=== PATIENT | female | born 1975 | race Caucasian/White ===

== ENCOUNTER 2020-11-07 20:02 | Emergency (ER) | payer OTHER, SELFPAY ==
--- NOTE | ~2020-11-07 | CT_ITS ---
EXAMINATION: CT abdomen pelvis wo con DATE: 11/07/2020 21:13 INDICATION: Right flank pain TECHNIQUE: Computed tomography (CT) of the abdomen and pelvis was performed without intravenous contr ast. The dose-length product (DLP) was 976.90 mGy-cm. Automated exposure control and iterative recons truction technique were employed. COMPARISON: 02/26/2019 FINDINGS: Minimal dependent atelectasis is present in the lung bases. The heart size is normal. The g allbladder is surgically absent. The liver, spleen, pancreas, and adrenal glands are normal. There is mild fat stranding surrounding the left kidney and left renal pelvis as well as the left ureter. Cally gical changes are noted at the lateral aspect of the left kidney. No stones are identified in the kid neys, ureters, or bladder. There is no hydronephrosis or hydroureter. No pathologically enlarged abdo berta or pelvic lymph nodes are identified. There is no free intraperitoneal gas or evidence of bowel obstruction. Colonic diverticulosis is present without evidence of diverticulitis. There is moderate lumbar spondylosis. A tiny fat-containing umbilical hernia is noted. IMPRESSION: 1. Fat stranding surrounding the left kidney and left ureter which may reflect urinary tract infectio n and pyelonephritis and/or recent passage of stone. Reviewed, dictated and finalized at location A. LLE PROOFREADER IMPRESSION: 1. Fat stranding surrounding the left kidney and left ureter which may reflect urinary tract infection and pyelonephritis and/or recent passage of stone.
[2020-11-07 20:03] VITALS: BP 113/96; PULSE 117; RESP 18; TEMP 36.3; O2SAT 92
[2020-11-07 20:18] VITALS: BP 128/94; PULSE 111; RESP 24; O2SAT 93
[2020-11-07 20:53] LABS: Basophils Absolute Auto 0.1 K/mm3 (0.0-0.1); Basophils Percent Auto 0.7 % (0.2-1.2); Eosinophils Absolute Auto 0.3 K/mm3 (0-0.3); Eosinophils Percent Auto 3.4 % (0-4.4); Hematocrit 40.7 % (37.0-47.0); Hemoglobin 13.8 g/dL (12.0-15.0); Immature Granulocyte Absolute 0.04 K/mm3 (0.00-0.031); Immature Granulocyte Percent A 0.4 % (0-0.5); Lymphocytes Absolute Auto 1.82 K/mm3 (0.9-3.2); Lymphocytes Percent Auto 18.3 % (18.3-44.2); Mean Corpuscular HGB Conc 33.9 g/dl (32-36); Mean Corpuscular Hemoglobin 30.7 pg (26-34); Mean Corpuscular Volume 90.6 fl (80-100); Mean Platelet Volume 10.5 fl (7.4-10.4); Monocytes Absolute Auto 1.2 K/mm3 (0.1-0.6); Monocytes Percent Auto 11.8 % (2.6-8.5); Neutrophils Absolute Auto 6.5 K/mm3 (1.3-6.7); Neutrophils Percent Auto 65.4 % (45.5-73.1); Platelet Count Result 296 k/mm3 (150-375); Red Blood Count 4.49 M/mm3 (4.2-5.4); Red Cell Distribution Width 13.3 % (11.5-14.5)
[2020-11-07] MEDS: SODIUM CHLORIDE 0.9% IV 1,000 ML 999 ML IV CONT (20:54)
[2020-11-07] MEDS: MORPHINE SULFATE (*CRX) 4 MG/ML INJ IV PUSH (20:54)
[2020-11-07] MEDS: ONDANSETRON INJ 4 MG/2 ML VIAL IV PUSH (20:54)
[2020-11-07 21:06] LABS: Alanine Aminotransferase 29 U/L (4-35); Albumin Level 4.1 g/dL (3.5-5.1); Alkaline Phosphatase 101 U/L (38-126); Anion Gap 13 mmol/L (8-16); Aspartate Amino Transferase 22 U/L (14-36); Bilirubin,Total 0.8 mg/dL (0.2-1.3); Blood Urea Nitrogen 15 mg/dL (7-17); Calcium 9.7 mg/dL (8.4-10.2); Carbon Dioxide 28 mmol/L (22-30); Chloride 99 mmol/L (98-107); Estimated Glomerular Filt Rate > 60; Glucose 242 mg/dL (65-105); Lipase 82 U/L (23-300); Potassium 3.2 mmol/L (3.4-5.0); Sodium 140 mmol/L (137-145)
[2020-11-07 21:53] LABS: Add Urine Microscopic? YES; Appearance Urine Clear (Clear); Bacteria Urine Trace /hpf; Bilirubin Urine Negative (Negative); Blood Urine 2+ (Negative); Budding Yeast Urine Present /hpf; Color Urine Amber (Yellow); Glucose Urine UA 3+ mg/dL (Negative); Ketones Urine Negative (Negative); Leukocyte Esterase Ur 2+ LEU/UL (Negative); Nitrate Urine Positive (Negative); Protein Urine 1+ mg/dL (Negative); RBC Urine 51-75 /hpf (0-2); Specific Grav Ur 1.024 (1.001-1.035); Squamous Epithelial Cell Urine Few /hpf (Few); Transitional Epi Cells Urine Rare /hpf (None Seen); WBC Clumps Urine Present /HPF; WBC Urine >75 /hpf
[2020-11-07 22:15] VITALS: BP 136/87; PULSE 102; RESP 15; O2SAT 90
--- NOTE | 2020-11-07 22:17 | ED.GENADULT ---
HPI - General Adult General Chief complaint: Urogenital-Female Stated complaint: possible kidney stone Time Seen by Provider: 11/07/20 20:08 History of Present Illness HPI narrative: Patient is a 44-year-old female who presents emerged from with chief complaint of right flank pain. Patient states over the last several days she has had pain in the right flank and is also noticed that she had burning with urination. Patient states several bit of nausea states that it is aching states is not improved by anything. The patient reports she has prior history of kidney stones states this feels similar to when she had a stone before in the past Related Data Allergies Allergy/AdvReac Type Severity Reaction Status Date / Time No Known Allergies Allergy Unverified 03/16/19 07:56 Review of Systems Review of Systems: Narrative: A 10 system review of systems was completed on the patient and is negative except for what is stated in the HPI. Nursing and ancillary documentation was reviewed. PMFSH Comments Patient has history of hypertension and diabetes Social history the patient denies smoking Exam Narrative: Exam Narrative: GENERAL: Well-appearing, well-nourished, and in no acute distress. HEAD: Normocephalic, atraumatic. EYES: PERRLA and EOMI. ENT: Nares clear, no rhinorrhea or epistaxis. Mucous membranes moist. NECK: Supple. CHEST: Clear to auscultation. No respiratory distress. HEART: Regular rate and rhythm. No murmur heard. Normal peripheral pulses. ABDOMEN: Soft, nontender, nondistended, normal active bowel sounds. EXTREMITIES: Normal range of motion. No edema. SKIN: Warm, dry, no rash. NEURO: No focal deficits. Alert and oriented x3. PSYCH: Normal mood and affect. Course Course Emergency Course: Patient CT scan showed evidence of pyelonephritis. Urinalysis also shows evidence of a acute urinary tract infection. There is no evidence of obstructing stone at this time. Vital Signs Vital signs: Vital Signs Temperature 36.3 C L 11/07/20 20:03 Pulse Rate 117 H 11/07/20 20:03 Respiratory Rate 18 11/07/20 20:03 Blood Pressure 113/96 H 11/07/20 20:03 Pulse Oximetry 92 11/07/20 20:03 Temperature 36.3 C L 11/07/20 20:03 Pulse Rate 102 H 11/07/20 22:15 Respiratory Rate 15 11/07/20 22:15 Blood Pressure 136/87 11/07/20 22:15 Pulse Oximetry 90 11/07/20 22:15 Medical Decision Making Vital Signs Vital Signs: Vital Signs Temperature 36.3 C L 11/07/20 20:03 Pulse Rate 117 H 11/07/20 20:03 Respiratory Rate 18 11/07/20 20:03 Blood Pressure 113/96 H 11/07/20 20:03 Pulse Oximetry 92 11/07/20 20:03 Temperature 36.3 C L 11/07/20 20:03 Pulse Rate 102 H 11/07/20 22:15 Respiratory Rate 15 11/07/20 22:15 Blood Pressure 136/87 11/07/20 22:15 Pulse Oximetry 90 11/07/20 22:15 Lab Data Result diagrams: 11/07/20 20:46 11/07/20 20:46 Labs: Lab Results 11/07/20 11/07/20 11/07/20 Range/Units 20:46 20:46 21:35 WBC 10.0 (4.5-10.0) K/mm3 RBC 4.49 (4.2-5.4) M/mm3 Hgb 13.8 (12.0-15.0) g/dL Hct 40.7 (37.0-47.0) % MCV 90.6 (80-100) fl MCH 30.7 (26-34) pg MCHC 33.9 (32-36) g/dl RDW 13.3 (11.5-14.5) % Plt Count 296 (150-375) k/mm3 MPV 10.5 H (7.4-10.4) fl Immature Gran % (Auto) 0.4 (0-0.5) % Neut % (Auto) 65.4 (45.5-73.1) % Lymph % (Auto) 18.3 (18.3-44.2) % [place] % (Auto) 11.8 H (2.6-8.5) % Eos % (Auto) 3.4 (0-4.4) % Baso % (Auto) 0.7 (0.2-1.2) % Lymph # (Auto) 1.82 (0.9-3.2) K/mm3 [place] # (Auto) 1.2 H (0.1-0.6) K/mm3 Eos # (Auto) 0.3 (0-0.3) K/mm3 Baso # (Auto) 0.1 (0.0-0.1) K/mm3 Abs Immat Gran (auto) 0.04 H (0.00-0.031) K/mm3 Absolute Neuts (auto) 6.5 (1.3-6.7) K/mm3 Absolute Nucleated RBC 0.0 (0.0-0.012) K/mm3 Nucleated RBC % 0.0 (0.0-0.2) % Sodium 140 (137-145) mmol/L Potassium 3.2 L (3.4-5.0) mmol/L Chlori
[2020-11-07] MEDS: KETOROLAC 30 MG/ML VIAL (*BKC) IV PUSH (22:43)
[2020-11-07 23:10] VITALS: BP 113/74; PULSE 100; RESP 12; O2SAT 92
== END 2020-11-07 23:10 | disposition home or self-care (01) ==
PROVIDERS: Emergency Provider Emergency Medicine; PCP Family Medicine
DX: N12 Tubulo-interstitial nephritis, not specified as acute or chronic (principal); N30.00 Acute cystitis without hematuria; Z87.442 Personal history of urinary calculi; I10 Essential (primary) hypertension; E11.9 Type 2 diabetes mellitus without complications
CPT/HCPCS: 36415; 74176; 80053; 81001; 81025; 83690; 85025; 87086; 87088; 87147; 96361; 96365; 96375; 99284; J0696; J1885; J2270; J2405; J7030

== ENCOUNTER 2020-11-13 10:16 | Inpatient (IN) | payer OTHER, SELFPAY ==
--- NOTE | ~2020-11-13 | US_ITS ---
US renal BI 11/15/2020 08:56 Procedure: Realtime transabdominal ultrasound of the kidneys and bladder. Indication: History of left renal cell carcinoma. Left pyelonephritis. Comparison: CT dated 11/13/2020 Findings: Renal echotexture is normal bilaterally without hydronephrosis, contour deforming mass or r enal calculus. The right kidney measures 12.1 cm and left kidney measures 11 cm. The posterior margin of the bladder appears echogenic with mild bladder wall thickening measuring 5.4 mm. There is fatty infiltration of the liver. Impression: 1: Mild bladder wall thickening with echogenic area in the posterior wall. Cannot exclude mass. Consi kelly correlation with cystoscopy. Reviewed, dictated and finalized at location A. OM CLOTHIER Impression: 1: Mild bladder wall thickening with echogenic area in the posterior wall. Omkar ot exclude mass. Consider correlation with cystoscopy.
--- NOTE | ~2020-11-13 | CT_ITS ---
EXAMINATION: CT abdomen pelvis wo con DATE: 11/13/2020 12:11 INDICATION: Hematuria TECHNIQUE: Computed tomography (CT) of the abdomen and pelvis was performed without intravenous contr ast. The dose-length product was 1503.27 mGy-cm. Automated exposure control and iterative reconstruct ion technique were employed. COMPARISON: CT dated 11/07/2020 FINDINGS: Lung bases are unremarkable. Dependent atelectasis. Heart size normal. No significant pleur al or pericardial effusion. Persistent left perinephric and proximal periureteral edema. Mild left hy dronephrosis. Apical changes present lateral aspect of the left kidney. No ureteral stones identified . There are cholecystectomy clips. The liver, spleen, pancreas, adrenal glands and right kidney are unremarkable. Mild lumbar spondylosi s. Colonic diverticulosis without diverticulitis. Nonobstructive bowel gas pattern. Tiny fat-containi ng umbilical hernia. IMPRESSION: 1. Persistent left perinephric and periureteral edema without obstructing stone. Findings suspicious for ascending urinary tract infection/pyelonephritis. Correlate clinically. Reviewed, dictated and finalized at location A. ING MACHINE OPERATOR IMPRESSION: 1. Persistent left perinephric and periureteral edema without obstructing stone . Findings suspicious for ascending urinary tract infection/pyelonephritis. Cor relate clinically.
[2020-11-13 10:39] VITALS: BP 124/90; PULSE 94; RESP 20; TEMP 36.9; O2SAT 95
--- NOTE | 2020-11-13 11:22 | ED.ABDPAIN ---
HPI - Abdominal Pain General Chief Complaint: Urogenital-Female Stated Complaint: hematuria, nausea Time Seen by Provider: 11/13/20 10:24 Source: patient, family and old records reviewed Mode of arrival: ambulatory Limitations: no limitations History of Present Illness HPI narrative: Patient is a 44-year-old female who presents to emergency department for evaluation of abdominal pain and hematuria was diagnosed with pyelonephritis on the first in the emergency department was placed on ciprofloxacin had no improvement with switch to amoxicillin by her urologist at [facility] no she continues to have nausea abdominal pain and no improvement despite these medications was also given a bladder spasm medication Related Data Allergies Allergy/AdvReac Type Severity Reaction Status Date / Time No Known Allergies Allergy Verified 11/13/20 10:46 Review of Systems Review of Systems: All systems reviewed & are unremarkable except as noted in HPI and below PMFSH Past Medical History Medical History (Updated 11/13/20 @ 13:09 by Rodney Chicas PA-C) Diabetes mellitus Obesity Surgical History Surgical History (Updated 11/13/20 @ 11:25 by Rodney Chicas PA-C) H/O partial nephrectomy Social History Social History (Updated 11/13/20 @ 11:25 by Rodney Chicas PA-C) Smoking status: Never smoker Exam Narrative: Exam Narrative: GENERAL: Well-appearing, obese, and in no acute distress. HEAD: Normocephalic, atraumatic. EYES: PERRLA and EOMI. ENT: Nares clear, no rhinorrhea or epistaxis. Mucous membranes moist. CHEST: Clear to auscultation. No respiratory distress. No wheezes rales or rhonchi HEART: Regular rate and rhythm. No murmur heard. Normal peripheral pulses. ABDOMEN: Soft, tenderness of the bilateral flanks, distended EXTREMITIES: Normal range of motion. No edema. SKIN: Warm, dry, no rash. NEURO: No focal deficits. Alert and oriented x3. PSYCH: Normal mood and affect. Course Course Emergency Course: Patient in the room at this time aware of case findings treatment plan diagnosis will be kept in hospital due to failed outpatient therapies patient was given Rocephin and fluids with improvement will be observed in the hospital overnight with urological consult patient is aware of discussions with urology and their recommendations Consultations Consultation #1: Discussed case with hospitalist and urology who will consult and admit the patient Date: 11/13/20 Time: 13:09 Vital Signs Vital signs: Vital Signs Temperature 98.4 F 11/13/20 10:39 Pulse Rate 94 11/13/20 10:39 Respiratory Rate 20 11/13/20 10:39 Blood Pressure 124/90 11/13/20 10:39 Pulse Oximetry 95 11/13/20 10:39 Temperature 98.4 F 11/13/20 10:39 Pulse Rate 94 11/13/20 10:39 Respiratory Rate 20 11/13/20 10:39 Blood Pressure 124/90 11/13/20 10:39 Pulse Oximetry 95 11/13/20 10:39 MDM - Abdominal Pain MDM Narrative Medical decision making narrative: Patient with urinary tract infection pyelonephritis picture reviewed sensitivities will be treated with Rocephin with urology consult admitted to the hospitalist Lab Data Result diagrams: 11/13/20 11:16 11/13/20 11:16 Labs: Lab Results 11/13/20 11/13/20 11/13/20 Range/Units 11:16 11:16 11:18 WBC 10.0 (4.5-10.0) K/mm3 RBC 4.49 (4.2-5.4) M/mm3 Hgb 13.8 (12.0-15.0) g/dL Hct 41.3 (37.0-47.0) % MCV 92.0 (80-100) fl MCH 30.7 (26-34) pg MCHC 33.4 (32-36) g/dl RDW 13.4 (11.5-14.5) % Plt Count 347 (150-375) k/mm3 MPV 10.4 (7.4-10.4) fl Immature Gran % (Auto) 0.7 H (0-0.5) % Neut % (Auto) 65.0 (45.5-73.1) % Lymph % (Auto) 19.5 (18.3-44.2) % [place] % (Auto) 9.7 H (2.6-8.5) % Eos % (Auto) 4.5 H (0-4.4) % Baso % (Auto) 0.6 (0.2-1.2) % Lymph # (Auto) 1.96 (0.9-3.2) K/mm3 [place] # (Auto) 1.0 H (0.1-0.6) K/mm3 Eos # (Auto) 0.5 H (0-0.3) K/mm3 Baso
[2020-11-13] MEDS: SODIUM CHLORIDE 0.9% IV 1,000 ML 999 ML IV CONT ×2 (11:26→11:32)
[2020-11-13] MEDS: FAMOTIDINE 20 MG/2 ML VIAL IV PUSH ×2 (11:26→20:11)
[2020-11-13] MEDS: ONDANSETRON INJ 4 MG/2 ML VIAL IV PUSH (11:26)
[2020-11-13 11:49] LABS: Basophils Absolute Auto 0.1 K/mm3 (0.0-0.1); Basophils Percent Auto 0.6 % (0.2-1.2); Eosinophils Absolute Auto 0.5 K/mm3 (0-0.3); Eosinophils Percent Auto 4.5 % (0-4.4); Hematocrit 41.3 % (37.0-47.0); Hemoglobin 13.8 g/dL (12.0-15.0); Immature Granulocyte Absolute 0.07 K/mm3 (0.00-0.031); Immature Granulocyte Percent A 0.7 % (0-0.5); Lymphocytes Absolute Auto 1.96 K/mm3 (0.9-3.2); Lymphocytes Percent Auto 19.5 % (18.3-44.2); Mean Corpuscular HGB Conc 33.4 g/dl (32-36); Mean Corpuscular Hemoglobin 30.7 pg (26-34); Mean Platelet Volume 10.4 fl (7.4-10.4); Monocytes Percent Auto 9.7 % (2.6-8.5); Neutrophils Absolute Auto 6.5 K/mm3 (1.3-6.7); Platelet Count Result 347 k/mm3 (150-375); Red Blood Count 4.49 M/mm3 (4.2-5.4); Red Cell Distribution Width 13.4 % (11.5-14.5)
[2020-11-13 11:57] LABS: Alanine Aminotransferase 40 U/L (4-35); Albumin Level 4.4 g/dL (3.5-5.1); Alkaline Phosphatase 110 U/L (38-126); Anion Gap 14 mmol/L (8-16); Aspartate Amino Transferase 41 U/L (14-36); Bilirubin,Total 0.8 mg/dL (0.2-1.3); Blood Urea Nitrogen 17 mg/dL (7-17); Calcium 9.4 mg/dL (8.4-10.2); Carbon Dioxide 27 mmol/L (22-30); Chloride 98 mmol/L (98-107); Estimated Glomerular Filt Rate > 60; Glucose 160 mg/dL (65-105); Potassium 3.3 mmol/L (3.4-5.0); Sodium 139 mmol/L (137-145)
[2020-11-13 12:02] LABS: Add Urine Microscopic? YES; Appearance Urine Cloudy (Clear); Bacteria Urine 3+ /hpf; Bilirubin Urine Negative (Negative); Blood Urine 3+ (Negative); Color Urine Yellow (Yellow); Glucose Urine UA 3+ mg/dL (Negative); Ketones Urine Trace mg/dL (Negative); Leukocyte Esterase Ur 3+ LEU/UL (Negative); Mucus Urine Rare /lpf; Nitrate Urine Negative (Negative); Protein Urine 2+ mg/dL (Negative); RBC Urine >75 /hpf (0-2); Squamous Epithelial Cell Urine Many /hpf (Few); Urobilinogen Urine Negative mg/dL (<2.0); WBC Clumps Urine Present /HPF; WBC Urine >75 /hpf
[2020-11-13 12:05] LABS: Specific Grav Ur 1.031 (1.001-1.035)
[2020-11-13 13:46] VITALS: BP 122/78; PULSE 80; RESP 18; O2SAT 97
[2020-11-13 14:00] VITALS: BP 146/89; PULSE 91; RESP 16; TEMP 35.9; O2SAT 96
[2020-11-13] MEDS: LACTATED RINGERS 1,000 ML 125 ML IV CONT ×2 (14:27→21:56)
--- NOTE | 2020-11-13 15:10 | WPDURCON ---
Assessment and Plan Assessment and plan (1) Urinary tract infection: Code(s): N39.0 - Urinary tract infection, site not specified Status: Acute Assessment and Plan: Continue IV antibiotics, will await culture results and for symptom improvement. No further intervention at this time. Urology Consult Note HPI Date Seen: 11/13/20 Requesting Physician: Corey Webb MD Primary Care Provider: Umesh Anderson MD Consult Narrative Narrative: Bibi Qiu is a 44 year old female who presented to the ER initially on 11/07/2020 for abdominal pain which radiates to her right flank. A CT abdomen/pelvis was taken and left pyelnephritis was indicated. She was given Ciprofloxacin and discharged home. The pain continued to worsen and she noted that Morphine and Torodol were not helpful in the ER and AZO was not helping at home. I saw her then in the office on 11/10/2020 and changed her antibiotics to Amoxicillin d/t her culture growing Strep B. For her continued pain I gave her Uribelle, which did not help her pain. She then called the office this morning c/o right sided abdominal and flank pain that is uncontrolled so much so she cannot sit or lay down comfortably. She is afebrile, WBC is 10.0, creatinine is 0.80, UA is positive still despite two different antibiotics, another culture was sent today. A repeat CT without contrast on 11/13/2020 shows persistent left pyelonephritis. Review of Systems Cardiovascular: Cardiovascular: Denies chest pain Respiratory: Respiratory: Reports no additional respiratory complaints Gastrointestinal: Gastrointestinal: Reports abdominal pain, Denies nausea and Denies vomiting Genitourinary: Genitourinary: Reports hematuria, Reports dysuria, Denies pelvic pain and Reports flank pain PMFSH Past Medical History Medical History Diabetes mellitus Obesity Surgical History Surgical History H/O partial nephrectomy Social History Social History Smoking status: Never smoker Alcohol intake: never Substance use: never Substance use type: does not use Gender identity (if verbalized by the patient): Female Spiritual care concerns: No Meds Home Medications and Allergies Home Medications Medication Instructions Recorded Confirmed Type amoxicillin 500 mg PO BID 11/13/20 11/13/20 History aspirin [Adult Low Dose Aspirin] 81 mg PO DAILY 11/13/20 11/13/20 History atorvastatin 40 mg PO DAILY 11/13/20 11/13/20 History empagliflozin [Jardiance] 25 mg PO DAILY 11/13/20 11/13/20 History glimepiride 1 mg PO DAILY 11/13/20 11/13/20 History losartan-hydrochlorothiazide 1 tablet PO DAILY 11/13/20 11/13/20 History metformin 850 mg PO BID 11/13/20 11/13/20 History leonardo-terranceeiup-[id number]-bju 118 cap PO QID 11/13/20 11/13/20 History [Uribel] Allergies Allergy/AdvReac Type Severity Reaction Status Date / Time No Known Allergies Allergy Verified 11/13/20 10:46 Vital Signs Vital Signs - 24 hr 11/13/20 10:39 11/13/20 13:46 Temperature 98.4 F Pulse Rate 94 80 Respiratory Rate 20 18 Blood Pressure 124/90 122/78 Pulse Oximetry 95 97 Exam Resp: Effort & Inspection: normal respiratory effort Cardio: Rate: regular rate GI: GI Palp: Yes Soft to palpation and Yes Tenderness to palpation present (GI) (RLQ) : General: Yes CVA tenderness on the right Extrem: General: no edema Results Labs CBC & Chem 7: 11/13/20 11:16 11/13/20 11:16 Labs: Short CBC 11/13/20 Range/Units 11:16 WBC 10.0 (4.5-10.0) K/mm3 Hgb 13.8 (12.0-15.0) g/dL Hct 41.3 (37.0-47.0) % Plt Count 347 (150-375) k/mm3 BMP 11/13/20 11:16 Sodium 139 Potassium 3.3 L Chloride 98 Carbon Dioxide 27 BUN 17 Creatinine 0.80 Glucose 160 H Calcium 9.4 Liver Function
[2020-11-13 16:00] VITALS: BP 130/83; PULSE 85; RESP 14; TEMP 35.8; O2SAT 98
--- NOTE | 2020-11-13 16:32 | PC.NURSE ---
1600- Dr. Webb here to see patient. Reported that ptstated pain at 7/10,but resting quietly with no apparent distress. Stated to continue with IV acetaminophen per PRN order.
--- NOTE | 2020-11-13 17:24 | PM.IMHP ---
H&P: HPI History of Present Illness Date/Time: 11/13/20 17:24 Chief Complaint: Abdominal pain Narrative: Bibi Qiu is a 44 year old female with recurrent UTI had been treated with oral antibiotics without much relief see again presented emergency department with a complaint right flank pain, dysuria frequency of urination and urgency, CT scan of the abdomen shows pyelonephritis but no nephrolithiasis, patient was started from the emergency depart on Rocephin and urine culture is being sent, patient still complains of the pain, denies any nausea or vomiting fever or chill, patient is seen by urology service, will continue to monitor patient will follow-up on urine culture and further recommendation to follow. Review of Systems Review of Systems: All systems reviewed & are unremarkable except as noted in HPI and below PMFSH Past Medical History Medical History Diabetes mellitus Obesity Surgical History Surgical History H/O partial nephrectomy Social History Social History Smoking status: Never smoker Alcohol intake: never Substance use: never Substance use type: does not use Gender identity (if verbalized by the patient): Female Spiritual care concerns: No Meds Home Medications and Allergies Home Medications Medication Instructions Recorded Confirmed Type amoxicillin 500 mg PO BID 11/13/20 11/13/20 History aspirin [Adult Low Dose Aspirin] 81 mg PO DAILY 11/13/20 11/13/20 History atorvastatin 40 mg PO DAILY 11/13/20 11/13/20 History empagliflozin [Jardiance] 25 mg PO DAILY 11/13/20 11/13/20 History glimepiride 1 mg PO DAILY 11/13/20 11/13/20 History losartan-hydrochlorothiazide 1 tablet PO DAILY 11/13/20 11/13/20 History metformin 850 mg PO BID 11/13/20 11/13/20 History ziyaduoxn-[id number] 118 cap PO QID 11/13/20 11/13/20 History [Uribel] Allergies Allergy/AdvReac Type Severity Reaction Status Date / Time No Known Allergies Allergy Verified 11/13/20 10:46 Vital Signs Vital Signs - 24 hr 11/13/20 10:39 11/13/20 13:46 11/13/20 14:00 Temperature 98.4 F 96.7 F L Pulse Rate 94 80 91 Respiratory Rate 20 18 16 Blood Pressure 124/90 122/78 146/89 H Pulse Oximetry 95 97 96 11/13/20 16:00 Temperature 96.5 F L Pulse Rate 85 Respiratory Rate 14 Blood Pressure 130/83 Pulse Oximetry 98 Exam Narrative: Exam Narrative: Morbidly obese with BMI 46 Patient is comfortable, NAD HEENT: eyes are clear and none icteric LUNGS:CTA HEART: RR S1S2 ABD: BS+, tender right flank area Lower extremities: no edema SKIN: nonjaundiced Neuro: grossly intact. H&P: Results Labs Labs: Short CBC 11/13/20 Range/Units 11:16 WBC 10.0 (4.5-10.0) K/mm3 Hgb 13.8 (12.0-15.0) g/dL Hct 41.3 (37.0-47.0) % Plt Count 347 (150-375) k/mm3 BMP 11/13/20 11:16 Sodium 139 Potassium 3.3 L Chloride 98 Carbon Dioxide 27 BUN 17 Creatinine 0.80 Glucose 160 H Calcium 9.4 Liver Function 11/13/20 Range/Units 11:16 Total Bilirubin 0.8 (0.2-1.3) mg/dL AST 41 H (14-36) U/L ALT 40 H (4-35) U/L Alkaline Phosphatase 110 (38-126) U/L Albumin 4.4 (3.5-5.1) g/dL Urine 11/13/20 Range/Units 11:18 Urine Color Yellow (Yellow) Urine Appearance Cloudy H (Clear) Urine pH 5.0 (5.0-9.0) Ur Specific [place] 1.031 (1.001-1.035) Urine Protein 2+ H (Negative) mg/dL Urine Glucose (UA) 3+ H (Negative) mg/dL Assessment and Plan Assessment and plan (1) Urinary tract infection: Code(s): N39.0 - Urinary tract infection, site not specified Status: Acute Assessment and Plan: Bibi Qiu is a 44 year old female with recurrent UTI had been treated with oral antibiotics without much relief see again presented emergency department
[2020-11-13 17:51] LABS: Glucose Point of Care 136 (65-105)
[2020-11-13 17:51] LABS: Glucose Point of Care 167 (65-105)
[2020-11-13 20:00] VITALS: BP 123/71; PULSE 83; RESP 14; TEMP 36.8; O2SAT 95
[2020-11-13 20:21] LABS: Glucose Point of Care 177 (65-105)
[2020-11-14] VITALS: BP 127/86; PULSE 87; RESP 15; TEMP 36.5; O2SAT 95
[2020-11-14 04:00] VITALS: BP 118/80; PULSE 89; RESP 14; TEMP 37.3; O2SAT 95
[2020-11-14] MEDS: LACTATED RINGERS 1,000 ML 125 ML IV CONT ×3 (06:02→21:55)
[2020-11-14] MEDS: ONDANSETRON INJ 4 MG/2 ML VIAL IV PUSH (06:06)
[2020-11-14 07:44] LABS: Glucose Point of Care 171 (65-105)
[2020-11-14 07:52] VITALS: BP 137/95; PULSE 84; RESP 14; TEMP 36.4; O2SAT 98
[2020-11-14] MEDS: GLIMEPIRIDE 1 MG TABLET PO (08:31)
[2020-11-14] MEDS: ATORVASTATIN 40 MG TABLET PO (08:31)
[2020-11-14] MEDS: ASPIRIN 81 MG CHEWABLE TABLET PO (08:31)
[2020-11-14] MEDS: hydroCHLOROthiazide 25 MG TABLET PO (08:32)
[2020-11-14] MEDS: LOSARTAN POTASSIUM 100 MG TABLET PO (08:32)
--- NOTE | 2020-11-14 08:57 | WPDUROPN2 ---
Progress Note: A&P Assessment and Plan (1) Urinary tract infection: Code(s): N39.0 - Urinary tract infection, site not specified Status: Acute (2) Pyelonephritis: Code(s): N12 - Tubulo-interstitial nephritis, not specified as acute or chronic Status: Acute Assessment and Plan: Continue IV antibiotics, tailor to culture results. Patient did not improve with Ciprofloxacin or Amoxicillin, therefore I advised her that staying at least until the culture comes back and continuing IV antibiotics is best, as she is seeing improvement in pain. Will get a RENNY tomorrow to see if improvement is noted in pyelonephritis. Ok to go home when pain is manageable on appropriate oral antibiotics. Subjective Subjective Date/Time Seen: 11/14/20 08:57 Left Pyelonephritis Pain is improving today, still c/o hematuria and dysuria but improved. Denies night sweats, fever or nausea. Review of Systems Cardiovascular: Cardiovascular: Denies chest pain Respiratory: Respiratory: Reports no additional respiratory complaints Gastrointestinal: Gastrointestinal: Reports abdominal pain, Denies nausea and Denies vomiting Genitourinary: Genitourinary: Reports hematuria, Reports dysuria and Reports flank pain Exam Resp: Effort & Inspection: normal respiratory effort Cardio: Rate: regular rate GI: GI Palp: Yes Soft to palpation and Yes Tenderness to palpation present (GI) (RLQ) : General: Yes CVA tenderness on the right Extrem: General: no edema Objective Data Vital Signs Vital Signs: Vital Signs - 24 hr 11/13/20 10:39 11/13/20 13:46 11/13/20 14:00 Temperature 98.4 F 96.7 F L Pulse Rate 94 80 91 Respiratory Rate 20 18 16 Blood Pressure 124/90 122/78 146/89 H Pulse Oximetry 95 97 96 11/13/20 16:00 11/13/20 20:00 11/14/20 00:00 Temperature 96.5 F L 98.3 F 97.7 F Pulse Rate 85 83 87 Respiratory Rate 14 14 15 Blood Pressure 130/83 123/71 127/86 Pulse Oximetry 98 95 95 11/14/20 04:00 11/14/20 07:52 Temperature 99.2 F 97.5 F L Pulse Rate 89 84 Respiratory Rate 14 14 Blood Pressure 118/80 137/95 H Pulse Oximetry 95 98 Intake/Output Intake/Output: Intake & Output 11/11/20 11/12/20 11/13/20 11/14/20 23:59 23:59 23:59 23:59 Intake Total 3970 350 Output Total 300 700 Balance 3670 -350 Meds/Results Medications: Active Medications Generic Name Dose Route Start Last Admin Trade Name Yandy PRN Reason Stop Dose Admin Aspirin 81 mg 11/14/20 08:00 11/14/20 08:31 Aspirin 81 Mg Chewable Tablet PO 81 mg DAILY@0800 MYRA Administration Atorvastatin Calcium 40 mg 11/14/20 09:00 11/14/20 08:31 Atorvastatin 40 Mg Tablet PO 40 mg DAILY MYRA Administration Dextrose 12.5 gm 11/13/20 16:44 Dextrose 50% 25 Gm/50 Ml Syringe IV PUSH PRN PRN Hypoglycemia Protocol Famotidine 20 mg 11/13/20 21:00 11/13/20 20:11 Famotidine 20 Mg/2 Ml Vial IV PUSH 20 mg Q12HR MYRA Administration Glimepiride 1 mg 11/14/20 08:00 11/14/20 08:31 Glimepiride 1 Mg Tablet PO 1 mg DAILY@0800 MYRA Administration Glucagon 1 mg 11/13/20 16:44 Glucagon For Inj 1 Mg Vial IM PRN PRN Hypoglycemia Protocol Glucose 15 gm 11/13/20 16:44 Glucose Oral Gel 15 Gm Of Glucse In 37.5 Gm Tube PO PRN PRN Hypoglycemia Protocol Hydrochlorothiazide 25 mg 11/14/20 09:00 11/14/20 08:32 Hydrochlorothiazide 25 Mg Tablet PO 25 mg QAM MYRA Administration Acetaminophen 1,000 mg in 100 mls @ 400 mls/hr 11/13/20 13:10 11/14/20 06:03 Ofirmev 1,000 Mg Ivpb IVPB 11/14/20 13:11 400 mls/hr Q6H PRN Administration Mild Pain (1-3) or Fever Lactated Ringer's 1,000 mls @ 125 mls/hr 11/13/20 13:10 11/14/20 06:02 Lr - Lactated Ringers Iv IV CONT 125 mls/hr .Q8H MYRA Administration Ceftriaxone Sodium/Dextrose 1 gm in 50 mls @ 100 mls/hr 11/14/20 12:00 Rocephin 1 Gm/D5w 50 Ml IVPB Q24H MYRA Dextrose 1,000 mls @ 100
[2020-11-14 09:03] LABS: Basophils Percent Auto 0.5 % (0.2-1.2); Eosinophils Absolute Auto 0.3 K/mm3 (0-0.3); Eosinophils Percent Auto 3.7 % (0-4.4); Hematocrit 35.8 % (37.0-47.0); Hemoglobin 11.8 g/dL (12.0-15.0); Immature Granulocyte Absolute 0.12 K/mm3 (0.00-0.031); Immature Granulocyte Percent A 1.4 % (0-0.5); Lymphocytes Absolute Auto 1.56 K/mm3 (0.9-3.2); Lymphocytes Percent Auto 18.6 % (18.3-44.2); Mean Platelet Volume 10.1 fl (7.4-10.4); Monocytes Absolute Auto 0.8 K/mm3 (0.1-0.6); Monocytes Percent Auto 9.2 % (2.6-8.5); Neutrophils Absolute Auto 5.6 K/mm3 (1.3-6.7); Neutrophils Percent Auto 66.6 % (45.5-73.1); Platelet Count Result 292 k/mm3 (150-375); Red Blood Count 3.81 M/mm3 (4.2-5.4); Red Cell Distribution Width 13.7 % (11.5-14.5); White Blood Count 8.4 K/mm3 (4.5-10.0)
[2020-11-14 09:15] LABS: Anion Gap 10 mmol/L (8-16); Blood Urea Nitrogen 14 mg/dL (7-17); Calcium 8.2 mg/dL (8.4-10.2); Carbon Dioxide 27 mmol/L (22-30); Chloride 103 mmol/L (98-107); Estimated Glomerular Filt Rate > 60; Glucose 229 mg/dL (65-105); Potassium 3.7 mmol/L (3.4-5.0); Sodium 140 mmol/L (137-145)
[2020-11-14] MEDS: FAMOTIDINE 20 MG/2 ML VIAL IV PUSH ×2 (09:24→21:09)
[2020-11-14 12:00] VITALS: BP 148/97; PULSE 96; RESP 14; TEMP 37.1; O2SAT 96
[2020-11-14 12:10] LABS: Glucose Point of Care 135 (65-105)
--- NOTE | 2020-11-14 13:50 | PM.IMPN ---
Progress Note: A&P Assessment and Plan (1) Urinary tract infection: Code(s): N39.0 - Urinary tract infection, site not specified Status: Acute Assessment and Plan: 11/14/20 13:50 Bibi Qiu is a 44 year old female with recurrent UTI had been treated with oral antibiotics without much relief see again presented emergency department with a complaint right flank pain, dysuria frequency of urination and urgency, CT scan of the abdomen shows pyelonephritis but no nephrolithiasis, patient was started from the emergency depart on Rocephin and urine culture is being sent, patient still complains of the pain, denies any nausea or vomiting fever or chill, patient is seen by urology service, will continue to monitor patient will follow-up on urine culture and further recommendation to follow. 11/14 patient is on Rocephin, is feeling little better the pain in right flank is not as bad however still complains dysuria and frequency of urination, denies any nausea or vomiting fever or chills, culture still pending, plan is to once we know what antibiotics work orally discharge the patient, patient is seen by urologist and further recommendation to follow (2) Diabetes mellitus: Code(s): E11.9 - Type 2 diabetes mellitus without complications Status: Inactive Assessment and Plan: Will continue home regimen and monitor with sliding scale Subjective Date/time seen: 11/14/20 13:50 Bibi Qiu is a 44 year old female with recurrent UTI had been treated with oral antibiotics without much relief see again presented emergency department with a complaint right flank pain, dysuria frequency of urination and urgency, CT scan of the abdomen shows pyelonephritis but no nephrolithiasis, patient was started from the emergency depart on Rocephin and urine culture is being sent, patient still complains of the pain, denies any nausea or vomiting fever or chill, patient is seen by urology service, will continue to monitor patient will follow-up on urine culture and further recommendation to follow. 11/14 patient is on Rocephin, is feeling little better the pain in right flank is not as bad however still complains dysuria and frequency of urination, denies any nausea or vomiting fever or chills, culture still pending, plan is to once we know what antibiotics work orally discharge the patient, patient is seen by urologist and further recommendation to follow Review of Systems Review of Systems: All systems reviewed & are unremarkable except as noted in HPI and below Exam Narrative: Exam Narrative: Morbidly obese with BMI 46 Patient is comfortable, NAD HEENT: eyes are clear and none icteric LUNGS:CTA HEART: RR S1S2 ABD: BS+, tender right flank area Lower extremities: no edema SKIN: nonjaundiced Neuro: grossly intact. Objective Data Vital Signs Vital Signs: Vital Signs - 24 hr 11/13/20 14:00 11/13/20 16:00 11/13/20 20:00 Temperature 96.7 F L 96.5 F L 98.3 F Pulse Rate 91 85 83 Respiratory Rate 16 14 14 Blood Pressure 146/89 H 130/83 123/71 Pulse Oximetry 96 98 95 11/14/20 00:00 11/14/20 04:00 11/14/20 07:52 Temperature 97.7 F 99.2 F 97.5 F L Pulse Rate 87 89 84 Respiratory Rate 15 14 14 Blood Pressure 127/86 118/80 137/95 H Pulse Oximetry 95 95 98 11/14/20 12:00 Temperature 98.8 F Pulse Rate 96 Respiratory Rate 14 Blood Pressure 148/97 H Pulse Oximetry 96 Intake/Output Intake/Output: Intake & Output 11/11/20 11/12/20 11/13/20 11/14/20 23:59 23:59 23:59 23:59 Intake Total 3970 690 Output Total 300 700 Balance 3670 -10 Meds/Results Medications: Active Medications Generic Name Dose Route Start Last Admin Trade Name Freq PRN Reason Stop Dose Admin Aspirin 81 mg 11/14/20 08:00 11/14/20 08:31 Aspirin 81 Mg Chewable Tablet PO 81 mg DAILY@0800 MYRA Administration Atorvastatin Calcium 40 mg 11/14/20 09:00 11/14/20 08:31 Atorvastatin 40 Mg Tablet PO 40 mg DAILY S
[2020-11-14 16:00] VITALS: BP 134/72; PULSE 94; RESP 16; TEMP 36.1; O2SAT 97
[2020-11-14] MEDS: ACETAMINOPHEN 325 MG TABLET 650 MG PO (16:54)
[2020-11-14 17:20] LABS: Glucose Point of Care 161 (65-105)
[2020-11-14 20:00] VITALS: BP 109/69; PULSE 89; RESP 16; TEMP 37.2; O2SAT 96
[2020-11-14 21:15] LABS: Glucose Point of Care 177 (65-105)
[2020-11-15 00:15] VITALS: BP 133/83; PULSE 80; RESP 16; TEMP 36.4; O2SAT 92
[2020-11-15] MEDS: ACETAMINOPHEN 325 MG TABLET 650 MG PO (00:16)
[2020-11-15 04:00] VITALS: BP 148/92; PULSE 86; RESP 16; TEMP 36.1; O2SAT 92
[2020-11-15 04:18] LABS: Hematocrit 33.3 % (37.0-47.0); Mean Corpuscular Hemoglobin 31.1 pg (26-34); Mean Corpuscular Volume 94.1 fl (80-100); Mean Platelet Volume 10.2 fl (7.4-10.4); Platelet Count Result 272 k/mm3 (150-375); Red Blood Count 3.54 M/mm3 (4.2-5.4); Red Cell Distribution Width 13.6 % (11.5-14.5); White Blood Count 7.4 K/mm3 (4.5-10.0)
[2020-11-15 04:23] LABS: Anion Gap 8 mmol/L (8-16); Blood Urea Nitrogen 14 mg/dL (7-17); Calcium 8.4 mg/dL (8.4-10.2); Carbon Dioxide 29 mmol/L (22-30); Chloride 103 mmol/L (98-107); Estimated Glomerular Filt Rate > 60; Glucose 163 mg/dL (65-105); Potassium 3.6 mmol/L (3.4-5.0); Sodium 140 mmol/L (137-145)
[2020-11-15] MEDS: LACTATED RINGERS 1,000 ML 125 ML IV CONT (06:00)
[2020-11-15 08:00] VITALS: BP 133/87; PULSE 82; RESP 16; TEMP 36.7; O2SAT 95
[2020-11-15] MEDS: ASPIRIN 81 MG CHEWABLE TABLET PO (08:08)
[2020-11-15] MEDS: GLIMEPIRIDE 1 MG TABLET PO (08:08)
[2020-11-15] MEDS: ATORVASTATIN 40 MG TABLET PO (08:09)
[2020-11-15] MEDS: LOSARTAN POTASSIUM 100 MG TABLET PO (08:10)
[2020-11-15] MEDS: hydroCHLOROthiazide 25 MG TABLET PO (08:10)
[2020-11-15 08:26] LABS: Glucose Point of Care 151 (65-105)
--- NOTE | 2020-11-15 10:09 | PM.DS ---
DS: Admitting Diagnosis Admitting Diagnosis Admitting Diagnosis: Patient was seen and examined at the time of the discharge Condition at discharge is stable Code status: Full code. Time spent preparing discharge summary, discharge medications, discussing discharge planning with manager rn case and patient is 35 minutes. DS: Discharge Diagnosis Discharge Diagnosis (1) Urinary tract infection: Code(s): N39.0 - Urinary tract infection, site not specified Status: Acute Assessment and Plan: 11/14/20 13:50 Bibi Qiu is a 44 year old female with recurrent UTI had been treated with oral antibiotics without much relief see again presented emergency department with a complaint right flank pain, dysuria frequency of urination and urgency, CT scan of the abdomen shows pyelonephritis but no nephrolithiasis, patient was started from the emergency depart on Rocephin and urine culture is being sent, patient still complains of the pain, denies any nausea or vomiting fever or chill, patient is seen by urology service, will continue to monitor patient will follow-up on urine culture and further recommendation to follow. 11/14 patient is on Rocephin, is feeling little better the pain in right flank is not as bad however still complains dysuria and frequency of urination, denies any nausea or vomiting fever or chills, culture still pending, plan is to once we know what antibiotics work orally discharge the patient, patient is seen by urologist and further recommendation to follow (2) Diabetes mellitus: Code(s): E11.9 - Type 2 diabetes mellitus without complications Status: Inactive Assessment and Plan: Will continue home regimen and monitor with sliding scale DS: Summary Hospital Course Reason for hospitalization: Chief Complaint: Abdominal pain Narrative: Bibi Qiu is a 44 year old female with recurrent UTI had been treated with oral antibiotics without much relief see again presented emergency department with a complaint right flank pain, dysuria frequency of urination and urgency, CT scan of the abdomen shows pyelonephritis but no nephrolithiasis, patient was started from the emergency depart on Rocephin and urine culture is being sent, patient still complains of the pain, denies any nausea or vomiting fever or chill, patient is seen by urology service, will continue to monitor patient will follow-up on urine culture and further recommendation to follow. Hospital Course: Bibi Qiu is a 44 year old female with recurrent UTI had been treated with oral antibiotics without much relief see again presented emergency department with a complaint right flank pain, dysuria frequency of urination and urgency, CT scan of the abdomen shows pyelonephritis but no nephrolithiasis, patient was started from the emergency depart on Rocephin and urine culture is being sent, patient still complains of the pain, denies any nausea or vomiting fever or chill, patient is seen by urology service, will continue to monitor patient will follow-up on urine culture and further recommendation to follow. 11/14 patient is on Rocephin, is feeling little better the pain in right flank is not as bad however still complains dysuria and frequency of urination, denies any nausea or vomiting fever or chills, culture still pending, plan is to once we know what antibiotics work orally discharge the patient, patient is seen by urologist and further recommendation to follow. today patient is clinically stable, her paint is resovled, and there is no growth on urine culture, will discharge home today and will follow up with he urologist as soon as possible Status at Discharge Functional status at discharge: independent ambulation Overall status at discharge: patient is back to baseline Time Spent with Patient Time attestation: Total time spent providing and/or coordinating discharge services: Patient was seen and examined at the time of the discharge Condition at dis
[2020-11-15 11:48] LABS: Glucose Point of Care 136 (65-105)
[2020-11-15 12:00] VITALS: BP 148/100; PULSE 80; RESP 18; TEMP 36.6; O2SAT 98
--- NOTE | 2020-11-15 13:51 | PC.NURSE ---
1245 - IV D/C'd from right hand, catheter intact, site without redness or swelling. Discharge instructions reviewed w patient w stated understanding. Discharged via wheelchair to 's personal vehicle.
== END 2020-11-15 13:50 | disposition home or self-care (01) | DRG 690 ==
LOC: ANHED 13:09 → ANHCPC 13:38
PROVIDERS: Emergency Medicine Emergency Medical Services; Admitting Provider Family Medicine; Emergency Provider Emergency Medicine; PCP Family Medicine; Visit Provider Family Medicine
DX: N10 Acute pyelonephritis (principal); Z68.42 Body mass index [BMI] 45.0-49.9, adult; E11.9 Type 2 diabetes mellitus without complications; E66.9 Obesity, unspecified
CPT/HCPCS: 36415; 74176; 76775; 80048; 80053; 81001; 85025; 85027; 87086; 96361; 96365; 96366; 96368; 96375; 96376; 99285; A9270; G0378; J0131; J0696; J2405; J7030; J7120

== ENCOUNTER 2022-02-22 15:54 | Outpatient (CLI) | payer OTHER, SELFPAY ==
--- NOTE | ~2022-02-22 | CT_ITS ---
EXAMINATION: CT abdomen pelvis wo/w con EXAM DATE: 02/22/2022 16:30 INDICATION: Right flank pain. TECHNIQUE: Spiral CT of the abdomen and pelvis was performed without contrast. The patient was then injected with small bolus intravenous Omnipaque 350, followed by delay of approximately 10 minutes to allow collecting system to opacify. A post contrast scan abdomen and pelvis was performed during inj ection of remaining contrast. A total of 130 cc intravenous contrast was administered. The dose-madison th product (DLP) for this examination was 2519.65 mGy-cm. The exposure was tailored according to pat ient size (auto mA exposure control), and iterative reconstruction (ASIR) was used as additional dose reduction technique. Comparison is made to prior examination from 11/13/2020. FINDINGS: Moderately atrophic left kidney, with thin hyperdensity along the lateral inferior margin, possible partial nephrectomy. Correlate with prior history. The kidneys enhance symmetrically. Th ere are no suspicious renal lesions. The calyces and opacified portions of ureters are unremarkable, without filling defects or focal suspicious strictures. The bladder is unremarkable. The uterus is not identified and has likely been surgically resected. The liver, spleen, adrenal glands and pancreas are unremarkable. Gallbladder not identified, patient likely has had cholecystectomy. There is no retroperitoneal or pelvic lymphadenopathy. There is m ild scattered arteriosclerotic disease. The appendix is normal. Surgical changes along greater curvature of the stomach, probably gastric po uch. There is expected amount of colonic stool. There is mild scattered colonic diverticulosis. The re is no adjacent inflammatory change to suggest diverticulitis. No free intraperitoneal gas. The heart is normal in size. There are no pericardial or pleural effusions. The lung bases are unremar kable. There are no osteoblastic or osteolytic lesions identified. IMPRESSION: 1. Moderate left renal atrophy, could be partly from partial nephrectomy, correlate with history. 2. Other surgical changes. Reviewed, dictated and finalized at location A. IMPRESSION: 1. Moderate left renal atrophy, could be partly from partial nephrectomy, enrico elate with history. 2. Other surgical changes.
[2022-02-22 16:16] LABS: Estimated Glomerular Filt Rate > 60
== END 2022-02-22 15:55 | disposition home or self-care (01) ==
LOC: ANHIMG 15:57
PROVIDERS: PCP Family Medicine; Visit Provider Family Medicine
DX: R10.9 Unspecified abdominal pain (principal); N26.1 Atrophy of kidney (terminal)
CPT/HCPCS: 74178; Q9967

== ENCOUNTER 2022-05-31 10:33 | Emergency (ER) | payer OTHER, SELFPAY ==
[2022-05-31 11:07] VITALS: BP 114/71; PULSE 71; RESP 18; TEMP 36.7; O2SAT 99
--- NOTE | 2022-05-31 11:31 | ED.DENTAL ---
HPI - Dental/Oral General Chief complaint: Skin/Abscess/Foreign Body Stated complaint: Lt Facial Swelling Time Seen by Provider: 05/31/22 11:24 Source: patient Mode of arrival: ambulatory Limitations: no limitations History of Present Illness HPI Narrative: 46-year-old female presents with concern for left jaw and cheek pain with swelling for 1 week. She reports she has an appointment to have a root canal to tooth #14. She reports pain started there and has radiated now to the lower teeth and jaw, cheek. She reports she has been taking as much Tylenol she can with no relief of pain. Reports she cannot take ibuprofen due to bariatric surgery 1 year ago. MD Complaint: tooth pain Related Data Home Medications Medication Instructions Recorded Confirmed atorvastatin 40 mg tablet 40 mg PO DAILY 11/13/20 05/31/22 losartan 100 1 tablet PO DAILY 11/13/20 05/31/22 mg-hydrochlorothiazide 25 mg tablet metformin 850 mg tablet 850 mg PO BID 11/13/20 05/31/22 Allergies Allergy/AdvReac Type Severity Reaction Status Date / Time No Known Allergies Allergy Verified 05/31/22 11:11 Review of Systems Review of Systems: CONSTITUTIONAL: Denies malaise, chills, sweats, or fever. EYES: Denies visual changes ENT: Denies rhinorrhea, congestion, sinus pain, otalgia or sore throat. Reports left upper and lower dental pain CARDIOVASCULAR: Denies chest pain, palpitations RESPIRATORY: Denies cough or dyspnea. SKIN: Denies rash or itching. MUSCULOSKELETAL: Denies myalgia. NEUROLOGIC: Denies numbness, weakness, or headache. All systems reviewed & are unremarkable except as noted in HPI and below [facility] Past Medical History Medical History (Updated 05/31/22 @ 11:31 by Talita Ogden NP) Diabetes mellitus Obesity Surgical History Surgical History H/O partial nephrectomy Social History Social History Smoking status: Never smoker Alcohol intake: never Substance use: never Substance use type: does not use Gender identity (if verbalized by the patient): Female Spiritual care concerns: No Comments At time of signature, agree with nursing past medical, surgical, social and family history. There is no relevant family history pertinent to the presenting complaint Exam Narrative: GENERAL: Well-appearing, well-nourished, and in no acute distress. HEAD: Normocephalic, atraumatic. EYES: PERRLA, sclera clear ENT: Nares clear, turbinates pink, no rhinorrhea or epistaxis. Mucous membranes moist. Oropharynx without erythema or lesions. Tonsils not enlarged and without exudate. No missing teeth. Tooth #14 broken teeth with caries. Tenderness to the left cheek. No facial warmth, induration, fluctuation, swelling noted NECK: Supple. No lymphadenopathy. CHEST: No respiratory distress. Speaks in full sentences. HEART: Regular rate and rhythm. SKIN: Warm, dry, no visible rash. NEURO: Alert and oriented x3. PSYCH: Normal mood and affect Course Course Emergency Course: Patient is aware of diagnosis, understands and agrees to treatment plan. Anticipatory guidance given. Patient agrees to follow-up as directed and is aware of reasons to seek care at the emergency department. Portions of this record may have been created with voice recognition software Level of Care: Express Care Visit Vital Signs Vital signs: Vital Signs Temperature 98.1 F 05/31/22 11:07 Pulse Rate 71 05/31/22 11:07 Respiratory Rate 18 05/31/22 11:07 Blood Pressure 114/71 05/31/22 11:07 Pulse Oximetry 99 05/31/22 11:07 Oxygen Delivery Room Air 05/31/22 11:07 Temperature 98.1 F 05/31/22 11:07 Pulse Rate 71 05/31/22 11:07 Respiratory Rate 18 05/31/22 11:07 Blood Pressure 114/71 05/31/22 11:07 Pulse Oximetry 99 05/31/22 11:07 Oxygen Delivery Room Air 05/31/22 11:07 Reviewed. MDM - Dental/Oral
== END 2022-05-31 11:43 | disposition home or self-care (01) ==
PROVIDERS: Emergency Provider Nurse Practitioner; PCP Family Medicine
DX: K08.89 Other specified disorders of teeth and supporting structures (principal); E11.9 Type 2 diabetes mellitus without complications; E66.9 Obesity, unspecified; Z68.37 Body mass index [BMI] 37.0-37.9, adult; Z98.84 Bariatric surgery status; Z85.528 Personal history of other malignant neoplasm of kidney; Z90.5 Acquired absence of kidney
CPT/HCPCS: 99213; G0463

== ENCOUNTER 2022-10-05 09:44 | Outpatient (CLI) | payer OTHER, SELFPAY ==
--- NOTE | ~2022-10-05 | MM_ITS ---
EXAMINATION: MM screening [facility] BI w tasha HISTORY: Screening mammogram TECHNIQUE: Craniocaudal and mediolateral oblique 3-D tomosynthesis images were obtained and synthetic 2-D images were generated. CAD analysis was submitted and interpreted. COMPARISON: 01/02/2018 BREAST PARENCHYMAL COMPOSITION: There are scattered areas of fibroglandular density. FINDINGS: Stable masses in the upper outer quadrants of the breasts are considered benign given the l ack of interval change. No suspicious mass, calcification, or architectural distortion are identified in either breast to suggest malignancy. There has been no suspicious interval change. IMPRESSION: 1. No mammographic evidence of malignancy. 2. Recommend routine screening mammography in one year. BI-RADS Category 2: Benign finding(s). Reviewed, dictated and finalized at location A. MANAGER
== END 2022-10-05 09:45 | disposition home or self-care (01) ==
LOC: ANHIMG 09:45
PROVIDERS: PCP Family Medicine; Visit Provider Family Medicine
DX: Z12.31 Encounter for screening mammogram for malignant neoplasm of breast (principal)
CPT/HCPCS: 77063; 77067

== ENCOUNTER 2022-11-20 08:17 | Emergency (ER) | payer OTHER, SELFPAY ==
[2022-11-20 08:30] VITALS: BP 127/82; PULSE 81; RESP 16; TEMP 36.4; O2SAT 98
[2022-11-20 08:34] VITALS: BP 127/82; PULSE 81; RESP 16; TEMP 36.4; O2SAT 98
--- NOTE | 2022-11-20 08:55 | ED.URI ---
HPI - URI/Sore Throat General Chief Complaint: Upper Respiratory Infection Stated Complaint: sorethroat Time Seen by Provider: 11/20/22 08:55 History of Present Illness HPI Narrative: 46-year-old female presented for complaint of sore throat, body aches, sinus congestion, cough , nausea and fever over the last 3 days. She denies known sick contacts. He has not taking anything for symptoms. She denies shortness of breath, wheezing, vomiting or diarrhea. Related Data Home Medications Medication Instructions Recorded Confirmed atorvastatin 40 mg tablet 40 mg PO DAILY 11/13/20 11/20/22 losartan 100 1 tablet PO DAILY 11/13/20 11/20/22 mg-hydrochlorothiazide 25 mg tablet metformin 850 mg tablet 850 mg PO BID 11/13/20 11/20/22 amitriptyline 50 mg tablet 50 mg PO HS 11/20/22 11/20/22 omeprazole 20 mg capsule,delayed 20 mg PO DAILY 11/20/22 11/20/22 release Allergies Allergy/AdvReac Type Severity Reaction Status Date / Time No Known Allergies Allergy Verified 11/20/22 08:32 Review of Systems Review of Systems: per HPI [facility] Past Medical History Medical History Diabetes mellitus Obesity Surgical History Surgical History H/O partial nephrectomy Social History Social History Smoking status: Never smoker Alcohol intake: never Substance use: never Substance use type: does not use Gender identity (if verbalized by the patient): Female Spiritual care concerns: No Exam Narrative: GENERAL: Ill-appearing, no acute distress. EYES: conjunctivae clear ENT: Mucous membranes moist. TM pearly diaz with normal light reflex bilaterally; no tragal tenderness. Oropharynx erythematous Tonsils enlarged 3+ without exudate. No drooling, no hoarseness, no trismus, uvula midline. No tripod positioning, hot potato voice, or soft palate swelling. NECK: Supple. No lymphadenopathy CHEST: Clear to auscultation, breath sounds equal. No respiratory distress, speaks in full sentences. HEART: Regular rate and rhythm. No murmur heard. SKIN: Warm, dry, no rash. NEURO: Alert and oriented x3. Course Course Emergency Course: Patient is aware of diagnosis, understands and agrees to treatment plan. Anticipatory guidance given. Patient agrees to follow-up as directed and is aware of reasons to seek care at the emergency department. Portions of this record may have been created with voice recognition software Level of Care: Express Care Visit Vital Signs Vital signs: Vital Signs Temperature 97.5 F L 11/20/22 08:30 Pulse Rate 81 11/20/22 08:30 Respiratory Rate 16 11/20/22 08:30 Blood Pressure 127/82 11/20/22 08:30 Pulse Oximetry 98 11/20/22 08:30 Oxygen Delivery Room Air 11/20/22 08:30 Temperature 97.5 F L 11/20/22 08:34 Pulse Rate 81 11/20/22 08:34 Respiratory Rate 16 11/20/22 08:34 Blood Pressure 127/82 11/20/22 08:34 Pulse Oximetry 98 11/20/22 08:34 Oxygen Delivery Room Air 11/20/22 08:34 MDM - URI/Sore Throat MDM Narrative Medical decision making narrative: strep result reviewed with pt. Advise supportive treatments. Patient is appropriate for outpatient treatment and follow-up. Differential Diagnosis Differential diagnosis: Likely upper respiratory infection, viral infection and pharyngitis Discharge Plan Discharge Clinical Impression: Strep pharyngitis Patient Disposition: Home, Self-Care Condition: Stable Instructions: Antibiotic Form, Strep Throat (ED) Additional Instructions: - Take the antibiotic as directed. Fever and sore throat typically resolve within one to three days. Most patients can return to work after 12 to 24 hours of antibiotic therapy, provided you are fever free and otherwise well. -Eat and drink things that are easy to swallow, like soft foods, c
== END 2022-11-20 09:02 | disposition home or self-care (01) ==
PROVIDERS: Emergency Provider Nurse Practitioner Family; PCP Family Medicine
DX: J02.0 Streptococcal pharyngitis (principal); E11.9 Type 2 diabetes mellitus without complications; E66.9 Obesity, unspecified; Z68.37 Body mass index [BMI] 37.0-37.9, adult
CPT/HCPCS: 87880; 99213; G0463

== ENCOUNTER 2023-01-26 12:24 | Emergency (ER) | payer OTHER, SELFPAY ==
--- NOTE | 2023-01-26 12:40 | ED.URI ---
HPI - URI/Sore Throat General Chief Complaint: Upper Respiratory Infection Stated Complaint: chest pain,vomiting Time Seen by Provider: 01/26/23 12:40 Source: patient Mode of arrival: ambulatory Limitations: no limitations History of Present Illness HPI Narrative: 47-year-old female with history of hypertension, diabetes, high cholesterol presents with complaint of chest pain, shortness of breath with exertion, lower extremity swelling for the past 2 days. Reports that chest pain is midsternal and constant. Activity does not make chest pain worse. Patient reports that she has had sinus drainage, congestion for the past 4-5 days. States when she began having chest pain she thought at 1st that it may be bronchitis but that she is not really coughing. Patient is concerned that she may be have something cardiac related going on. States I came Here to have my heart checked . all systems reviewed and negative except as noted above. Related Data Home Medications Medication Instructions Recorded Confirmed atorvastatin 40 mg tablet 40 mg PO DAILY 11/13/20 01/26/23 losartan 100 1 tablet PO DAILY 11/13/20 01/26/23 mg-hydrochlorothiazide 25 mg tablet metformin 850 mg tablet 850 mg PO BID 11/13/20 01/26/23 omeprazole 20 mg capsule,delayed 20 mg PO DAILY 11/20/22 01/26/23 release Allergies Allergy/AdvReac Type Severity Reaction Status Date / Time No Known Allergies Allergy Verified 01/26/23 12:42 Review of Systems Review of Systems: CONSTITUTIONAL: Denies fever, chills, or sweats. EYES: Denies visual changes, redness, or discharge. ENT: Denies rhinorrhea, congestion, sore throat, or otalgia. CARDIOVASCULAR: Reports chest pain. Reports lower extremity swelling. Denies palpitations. RESPIRATORY: reports cough and dyspnea with exertion. GASTROINTESTINAL: Denies abdominal pain, nausea, vomiting, or diarrhea. GENITOURINARY: Denies dysuria or hematuria. SKIN: Denies rash or itching. MUSCULOSKELETAL: Denies back pain, joint pain, or myalgia. NEUROLOGIC: Denies headache, numbness, or weakness. PSYCHIATRIC: Denies anxiety or depression. All other systems reviewed are negative, except as documented in HPI. [facility] Past Medical History Medical History Diabetes mellitus Obesity Surgical History Surgical History H/O partial nephrectomy Social History Social History Smoking status: Never smoker Alcohol intake: never Substance use: never Substance use type: does not use Gender identity (if verbalized by the patient): Female Spiritual care concerns: No Comments At time of signature, agree with nursing past medical, surgical, social and family history. There is no relevant family history pertinent to the presenting complaint. Exam Narrative: GENERAL: This is a well-nourished, well-developed patient, in no apparent distress. HEAD: normocephalic, atraumatic. EYES: PERRL. Sclera clear/white. Vision is grossly intact. EARS: External ears normal NOSE: External nose normal NECK: Neck supple, non-tender without lymphadenopathy, masses or thyromegaly. CARDIOVASCULAR: Regular rate and rhythm without murmurs, gallops, or rubs. RESPIRATORY: Clear to auscultation. Breath sounds equal bilaterally. No wheezes, rales, or rhonchi. SKIN: warm, Dry, intact with no suspicious lesions or rash, good texture and turgor. NEURO: awake, alert, and oriented to person, place and time. There were no obvious focal neurologic abnormalities. EXTREMITIES: No joint tenderness, effusion, or edema noted. Course Course Level of Care: Express Care Visit Vital Signs Vital signs: Reviewed Transfer Transfered to: Welcome Transportation: S Transfer rationale: transfer to ER for further evaluation of CP and LE swelling Accepting physician: Bella Finn
[2023-01-26 13:00] VITALS: BP 119/77; PULSE 80; RESP 18; TEMP 36.3; O2SAT 98
--- NOTE | 2023-01-26 13:01 | ECG_ITS ---
Measurements Intervals [place] Rate: 75 P: 32 CT: 178 QRS: 74 QRSD: 81 T: 43 QT: 362 QTc: 404 Interpretive Statements SINUS RHYTHM LOW QRS VOLTAGE IN PRECORDIAL LEADS BORDERLINE R WAVE PROGRESSION, ANTERIOR LEADS BORDERLINE T WAVE ABNORMALITY- ANTERIOR LEADS BORDERLINE ECG COMPARED TO ECG 02/26/2019 08:38:14 SINUS RHYTHM NOW PRESENT Electronically Signed On 01-26-2023 14:37:18 CDT by Fernando Reynaga D.O.
[2023-01-26] MEDS: ASPIRIN 81 MG CHEWABLE TABLET 324 MG PO (13:06)
== END 2023-01-26 13:05 | disposition short-term general hospital (02) ==
PROVIDERS: Emergency Provider Nurse Practitioner Family; PCP Family Medicine
DX: R07.9 Chest pain, unspecified (principal); I10 Essential (primary) hypertension; E11.9 Type 2 diabetes mellitus without complications; Z79.84 Long term (current) use of oral hypoglycemic drugs
CPT/HCPCS: 93005; 99213; A9270; G0463

== ENCOUNTER 2023-01-26 13:29 | Emergency (ER) | payer OTHER, SELFPAY ==
--- NOTE | ~2023-01-26 | XR_ITS ---
XR chest 2V DATE: 01/26/2023 14:07 INDICATION: Central chest pain for 2 days TECHNIQUE: AP and lateral views COMPARISON: 04/24/2014 PA and lateral chest FINDINGS: No pulmonary infiltrate or consolidation, pleural effusion or pulmonary vascular congestion or pneumothorax is detected. Cardiac and mediastinal sweats appear within normal limits. Surgical clips, right upper quadrant, consistent with cholecystectomy. IMPRESSION: No active cardiopulmonary disease Reviewed, dictated and finalized at location B.
--- NOTE | 2023-01-26 13:32 | ECG_ITS ---
Measurements Intervals [place] Rate: 82 P: 32 [place]: 173 QRS: 105 QRSD: 78 T: 65 QT: 363 QTc: 425 Interpretive Statements SINUS RHYTHM RIGHT AXIS DEVIATION LOW QRS VOLTAGE IN PRECORDIAL LEADS CANNOT RULE OUT SEPTAL INFARCT, AGE INDETERMINATE BORDERLINE ST-T WAVE ABNORMALITY- DIFFUSE LEADS BASELINE ARTIFACT- AVR, AVL ABNORMAL ECG COMPARED TO ECG 01/26/2023 12:55:25 NO SIGNIFICANT CHANGES Electronically Signed On 01-26-2023 14:39:15 CDT by Fernando Reynaga D.O.
[2023-01-26 13:39] VITALS: BP 131/89; PULSE 82; RESP 19; TEMP 36.7; O2SAT 97
[2023-01-26] MEDS: KETOROLAC 30 MG/ML VIAL (*BKC) IV PUSH (13:50)
[2023-01-26 13:56] LABS: Basophils Percent Auto 0.5 % (0.2-1.2); Eosinophils Absolute Auto 0.2 K/mm3 (0-0.3); Eosinophils Percent Auto 2.3 % (0-4.4); Hemoglobin 12.9 g/dL (12.0-15.0); Immature Granulocyte Absolute 0.02 K/mm3 (0.00-0.031); Immature Granulocyte Percent A 0.3 % (0-0.5); Lymphocytes Absolute Auto 2.17 K/mm3 (0.9-3.2); Mean Corpuscular HGB Conc 33.9 g/dl (32-36); Mean Corpuscular Hemoglobin 30.5 pg (26-34); Mean Corpuscular Volume 89.8 fl (80-100); Mean Platelet Volume 10.8 fl (7.4-10.4); Monocytes Absolute Auto 0.7 K/mm3 (0.1-0.6); Monocytes Percent Auto 9.5 % (2.6-8.5); Neutrophils Absolute Auto 4.4 K/mm3 (1.3-6.7); Neutrophils Percent Auto 58.4 % (45.5-73.1); Platelet Count Result 272 k/mm3 (150-375); Red Blood Count 4.23 M/mm3 (4.2-5.4); White Blood Count 7.5 K/mm3 (4.5-10.0)
[2023-01-26 14:06] LABS: Alanine Aminotransferase 30 U/L (6-35); Albumin Level 4.3 g/dL (3.5-5.1); Alkaline Phosphatase 77 U/L (38-126); Anion Gap 9 mmol/L (8-16); Aspartate Amino Transferase 27 U/L (14-36); Bilirubin,Total 0.6 mg/dL (0.2-1.3); Blood Urea Nitrogen 16 mg/dL (7-17); Calcium 8.4 mg/dL (8.4-10.2); Carbon Dioxide 28 mmol/L (22-30); Chloride 103 mmol/L (98-107); Estimated Glomerular Filt Rate > 60; Glucose 196 mg/dL (65-110); Potassium 3.7 mmol/L (3.4-5.0); Sodium 140 mmol/L (137-145)
[2023-01-26 14:13] LABS: INR 1.1; Prothrombin Time 13.3 Seconds (11.1-14.7)
[2023-01-26 14:14] LABS: Partial Thromboplastin Time 27.6 SECONDS (22.3-36.8)
[2023-01-26 14:17] LABS: Troponin I < 0.012 ng/mL (0.000-0.034)
[2023-01-26 14:34] LABS: D Dimer 0.28 ug/mL (<0.48)
--- NOTE | 2023-01-26 14:56 | ED.CHESTPAIN ---
HPI - Chest Pain General Chief Complaint: Chest Pain Stated Complaint: chest pain Time Seen by Provider: 01/26/23 13:32 History of Present Illness HPI narrative: Patient is a 47-year-old female who presents ER with central chest pain. Constant. Worse with deep breath and coughing. Has had runny nose and sore throat as well as cough. No hemoptysis. No lower extremity swelling or calf pain. Patient reports she told someone earlier that she occasionally feels some tightness intermittently in her legs but has been ongoing for a year. Patient has no exertional chest discomfort or shortness of breath or diaphoresis. No history of heart disease. No history of blood clots. Has been taking Tylenol and ibuprofen with minimal improvement. Related Data Home Medications Medication Instructions Recorded Confirmed atorvastatin 40 mg tablet 40 mg PO DAILY 11/13/20 01/26/23 losartan 100 1 tablet PO DAILY 11/13/20 01/26/23 mg-hydrochlorothiazide 25 mg tablet metformin 850 mg tablet 850 mg PO BID 11/13/20 01/26/23 omeprazole 20 mg capsule,delayed 20 mg PO DAILY 11/20/22 01/26/23 release Allergies Allergy/AdvReac Type Severity Reaction Status Date / Time No Known Allergies Allergy Verified 01/26/23 12:42 Review of Systems Review of Systems: All systems reviewed & are unremarkable except as noted in HPI and below Constitutional: Constitutional: Denies chills, Denies fatigue and Denies fever(s) ENT: Reports nasal congestion and Reports sore throat Cardiovascular: Cardiovascular: Denies chest pain, Denies rapid heart rate and Denies radiating jaw, neck or arm pain Respiratory: Respiratory: Reports cough, Denies dyspnea and Denies wheezing Gastrointestinal: Gastrointestinal: Denies abdominal pain, Denies nausea and Denies vomiting [facility] Past Medical History Medical History Diabetes mellitus Obesity Surgical History Surgical History H/O partial nephrectomy Social History Social History Smoking status: Never smoker Alcohol intake: never Substance use: never Substance use type: does not use Gender identity (if verbalized by the patient): Female Spiritual care concerns: No Exam Narrative: GENERAL: Well-appearing, obese, and in no acute distress. HEAD: Normocephalic, atraumatic. EYES: PERRL and EOMI. ENT: Mucous membranes moist. CHEST: Clear to auscultation. No respiratory distress. HEART: Regular rate and rhythm. Normal peripheral pulses. ABDOMEN: Soft, nontender, nondistended. EXTREMITIES: Normal range of motion. No edema. SKIN: Warm, dry, no rash. NEURO: Alert and oriented x3. PSYCH: Normal mood and affect. Course Vital Signs Vital signs: Vital Signs Temperature 98.1 F 01/26/23 13:39 Pulse Rate 82 01/26/23 13:39 Respiratory Rate 19 01/26/23 13:39 Blood Pressure 131/89 01/26/23 13:39 Pulse Oximetry 97 01/26/23 13:39 Oxygen Delivery Room Air 01/26/23 13:39 Temperature 98.1 F 01/26/23 13:39 Pulse Rate 82 01/26/23 13:39 Respiratory Rate 19 01/26/23 13:39 Blood Pressure 131/89 01/26/23 13:39 Pulse Oximetry 97 01/26/23 13:39 Oxygen Delivery Room Air 01/26/23 13:39 MDM - Chest Pain Lab Data 01/26/23 13:48 01/26/23 13:48 Labs: Lab Results 01/26/23 01/26/23 01/26/23 Range/Units 13:48 13:48 13:48 WBC 7.5 (4.5-10.0) K/mm3 RBC 4.23 (4.2-5.4) M/mm3 Hgb 12.9 (12.0-15.0) g/dL Hct 38.0 (37.0-47.0) % MCV 89.8 (80-100) fl MCH 30.5 (26-34) pg MCHC 33.9 (32-36) g/dl RDW 13.0 (11.5-14.5) % Plt Count 272 (150-375) k/mm3 MPV 10.8 H (7.4-10.4) fl Immature Gran % (Auto) 0.3 (0-0.5) % Neut % (Auto) 58.4 (45.5-73.1) % Lymph % (Auto) 29.0 (18.3-44.2) % [place] % (Auto) 9.5 H (2.6-8.5) %
[2023-01-26 15:23] VITALS: BP 131/89; PULSE 85; RESP 18; O2SAT 99
== END 2023-01-26 15:25 | disposition home or self-care (01) ==
PROVIDERS: Emergency Provider Emergency Medicine; PCP Family Medicine
DX: R09.1 Pleurisy (principal); E11.9 Type 2 diabetes mellitus without complications; E66.9 Obesity, unspecified; Z68.38 Body mass index [BMI] 38.0-38.9, adult; Z90.5 Acquired absence of kidney; Z79.84 Long term (current) use of oral hypoglycemic drugs; R94.31 Abnormal electrocardiogram [ECG] [EKG]
CPT/HCPCS: 36415; 71046; 80053; 84484; 85025; 85380; 85610; 85730; 93005; 96374; 99284; J1885

== ENCOUNTER 2023-03-20 07:45 | Outpatient (CLI) | payer OTHER, SELFPAY ==
--- NOTE | ~2023-03-20 | CT_ITS ---
EXAMINATION: CT abdomen pelvis wo con DATE: 03/20/2023 08:08 INDICATION: Right-sided abdominal pain radiating to the back. TECHNIQUE: Computed tomography (CT) of the abdomen and pelvis was performed without intravenous contr ast. The dose-length product was 1314.17 mGy-cm. Automated exposure control and iterative reconstruct ion technique were employed. COMPARISON: None. FINDINGS: Lung bases are unremarkable. No significant pleural or pericardial effusion. Heart size is normal. There are changes of gastric bypass and cholecystectomy. There is left renal atrophy with pro bable partial left nephrectomy. The liver, spleen, pancreas, adrenal glands and right kidney are unre markable. Nonobstructive bowel gas pattern. No free air or free fluid. Bladder is collapsed. No signi ficant vascular abnormality. No lymphadenopathy. No acute osseous abnormality. Mild lumbar spondylosi s. IMPRESSION: 1. No acute abdominal abnormality. Reviewed, dictated and finalized at location A.
== END 2023-03-20 07:46 | disposition home or self-care (01) ==
PROVIDERS: PCP Family Medicine; Visit Provider Family Medicine
DX: R10.9 Unspecified abdominal pain (principal); Z85.528 Personal history of other malignant neoplasm of kidney
CPT/HCPCS: 74176

== ENCOUNTER 2023-09-06 05:19 | Observation (INO) | payer OTHER, SELFPAY ==
[2023-09-06] VITALS (17 sets, daily range): BP systolic 105–137; BP diastolic 64–89; PULSE 66–82; RESP 16–20; TEMP 35.9–36.6; O2SAT 95–99; BMI 37.8; BMI 39.2
--- NOTE | ~2023-09-06 | XR_ITS ---
EXAMINATION: XR chest 2V DATE: 09/06/2023 05:56 INDICATION: Right chest pain. TECHNIQUE: Frontal and lateral views of the chest were obtained. COMPARISON: Chest 2 views 01/26/2023 FINDINGS: There are airspace opacities in the lower lung zones. No pleural effusion or pneumothorax. The heart size is normal. Surgical clips in the right upper quadrant are likely from cholecystectomy. IMPRESSION: 1. Airspace opacities in the lower lung zones, consistent with atelectasis versus pneumonia. Reviewed, dictated and finalized at location E. IMPRESSION: 1. Airspace opacities in the lower lung zones, consistent with atelectasis vers us pneumonia.
--- NOTE | ~2023-09-06 | NM_ITS ---
EXAMINATION: NM stress w perf spect multi DATE: 09/07/2023 12:08 INDICATION: Chest pain. TECHNIQUE: Rest images were obtained following intravenous administration of 11 mCi Tc99m tetrofosmin (Myoview). The patient performed an exercise activity. At peak exercise, 34.7 mCi Tc99m tetrofosmin (Myoview) was administered intravenously, and stress images were obtained. Data was reconstructed int o short axis and horizontal and vertical long axis SPECT images. Gated SPECT images were also obtaine d. COMPARISON: Chest CT 08/3123 FINDINGS: There is no definite reversible or fixed perfusion abnormality to suggest ischemia or infar ction. There is no segmental wall motion abnormality. Left ventricular ejection fraction measures > 70%. IMPRESSION: 1. No definite ischemia or infarct. 2. Normal left ventricular ejection fraction measuring >70%. Reviewed, dictated and finalized at location E.
--- NOTE | ~2023-09-06 | CT_ITS ---
EXAMINATION: CTA chest PE protocol DATE: 09/06/2023 20:20 CDT INDICATION: 0 TECHNIQUE: Computed tomographic angiography (CTA) of the chest was performed with 100 mL Omnipaque-35 0 intravenous contrast. The dose-length product was 616.80 mGy-cm. Maximum intensity projection 3D-re constructions of the aorta and other arteries were constructed by the technologist on a separate work station. COMPARISON: None. FINDINGS: Study is technically adequate without evidence for pulmonary embolism. Cardiomegaly. No sig nificant pleural or pericardial effusion. There are changes of gastric bypass and cholecystectomy. No significant pleural or pericardial effusion. No thoracic lymphadenopathy. Diffuse groundglass opacit ies throughout both lungs. Low lung volumes. No endobronchial lesions. No pneumothorax. IMPRESSION: 1. Diffuse bilateral groundglass opacities which may represent edema or pneumonia. 2: No evidence for pulmonary embolism. No acute osseous abnormality. Reviewed, dictated and finalized at location A. IMPRESSION: 1. Diffuse bilateral groundglass opacities which may represent edema or pneumon ia. 2: No evidence for pulmonary embolism. No acute osseous abnormality.
--- NOTE | 2023-09-06 05:20 | ECG_ITS ---
Measurements Intervals [place] Rate: 74 P: 37 LA: 180 QRS: 107 QRSD: 71 T: 35 QT: 372 QTc: 414 Interpretive Statements SINUS RHYTHM MARKED RIGHT AXIS DEVIATION [QRS AXIS > 100] LOW QRS VOLTAGE IN PRECORDIAL LEADS [QRS DEFLECTION < 1.0 mV IN CHEST LEADS] POSSIBLE ANTERIOR MYOCARDIAL INFARCTION , OF INDETERMINATE AGE [30 ms Q WAVE IN V3/V4, OR R < 0.2 mV IN V4] COMPARED TO ECG 01/26/2023 13:38:15 NO SIGNIFICANT CHANGES Electronically Signed On 09-06-2023 11:41:26 CDT by Samia Lynn M.D.
[2023-09-06 05:54] LABS: Basophils Percent Auto 0.6 % (0.2-1.2); Eosinophils Absolute Auto 0.3 K/mm3 (0-0.3); Eosinophils Percent Auto 4.7 % (0-4.4); Hematocrit 41.7 % (37.0-47.0); Hemoglobin 13.9 g/dL (12.0-15.0); Immature Granulocyte Absolute 0.02 K/mm3 (0.00-0.031); Immature Granulocyte Percent A 0.3 % (0-0.5); Lymphocytes Absolute Auto 2.17 K/mm3 (0.9-3.2); Lymphocytes Percent Auto 35.2 % (18.3-44.2); Mean Corpuscular HGB Conc 33.3 g/dl (32-36); Mean Corpuscular Hemoglobin 30.5 pg (26-34); Mean Corpuscular Volume 91.6 fl (80-100); Mean Platelet Volume 10.9 fl (7.4-10.4); Monocytes Absolute Auto 0.7 K/mm3 (0.1-0.6); Monocytes Percent Auto 10.5 % (2.6-8.5); Neutrophils Percent Auto 48.7 % (45.5-73.1); Platelet Count Result 284 k/mm3 (150-375); Red Blood Count 4.55 M/mm3 (4.2-5.4); Red Cell Distribution Width 13.2 % (11.5-14.5); White Blood Count 6.2 K/mm3 (4.5-10.0)
[2023-09-06 06:03] LABS: Alanine Aminotransferase 27 U/L (6-35); Albumin Level 4.4 g/dL (3.5-5.1); Alkaline Phosphatase 73 U/L (38-126); Anion Gap 8 mmol/L (8-16); Aspartate Amino Transferase 22 U/L (14-36); Blood Urea Nitrogen 16 mg/dL (7-17); Calcium 9.6 mg/dL (8.4-10.2); Carbon Dioxide 30 mmol/L (22-30); Chloride 100 mmol/L (98-107); Estimated Glomerular Filt Rate > 60; Glucose 185 mg/dL (65-110); Lipase 103 U/L (23-300); Potassium 3.1 mmol/L (3.4-5.0); Sodium 138 mmol/L (137-145)
[2023-09-06 06:15] LABS: Troponin I < 0.012 ng/mL (0.000-0.034)
[2023-09-06] MEDS: ASPIRIN 81 MG CHEWABLE TABLET 324 MG PO (06:26)
[2023-09-06 08:38] LABS: Prothrombin Time 13.2 Seconds (11.1-14.7)
[2023-09-06 08:39] LABS: Partial Thromboplastin Time 25.9 SECONDS (22.3-36.8)
[2023-09-06 08:43] LABS: Troponin I < 0.012 ng/mL (0.000-0.034)
--- NOTE | 2023-09-06 08:54 | ED.CHESTPAIN ---
HPI - Chest Pain General Chief Complaint: Chest Pain Stated Complaint: chest pain Time Seen by Provider: 09/06/23 07:32 History of Present Illness HPI narrative: Patient is a 47-year-old female who presents ER with chest pain. Central. Radiates to the left shoulder. Worse with exertion. When she is exerting herself she becomes dyspneic as well as nauseated. No diaphoresis. No history of heart disease but has a father who had a heart attack in his late 40s early 50s. Pain improves with rest. Pain increased this morning which prompted her evaluation in the ER. Related Data Home Medications Medication Instructions Recorded Confirmed atorvastatin 40 mg tablet 40 mg PO DAILY 11/13/20 09/06/23 losartan 100 1 tablet PO DAILY 11/13/20 09/06/23 mg-hydrochlorothiazide 25 mg tablet metformin 850 mg tablet 850 mg PO BID 11/13/20 09/06/23 omeprazole 20 mg capsule,delayed 20 mg PO DAILY 11/20/22 09/06/23 release Allergies Allergy/AdvReac Type Severity Reaction Status Date / Time No Known Allergies Allergy Verified 09/06/23 11:09 Review of Systems Review of Systems: All systems reviewed & are unremarkable except as noted in HPI and below Constitutional: Constitutional: Denies chills, Denies fatigue and Denies fever(s) Cardiovascular: Cardiovascular: Reports chest pain, Denies rapid heart rate and Reports radiating jaw, neck or arm pain Respiratory: Respiratory: Denies cough, Reports dyspnea and Denies wheezing Gastrointestinal: Gastrointestinal: Denies abdominal pain, Denies diarrhea, Reports nausea and Denies vomiting Musculoskeletal: Musculoskeletal: Reports no additional musculoskeletal complaints PMFSH Past Medical History Medical History Cancer of kidney Status post partial nephrectomy Gastroesophageal reflux disease Hyperlipidemia Hypertension Morbid obesity Type 2 diabetes mellitus Surgical History Surgical History History of bariatric surgery (2020) Gastric sleeve. History of cholecystectomy History of partial nephrectomy Family History Family History Mother Hypertension Thyroid condition Heart murmur Father Acute myocardial infarction Heart disease Social History Social History Social History: Surrogate medical decision maker: Mitch Lazarus, spouse. Code status: Full code. Smoking status: Never smoker Second hand tobacco smoke exposure: No Alcohol intake: never Substance use: never Substance use type: does not use Lack of Transportation: No Lack of Food: Never True Current Housing: I Have Housing Concerned About Future Housing: No Difficulty Paying Gas/Electric Bills: No Difficulty Paying for Meds: No Currently Unemployed: No Education: High School Diploma/GED Difficulty w/ Childcare or Family Care: No Living arrangements: with family Occupation/Education: occupation Spiritual care concerns: No Exam Narrative: GENERAL: Well-appearing, obese, and in no acute distress. HEAD: Normocephalic, atraumatic. ENT: Mucous membranes moist. NECK: Supple. CHEST: Clear to auscultation. No respiratory distress. HEART: Regular rate and rhythm. Normal peripheral pulses. ABDOMEN: Soft, nontender, nondistended. EXTREMITIES: Normal range of motion. No edema. SKIN: Warm, dry, no rash. NEURO: Alert and oriented x3. PSYCH: Normal mood and affect. Course Course Emergency Course: Patient resting comfortably. Informed of results. Admit to hospitalist service for chest pain rule out. EKG concerning for previous MO patient's heart score is elevated. Vital Signs Vital signs: Vital Signs Temperature 97.9 F 09/06/23 05:49 Pulse Rate 79 09/06/23 05:49 Respiratory Rate 16 09/06/23 05:49 Blood Pressure 131/86 09/06/23 05:49 Puls
[2023-09-06] MEDS: ACETAMINOPHEN 325 MG TABLET 650 MG PO (11:12)
--- NOTE | 2023-09-06 11:21 | PC.NURSE ---
Pt brought to [facility]-4 @1040 from ED via stretcher. Belongings in hand, pt oriented to room, call light placed within reach.
[2023-09-06 11:51] LABS: Troponin I < 0.012 ng/mL (0.000-0.034)
--- NOTE | 2023-09-06 13:13 | PM.IMHP ---
H&P: HPI History of Present Illness Date/Time: 09/06/23 13:00 Chief Complaint: Chest pain. Narrative: This is a 47-year-old female with hypertension, hyperlipidemia, type 2 diabetes mellitus, and GERD who presented to the emergency department via private vehicle for evaluation of chest pain. The patient provides the following history. She reports intermittent, sharp and at times heavy or aching mid chest pain over the last couple of days. At times the pain radiates into the back and arms and is associated with shortness of breath and nausea. Her symptoms improve with rest and are aggravated with activity and deep inspiration. She has a mild but nonproductive cough. She also complains of a mild headache. She denies fever, chills, sweats sinus congestion, sore throat, palpitations, vomiting, diarrhea, dysuria, calf pain, and lower extremity edema. 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 She has no known history of heart disease but reports her father had an [place] in his 50s. Vital signs have been stable since arrival to the ED. Initial troponin was negative. EKG showed a sinus rhythm with possible anterior myocardial infarction of indeterminate age though this does not appear significantly changed from prior tracings. Chest x-ray shows airspace opacities lower lung zones consistent with atelectasis versus pneumonia. She is being admitted in this setting for close monitoring. Review of Systems Review of Systems: Twelve systems were reviewed and are negative except for as per HPI. [facility] Past Medical History Medical History Cancer of kidney Status post partial nephrectomy Gastroesophageal reflux disease Hyperlipidemia Hypertension Morbid obesity Type 2 diabetes mellitus Surgical History Surgical History History of bariatric surgery (2020) Gastric sleeve. History of cholecystectomy History of partial nephrectomy Family History Family History Mother Hypertension Thyroid condition Heart murmur Father Acute myocardial infarction Heart disease Social History Social History Social History: Surrogate medical decision maker: Mitch Qiu, spouse. Code status: Full code. Smoking status: Never smoker Second hand tobacco smoke exposure: No Alcohol intake: never Substance use: never Substance use type: does not use Lack of Transportation: No Lack of Food: Never True Current Housing: I Have Housing Concerned About Future Housing: No Difficulty Paying Gas/Electric Bills: No Difficulty Paying for Meds: No Currently Unemployed: No Education: High School Diploma/GED Difficulty w/ Childcare or Family Care: No Living arrangements: with family Occupation/Education: occupation Spiritual care concerns: No Meds Home Medications and Allergies Home Medications Medication Instructions Recorded Confirmed Type atorvastatin 40 mg tablet 40 mg PO DAILY 11/13/20 09/06/23 History losartan 100 1 tablet PO DAILY 11/13/20 09/06/23 History mg-hydrochlorothiazide 25 mg tablet metformin 850 mg tablet 850 mg PO BID 11/13/20 09/06/23 History omeprazole 20 mg capsule,delayed 20 mg PO DAILY 11/20/22 09/06/23 History release Farxiga 5 mg tablet (dapagliflozin 5 mg PO DAILY #90 tabs 03/17/23 09/06/23 Rx propanediol) Allergies Allergy/AdvReac Type Severity Reaction Status Date / Time No Known Allergies Allergy Verified 09/06/23 11:09 Vital Signs Vital Signs - 24 hr 09/06/23 05:49 09/06/23 07:16 09/06/23 10:23 Temperature 97.9 F 97.7 F Pulse Rate 79 71 74 Respiratory Rate 16 16 16 Blood Pressure 131/86 128/85 137/86 Pulse Oximetry 97 99 98 Oxygen Delivery Room Air 09/06
[2023-09-06 13:50] LABS: Glucose Point of Care 256 mg/dl (65-105)
[2023-09-06 14:07] LABS: Hemoglobin A1C 7.6 % (<5.7)
--- NOTE | 2023-09-06 14:39 | PM.CNCAR ---
Assessment and Plan Assessment and plan (1) Chest pain: Code(s): R07.9 - Chest pain, unspecified Status: Acute Assessment and Plan: EKG without ischemic changes. Troponins are negative x 3. Given risk factors for heart disease, will obtain treadmill nuclear stress test. Patient to be NPO at midnight. (2) Hypertension: Code(s): I10 - Essential (primary) hypertension Status: Acute Assessment and Plan: Stable. Continue home HCTZ-Losartan (3) Hyperlipidemia: Code(s): E78.5 - Hyperlipidemia, unspecified Status: Acute Assessment and Plan: Continue high-intensity statin (4) Type 2 diabetes mellitus: Code(s): E11.9 - Type 2 diabetes mellitus without complications Status: Acute Assessment and Plan: Management as per primary team. History of Present Illness History of Present Illness Consult date/time: 09/06/23 14:39 Requesting physician: Marina Pichardo PA-C Consult reason: chest pain Reason For Visit: Chest Pain Narrative: We are consulted for chest pain. This is a 47 year old female with morbid obesity, type 2 diabetes mellitus, hypertension, hyperlipidemia, left renal cell carcinoma diagnosed in December 2014 s/p partial left nephrectomy, gastric sleeve surgery in February 2021 who presented to [place] [facility] for chest pain. Patient states that on , [place] 1-1.5 hours and then ate a burger and fries. Right after eating, she developed a sharp stabbing pain in her chest along with an achy type of pain. The sharp stabbing pain resolved but the achy pain has continued. Pain worsens after eating. No clear association with exertion. No tobacco use or in the past. Father had congestive heart failure, from an VT at age 63. Troponins are negative x 3. EKG with sinus rhythm, cannot rule out old septal infarction (unchanged compared to prior EKG). Review of Systems Review of Systems: All systems reviewed & are unremarkable except as noted in HPI and below (HPI) [facility] Past Medical History Medical History Cancer of kidney Status post partial nephrectomy Gastroesophageal reflux disease Hyperlipidemia Hypertension Morbid obesity Type 2 diabetes mellitus Surgical History Surgical History History of bariatric surgery (2020) Gastric sleeve. History of cholecystectomy History of partial nephrectomy Family History Family History Mother Hypertension Thyroid condition Heart murmur Father Acute myocardial infarction Heart disease Social History Social History Social History: Surrogate medical decision maker: Mitch Qiu, spouse. Code status: Full code. Smoking status: Never smoker Second hand tobacco smoke exposure: No Alcohol intake: never Substance use: never Substance use type: does not use Lack of Transportation: No Lack of Food: Never True Current Housing: I Have Housing Concerned About Future Housing: No Difficulty Paying Gas/Electric Bills: No Difficulty Paying for Meds: No Currently Unemployed: No Education: High School Diploma/GED Difficulty w/ Childcare or Family Care: No Living arrangements: with family Occupation/Education: occupation Spiritual care concerns: No Meds Home Medications and Allergies Home Medications Medication Instructions Recorded Confirmed Type atorvastatin 40 mg tablet 40 mg PO DAILY 11/13/20 09/06/23 History losartan 100 1 tablet PO DAILY 11/13/20 09/06/23 History mg-hydrochlorothiazide 25 mg tablet metformin 850 mg tablet 850 mg PO BID 11/13/20 09/06/23 History omeprazole 20 mg capsule,delayed 20 mg PO DAILY 11/20/22 09/06/23 History release Farxiga 5 mg tablet (dapagliflozin 5 mg PO DAILY #90 tabs 03/17/2308/09
[2023-09-06] MEDS: HYDROcodone/acetaminophen (*CRX) 5-325 MG TABLET 1 TAB PO ×2 (15:30→20:42)
[2023-09-06 16:50] LABS: Glucose Point of Care 187 mg/dl (65-105)
--- NOTE | 2023-09-06 16:53 | PC.NURSE ---
This patient, Bibi Qiu, was received from [[facility]] on 09/06/23 at 1626. Patient/family oriented to unit policies and routines
[2023-09-06] MEDS: POTASSIUM CHLORIDE 20 MEQ ER TABLET 40 MEQ PO (17:48)
--- NOTE | 2023-09-06 18:36 | PHAR ---
DRUG NAME: [facility]OSSMAN INGREDIENTS: DAPAGLIFLOZIN PROPANEDIOL -- 5 MG COLOR: YELLOW SHAPE: [place] IMPRINT: 5 1427 IMPRINT CODE DESCRIPTION: ENGRAVED WITH 5 ON ONE SIDE AND 1427 ON THE OTHER SIDE. FORM: ORAL TABLET
[2023-09-06 20:16] LABS: Glucose Point of Care 164 mg/dl (65-105)
[2023-09-06 21:35] LABS: CRP 0.6 mg/dL (<1.0); Magnesium 1.4 mg/dL (1.6-2.3); Potassium 3.5 mmol/L (3.4-5.0)
[2023-09-06 21:40] LABS: NT Pro B Type Natriuretic Pept < 20 pg/mL (19.9-100)
[2023-09-06 21:49] LABS: Procalcitonin 0.1 ng/mL
[2023-09-07] VITALS (11 sets, daily range): BP systolic 113–131; BP diastolic 74–91; PULSE 63–104; RESP 18–22; TEMP 35.7–36.5; O2SAT 95–97
--- NOTE | 2023-09-07 | EST_ITS ---
Patient Info Name: Bibi Qiu Age: 47 years : 1975 Gender: Female Ht: 59 in Wt: 186 lbs BSA: 1.92 m2 HR: 76 bpm BP: 100 / 79 mmHg Heart Rhythm: Sinus Rhythm Exam Date: 09/07/2023 9:50 AM Exam Location: Echo Lab Patient Status: Inpatient Admit Date: 09/06/2023 Staff Ordering Physician: Samia Lynn MD Attending Provider: Kailash Lau MD Exercise Technologist: Soila Azul RDCS Exercise Physician: Samia Lynn MD Exam Type: CA stress jack w NM Study Info Indications R07.89 - Other chest pain A regadenoson stress test was performed. Summary 1. Target heart rate on treadmill was not achieved, therefore, changed to Lexiscan. 2. Hypertensive blood pressure response to exercise. 3. Exercise capacity fair to good at 6-10 METS. 4. Stress ECG is non-diagnostic due to significant baseline artifact during exercise which significantly limits interpretation for STTW changes. 5. Occasional PVCs. 6. Please correlate with nuclear medicine images, reported separately. 7. Stress test supervised and interpreted by Samia Lynn MD. Protocol: Jose David Stress ECG Details Stage: REST Duration (min): 1 min : 5 sec Speed (mph): 0.0 Grade (%): 0 HR (bpm): 69 SBP (mmHg): 100 DBP (mmHg): 79 METS: --- Stage: REST Duration (min): 8 min : 22 sec Speed (mph): 0.0 Grade (%): 0 HR (bpm): 81 SBP (mmHg): 100 DBP (mmHg): 79 METS: --- Stage: STAGE 1 Duration (min): 1 min : 0 sec Speed (mph): 1.7 Grade (%): 10 HR (bpm): 98 SBP (mmHg): 100 DBP (mmHg): 79 METS: --- Stage: STAGE 1 Duration (min): 2 min : 0 sec Speed (mph): 1.7 Grade (%): 10 HR (bpm): 121 SBP (mmHg): 100 DBP (mmHg): 79 METS: --- Stage: STAGE 1 Duration (min): 3 min : 0 sec Speed (mph): 1.7 Grade (%): 10 HR (bpm): 102 SBP (mmHg): 100 DBP (mmHg): 79 METS: --- Stage: STAGE 2 Duration (min): 1 min : 0 sec Speed (mph): 2.5 Grade (%): 12 HR (bpm): 112 SBP (mmHg): 100 DBP (mmHg): 79 METS: --- Stage: STAGE 2 Duration (min): 2 min : 0 sec Speed (mph): 2.5 Grade (%): 12 HR (bpm): 120 SBP (mmHg): 183 DBP (mmHg): 52 METS: --- Stage: STAGE 2 Duration (min): 3 min : 0 sec Speed (mph): 2.5 Grade (%): 12 HR (bpm): 125 SBP (mmHg): 183 DBP (mmHg): 52 METS: --- Stage: STAGE 3 Duration (min): 1 min : 0 sec Speed (mph): 0.0 Grade (%): 0 HR (bpm): 138 SBP (mmHg): 183 DBP (mmHg): 52 METS: --- Stage: STAGE 3 Duration (min): 2 min : 0 sec Speed (mph): 0.0 Grade (%): 0 HR (bpm): 109 SBP (mmHg): 183 DBP (mmHg): 52 METS: --- Stage: STAGE 3 Duration (min): 2 min : 14 sec Speed (mph): 0.0 Grade (%): 0 HR (bpm): 102 SBP (mmHg): 183 DBP (mmHg): 52 METS: --- Stage: RECOVERY Duration (min): 0 min : 45 sec Speed (mph): 0.0 Grade (%): 0 HR (bpm): 111 SBP (mmHg): 183 DBP (mmHg): 52 METS: --- Stage: REINALDO
[2023-09-07] MEDS: MAGNESIUM SULF 2 GM/WATER 50ML 2 GM/50 ML BAG IVPB (04:51)
[2023-09-07] MEDS: AZITHROMYCIN 250 MG TABLET 500 MG PO (04:59)
[2023-09-07 05:20] LABS: Anion Gap 6 mmol/L (8-16); Blood Urea Nitrogen 16 mg/dL (7-17); Calcium 9.2 mg/dL (8.4-10.2); Carbon Dioxide 30 mmol/L (22-30); Chloride 102 mmol/L (98-107); Estimated Glomerular Filt Rate > 60; Glucose 155 mg/dL (65-110); Magnesium 1.5 mg/dL (1.6-2.3); Potassium 3.2 mmol/L (3.4-5.0); Sodium 138 mmol/L (137-145)
[2023-09-07 08:30] LABS: Glucose Point of Care 150 mg/dl (65-105)
[2023-09-07] MEDS: ACETAMINOPHEN 325 MG TABLET 650 MG PO (11:26)
[2023-09-07] MEDS: LOSARTAN POTASSIUM 100 MG TABLET PO (11:27)
[2023-09-07] MEDS: PANTOPRAZOLE 40 MG TABLET PO (11:27)
[2023-09-07] MEDS: hydroCHLOROthiazide 25 MG TABLET PO (11:27)
[2023-09-07] MEDS: ATORVASTATIN 40 MG TABLET PO (11:27)
[2023-09-07 12:08] LABS: Glucose Point of Care 163 mg/dl (65-105)
--- NOTE | 2023-09-07 12:56 | PM.PNCARD ---
Progress Note: A&P Assessment and Plan (1) Chest pain: Code(s): R07.9 - Chest pain, unspecified Status: Acute Assessment and Plan: MPI negative. At this time, no further inpatient cardiac evaluation needed. Patient okay for discharge. (2) Hypertension: Code(s): I10 - Essential (primary) hypertension Status: Acute Assessment and Plan: Stable. Continue home HCTZ-Losartan (3) Hyperlipidemia: Code(s): E78.5 - Hyperlipidemia, unspecified Status: Acute Assessment and Plan: Continue high-intensity statin (4) Type 2 diabetes mellitus: Code(s): E11.9 - Type 2 diabetes mellitus without complications Status: Acute Assessment and Plan: Management as per primary team. Plan Recommendations/Plan discussed with Hospitalist. Subjective Date/time seen: 09/07/23 12:56 Interval history: Reason for consult: Chest pain HPI: We are consulted for chest pain. This is a 47 year old female with morbid obesity, type 2 diabetes mellitus, hypertension, hyperlipidemia, left renal cell carcinoma diagnosed in December 2014 s/p partial left nephrectomy, gastric sleeve surgery in February 2021 who presented to [place] [facility] for chest pain. Patient states that on , [place] the [place] about 1-1.5 hours and then ate a burger and fries. Right after eating, she developed a sharp stabbing pain in her chest along with an achy type of pain. The sharp stabbing pain resolved but the achy pain has continued. Pain worsens after eating. No clear association with exertion. No tobacco use or in the past. Father had congestive heart failure, from an [place] at age 63. Troponins are negative x 3. EKG with sinus rhythm, cannot rule out old septal infarction (unchanged compared to prior EKG). Date of service 09/07: NM stress test today. Review of Systems Review of Systems: All systems reviewed & are unremarkable except as noted in HPI and below (HPI) Exam Const: General: comfortable and no acute distress HENMT: Mouth: Yes moist mucous membranes Eyes: General: appearance normal, both eyes and all related structures Sclera: sclerae normal Resp: Effort & Inspection: normal respiratory effort Auscultation: diminished lung sounds Cardio: Rate: regular rate Rhythm: regular rhythm Heart sounds: no murmurs Skin: General skin exam: normal color Neuro: Speech: normal speech Psych: Mental Status: mental status grossly normal Affect: normal affect Objective Data Vital Signs Vital Signs: Vital Signs - 24 hr 09/06/23 14:00 09/06/23 15:35 09/06/23 15:35 Temperature Pulse Rate 82 76 76 Respiratory Rate 20 Blood Pressure Pulse Oximetry 95 Oxygen Delivery Room Air 09/06/23 15:35 09/06/23 16:35 09/06/23 16:45 Temperature 35.9 C L Pulse Rate 76 79 Respiratory Rate 20 20 Blood Pressure 131/89 109/64 Pulse Oximetry 95 96 Oxygen Delivery Room Air 09/06/23 16:45 09/06/23 17:59 09/06/23 20:00 Temperature 36.4 C Pulse Rate 81 81 78 Respiratory Rate 20 Blood Pressure 120/73 Pulse Oximetry 96 Oxygen Delivery 09/06/23 20:00 09/06/23 20:00 09/06/23 22:00 Temperature Pulse Rate 78 70 Respiratory Rate Blood Pressure Pulse Oximetry Oxygen Delivery Room Air 09/06/23 23:40 09/06/23 23:41 09/06/23 23:57 Temperature 36.6 C Pulse Rate 66 77 Respiratory Rate 20 Blood Pressure 107/68 Pulse Oximetry 96 Oxygen Delivery Room Air 09/07/23 02:00 09/07/23 04:43 09/07/23 04:00 Temperature 36.5 C Pulse Rate 65 67 65 Respiratory Rate 20 Blood Pressure 113/74 Pulse Oximetry 96 Oxygen Delivery 09/07/23 04:00 09/07/23 06:00 09/07/23 07:51 Temperature 36.4 C Pulse Rate 68 63 Respiratory Rate 22 H Blood Pressure 120/76 Pulse Oximetry 97 Oxygen Delivery Room Air 09/07/23 08:00 09/07/23 08:00 09/07/23 11:26 Temperature Pulse Rate 71 Respiratory Rate Blo
[2023-09-07] MEDS: POTASSIUM CHLORIDE 20 MEQ ER TABLET 80 MEQ PO (14:00)
[2023-09-07 16:22] LABS: Glucose Point of Care 153 mg/dl (65-105)
[2023-09-07 17:02] LABS: Influenza A QL RT-PCR Negative (Negative); Influenza B QL RT-PCR Negative (Negative); RSV RNA, RT-PCR Negative (Negative); SARS-CoV-2 RNA PCR Negative (Negative)
--- NOTE | 2023-09-07 17:09 | PM.DS ---
DS: Admitting Diagnosis Discharge Date 09/07/23 Admitting Diagnosis Chest pain DS: Discharge Diagnosis Discharge Diagnosis (1) Abnormal chest x-ray: Code(s): R93.89 - Abnormal findings on diagnostic imaging of other specified body structures Status: Acute Plan 1. Chest pain trop neg x 3, had an MPI stress test which was negative cardiology consultation with Dr. Lynn, appreciate consultation 2. Atypical pneumonia CT scan shows bl ground glass opacities covid, rsv, influenza a/b negative Levaquin 500 mg bid for 10 days f/u with pcp DS: Summary Hospital Course Reason for hospitalization: Chest pain Hospital Course: This is a 47 year old female with morbid obesity, type 2 diabetes mellitus, hypertension, hyperlipidemia, left renal cell carcinoma diagnosed in December 2014 s/p partial left nephrectomy, gastric sleeve surgery in February 2021 who presented to [place] [facility] for chest pain. Patient states that on , she [place] the [place] for about 1-1.5 hours and then ate a burger and fries. Right after eating, she developed a sharp stabbing pain in her chest along with an achy type of pain. The sharp stabbing pain resolved but the achy pain has continued. Pain worsens after eating. No clear association with exertion. No tobacco use or in the past. Father had congestive heart failure, from an [place] at age 63. Troponins are negative x 3. EKG with sinus rhythm, cannot rule out old septal infarction (unchanged compared to prior EKG). (1) Chest pain: ?Code(s): R07.9 - Chest pain, unspecified ?Status:?Acute ?Assessment and Plan: MPI negative. At this time, no further inpatient cardiac evaluation needed. Patient okay for discharge. (2) Hypertension: ?Code(s): I10 - Essential (primary) hypertension ?Status:?Acute ?Assessment and Plan: Stable. Continue home HCTZ-Losartan (3) Hyperlipidemia: ?Code(s): E78.5 - Hyperlipidemia, unspecified ?Status:?Acute ?Assessment and Plan: Continue high-intensity statin (4) Type 2 diabetes mellitus: ?Code(s): E11.9 - Type 2 diabetes mellitus without complications ?Status:?Acute 5. See above management plan for atypical pna with levaquin 500 mg bid for 10 days Time Spent with Patient Time attestation: Total time spent providing and/or coordinating discharge services: 30 min Exam Narrative: General:?Well-developed, nontoxic-appearing female sitting up in bed. Weight: 80.1 kg.? BMI: 39.2. HEENT:?PERRL, EOMI. Sclera anicteric.? Oral mucosa moist.? Neck:??Supple. No JVD or lymphadenopathy. Respiratory:?Respirations are nonlabored and she is speaking in full sentences. Faint crackles heard at the left base. Cardiovascular:??Regular rate and rhythm with S1-S2. Gastrointestinal:??Abdomen is soft, obese, nontender, and nondistended with positive bowel sounds. Skin:??Warm and dry.? No rash or lesions on limited exam. Extremities:??No cyanosis, clubbing, or edema. Radial and pedal pulses intact. No palpable knots or cords. Negative Lisa sign bilaterally. Neurological:??Alert.? Cranial nerves 2-12 are grossly intact. No gross focal deficits to casual conversation. Psychiatric:??Pleasant and cooperative with normal mood and affect.? Judgment and insight intact. DS: Data Data Completed and Pending Labs on day of discharge: Labs from last 24 hours 09/07/23 09/07/23 09/07/23 16:15 16:08 11:35 Sodium Potassium Chloride Carbon Dioxide Anion Gap BUN Creatinine Estim Creat Clear Calc Estimated GFR Glucose POC Capillary Glucose 153 H 163 H Calcium Magnesium C-Reactive Protein NT-Pro-B Natriuret Pep Procalcitonin Influenza A (RT-PCR) Negative Influenza B (RT-PCR) Negative RSV (RT-PCR) Negative SARS-CoV-2 RNA (RT-PCR) Negative 09/07/23 09/07/23 09/06/23 08:11 04:48 21:07 Sodium 138 Potassium 3.2 L 3.5 Chloride 102 Carbon Dioxide 30 Anion Ga
== END 2023-09-07 17:50 | disposition home or self-care (01) ==
LOC: ANHED 08:18 → ANHCPC 10:41 → ANHIMU 18:18 → ANHCPC 09-08 10:10 → ANHIMU 09-08 10:10 → ANHLDR 09-08 10:10
PROVIDERS: Emergency Medicine; Physician Assistant; Admitting Provider Internal Medicine; Emergency Provider Emergency Medicine; PCP Family Medicine; Visit Provider Internal Medicine
DX: R07.9 Chest pain, unspecified (principal); R91.8 Other nonspecific abnormal finding of lung field; R51.9 Headache, unspecified; R05.9 Cough, unspecified; K21.9 Gastro-esophageal reflux disease without esophagitis; E78.5 Hyperlipidemia, unspecified; I10 Essential (primary) hypertension; Z20.822 Contact with and (suspected) exposure to COVID-19; R94.31 Abnormal electrocardiogram [ECG] [EKG]; E66.01 Morbid (severe) obesity due to excess calories; Z68.39 Body mass index [BMI] 39.0-39.9, adult; E11.9 Type 2 diabetes mellitus without complications; Z98.84 Bariatric surgery status; Z90.5 Acquired absence of kidney; Z85.528 Personal history of other malignant neoplasm of kidney; Z79.84 Long term (current) use of oral hypoglycemic drugs; Z79.899 Other long term (current) drug therapy; Z82.49 Family history of ischemic heart disease and other diseases of the circulatory system
CPT/HCPCS: 36415; 71046; 71275; 78452; 80048; 80053; 82948; 83036; 83690; 83735; 83880; 84132; 84145; 84484; 85025; 85610; 85730; 86140; 87637; 93005; 93017; 96374; 96375; 99285; A9270; A9502; G0378; J0696; J2785; J3475; Q9967

== ENCOUNTER 2023-10-19 08:06 | Emergency (ER) | payer OTHER, SELFPAY ==
--- NOTE | ~2023-10-19 | XR_ITS ---
EXAMINATION: XR elbow RT min 3V INDICATION: Right elbow pain TECHNIQUE: Four views of the right elbow are obtained. COMPARISON: None available FINDINGS: No fracture, dislocation, or subluxation. The bones, soft tissues, and joint spaces are nor mal. IMPRESSION: 1. No acute osseous abnormality. Reviewed, dictated and finalized at location B. RTISING TRAFFIC MANAGER
[2023-10-19 08:20] VITALS: BP 126/85; PULSE 85; RESP 18; TEMP 36.8; O2SAT 99
--- NOTE | 2023-10-19 08:31 | ED.GENADULT ---
HPI - General Adult General Chief complaint: Extremity Problem,Nontraumatic Stated complaint: rt arm pain Source: patient, RN notes reviewed and old records reviewed Mode of arrival: ambulatory Limitations: no limitations History of Present Illness HPI narrative: 39-year-old female presents to [facility] with complaint of right upper arm and elbow pain that started 1 month ago. Patient denies injury. Patient states did fall on Tuesday. Patient states pain started after being in the hospital for pneumonia 1 month ago. Patient has tried [id number] medications without real MD complaint: right arm pain Onset (ago): month(s) (1) Related Data Home Medications Medication Instructions Recorded Confirmed atorvastatin 40 mg tablet 40 mg PO DAILY 11/13/20 09/21/23 metformin 850 mg tablet 850 mg PO BID 11/13/20 09/21/23 Allergies Allergy/AdvReac Type Severity Reaction Status Date / Time No Known Allergies Allergy Verified 09/21/23 10:05 Review of Systems Constitutional: Constitutional: Reports no additional constitutional complaints Eyes: Eyes: Reports no additional eye complaints ENT: Reports system reviewed and no additional complaints, except as documented Cardiovascular: Cardiovascular: Reports no additional cardiovascular complaints Respiratory: Respiratory: Reports no additional respiratory complaints Musculoskeletal: Musculoskeletal: Reports as per HPI and Reports arthralgias Neurologic: Reports system reviewed and no additional complaints, except as documented [facility] Past Medical History Medical History (Updated 10/19/23 @ 09:04 by Jen Fernandes APRN) Cancer of kidney Status post partial nephrectomy Gastroesophageal reflux disease Hyperlipidemia Morbid obesity Surgical History Surgical History History of bariatric surgery (2020) Gastric sleeve. History of cholecystectomy History of partial nephrectomy Family History Family History Mother Hypertension Thyroid condition Heart murmur Father Acute myocardial infarction Heart disease Social History Social History (Updated 09/13/23 @ 17:48 by Federica Boucher MA) Social History: Surrogate medical decision maker: Mitch Qiu, spouse. Code status: Full code. Smoking status: Never smoker Second hand tobacco smoke exposure: No Alcohol intake: current Alcohol use details: social Substance use: never Substance use type: does not use Lack of Transportation: No Lack of Food: Never True Current Housing: I Have Housing Concerned About Future Housing: No Difficulty Paying Gas/Electric Bills: No Difficulty Paying for Meds: No Currently Unemployed: No Education: High School Diploma/GED Difficulty w/ Childcare or Family Care: No Living arrangements: with family Occupation/Education: occupation Spiritual care concerns: No Comments At the time of my signature, I reviewed and agree with the nursing past medical, surgical, social, and family history. There is no relevant family history pertinent to the patient complaint. Exam Const: General: cooperative, healthy appearing, no acute distress and well nourished Nutritional Appearance: well nourished Orientation/consciousness: patient oriented x3 Limitations: no limitations HENMT: Head: normal to inspection and normocephalic Ears: external ears normal, TM's normal bilaterally, mastoids normal and Abnormal EAC present Face/Nose/Sinus: normal facial exam Face and sinus: normal facial exam Mouth: Yes Normal oral and palatal mucosa present, Yes oropharynx normal and Yes moist mucous membranes Throat: posterior oropharynx normal, tonsils normal, uvula midline and no uvular edema Eyes: General: appearance normal, both eyes and all related structures Sclera: sclerae normal Pupils: Equal, round and reactive pupils present Resp: Effo
== END 2023-10-19 09:11 | disposition home or self-care (01) ==
PROVIDERS: Emergency Provider Registered Nurse; PCP Family Medicine
DX: M77.8 Other enthesopathies, not elsewhere classified (principal); K21.9 Gastro-esophageal reflux disease without esophagitis; E78.5 Hyperlipidemia, unspecified; E66.01 Morbid (severe) obesity due to excess calories; Z68.36 Body mass index [BMI] 36.0-36.9, adult; Z98.84 Bariatric surgery status; Z85.528 Personal history of other malignant neoplasm of kidney; Z90.5 Acquired absence of kidney
CPT/HCPCS: 73080; 99213; G0463

== ENCOUNTER 2023-11-07 12:10 | Emergency (ER) | payer OTHER, SELFPAY ==
--- NOTE | ~2023-11-07 | XR_ITS ---
EXAMINATION: XR chest 1V portable DATE: 11/07/2023 12:51 INDICATION: Cough. TECHNIQUE: A single frontal view of the chest was obtained. COMPARISON: Chest 2 views 09/06/2023, chest CT 09/06/2023 FINDINGS: There is mild atelectasis in right midlung zone. No pleural effusion or pneumothorax. The h eart size is normal. Surgical clips in the right upper quadrant are likely from cholecystectomy. IMPRESSION: 1. Mild atelectasis in right midlung zone. Reviewed, dictated and finalized at location A. SCHOOL LIBRARIAN
[2023-11-07 12:11] VITALS: BP 165/85; PULSE 70; RESP 20; TEMP 36.6; O2SAT 97
[2023-11-07 12:43] VITALS: O2SAT 97
--- NOTE | 2023-11-07 12:57 | ED.URI ---
HPI - URI/Sore Throat General Chief Complaint: Upper Respiratory Infection Stated Complaint: cough Time Seen by Provider: 11/07/23 12:30 Source: patient Mode of arrival: ambulatory Limitations: no limitations History of Present Illness HPI Narrative: Roberta is a 47-year-old female patient presenting to the ER today with complaints of cough and some mild shortness of breath. She denies any chest pain. Was seen in the [facility] and they did not do a chest x-ray at that time. May give her prescription for Augmentin, albuterol inhaler, prednisone. She has finished up the prednisone and still feels bad. Symptoms of make going on for 2 weeks now. MD elicited complaint: cough and nasal congestion Related Data Home Medications Medication Instructions Recorded Confirmed atorvastatin 40 mg tablet 40 mg PO DAILY 11/13/20 09/21/23 metformin 850 mg tablet 850 mg PO BID 11/13/20 09/21/23 Allergies Allergy/AdvReac Type Severity Reaction Status Date / Time No Known Allergies Allergy Verified 11/07/23 12:13 Review of Systems Review of Systems: Pertinent positives per HPI. Patient denies any fever, chills, rash, headache, visual changes, dizziness, chest pain, palpitations, nausea, vomiting, diarrhea, constipation, abdominal pain, or any urinary issues. [facility] Past Medical History Medical History (Updated 11/07/23 @ 14:14 by Bryant Cabrera APRN) Cancer of kidney Status post partial nephrectomy Gastroesophageal reflux disease Hyperlipidemia Morbid obesity Surgical History Surgical History History of bariatric surgery (2020) Gastric sleeve. History of cholecystectomy History of partial nephrectomy Family History Family History Mother Hypertension Thyroid condition Heart murmur Father Acute myocardial infarction Heart disease Social History Social History Social History: Surrogate medical decision maker: Mitch Qiu, spouse. Code status: Full code. Smoking status: Never smoker Second hand tobacco smoke exposure: No Alcohol intake: current Alcohol use details: social Substance use: never Substance use type: does not use Lack of Transportation: No Lack of Food: Never True Current Housing: I Have Housing Concerned About Future Housing: No Difficulty Paying Gas/Electric Bills: No Difficulty Paying for Meds: No Currently Unemployed: No Education: High School Diploma/GED Difficulty w/ Childcare or Family Care: No Living arrangements: with family Occupation/Education: occupation Spiritual care concerns: No Comments At the time of my signature, I reviewed and agree with the nursing past medical, surgical, social, and family history. There is no relevant family history pertinent to the patient complaint. Exam Narrative: General: Well-developed, well nourished, in no apparent distress Head: Normocephalic, atraumatic Eyes: Pupils equally round and reactive to light bilaterally, EOM intact, sclera and conjunctive clear, no discharge, lids normal Ears: TMs intact and clear, ear canals clear, no drainage, grossly hearing normal. Nose: Nares patent, clear nasal discharge, no inflammation, no sinus tenderness. Mouth: Oral pharynx without lesions or masses, good dentition, MMM. Neck: Supple, trachea midline, no enlargement of anterior or posterior cervical nodes, no thyroid masses or goiter palpable. Cardio: Regular rate and rhythm, s1 and s2 normal, no murmur appreciated. Resp: Diminished in the bases otherwise clear, no rhonchi, rales, wheezing or rubs Course Course Emergency Course: Portions of this record may have been created with voice recognition software. Vital Signs Vital signs: Vital Signs Temperature 36.6 C 11/07/23 12:11 Pulse Rate 70 11/07/23 12:11
[2023-11-07 13:17] LABS: Influenza A QL RT-PCR Negative (Negative); Influenza B QL RT-PCR Negative (Negative); RSV RNA, RT-PCR Negative (Negative); SARS-CoV-2 RNA PCR Negative (Negative)
[2023-11-07 13:53] VITALS: BP 158/106; PULSE 85; RESP 18; O2SAT 96
[2023-11-07 14:23] VITALS: BP 144/68; PULSE 78; RESP 18; O2SAT 98
== END 2023-11-07 14:25 | disposition home or self-care (01) ==
PROVIDERS: Emergency Medicine; Emergency Provider Nurse Practitioner Family; PCP Family Medicine
DX: J40 Bronchitis, not specified as acute or chronic (principal); J98.11 Atelectasis; Z20.822 Contact with and (suspected) exposure to COVID-19; E78.5 Hyperlipidemia, unspecified; K21.9 Gastro-esophageal reflux disease without esophagitis; E66.01 Morbid (severe) obesity due to excess calories; Z68.37 Body mass index [BMI] 37.0-37.9, adult; Z85.528 Personal history of other malignant neoplasm of kidney; Z90.5 Acquired absence of kidney; Z98.84 Bariatric surgery status; Z90.49 Acquired absence of other specified parts of digestive tract; Z79.84 Long term (current) use of oral hypoglycemic drugs
CPT/HCPCS: 71045; 87637; 99283

== ENCOUNTER 2023-12-15 14:39 | Outpatient (CLI) | payer OTHER, SELFPAY ==
--- NOTE | ~2023-12-15 | XR_ITS ---
EXAMINATION: XR chest 2V DATE: 12/15/2023 15:03 INDICATION: Cough and chest pain TECHNIQUE: PA and lateral views of the chest are obtained. COMPARISON: 11/07/2023 FINDINGS: The lungs are free of acute opacities. No pleural effusion or pneumothorax. The cardiomedia stinal silhouette is normal. The visualized bones and soft tissues are unremarkable. IMPRESSION: 1. No acute cardiopulmonary abnormality. Reviewed, dictated and finalized at location L. SPINNER
== END 2023-12-15 14:40 ==
LOC: MICIMG 14:41
PROVIDERS: PCP Family Medicine; Visit Provider Family Medicine
DX: R05.9 Cough, unspecified (principal)
CPT/HCPCS: 71046

== ENCOUNTER 2023-12-29 05:11 | Emergency (ER) | payer OTHER, SELFPAY ==
--- NOTE | ~2023-12-29 | CT_ITS ---
Non-contrast CT scan of the Abdomen and Pelvis Clinical indication: Kidney stone Technique: 2.5 mm axial scans were obtained through the abdomen and pelvis without intravenous or or al contrast. Dose reduction technique was used on this scan by utilizing automated exposure control a nd iterative reconstruction technique. The dose-length product (DLP) was 1133.82 mGy-cm. COMPARISON: 03/20/2030 Findings: Images through the lung bases reveal no abnormalities. There is no evidence of renal or ureteral calculi. The kidneys and the ureters are nondilated. Left k idney relatively atrophic as compared to the right, unchanged. The liver, pancreas, and adrenals appear normal. Cholecystectomy clips are present. Stable small hypo dense lesion in the spleen. There is no aortic aneurysm. There is no evidence of bowel obstruction. Evidence of prior bariatric surgery. Images through the pelvis were performed. There is no evidence of ascites or lymphadenopathy. Urinary bladder unremarkable. No pelvic mass seen. Impression: No acute abnormality. Relatively atrophic left kidney as compared to the right. Reviewed, dictated and finalized at [facility]. SCAN TECH Impression: No acute abnormality. Relatively atrophic left kidney as compared to the right.
[2023-12-29 05:16] VITALS: BP 141/91; PULSE 81; RESP 15; TEMP 36.3; O2SAT 97
--- NOTE | 2023-12-29 05:22 | ED.ABDPAIN ---
HPI - Abdominal Pain General Chief Complaint: Abdominal Pain Stated Complaint: R flank pain Time Seen by Provider: 12/29/23 05:21 Source: patient and family Mode of arrival: ambulatory Limitations: no limitations History of Present Illness HPI narrative: 48-year-old post-menopausal (LMP 1997, unilateral oopharectomy) female with past medical history kidney cancer insert well as kidney stones complicated by obstruction requiring placement of stent followed by lithotripsy and ICU admission many years ago. She presents right flank pain radiating into her abdomen as well as some associated nausea of several hours duration. She has been using Tylenol for pain control her last dose taken yesterday. No fevers or vomiting. No hematuria or dysuria but she is having urinary frequency and urgency. No vaginal discharge or bleeding. LBM was yesterday. She states her stools are chronically loose ever since her cholecystetomy but no changes from baseline, no blood in them. Had followed with a urologist immediately after her prior kidney stone incident and surgery but hasn't in years. Last oral intake last night though doesn't have an appetite. Related Data Home Medications Medication Instructions Recorded Confirmed metformin 850 mg tablet 850 mg PO BID 11/13/20 12/15/23 Allergies Allergy/AdvReac Type Severity Reaction Status Date / Time No Known Allergies Allergy Verified 12/15/23 10:11 [facility] Past Medical History Medical History Cancer of kidney Status post partial nephrectomy Gastroesophageal reflux disease History of kidney stones Hyperlipidemia Morbid obesity Surgical History Surgical History History of bariatric surgery (2020) Gastric sleeve. History of cholecystectomy History of oophorectomy, unilateral History of partial nephrectomy History of renal stent Family History Family History Mother Hypertension Thyroid condition Heart murmur Father Acute myocardial infarction Heart disease Social History Social History Social History: Surrogate medical decision maker: Mitch Qiu, spouse. Code status: Full code. Smoking status: Never smoker Second hand tobacco smoke exposure: No Alcohol intake: current Alcohol use details: social Substance use: never Substance use type: does not use Lack of Transportation: No Lack of Food: Never True Current Housing: I Have Housing Concerned About Future Housing: No Difficulty Paying Gas/Electric Bills: No Difficulty Paying for Meds: No Currently Unemployed: No Education: High School Diploma/GED Difficulty w/ Childcare or Family Care: No Living arrangements: with family Occupation/Education: occupation Spiritual care concerns: No Exam Narrative: GENERAL: Well-appearing, well-nourished, and in no acute distress. HEAD: Normocephalic, atraumatic. EYES: Non injected, non icteric ENT: Nares clear, no rhinorrhea or epistaxis. NECK: Supple. CHEST: Speaking in complete sentences, non labored. No respiratory distress. HEART: Regular rate and rhythm. . ABDOMEN: Soft, nondistended, obese. Non tender to palpation and without rigidity or guarding. Some suprapubic tenderness to palpation. No CVA tenderness bilaterally. EXTREMITIES: Normal range of motion. No edema. SKIN: Warm, dry, no rash. NEURO: No focal deficits. Alert and oriented. Ambulates with steady gait, observed walking from bathroom to ED room. Able to get into stretcher. PSYCH: Normal mood and affect. Course Vital Signs Vital signs: Vital Signs Temperature 97.3 F L 12/29/23 05:16 Pulse Rate 81 12/29/23 05:16 Respiratory Rate 15 12/29/23 05:16 Blood Pressure 141/91 H 12/29/23 05:16 Pulse Oximetry 97 12/29/23 05:16 Oxygen Del
[2023-12-29] MEDS: HYDROcodone/acetaminophen (*CRX) 5-325 MG TABLET 1 TAB PO (05:44)
[2023-12-29] MEDS: ONDANSETRON INJ 4 MG/2 ML VIAL IV PUSH (05:44)
[2023-12-29 05:48] LABS: Basophils Percent Auto 0.5 % (0.2-1.2); Eosinophils Absolute Auto 0.2 K/mm3 (0-0.3); Eosinophils Percent Auto 3.2 % (0-4.4); Hematocrit 43.5 % (37.0-47.0); Hemoglobin 14.2 g/dL (12.0-15.0); Immature Granulocyte Absolute 0.01 K/mm3 (0.00-0.031); Immature Granulocyte Percent A 0.2 % (0-0.5); Lymphocytes Percent Auto 35.6 % (18.3-44.2); Mean Corpuscular HGB Conc 32.6 g/dl (32-36); Mean Corpuscular Hemoglobin 29.8 pg (26-34); Mean Corpuscular Volume 91.2 fl (80-100); Mean Platelet Volume 10.8 fl (7.4-10.4); Monocytes Absolute Auto 0.5 K/mm3 (0.1-0.6); Neutrophils Percent Auto 51.5 % (45.5-73.1); Platelet Count Result 293 k/mm3 (150-375); Red Blood Count 4.77 M/mm3 (4.2-5.4); Red Cell Distribution Width 13.6 % (11.5-14.5); White Blood Count 5.9 K/mm3 (4.5-10.0)
[2023-12-29 05:56] LABS: Appearance Urine Cloudy (Clear); Bacteria Urine None Seen /hpf; Bilirubin Urine Negative (Negative); Blood Urine Negative (Negative); Color Urine Yellow (Yellow); Glucose Urine UA 3+ mg/dL (Negative); Ketones Urine Trace mg/dL (Negative); Leukocyte Esterase Ur Negative LEU/UL (Negative); Nitrate Urine Negative (Negative); Non Pathogenic Casts 0-2; Protein Urine Negative (Negative); RBC Urine 0-2 /hpf (0-2); Squamous Epithelial Cell Urine Moderate /hpf (Few); Urobilinogen Urine 0.2 mg/dL (<2.0)
[2023-12-29 05:57] LABS: Specific Grav Ur 1.043 (1.001-1.035)
[2023-12-29 05:58] LABS: Add Urine Microscopic? YES
[2023-12-29 06:02] LABS: Alanine Aminotransferase 24 U/L (6-35); Albumin Level 4.3 g/dL (3.5-5.1); Alkaline Phosphatase 79 U/L (38-126); Anion Gap 9 mmol/L (8-16); Aspartate Amino Transferase 23 U/L (14-36); Bilirubin,Total 0.9 mg/dL (0.2-1.3); Blood Urea Nitrogen 14 mg/dL (7-17); Calcium 9.5 mg/dL (8.4-10.2); Carbon Dioxide 26 mmol/L (22-30); Chloride 105 mmol/L (98-107); Estimated Glomerular Filt Rate > 60; Glucose 144 mg/dL (65-110); Lipase 95 U/L (23-300); Potassium 3.6 mmol/L (3.4-5.0); Sodium 140 mmol/L (137-145)
[2023-12-29 06:26] LABS: Influenza A QL RT-PCR Negative (Negative); Influenza B QL RT-PCR Negative (Negative); SARS-CoV-2 RNA PCR Negative (Negative)
[2023-12-29] MEDS: ACETAMINOPHEN 325 MG TABLET 650 MG PO (06:45)
[2023-12-29] MEDS: SULFAMETHOXAZOLE/TRIMETHOPRIM 800/160 MG DS TABLET 1 TAB PO (06:45)
[2023-12-29 06:56] VITALS: BP 144/94; PULSE 87; RESP 15; O2SAT 100
== END 2023-12-29 06:58 | disposition home or self-care (01) ==
PROVIDERS: Emergency Provider Student in an Organized Health Care Education/Training Program; PCP Family Medicine
DX: N10 Acute pyelonephritis (principal); E11.65 Type 2 diabetes mellitus with hyperglycemia; R82.81 Pyuria; R81 Glycosuria; Z20.822 Contact with and (suspected) exposure to COVID-19; E78.5 Hyperlipidemia, unspecified; K21.9 Gastro-esophageal reflux disease without esophagitis; E66.01 Morbid (severe) obesity due to excess calories; Z68.37 Body mass index [BMI] 37.0-37.9, adult; Z85.528 Personal history of other malignant neoplasm of kidney; Z87.442 Personal history of urinary calculi; Z90.5 Acquired absence of kidney; Z90.721 Acquired absence of ovaries, unilateral; Z90.49 Acquired absence of other specified parts of digestive tract; Z79.84 Long term (current) use of oral hypoglycemic drugs
CPT/HCPCS: 36415; 74176; 80053; 81001; 81025; 83690; 85025; 87086; 87636; 96374; 99284; A9270; J2405

== ENCOUNTER 2024-01-01 18:21 | Emergency (ER) | payer OTHER, SELFPAY ==
[2024-01-01] VITALS (12 sets, daily range): BP systolic 132–148; BP diastolic 81–93; PULSE 67–83; RESP 16–21; TEMP 37; O2SAT 97–100
--- NOTE | ~2024-01-01 | CT_ITS ---
EXAMINATION: CT abdomen pelvis w con DATE: 01/01/2024 21:46 INDICATION: R Flank pain TECHNIQUE: Computed tomography (CT) of the abdomen and pelvis was performed with 100 mL Omnipaque-350 intravenous contrast. Automated exposure control and iterative reconstruction technique were employe d. The dose-length product was 945.88 mGy-cm. COMPARISON: 12/29/2023. FINDINGS: Lower thorax: Unremarkable Liver: Enlarged liver. Biliary/Gallbladder: Gallbladder is absent. No bile duct dilation. Pancreas: No mass or duct dilation. Spleen: 12 mm splenic cyst or hemangioma. Adrenals:No mass. Kidneys: Severe left renal atrophy. Stable small focus of fat necrosis anterior to the left kidney. S table left capsular calcification. Mild right perinephric stranding. No obstructive calcification or hydronephrosis. GI tract: Status post gastric surgery. No small or large bowel dilation. Appendix not confidently vis ualized. Diverticulosis without diverticulitis. Mesentery/Peritoneum: No ascites, mass, or free air. Retroperitoneum: No mass. Pelvis: Normal urinary bladder. Absent uterus.. Soft Tissues: Lower abdominal anterolisthesis Bones: No acute osseous finding. IMPRESSION: No acute abdominopelvic process detected. Reviewed, dictated and finalized at location K. BLADE ALIGNER
--- NOTE | 2024-01-01 19:57 | ED.GENADULT ---
HPI - General Adult General Chief complaint: Abdominal Pain Stated complaint: right flank pain Time Seen by Provider: 01/01/24 19:15 History of Present Illness HPI narrative: This is a 48-year-old female presenting to the ED with right flank pain. She was seen in the hospital on December 29 and was diagnosed with possible pyelonephritis and placed on antibiotics. Patient's pain has not improved. It is described as a sharp achy pain on her right side that is 10 out 10 intensity and constant. It is worse with palpation. Worse with movement. she has been taking Tylenol with minimal relief. She is not have any urinary symptoms at this time. Patient says she has had nausea but no vomiting. A no patient sees a pain specialist for chronic back pain. She is only on Tylenol at this time. She used to be on muscle relaxers. Related Data Allergies Allergy/AdvReac Type Severity Reaction Status Date / Time No Known Allergies Allergy Verified 12/15/23 10:11 [facility] Past Medical History Medical History Cancer of kidney Status post partial nephrectomy Gastroesophageal reflux disease History of kidney stones Hyperlipidemia Morbid obesity Surgical History Surgical History History of bariatric surgery (2020) Gastric sleeve. History of cholecystectomy History of oophorectomy, unilateral History of partial nephrectomy History of renal stent Family History Family History Mother Hypertension Thyroid condition Heart murmur Father Acute myocardial infarction Heart disease Social History Social History Social History: Surrogate medical decision maker: Mitch Qiu, spouse. Code status: Full code. Smoking status: Never smoker Second hand tobacco smoke exposure: No Alcohol intake: current Alcohol use details: social Substance use: never Substance use type: does not use Lack of Transportation: No Lack of Food: Never True Current Housing: I Have Housing Concerned About Future Housing: No Difficulty Paying Gas/Electric Bills: No Difficulty Paying for Meds: No Currently Unemployed: No Education: High School Diploma/GED Difficulty w/ Childcare or Family Care: No Living arrangements: with family Occupation/Education: occupation Spiritual care concerns: No Exam Narrative: APPEARANCE: No apparent distress. Patient flinches to soft touch is on the right side in the abdomen. Head: atraumatic. EYES: EOMI, NOSE: Atraumatic NECK: Trachea midline RESPIRATORY: No increased rate of breathing CARDIOVASCULAR: RRR, ABDOMINAL: Soft nontender no guarding or rebound. No true CVA tenderness. Patient flinches to soft touch anywhere on her right side. MUSCULOSKELETAl: No obvious deformities NEURO: Alert. Moving 4/4 extremities SKIN:: Warm, dry. Normal color PSYCHIATRIC: Normal affect Course Vital Signs Vital signs: Vital Signs Temperature 98.6 F 01/01/24 18:30 Pulse Rate 83 01/01/24 18:30 Respiratory Rate 16 01/01/24 18:30 Blood Pressure 146/81 H 01/01/24 18:30 Pulse Oximetry 97 01/01/24 18:30 Temperature 98.6 F 01/01/24 18:30 Pulse Rate 83 01/01/24 18:30 Respiratory Rate 16 01/01/24 18:30 Blood Pressure 146/81 H 01/01/24 18:30 Pulse Oximetry 97 01/01/24 18:[address] [facility] Narrative Medical decision making narrative: -Course: 48-year-old female presenting with right flank pain. Seen several days ago for possible UTI placed on antibiotics without improvement her symptoms. Patient has re-presented today for right flank pain. Re-examination is more likely to be chronic pain. Patient is exquisitely sensitive to light touch Her urine today was clean. Her culture showed yeast but she has no urinary symptoms whit
[2024-01-01 20:19] LABS: Appearance Urine Clear (Clear); Bacteria Urine None Seen /hpf; Bilirubin Urine Negative (Negative); Blood Urine Negative (Negative); Color Urine Yellow (Yellow); Glucose Urine UA 3+ mg/dL (Negative); Ketones Urine Trace mg/dL (Negative); Leukocyte Esterase Ur Negative LEU/UL (Negative); Nitrate Urine Negative (Negative); Non Pathogenic Casts 0-2; Protein Urine Trace mg/dL (Negative); RBC Urine 0-2 /hpf (0-2); Squamous Epithelial Cell Urine None seen /hpf (Few); WBC Urine 0-5 /hpf
[2024-01-01] MEDS: ACETAMINOPHEN 500 MG TABLET 1000 MG PO (20:20)
[2024-01-01] MEDS: KETOROLAC 15 MG/ML VIAL (*BKC) IV PUSH (20:20)
[2024-01-01 20:25] LABS: Specific Grav Ur >= 1.030 (1.001-1.035)
[2024-01-01 20:26] LABS: Add Urine Microscopic? YES
[2024-01-01 20:33] LABS: Basophils Percent Auto 0.7 % (0.2-1.2); Eosinophils Absolute Auto 0.2 K/mm3 (0-0.3); Eosinophils Percent Auto 3.4 % (0-4.4); Hematocrit 39.7 % (37.0-47.0); Hemoglobin 12.8 g/dL (12.0-15.0); Immature Granulocyte Absolute 0.01 K/mm3 (0.00-0.031); Immature Granulocyte Percent A 0.2 % (0-0.5); Lymphocytes Absolute Auto 2.35 K/mm3 (0.9-3.2); Lymphocytes Percent Auto 43.8 % (18.3-44.2); Mean Corpuscular HGB Conc 32.2 g/dl (32-36); Mean Corpuscular Hemoglobin 29.6 pg (26-34); Mean Corpuscular Volume 91.7 fl (80-100); Mean Platelet Volume 11.1 fl (7.4-10.4); Monocytes Absolute Auto 0.6 K/mm3 (0.1-0.6); Monocytes Percent Auto 11.9 % (2.6-8.5); Neutrophils Absolute Auto 2.2 K/mm3 (1.3-6.7); Platelet Count Result 274 k/mm3 (150-375); Red Blood Count 4.33 M/mm3 (4.2-5.4); Red Cell Distribution Width 13.5 % (11.5-14.5); White Blood Count 5.4 K/mm3 (4.5-10.0)
[2024-01-01 20:41] LABS: Anion Gap 8 mmol/L (8-16); Blood Urea Nitrogen 15 mg/dL (7-17); Calcium 9.1 mg/dL (8.4-10.2); Carbon Dioxide 26 mmol/L (22-30); Chloride 107 mmol/L (98-107); Estimated Glomerular Filt Rate > 60; Glucose 202 mg/dL (65-110); Sodium 141 mmol/L (137-145)
== END 2024-01-01 22:45 | disposition home or self-care (01) ==
PROVIDERS: Emergency Provider Emergency Medicine; PCP Family Medicine
DX: R10.9 Unspecified abdominal pain (principal); I10 Essential (primary) hypertension; E11.9 Type 2 diabetes mellitus without complications; E78.5 Hyperlipidemia, unspecified; E66.01 Morbid (severe) obesity due to excess calories; Z68.35 Body mass index [BMI] 35.0-35.9, adult; K21.9 Gastro-esophageal reflux disease without esophagitis; Z98.84 Bariatric surgery status; Z85.528 Personal history of other malignant neoplasm of kidney; Z87.442 Personal history of urinary calculi; Z90.5 Acquired absence of kidney; Z90.49 Acquired absence of other specified parts of digestive tract; Z90.721 Acquired absence of ovaries, unilateral; Z79.84 Long term (current) use of oral hypoglycemic drugs
CPT/HCPCS: 36415; 74177; 80048; 81001; 85025; 96374; 99284; A9270; J1885; Q9967

== ENCOUNTER 2024-01-09 13:47 | Inpatient (IN) | payer OTHER, SELFPAY ==
--- NOTE | ~2024-01-09 | CT_ITS ---
EXAMINATION: CT abdomen pelvis w con INDICATION: Right lower quadrant pain, history of kidney cancer TECHNIQUE: Computed tomographic images of the abdomen and pelvis were obtained after the administrati on of 100 cc of Omnipaque 350 intravenous contrast. The dose-length product (DLP) was 1285.24 mGy-cm. Automated exposure control and iterative reconstruction technique were employed. COMPARISON: 01/01/2024, 02/22/2022 FINDINGS: There is a stable 3 mm nodule of the right middle lobe. There is mild atelectasis of the bill ng bases. The heart size is normal. Surgical changes in the stomach are consistent with gastric sleev e surgery. There is a 13 mm hypoattenuating lesion of the spleen which demonstrates slow enlargement. Changes of cholecystectomy are noted. The liver, pancreas, and adrenal glands are normal. The right kidney is unremarkable. Surgical changes are noted at the lateral aspect of the left kidney. There is a small area of fat necrosis anterior to the left kidney. No pathologically enlarged abdominal or pe lvic lymph nodes are identified. No free intraperitoneal gas or evidence of bowel obstruction. Change s of appendectomy are noted. IMPRESSION: 1. No CT correlate for the patient's symptoms. 2. Enlarging lesion of the spleen, indeterminate. Follow-up with MRI without and with contrast is rec ommended. Reviewed, dictated and finalized at location L. ING MACHINE OPERATOR IMPRESSION: 1. No CT correlate for the patient's symptoms. 2. Enlarging lesion of the spleen, indeterminate. Follow-up with MRI without an d with contrast is recommended.
--- NOTE | ~2024-01-09 | US_ITS ---
EXAMINATION: US renal BI DATE: 01/10/2024 08:59 INDICATION: Pyelonephritis TECHNIQUE: Multiple ultrasound grayscale images of the kidneys were obtained. COMPARISON: CT dated 01/10/2024 and ultrasound dated 11/25/2020 FINDINGS: The right kidney measures 12.0 x 7.1 x 5.6 cm. The left kidney measures 9.3 x 5.0 x 3.8 cm. The kidne ys demonstrate normal echogenicity. Asymmetric mild diffuse cortical atrophy at the left kidney with focally more severe scarring at the lower pole of the left kidney with some shadowing which appears r elated to a suture line and postoperative changes which on prior CT appears to be related to a prior partial nephrectomy. There is no hydronephrosis in either kidney. No stones identified. The bladder is normal with bilateral ureteral jets visualized on color Doppler. IMPRESSION: 1. No hydronephrosis in either kidney. 2. Normal right kidney and asymmetric mild left renal atrophy with more focal cortical scarring at th e lower pole system with prior partial nephrectomy. Reviewed, dictated and finalized at location A. ENGINES OPERATING ENGINEER IMPRESSION: 1. No hydronephrosis in either kidney. 2. Normal right kidney and asymmetric mild left renal atrophy with more focal c ortical scarring at the lower pole system with prior partial nephrectomy.
--- NOTE | 2024-01-09 14:32 | ADMGEN ---
This patient, Bibi Qiu, was admitted to [facility] Surg Room 324-01. Patient/family oriented to hospital policies and general routines including ID bracelet, bed and alarms, visiting hours, pain management, procedures, bathroom and other care routines, personal items, smoking policy, room service/diet, and visiting hours. Information on how to activate the Rapid Response Team has been discussed. Patient/Family are encouraged to report perceived risks to care and to ask questions if they do not understand what they are told or what they should do.
[2024-01-09 14:39] VITALS: BP 135/77; PULSE 76; RESP 18; TEMP 36.2; O2SAT 97; BMI 40.4
[2024-01-09 14:47] VITALS: BMI 40.5
--- NOTE | 2024-01-09 16:24 | PM.IMHP ---
H&P: HPI History of Present Illness Date/Time: 01/09/24 16:24 Chief Complaint: Abdominal Pain, N/V Narrative: 48 y/o F presents here with RLQ pain, nausea, and vomiting with PMH of kidney cancer (s/p partial nephrectomy), GERD, kidney stones, HLD, HTN and DM. Surgical history of gastric sleeve, cholecystectomy, oophorectomy (unilateral), partial nephrectomy, and renal stent placement. Patient presents here as a direct admission via [place] general surgery office for further evaluation of her RLQ pain, nausea, and vomiting. Originally presented to [place] ER on 12/29/2023 with right flank pain that radiated into her abdomen with associated nausea. UA did not show hematuria or bacteria, but did have pyuria. Given these findings and flank pain, patient was diagnosed with likely UTI/pyelonephritis and discharged home with Keflex 500 mg p.o. b.i.d. x5 days and Zofran. Patient then returned to [place] ED on 01/01/2024 with continued complaints of right flank pain. Patient reported the pain was not improving and had worsened, now tender to palpation in the RLQ. UA was unremarkable, however previous culture showed yeast. Given Toradol and Tylenol with some improvement. She was discharged home with ibuprofen and methocarbamol. Patient was referred to general surgery office by her PCP, Justin CUEVA, for expedited evaluation. There she reported RLQ pain that has been ongoing for the past 3-4 weeks. Pain initially presented with urinary frequency, however she later developed diarrhea approximately 1 week ago. Pain is exacerbated by p.o. intake with associated nausea and vomiting. Dry heaving during office visit with Taurus CUEVA today. Patient was then directly admitted for further evaluation. Initial VS at presentation: 97.2 F, HR 76, RR 18, 135/77, 97% on RA. Review of Systems Review of Systems: All systems reviewed & are unremarkable except as noted in HPI and below PMFSH Past Medical History Medical History Cancer of kidney Status post partial nephrectomy Diabetes mellitus Essential (primary) hypertension Gastroesophageal reflux disease History of kidney stones Hyperlipidemia Morbid obesity Surgical History Surgical History History of bariatric surgery (2020) Gastric sleeve. History of cholecystectomy History of oophorectomy, unilateral History of partial nephrectomy History of renal stent Family History Family History Mother Heart murmur Hypertension Thyroid condition Father Pancreatic cancer Acute myocardial infarction Heart disease Sibling Hypertension Social History Social History Social History: Surrogate medical decision maker: Mitch Qiu, spouse. Code status: Full code. Smoking status: Never smoker Second hand tobacco smoke exposure: No Alcohol intake: current Drinks per week: 1 Alcohol use details: social Substance use: never Substance use type: does not use Do You Feel Safe in your Home?: Yes Lack of Transportation: No Lack of Food: Never True Current Housing: I Have Housing Concerned About Future Housing: No Difficulty Paying Gas/Electric Bills: No Difficulty Paying for Meds: No Currently Unemployed: No Education: High School Diploma/GED Difficulty w/ Childcare or Family Care: No Living arrangements: with family Occupation/Education: occupation Gender identity (if verbalized by the patient): Female Sexual Orientation (if Verbalized by the Patient): Straight or Heterosexual Spiritual care concerns: No Meds Home Medications and Allergies Home Medications Medication Instructions Recorded Confirmed Type losartan 50 mg tablet 50 mg PO DAILY #90 tabs 09/13/23 01/09/24 Rx omeprazole 40 mg capsule,delayed 40 mg PO ROSALIA
[2024-01-09] MEDS: HYDROcodone/acetaminophen (*CRX) 5-325 MG TABLET 1 TAB PO (16:28)
[2024-01-09 17:04] LABS: Glucose Point of Care 142 mg/dl (65-105)
[2024-01-09] MEDS: MORPHINE SULFATE (*CRX) 2 MG/ML INJ IV PUSH ×2 (17:21→22:13)
[2024-01-09] MEDS: LACTATED RINGERS 1,000 ML 100 ML IV CONT (17:22)
[2024-01-09 21:46] LABS: Glucose Point of Care 129 mg/dl (65-105)
[2024-01-09] MEDS: diazePAM (*CRX) 2 MG TABLET 1 MG PO (22:12)
[2024-01-10] VITALS: BP 143/89; PULSE 71; RESP 18; TEMP 36.1; O2SAT 97
[2024-01-10] MEDS: metroNIDAZOLE 500 MG/ISO 100ML 500 MG/100 ML BAG 100 MG IVPB ×3 (01:12→16:24)
[2024-01-10] MEDS: LACTATED RINGERS 1,000 ML 100 ML IV CONT ×2 (04:16→16:23)
[2024-01-10] MEDS: MORPHINE SULFATE (*CRX) 2 MG/ML INJ IV PUSH (04:17)
[2024-01-10 05:03] LABS: Appearance Urine Clear (Clear); Bacteria Urine None Seen /hpf; Bilirubin Urine Negative (Negative); Blood Urine Negative (Negative); Color Urine Yellow (Yellow); Glucose Urine UA Negative (Negative); Ketones Urine Trace mg/dL (Negative); Leukocyte Esterase Ur Trace LEU/UL (NEGATIVE); Nitrate Urine Negative (Negative); Non Pathogenic Casts 0-2; Protein Urine Negative (Negative); RBC Urine 0-2 /hpf (0-2); Specific Grav Ur 1.031 (1.001-1.035); Squamous Epithelial Cell Urine Occasional /hpf (Few)
[2024-01-10 05:05] LABS: Add Urine Microscopic? YES
[2024-01-10 07:15] LABS: Basophils Percent Auto 0.6 % (0.2-1.2); Eosinophils Absolute Auto 0.2 K/mm3 (0-0.3); Eosinophils Percent Auto 3.1 % (0-4.4); Hematocrit 39.2 % (37.0-47.0); Hemoglobin 12.7 g/dL (12.0-15.0); Immature Granulocyte Absolute 0.02 K/mm3 (0.00-0.031); Immature Granulocyte Percent A 0.4 % (0-0.5); Lymphocytes Absolute Auto 1.53 K/mm3 (0.9-3.2); Lymphocytes Percent Auto 31.2 % (18.3-44.2); Mean Corpuscular HGB Conc 32.4 g/dl (32-36); Mean Corpuscular Hemoglobin 30.4 pg (26-34); Mean Corpuscular Volume 93.8 fl (80-100); Mean Platelet Volume 11.1 fl (7.4-10.4); Monocytes Absolute Auto 0.5 K/mm3 (0.1-0.6); Monocytes Percent Auto 9.6 % (2.6-8.5); Neutrophils Absolute Auto 2.7 K/mm3 (1.3-6.7); Neutrophils Percent Auto 55.1 % (45.5-73.1); Platelet Count Result 264 k/mm3 (150-375); Red Blood Count 4.18 M/mm3 (4.2-5.4); Red Cell Distribution Width 13.7 % (11.5-14.5); White Blood Count 4.9 K/mm3 (4.5-10.0)
[2024-01-10 07:26] LABS: Hemoglobin A1C 8.3 % (<5.7); Lactic Acid Reflex 1.6 mmol/L (0.7-2.0)
[2024-01-10] MEDS: HYDROcodone/acetaminophen (*CRX) 5-325 MG TABLET 1 TAB PO ×2 (07:34→21:48)
[2024-01-10 07:35] LABS: Alanine Aminotransferase 21 U/L (6-35); Albumin Level 3.8 g/dL (3.5-5.1); Alkaline Phosphatase 65 U/L (38-126); Anion Gap 6 mmol/L (8-16); Aspartate Amino Transferase 23 U/L (14-36); Bilirubin,Total 0.8 mg/dL (0.2-1.3); Blood Urea Nitrogen 16 mg/dL (7-17); CRP < 0.5 mg/dL (<1.0); Calcium 8.8 mg/dL (8.4-10.2); Carbon Dioxide 28 mmol/L (22-30); Chloride 106 mmol/L (98-107); Estimated Glomerular Filt Rate > 60; Glucose 124 mg/dL (65-110); Magnesium 1.4 mg/dL (1.6-2.3); Phosphorus 4.2 mg/dL (2.5-4.5); Potassium 3.4 mmol/L (3.4-5.0); Sodium 140 mmol/L (137-145)
[2024-01-10 07:39] LABS: Lipase 47 U/L (23-300)
[2024-01-10 08:16] LABS: Glucose Point of Care 116 mg/dl (65-105)
[2024-01-10] MEDS: PANTOPRAZOLE 40 MG TABLET PO ×2 (10:52→16:27)
[2024-01-10] MEDS: LOSARTAN POTASSIUM 50 MG TABLET PO (10:52)
[2024-01-10] MEDS: ATORVASTATIN 40 MG TABLET PO (10:52)
--- NOTE | 2024-01-10 11:28 | PM.CNGS ---
Assessment and Plan Assessment and plan (1) Right lower quadrant abdominal pain: Code(s): R10.31 - Right lower quadrant pain Status: Acute Assessment and Plan: Patient admitted for RLQ abdominal pain and right flank pain, as well as vomiting and diarrhea. CT scan of the abdomen/pelvis and renal ultrasound are negative for any acute findings that would be causing her symptoms. Agree with stool cultures. She has been started on IV antibiotics. There is no surgical cause for her symptoms on current imaging. She had a cholecystectomy and her appendix was not visualized on her previous CT scans. The CT from this morning actually mentions changes of an appendectomy. Etiology for her symptoms is still unclear. We would recommend GI consultation for further evaluation. (2) Flank pain: Code(s): R10.9 - Unspecified abdominal pain Status: Acute Assessment and Plan: Right flank pain but repeat CT scan today showed no urinary findings that would cause her flank pain. UA pretty unremarkable, but urine culture is pending. Renal US negative. (3) Diarrhea: Qualifiers: Diarrhea type: unspecified type Qualified Code(s): R19.7 - Diarrhea, unspecified Code(s): R19.7 - Diarrhea, unspecified Status: Acute Assessment and Plan: Stool cultures ordered. No diarrhea since admission. (4) Vomiting: Qualifiers: Nausea presence: with nausea Vomiting type: unspecified Qualified Code(s): R11.2 - Nausea with vomiting, unspecified Code(s): R11.10 - Vomiting, unspecified Status: Acute Assessment and Plan: Still has some nausea, but no vomiting since admission. She has been NPO this morning while waiting for GI consultation. (5) Diabetes mellitus: Qualifiers: Diabetes mellitus complication status: with hyperglycemia Diabetes mellitus terminal system operator insulin use: without intermediate use Diabetes mellitus type: type 2 Qualified Code(s): E11.65 - Type 2 diabetes mellitus with hyperglycemia Code(s): E11.9 - Type 2 diabetes mellitus without complications Status: Acute Assessment and Plan: Management per primary service. Hgb A1C 8.3. (6) Essential (primary) hypertension: Code(s): I10 - Essential (primary) hypertension Status: Acute Plan I have discussed the patient's case and plan of care with Dr. Condon. History of Present Illness Consult details Consult date: 01/10/24 Reason for consult: other (Right lower quadrant abdominal pain) Requesting physician: Angie Morillo APRN Narrative: This is a 48-year-old woman who was seen in the office by Dr. Condon yesterday. She was referred to our service by Dr. Anderson for evaluation of abdominal pain. Patient was seen in [place] [facility] on 01/01/[address] scan done for right flank pain. CT scan showed no acute abdominal pelvic process detected. She followed up in her PCP office on 01/06/2024 where they requested patient be seen in our office as soon as possible. She has been having abdominal pain for approximately 3-4 weeks. She first noticed pain associated with urinary frequency. Diarrhea started approximately 1 week ago. Her abdominal pain seems to be aggravated by eating. Last week, she also had vomiting intermittently and was dry heaving in the office yesterday. In the office, she was found to have significant RLQ tenderness and was visibly uncomfortable. She was directly admitted to the hospitalist service for further evaluation of her abdominal pain, vomiting, and diarrhea. She has been started on IV ceftriaxone and metronidazole. Labs this morning showed a normal white blood cell count of 4900, lactic acid 1.6 potassium 3.4, magnesium 1.4. Urinalysis showed trace ketones, trace leukocytes, 6-10 wbc's, no bacteria. This morning she had a CT scan of the abdomen and pelvis with contrast that showed no CT correlate for the patient's symptoms. Noted was a slowly enlarging lesion of the spleen
[2024-01-10 11:45] LABS: Glucose Point of Care 129 mg/dl (65-105)
[2024-01-10] MEDS: PROMETHAZINE HCL 25 MG/ML AMPUL 12.5 MG IV PUSH (12:06)
[2024-01-10 14:00] VITALS: BP 142/87; PULSE 71; RESP 18; TEMP 35.9; O2SAT 97
--- NOTE | 2024-01-10 14:37 | PM.IMPN ---
Progress Note: A&P Assessment and Plan (1) Right lower quadrant abdominal pain: Code(s): R10.31 - Right lower quadrant pain Status: Acute Assessment and Plan: Patient was a direct admission from the [place] hospital office for persistent abdominal pain. Review of previous imaging: -- CT A/P (12/29): No acute abnormality. Unchanged left kidney relatively atrophic. Evidence of prior bariatric surgery. -- CT A/P (01/01): No acute process. Severe left renal atrophy. Stable small focus of fat necrosis anterior to the left kidney. Mild right perinephric stranding. Appendix not confidently visualized. -- CT A/P (01/09): Enlarging lesion of the spleen now as 13mm. s/p cholecystectomy and possibly appendectomy. GenSurg consulted, awaiting recs Patient did have laparoscopic lysis of adhesions in 1998 and cholecystectomy 2000. LFTs normal. Lipase normal. Etiology unclear. Started on ceftriaxone and metronidazole Continue IV abx. GI consulted. Diet started. NPO after MN in case GI wants to do endoscopy (2) Flank pain: Code(s): R10.9 - Unspecified abdominal pain Status: Acute Assessment and Plan: As above (3) Diarrhea: Qualifiers: Diarrhea type: unspecified type Qualified Code(s): R19.7 - Diarrhea, unspecified Code(s): R19.7 - Diarrhea, unspecified Status: Acute Assessment and Plan: Patient having diarrhea as well. Stool culture pending. WBC normal Continue abx. (4) Diabetes mellitus: Qualifiers: Diabetes mellitus type: type 2 Diabetes mellitus moth exterminator insulin use: without moth exterminator use Diabetes mellitus complication status: with hyperglycemia Qualified Code(s): E11.65 - Type 2 diabetes mellitus with hyperglycemia Code(s): E11.9 - Type 2 diabetes mellitus without complications Status: Acute Assessment and Plan: A1c 8.3. The patient's blood glucose was reviewed on 01/09 Glucose remains well controlled. Continue AccuCheks covering with sliding scale. Hypoglycemia protocol available as needed. Continue to follow (5) Essential (primary) hypertension: Code(s): I10 - Essential (primary) hypertension Status: Acute Assessment and Plan: Patient's blood pressure was reviewed on 01/09 Blood pressure remains well controlled. Will continue to monitor Plan Diet: Diabetic diet GI Prophylaxis: Continue home omeprazole DVT Prophylaxis: SCDs Code Status: Full code Subjective Date/time seen: 01/10/24 14:37 Interval history: 48yo female with DM, hx of renal cancer, HTN and obesity here for abdominal pain, nausea and vomiting. Patient feels dizzy with nausea. Has diffuse abdominal pain. Feels SOB. She has been having occasional chest tightness she feels related to anxiety. usually lasts 10 min. Had a stress test a few months ago that was normal. [place] and vomiting better Exam Narrative: AF 97.0 143/89 71 18 97% ra Gen - NARD Chest - CTA bilaterally, nml RR CV - RRR S1/S2 with 2/6 systolic murmur USB Abd - Soft, diffusely tender without guarding. +BS Ext - No pedal edema Psych - depressed mood, poor eye contact Skin - Warm and dry Objective Data Vital Signs Vital Signs: Vital Signs - 24 hr 01/09/24 14:39 01/09/24 15:00 01/10/24 00:00 Temperature 97.2 F L 97 F L Pulse Rate 76 71 Respiratory Rate 18 18 Blood Pressure 135/77 143/89 H Pulse Oximetry 97 97 Oxygen Delivery Room Air 01/10/24 08:00 Temperature Pulse Rate Respiratory Rate Blood Pressure Pulse Oximetry Oxygen Delivery Room Air Intake/Output Intake/Output: Intake & Output 01/07/24 01/08/24 01/09/24 01/10/24 23:59 23:59 23:59 23:59 Intake Total 1350 Output Total 200 Balance 1150 Meds/Results Medications: Active Medications Generic Name Dose Route Start Last Admin Trade Name Freq PRN Reason Stop Dose Admin Acetaminophen 650 mg 01/09/24 16:04 Acetaminophen 325 Mg
[2024-01-10 16:00] VITALS: BP 140/70; PULSE 71; RESP 18; TEMP 36; O2SAT 96
[2024-01-10] MEDS: MAGNESIUM SULF 2 GM/WATER 50ML 2 GM/50 ML BAG IVPB (16:27)
[2024-01-10 17:05] LABS: Glucose Point of Care 159 mg/dl (65-105)
[2024-01-10 20:00] VITALS: O2SAT 96
[2024-01-10] MEDS: traZODone HCL 50 MG TABLET PO (23:00)
[2024-01-10 23:20] LABS: Glucose Point of Care 166 mg/dl (65-105)
[2024-01-11] VITALS: BP 102/59; PULSE 71; RESP 18; TEMP 36.4; O2SAT 97
[2024-01-11] MEDS: metroNIDAZOLE 500 MG/ISO 100ML 500 MG/100 ML BAG 100 MG IVPB ×3 (00:45→16:05)
[2024-01-11 05:00] VITALS: BP 135/84; PULSE 69; RESP 18; TEMP 36.6; O2SAT 98
[2024-01-11] MEDS: LACTATED RINGERS 1,000 ML 100 ML IV CONT ×2 (05:11→16:04)
[2024-01-11] MEDS: MORPHINE SULFATE (*CRX) 2 MG/ML INJ IV PUSH ×2 (06:28→20:12)
[2024-01-11 06:29] LABS: Basophils Percent Auto 0.6 % (0.2-1.2); Eosinophils Absolute Auto 0.2 K/mm3 (0-0.3); Eosinophils Percent Auto 4.3 % (0-4.4); Hematocrit 37.5 % (37.0-47.0); Hemoglobin 12.2 g/dL (12.0-15.0); Immature Granulocyte Absolute 0.01 K/mm3 (0.00-0.031); Immature Granulocyte Percent A 0.2 % (0-0.5); Lymphocytes Absolute Auto 1.51 K/mm3 (0.9-3.2); Lymphocytes Percent Auto 32.3 % (18.3-44.2); Mean Corpuscular HGB Conc 32.5 g/dl (32-36); Mean Corpuscular Volume 92.1 fl (80-100); Mean Platelet Volume 10.9 fl (7.4-10.4); Monocytes Absolute Auto 0.6 K/mm3 (0.1-0.6); Neutrophils Absolute Auto 2.4 K/mm3 (1.3-6.7); Neutrophils Percent Auto 50.6 % (45.5-73.1); Platelet Count Result 252 k/mm3 (150-375); Red Blood Count 4.07 M/mm3 (4.2-5.4); Red Cell Distribution Width 13.7 % (11.5-14.5); White Blood Count 4.7 K/mm3 (4.5-10.0)
[2024-01-11 06:47] LABS: Alanine Aminotransferase 20 U/L (6-35); Albumin Level 3.7 g/dL (3.5-5.1); Alkaline Phosphatase 64 U/L (38-126); Anion Gap 8 mmol/L (8-16); Aspartate Amino Transferase 18 U/L (14-36); Bilirubin,Total 0.7 mg/dL (0.2-1.3); Blood Urea Nitrogen 12 mg/dL (7-17); Calcium 8.8 mg/dL (8.4-10.2); Carbon Dioxide 24 mmol/L (22-30); Chloride 108 mmol/L (98-107); Estimated Glomerular Filt Rate > 60; Glucose 149 mg/dL (65-110); Magnesium 1.8 mg/dL (1.6-2.3); Potassium 3.6 mmol/L (3.4-5.0); Sodium 140 mmol/L (137-145)
[2024-01-11 07:50] LABS: Glucose Point of Care 151 mg/dl (65-105)
[2024-01-11] MEDS: PROMETHAZINE HCL 25 MG/ML AMPUL 12.5 MG IV PUSH (07:51)
[2024-01-11 08:00] VITALS: BP 146/82; PULSE 68; RESP 18; TEMP 35.9; O2SAT 94
--- NOTE | 2024-01-11 09:47 | WPDGICN ---
Assessment and Plan Assessment and plan (1) Nausea and vomiting: Code(s): R11.2 - Nausea with vomiting, unspecified Status: Acute Assessment and Plan: Nausea and vomiting new onset x 3-[address] abd/pelvis x 3 with no acute findings. Nausea is worsened with eating and vomiting/dry heaves are intermittent. She does have history of gastric sleeve in 2020. Denies chronic NSAID use. -EGD recommended. Will plan on doing this tomorrow. She can have clear liquids today -Continue Pantoprazole 40 mg IV BID -Supportive tx (2) Diarrhea: Qualifiers: Diarrhea type: unspecified type Qualified Code(s): R19.7 - Diarrhea, unspecified Code(s): R19.7 - Diarrhea, unspecified Status: Acute Assessment and Plan: New onset diarrhea x 1 week usually postprandial. Tx with Keflex 12/29/23 for possible pyelonephritis -has had no diarrhea this more as she has not ate. -Stool culture pending. -Consider adding C diff PCR testing but likely not c diff -CT abd/pelvis with no acute findings or colitis -Colonoscopy to be arranged tomorrow with EGD. -NPO after midnight and bowel prep to start this afternoon (3) Right lower quadrant abdominal pain: Code(s): R10.31 - Right lower quadrant pain Status: Acute Assessment and Plan: New onset RLQ pain. Not associated with eating or improved with BM. CT abd/pelvis with no acute findings x 3. s/p appendectomy and cholecystectomy Gen Surgery has seen her, with no surgical intervention till GI work up complete Colonoscopy tomorrow. Consider trial of Dicyclomine 20 mg every 6 hours (4) Epigastric pain: Code(s): R10.13 - Epigastric pain Status: Acute Assessment and Plan: EGD tomorrow (5) Diabetes mellitus: Qualifiers: Diabetes mellitus type: type 2 Diabetes mellitus clinical laboratory medical director insulin use: without snf use Diabetes mellitus complication status: with hyperglycemia Qualified Code(s): E11.65 - Type 2 diabetes mellitus with hyperglycemia Code(s): E11.9 - Type 2 diabetes mellitus without complications Status: Acute (6) Essential (primary) hypertension: Code(s): I10 - Essential (primary) hypertension Status: Acute (7) History of bariatric surgery: Onset Date: 2020 Code(s): Z98.84 - Bariatric surgery status Status: Acute GI Consult Note Consult date/time: 01/11/24 09:47 Reason for consult: nausea, vomiting, diarrhea, abdominal pain HPI: Bibi Qiu is a 48 year old female. PMH of kidney cancer (s/p partial nephrectomy), GERD, kidney stones, HLD, HTN and DM.? Surgical history of gastric sleeve (2020), cholecystectomy, oophorectomy (unilateral), partial nephrectomy, and renal stent placement. Patient was directly admitted from general surgeon's office Dr. Condon for dry heaving, vomiting and significant right lower quadrant abdominal tenderness. Repeat CT of the abdomen and pelvis with no acute process to explain symptoms. Lipase, LFTs and CBC were normal. Her glucose is elevated and hgb A1c 8. Stool culture pending. General surgery is following with no plan for surgical intervention at this time. Her is at bedside with her this AM. She is also NPO at this time. states the last 3-4 weeks she has been having constant right lower quadrant abdominal pain that will radiate up into her right upper quadrant and first noticed it to be with urinary frequency. Abdominal pain is not improved with bowel movements or worsened with eating. She has been seen in ER for this on 12/29 and 01/01 with no acute findings. She also reports 2-3 loose bowel movements per day or that is change for her, which this started around 1 week ago. She was given Keflex on 12/29 for possible pyelonephritis. She also reports new onset nausea that also started in conjunction with the abdominal pain around 3-4 weeks that is worsened with eating. She has had intermittent vomiting and dry heaving. The
[2024-01-11 11:55] LABS: Glucose Point of Care 116 mg/dl (65-105)
[2024-01-11] MEDS: ATORVASTATIN 40 MG TABLET PO (12:01)
[2024-01-11] MEDS: PANTOPRAZOLE 40 MG TABLET PO (12:01)
[2024-01-11] MEDS: LOSARTAN POTASSIUM 50 MG TABLET PO (12:01)
--- NOTE | 2024-01-11 12:31 | PM.PNGS ---
Progress Note: A&P Assessment and Plan (1) Right lower quadrant abdominal pain: Code(s): R10.31 - Right lower quadrant pain Status: Acute Assessment and Plan: Vomiting has stopped and she is not having any nausea this morning. She is actually hungry. Her abdominal pain persists but she is reporting more epigastric pain this morning. GI consulted and is planning an EGD tomorrow. Advanced to clear liquids today. Will continue to follow along. (2) Diarrhea: Qualifiers: Diarrhea type: unspecified type Qualified Code(s): R19.7 - Diarrhea, unspecified Code(s): R19.7 - Diarrhea, unspecified Status: Acute Assessment and Plan: Stool cultures pending. (3) Vomiting: Qualifiers: Vomiting type: unspecified Nausea presence: with nausea Qualified Code(s): R11.2 - Nausea with vomiting, unspecified Code(s): R11.10 - Vomiting, unspecified Status: Acute Assessment and Plan: Improved, no nausea today. (4) Diabetes mellitus: Qualifiers: Diabetes mellitus type: type 2 Diabetes mellitus detention insulin use: without detention use Diabetes mellitus complication status: with hyperglycemia Qualified Code(s): E11.65 - Type 2 diabetes mellitus with hyperglycemia Code(s): E11.9 - Type 2 diabetes mellitus without complications Status: Acute Plan I have discussed the patient's case and plan of care with Dr. Condon. Subjective Subjective Date/Time Seen: 01/11/24 10:31 Patient reports: still having pain Interval history: Patient still having right-sided abdominal pain. She reports unchanged. She also complains of a headache today but thinks it is from not eating and feels very hungry. She was NPO for GI consult today. Denies any nausea this morning. Exam Const: General: uncomfortable and obese GI: Inspection: obesity (protuberant abdomen) GI Palp: Yes Soft to palpation, Yes Tenderness to palpation present (GI) (epigastric, RUQ, RLQ, worse in the epigastric area today), Yes Guarding due to palpation present (GI) (voluntary guarding in epigastric area) and No Rebound tenderness present Auscultation: normal bowel sounds Objective Data Vital Signs Vital Signs: Vital Signs - 24 hr 01/10/24 14:00 01/10/24 16:00 01/10/24 20:00 Temperature 96.7 F L 96.8 F L Pulse Rate 71 71 Respiratory Rate 18 18 Blood Pressure 142/87 H 140/70 Pulse Oximetry 97 96 96 Oxygen Delivery Room Air 01/11/24 00:00 01/11/24 05:00 01/11/24 08:00 Temperature 97.6 F 98 F 96.6 F L Pulse Rate 71 69 68 Respiratory Rate 18 18 18 Blood Pressure 102/59 L 135/84 146/82 H Pulse Oximetry 97 98 94 Oxygen Delivery 01/11/24 08:00 Temperature Pulse Rate Respiratory Rate Blood Pressure Pulse Oximetry Oxygen Delivery Room Air Intake/Output Intake/Output: Intake & Output 01/08/24 01/09/24 01/10/24 01/11/24 23:59 23:59 23:59 23:59 Intake Total 3230 1575 Output Total 200 1000 Balance 3030 575 Meds/Results Medications: Active Medications Generic Name Dose Route Start Last Admin Trade Name Freq PRN Reason Stop Dose Admin Acetaminophen 650 mg 01/09/24 16:04 Acetaminophen 325 Mg Tablet PO Q4H PRN Mild Pain (1-3) or Fever Hydrocodone Bitart/Acetaminophen 1 tab 01/09/24 16:04 01/10/24 21:48 Hydrocodone/Acetaminophen (*Crx) 5-325 Mg Tablet PO 1 tab Q4H PRN Administration Moderate Pain (4-6) Atorvastatin Calcium 40 mg 01/10/24 09:00 01/11/24 12:01 Atorvastatin 40 Mg Tablet PO 40 mg DAILY MYRA Administration Bisacodyl 20 mg 01/11/24 16:00 Bisacodyl 5 Mg Tablet Ec PO 01/11/24 16:01 ONCE ONE Dextrose 12.5 gm 01/09/24 23:51 Dextrose 50% 25 Gm/50 Ml Syringe IV PUSH PRN PRN Hypoglycemia Protocol Glucagon 1 mg 01/09/24 23:51 Glucagon For Inj 1 Mg Vial IM PRN PRN Hypoglycemia Protocol Glucose 15 gm 01/09/24 23:51 Glucose Oral Gel
--- NOTE | 2024-01-11 15:21 | PM.IMPN ---
Progress Note: A&P Assessment and Plan (1) Right lower quadrant abdominal pain: Code(s): R10.31 - Right lower quadrant pain Status: Acute Assessment and Plan: Patient was a direct admission from the [facility] office for persistent abdominal pain. Review of previous imaging: CT A/P (12/29): No acute abnormality. Unchanged left kidney relatively atrophic. Evidence of prior bariatric surgery. CT A/P (01/01): No acute process. Severe left renal atrophy. Stable small focus of fat necrosis anterior to the left kidney. Mild right perinephric stranding. Appendix not confidently visualized. CT A/P (01/09): Enlarging lesion of the spleen now as 13mm. s/p cholecystectomy and possibly appendectomy. GenSur consulted conservative treatment GI consult recommended Patient did have laparoscopic lysis of adhesions in 1998 and cholecystectomy 2000. LFTs normal. Lipase normal. Etiology unclear. Started on ceftriaxone and metronidazole Continue IV abx. GI consulted. Diet started. NPO after [place] EGD/Colonoscopy in the am (2) Flank pain: Code(s): R10.9 - Unspecified abdominal pain Status: Acute Assessment and Plan: As above (3) Diarrhea: Qualifiers: Diarrhea type: unspecified type Qualified Code(s): R19.7 - Diarrhea, unspecified Code(s): R19.7 - Diarrhea, unspecified Status: Acute Assessment and Plan: Patient having diarrhea as well. Stool culture pending. Improving C-diff pending WBC normal Continue abx. (4) Diabetes mellitus: Qualifiers: Diabetes mellitus type: type 2 Diabetes mellitus alf insulin use: without provider relations advocate use Diabetes mellitus complication status: with hyperglycemia Qualified Code(s): E11.65 - Type 2 diabetes mellitus with hyperglycemia Code(s): E11.9 - Type 2 diabetes mellitus without complications Status: Acute Assessment and Plan: A1c 8.3. The patient's blood glucose was reviewed on 01/09 Glucose remains well controlled. Continue AccuCheks covering with sliding scale. Hypoglycemia protocol available as needed. Continue to follow (5) Essential (primary) hypertension: Code(s): I10 - Essential (primary) hypertension Status: Acute Assessment and Plan: Stable Will continue to monitor Plan Code status: Full code per patient DVT prophylaxis: SCD's Stress ulcer prophylaxis: Protonix 40 b.i.d. PT/OT notes: Ambulatory Disposition: Patient continues admission for abdominal pain with nausea and vomiting plan is for EGD/S colonoscopy tomorrow plan wound be discharged back to home when medically stable. Time Spent With Patient Time with patient: 15 - 25 minutes Subjective Date/time seen: 01/11/24 15:21 Interval history: 01/09: (Medical Record) 48yo female with DM, hx of renal cancer, HTN and obesity here for abdominal pain, nausea and vomiting. Patient feels dizzy with nausea. Has diffuse abdominal pain. Feels SOB. She has been having occasional chest tightness she feels related to anxiety. usually lasts 10 min. Had a stress test a few months ago that was normal. [place] and vomiting better 01/10: Patient reported no improvement to ABD pain, still nauseous but denied any vomiting, not able to tolerate oral intake. Normal WBC. Plan is for EGD/colonoscopy tomorrow for direct visualization. C-diff pending, stool culture negative. Review of Systems Review of Systems: All systems reviewed & are unremarkable except as noted in HPI and below Exam Narrative: Physical Exam: GENERAL: Alert and oriented x 3. No acute distress. Obese EYES: EOMI. No scleral icterus. PERRLA. HEENT: Moist mucous membranes. No cervical lymphadenopathy. LUNGS: Clear to auscultation bilaterally. No accessory muscle use. CARDIOVASCULAR: Regular rate and rhythm. No murmur. No JVD. S1-S2 ABDOMEN: Soft, mild tenderness and non-distended. No palpable m
[2024-01-11 16:00] VITALS: BP 140/80; PULSE 68; RESP 20; TEMP 35.8; O2SAT 100
[2024-01-11] MEDS: BISACODYL 5 MG TABLET EC 20 MG PO (16:04)
[2024-01-11] MEDS: polyethylene glycoL 3350 238 GM BOTTLE PO (16:14)
[2024-01-11 16:34] LABS: Glucose Point of Care 128 mg/dl (65-105)
[2024-01-11 22:00] VITALS: BP 134/71; PULSE 72; RESP 14; TEMP 35.9; O2SAT 98
[2024-01-11 22:17] LABS: Glucose Point of Care 176 mg/dl (65-105)
[2024-01-12] MEDS: metroNIDAZOLE 500 MG/ISO 100ML 500 MG/100 ML BAG 100 MG IVPB ×4 (01:02→23:15)
[2024-01-12] MEDS: MAGNESIUM CITRATE 300 ML BTL PO (03:14)
[2024-01-12] MEDS: LACTATED RINGERS 1,000 ML 100 ML IV CONT ×3 (03:15→23:50)
[2024-01-12 06:00] VITALS: BP 147/77; PULSE 74; RESP 14; TEMP 36.1; O2SAT 97
[2024-01-12] MEDS: MORPHINE SULFATE (*CRX) 2 MG/ML INJ IV PUSH ×2 (06:04→13:17)
[2024-01-12 07:43] LABS: Glucose Point of Care 130 mg/dl (65-105)
[2024-01-12 09:05] LABS: Hematocrit 39.4 % (37.0-47.0); Hemoglobin 12.7 g/dL (12.0-15.0); Mean Corpuscular HGB Conc 32.2 g/dl (32-36); Mean Corpuscular Hemoglobin 29.5 pg (26-34); Mean Corpuscular Volume 91.4 fl (80-100); Mean Platelet Volume 10.4 fl (7.4-10.4); Platelet Count Result 267 k/mm3 (150-375); Red Blood Count 4.31 M/mm3 (4.2-5.4); Red Cell Distribution Width 13.2 % (11.5-14.5); White Blood Count 4.7 K/mm3 (4.5-10.0)
[2024-01-12 09:17] LABS: Alanine Aminotransferase 24 U/L (6-35); Albumin Level 3.9 g/dL (3.5-5.1); Alkaline Phosphatase 71 U/L (38-126); Anion Gap 6 mmol/L (8-16); Aspartate Amino Transferase 29 U/L (14-36); Bilirubin,Total 0.7 mg/dL (0.2-1.3); Blood Urea Nitrogen 5 mg/dL (7-17); Calcium 9.2 mg/dL (8.4-10.2); Carbon Dioxide 23 mmol/L (22-30); Chloride 111 mmol/L (98-107); Estimated Glomerular Filt Rate > 60; Glucose 123 mg/dL (65-110); Potassium 3.6 mmol/L (3.4-5.0); Sodium 140 mmol/L (137-145)
[2024-01-12] MEDS: HYDROcodone/acetaminophen (*CRX) 5-325 MG TABLET 1 TAB PO ×2 (09:32→16:54)
[2024-01-12] MEDS: PANTOPRAZOLE 40 MG TABLET PO (09:33)
[2024-01-12] MEDS: ATORVASTATIN 40 MG TABLET PO (09:33)
[2024-01-12] MEDS: LOSARTAN POTASSIUM 50 MG TABLET PO (09:33)
[2024-01-12 11:35] LABS: Glucose Point of Care 108 mg/dl (65-105)
[2024-01-12 11:44] VITALS: BP 139/88; PULSE 60; RESP 13; O2SAT 98
--- NOTE | 2024-01-12 12:52 | PM.IMPN ---
Progress Note: A&P Assessment and Plan (1) Right lower quadrant abdominal pain: Code(s): R10.31 - Right lower quadrant pain Status: Acute Assessment and Plan: Patient was a [facility] for persistent abdominal pain. Review of previous imaging: CT A/P (12/29): No acute abnormality. Unchanged left kidney relatively atrophic. Evidence of prior bariatric surgery. CT A/P (01/01): No acute process. Severe left renal atrophy. Stable small focus of fat necrosis anterior to the left kidney. Mild right perinephric stranding. Appendix not confidently visualized. CT A/P (01/09): Enlarging lesion of the spleen now as 13mm. s/p cholecystectomy and possibly appendectomy. Gen[facility] consulted conservative treatment GI consult recommended Patient did have laparoscopic lysis of adhesions in 1998 and cholecystectomy 2000. LFTs normal. Lipase normal. Etiology unclear. Started on ceftriaxone and metronidazole Continue IV abx. GI consulted. Diet started. NPO after [place] EGD/Colonoscopy 01/11 Possible diagnostic laparoscopy and even appendectomy to see if that relieves her discomfort per surgery (2) Flank pain: Code(s): R10.9 - Unspecified abdominal pain Status: Acute Assessment and Plan: As above (3) Diarrhea: Qualifiers: Diarrhea type: unspecified type Qualified Code(s): R19.7 - Diarrhea, unspecified Code(s): R19.7 - Diarrhea, unspecified Status: Acute Assessment and Plan: Patient having diarrhea as well. Stool culture pending. Improving C-diff pending WBC normal Continue abx. 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 The patient's blood glucose was reviewed on 01/09 Glucose remains well controlled. Continue AccuCheks covering with sliding scale. Hypoglycemia protocol available as needed. Continue to follow (5) Essential (primary) hypertension: Code(s): I10 - Essential (primary) hypertension Status: Acute Assessment and Plan: Stable Will continue to monitor Plan Code status: Full code per patient DVT prophylaxis: SCD's Stress ulcer prophylaxis: Protonix 40 b.i.d. PT/OT notes: Ambulatory Disposition: Patient continues admission for abdominal pain with nausea and vomiting plan is for EGD/S colonoscopy today waiting on results to determine discharge planning possible diagnostic laparoscopy and even appendectomy to see if that relieves her discomfort Time Spent With Patient Time with patient: 15 - 25 minutes Subjective Date/time seen: 01/12/24 12:52 Interval history: 01/09: (Medical Record) 48yo female with DM, hx of renal cancer, HTN and obesity here for abdominal pain, nausea and vomiting. Patient feels dizzy with nausea. Has diffuse abdominal pain. Feels SOB. She has been having occasional chest tightness she feels related to anxiety. usually lasts 10 min. Had a stress test a few months ago that was normal. [place] and vomiting better 01/10: Patient reported no improvement to ABD pain, still nauseous but denied any vomiting, not able to tolerate oral intake. Normal WBC. Plan is for EGD/colonoscopy tomorrow for direct visualization. C-diff pending, stool culture negative. 01/11: Patient continues to have ABD RLQ worse with palpation. Normal wbc and afebrile overnight. Patient scheduled for EGD/Colonoscopy today. Review of Systems Review of Systems: All systems reviewed & are unremarkable except as noted in HPI and below Exam Narrative: Physical Exam: GENERAL: Alert and oriented x 3. No
[2024-01-12 13:39] VITALS: BP 162/91; PULSE 67; RESP 20; TEMP 36.1; O2SAT 98
[2024-01-12] MEDS: LACTATED RINGERS 1,000 ML 150 ML IV CONT (13:44)
[2024-01-12 13:49] LABS: Glucose Point of Care 116 mg/dl (65-105)
--- NOTE | 2024-01-12 13:58 | WPDANESEPPF ---
Anes - Initial Pre Proc Eval Procedure: Operation Date: 01/12/24 15:30 Proposed Procedures p Esophagogastroduodenoscopy & Colonoscopy - Yury Perez MD Date/Time: 01/12/24 13:58 Surgeon: Nik Lau MD Pre Op Diagnosis: Abdominal Pain Patient Data Age: 48 Gender: F Height: 1.5 m Weight: 91 kg Last Vital Signs Temp 96.9 F L 01/12/24 13:39 Pulse 67 01/12/24 13:39 Resp 20 01/12/24 13:39 BP 162/91 H 01/12/24 13:39 Pulse Ox 98 01/12/24 13:39 O2 Del Method Room Air 01/12/24 13:39 Allergies Allergy/AdvReac Type Severity Reaction Status Date / Time No Known Allergies Allergy Verified 01/12/24 13:35 Home Medications Medication Instructions Recorded Confirmed Type losartan 50 mg tablet 50 mg PO DAILY #90 tabs 09/13/23 01/09/24 Rx omeprazole 40 mg capsule,delayed 40 mg PO DAILY #90 caps 11/10/23 01/09/24 Rx release atorvastatin 40 mg tablet See Rx Instructions .Route 12/05/23 01/09/24 Rx .COMPLEX #90 tabs Farxiga 10 mg tablet 10 mg PO DAILY #90 tabs 12/22/23 01/09/24 Rx (dapagliflozin propanediol) ondansetron 4 mg disintegrating 4 mg PO Q8H PRN nausea and 12/29/23 01/09/24 Rx tablet vomiting #7 tabs metformin 850 mg tablet See Rx Instructions .Route 12/30/23 01/09/24 Rx .COMPLEX #180 tabs acetaminophen 500 mg tablet 1,000 mg PO TID PRN sharon 7 days #42 01/01/24 01/09/24 Rx tabs ibuprofen 800 mg tablet 800 mg PO TID PRN pain 7 days #21 01/01/24 01/09/24 Rx tabs Laboratory Tests 01/11/24 01/11/24 01/12/24 16:24 20:20 07:24 WBC RBC Hgb Hct MCV MCH MCHC RDW Plt Count MPV Sodium Potassium Chloride Carbon Dioxide Anion Gap BUN Creatinine Estim Creat Clear Calc Estimated GFR Glucose POC Capillary Glucose 128 H mg/dl 176 H mg/dl 130 H mg/dl (65-105) (65-105) (65-105) Calcium Total Bilirubin AST ALT Alkaline Phosphatase Total Protein Albumin 01/12/24 01/12/24 01/12/24 08:54 11:32 13:46 WBC 4.7 K/mm3 (4.5-10.0) RBC 4.31 M/mm3 (4.2-5.4) Hgb 12.7 g/dL (12.0-15.0) Hct 39.4 % (37.0-47.0) MCV 91.4 fl (80-100) MCH 29.5 pg (26-34) MCHC 32.2 g/dl (32-36) RDW 13.2 % (11.5-14.5) Plt Count 267 k/mm3 (150-375) MPV 10.4 fl (7.4-10.4) Sodium 140 mmol/L (137-145) Potassium 3.6 mmol/L (3.4-5.0) Chloride 111 H mmol/L (98-107) Carbon Dioxide 23 mmol/L (22-30) Anion Gap 6 L mmol/L (8-16) BUN 5 L D mg/dL (7-17) Creatinine 0.50 L mg/dL (0.7-1.0) Estim Creat Clear Calc Not Reportable Estimated GFR > 60 (59 - ) Glucose 123 H mg/dL (65-110) POC Capillary Glucose 108 H mg/dl 116 H mg/dl (65-105) (65-105) Calcium 9.2 mg/dL (8.4-10.2) Total Bilirubin 0.7 mg/dL (0.2-1.3) AST 29 U/L (14-36) ALT 24 U/L (6-35) Alkaline Phosphatase 71 U/L (38-126) Total Protein 7.0 g/dL (6.3-8.2) Albumin 3.9 g/dL (3.5-5.1) Patient hx anesthesia problems: none Family hx anesthesia problems: none Results Review: All pre-operative results and documents have been reviewed as part of the pre-operative evaluation. [facility] Past Medical History Medical History (Updated 01/11/24 @ 10:06 by Pina Quintanilla, KAILYN) Cancer of kidney Status post partial nephrectomy Diabetes mellitus Essential (primary) hypertension Gastroesophageal reflux disease History of kidney stones Hyperlipidemia Morbid obesity Cally
--- NOTE | 2024-01-12 14:14 | SUR.OPER ---
EGD START: 1406; END: 1409. COLONOSCOPY START: 1414; END: 1421.
[2024-01-12 14:24] VITALS: BP 126/74; PULSE 78; RESP 15; O2SAT 98
[2024-01-12 14:34] VITALS: BP 139/81; PULSE 68; RESP 14; O2SAT 97
[2024-01-12 16:15] LABS: Glucose Point of Care 127 mg/dl (65-105)
[2024-01-12] MEDS: PROMETHAZINE HCL 25 MG/ML AMPUL 12.5 MG IV PUSH (17:34)
--- NOTE | 2024-01-12 17:58 | PM.PNGS ---
Progress Note: A&P Assessment and Plan (1) Right lower quadrant abdominal pain: Code(s): R10.31 - Right lower quadrant pain Status: Chronic Assessment and Plan: Persistent pain and tenderness right lower quadrant and to a lesser degree left lower quadrant. She still does not feel anywhere near normal although she tolerated oral intake pretty well yesterday. She is experiencing nausea again tonight. Imaging and endoscopy have been negative. I discussed with her the possibility of diagnostic laparoscopy and possible appendectomy. I explained that this may not alleviate her symptoms but since her pain has been focused in the right lower quadrant and we have not been able to find a reason for this despite [address] scans, diagnostic laparoscopy does seem reasonable. She is agreeable with this and we will go ahead tomorrow afternoon. All questions were answered. Hopefully a reason for her problems will be noted. (2) Nausea and vomiting: Qualifiers: Vomiting type: unspecified Qualified Code(s): R11.2 - Nausea with vomiting, unspecified Code(s): R11.2 - Nausea with vomiting, unspecified Status: Chronic Assessment and Plan: 3-4 weeks prior to admission (3) Diarrhea: Qualifiers: Diarrhea type: unspecified type Qualified Code(s): R19.7 - Diarrhea, unspecified Code(s): R19.7 - Diarrhea, unspecified Status: Chronic Assessment and Plan: At least 1 week week prior to admission (4) History of bariatric surgery: Onset Date: 2020 Code(s): Z98.84 - Bariatric surgery status Status: Chronic Subjective Subjective Date/Time Seen: 01/12/24 17:58 Patient reports: still having pain, tolerating a regular diet (Better but not normal), bowel movement (Had prep for colonoscopy) and afebrile Interval history: Patient had EGD and colonoscopy today. Neither of these studies really showed any reason for the abdominal pain, nausea, vomiting, and diarrhea she has been experiencing. Imaging has been likewise negative. She does feel somewhat better and is keeping food down but still gets very nauseated and has right lower quadrant pain. Review of Systems Review of Systems: All systems reviewed & are unremarkable except as noted in HPI and below (HPI) Exam Const: General: comfortable and no acute distress Orientation/consciousness: patient oriented x3 GI: Inspection: normal to inspection, no abdominal wall ecchymosis, non-distended, obesity and no visible herniation GI Palp: Yes abdominal tenderness (Mostly lower abdomen, worse in right lower quadrant), Yes Soft to palpation, No Guarding due to palpation present (GI), No Hernia present, No Palpable mass present and No Rebound tenderness present Auscultation: normal bowel sounds Neuro: General: patient oriented x3 and no focal motor deficits Extrem: General: no calf tenderness and no edema Psych: Affect: normal affect Insight: Good insight present (Psych) Judgement: Good judgement present (Psych) Objective Data Vital Signs Vital Signs: Vital Signs - 24 hr 01/11/24 22:00 01/12/24 06:00 01/12/24 09:30 Temperature 35.9 C L 36.1 C L Pulse Rate 72 74 Respiratory Rate 14 14 Blood Pressure 134/71 147/77 H Pulse Oximetry 98 97 Oxygen Delivery Room Air 01/12/24 13:39 01/12/24 14:24 01/12/24 14:34 Temperature 36.1 C L Pulse Rate 67 78 68 Respiratory Rate 20 15 14 Blood Pressure 162/91 H 126/74 139/81 Pulse Oximetry 98 98 97 Oxygen Delivery Room Air Room Air Room Air 01/12/24 11:44 Temperature Pulse Rate 60 Respiratory Rate 13 Blood Pressure 139/88 Pulse Oximetry 98 Oxygen Delivery Room Air Intake/Output Intake/Output: Intake & Output 01/09/24 01/10/24 01/11/24 01/12/24 23:59 23:59 23:59 23:59 Intake Total 3230 4865 2175 Output Total 200 2300 Balance 3030 2565 2175 Meds/Results Medications: Active Medications Generic Name Dose Route Start
--- NOTE | 2024-01-12 19:05 | PC.NURSE ---
On 01/12/24, the POULTRY TENDER, Anyi Gonzalez, provided care and completed [employer] documentation on this patient. I have reviewed the POULTRY TENDER's documentation and agree with the findings.
[2024-01-12] MEDS: INSULIN ASPART (*BKC) 100 UNITS/ML SUB-Q (20:49)
[2024-01-12 22:05] VITALS: BP 136/71; PULSE 66; RESP 18; TEMP 35.7; O2SAT 95
[2024-01-13] VITALS (10 sets, daily range): BP systolic 135–170; BP diastolic 68–90; PULSE 66–90; RESP 10–18; TEMP 35.8–37.2; O2SAT 91–99
[2024-01-13 05:25] LABS: Glucose Point of Care 197 mg/dl (65-105)
[2024-01-13 06:25] LABS: Hematocrit 37.2 % (37.0-47.0); Hemoglobin 12.1 g/dL (12.0-15.0); Mean Corpuscular HGB Conc 32.5 g/dl (32-36); Mean Corpuscular Hemoglobin 29.6 pg (26-34); Mean Platelet Volume 10.7 fl (7.4-10.4); Platelet Count Result 238 k/mm3 (150-375); Red Blood Count 4.09 M/mm3 (4.2-5.4); Red Cell Distribution Width 13.2 % (11.5-14.5); White Blood Count 5.2 K/mm3 (4.5-10.0)
[2024-01-13 07:01] LABS: Alanine Aminotransferase 28 U/L (6-35); Albumin Level 3.4 g/dL (3.5-5.1); Alkaline Phosphatase 62 U/L (38-126); Anion Gap 4 mmol/L (8-16); Aspartate Amino Transferase 32 U/L (14-36); Bilirubin,Total 0.7 mg/dL (0.2-1.3); Blood Urea Nitrogen 8 mg/dL (7-17); Calcium 8.6 mg/dL (8.4-10.2); Carbon Dioxide 26 mmol/L (22-30); Chloride 109 mmol/L (98-107); Estimated Glomerular Filt Rate > 60; Glucose 132 mg/dL (65-110); Potassium 3.5 mmol/L (3.4-5.0); Sodium 139 mmol/L (137-145)
--- NOTE | 2024-01-13 07:25 | WPDANESPN ---
Anes - Prog Note Post-Op Date/Time: 01/13/24 07:25 Vital Signs: Last Vital Signs Temp 35.7 C L 01/12/24 22:05 Pulse 66 01/12/24 22:05 Resp 18 01/12/24 22:05 BP 136/71 01/12/24 22:05 Pulse Ox 95 01/12/24 22:05 O2 Del Method Room Air 01/12/24 20:50 Pain Score (VAS): 0 I/O: Intake & Output 01/12/24 01/12/24 01/13/24 15:59 23:59 07:59 Intake Total 600 1340 100 Balance 600 1340 100 Laboratory Tests 01/13/24 05:54 01/13/24 05:54 01/12/24 01/12/24 01/12/24 07:24 08:54 11:32 WBC 4.7 RBC 4.31 Hgb 12.7 Hct 39.4 MCV 91.4 MCH 29.5 MCHC 32.2 RDW 13.2 Plt Count 267 MPV 10.4 Sodium 140 Potassium 3.6 Chloride 111 H Carbon Dioxide 23 Anion Gap 6 L BUN 5 L D Creatinine 0.50 L Estim Creat Clear Calc Not Reportable Estimated GFR > 60 Glucose 123 H POC Capillary Glucose 130 H 108 H Calcium 9.2 Total Bilirubin 0.7 AST 29 ALT 24 Alkaline Phosphatase 71 Total Protein 7.0 Albumin 3.9 Blood Type Antibody Screen 01/12/24 01/12/24 01/12/24 13:46 16:11 19:16 WBC RBC Hgb Hct MCV MCH MCHC RDW Plt Count MPV Sodium Potassium Chloride Carbon Dioxide Anion Gap BUN Creatinine Estim Creat Clear Calc Estimated GFR Glucose POC Capillary Glucose 116 H 127 H Calcium Total Bilirubin AST ALT Alkaline Phosphatase Total Protein Albumin Blood Type A Positive Antibody Screen Negative 01/12/24 01/13/24 20:28 05:54 WBC 5.2 RBC 4.09 L Hgb 12.1 Hct 37.2 MCV 91.0 MCH 29.6 MCHC 32.5 RDW 13.2 Plt Count 238 MPV 10.7 H Sodium 139 Potassium 3.5 Chloride 109 H Carbon Dioxide 26 Anion Gap 4 L BUN 8 Creatinine 0.50 L Estim Creat Clear Calc Not Reportable Estimated GFR > 60 Glucose 132 H POC Capillary Glucose 197 H Calcium 8.6 Total Bilirubin 0.7 AST 32 ALT 28 Alkaline Phosphatase 62 Total Protein 6.0 L Albumin 3.4 L Blood Type Antibody Screen Patient Feedback: Patient satisfied with anesthetic care.
[2024-01-13 07:51] LABS: Glucose Point of Care 138 mg/dl (65-105)
[2024-01-13] MEDS: metroNIDAZOLE 500 MG/ISO 100ML 500 MG/100 ML BAG 100 MG IVPB ×3 (07:51→20:22)
[2024-01-13] MEDS: MORPHINE SULFATE (*CRX) 2 MG/ML INJ IV PUSH ×3 (07:51→18:12)
[2024-01-13 11:23] LABS: Glucose Point of Care 117 mg/dl (65-105)
[2024-01-13] MEDS: LACTATED RINGERS 1,000 ML 100 ML IV CONT (11:29)
--- NOTE | 2024-01-13 12:26 | PC.NURSE ---
pt being taken to surgery at this time.
--- NOTE | 2024-01-13 13:03 | WPDANESEPPF ---
Anes - Initial Pre Proc Eval Procedure: Operation Date: 01/13/24 13:30 Proposed Procedures p Diagnostic Laparoscopy, Possible Appendectomy - Shiv Condon MD Date/Time: 01/13/24 13:03 Surgeon: Nik Lau MD Pre Op Diagnosis: Abdominal Pain Patient Data Age: 48 Gender: F Height: 1.5 m Weight: 91 kg Last Vital Signs Temp 36.8 C 01/13/24 12:56 Pulse 66 01/13/24 12:56 Resp 16 01/13/24 12:56 BP 170/89 H 01/13/24 12:56 Pulse Ox 95 01/13/24 12:56 O2 Del Method Room Air 01/13/24 12:56 Allergies Allergy/AdvReac Type Severity Reaction Status Date / Time No Known Allergies Allergy Verified 01/12/24 13:35 Home Medications Medication Instructions Recorded Confirmed Type losartan 50 mg tablet 50 mg PO DAILY #90 tabs 09/13/23 01/09/24 Rx omeprazole 40 mg capsule,delayed 40 mg PO DAILY #90 caps 11/10/23 01/09/24 Rx release atorvastatin 40 mg tablet See Rx Instructions .Route 12/05/23 01/09/24 Rx .COMPLEX #90 tabs Farxiga 10 mg tablet 10 mg PO DAILY #90 tabs 12/22/23 01/09/24 Rx (dapagliflozin propanediol) ondansetron 4 mg disintegrating 4 mg PO Q8H PRN nausea and 12/29/23 01/09/24 Rx tablet vomiting #7 tabs metformin 850 mg tablet See Rx Instructions .Route 12/30/23 01/09/24 Rx .COMPLEX #180 tabs acetaminophen 500 mg tablet 1,000 mg PO TID PRN sharon 7 days #42 01/01/24 01/09/24 Rx tabs ibuprofen 800 mg tablet 800 mg PO TID PRN pain 7 days #21 01/01/24 01/09/24 Rx tabs Laboratory Tests 01/12/24 01/12/24 01/12/24 13:46 16:11 19:16 WBC RBC Hgb Hct MCV MCH MCHC RDW Plt Count MPV Sodium Potassium Chloride Carbon Dioxide Anion Gap BUN Creatinine Estim Creat Clear Calc Estimated GFR Glucose POC Capillary Glucose 116 H mg/dl 127 H mg/dl (65-105) (65-105) Calcium Total Bilirubin AST ALT Alkaline Phosphatase Total Protein Albumin Blood Type A Positive Antibody Screen Negative 01/12/24 01/13/24 01/13/24 20:28 05:54 07:40 WBC 5.2 K/mm3 (4.5-10.0) RBC 4.09 L M/mm3 (4.2-5.4) Hgb 12.1 g/dL (12.0-15.0) Hct 37.2 % (37.0-47.0) MCV 91.0 fl (80-100) MCH 29.6 pg (26-34) MCHC 32.5 g/dl (32-36) RDW 13.2 % (11.5-14.5) Plt Count 238 k/mm3 (150-375) MPV 10.7 H fl (7.4-10.4) Sodium 139 mmol/L (137-145) Potassium 3.5 mmol/L (3.4-5.0) Chloride 109 H mmol/L (98-107) Carbon Dioxide 26 mmol/L (22-30) Anion Gap 4 L mmol/L (8-16) BUN 8 mg/dL (7-17) Creatinine 0.50 L mg/dL (0.7-1.0) Estim Creat Clear Calc Not Reportable Estimated GFR > 60 (59 - ) Glucose 132 H mg/dL (65-110) POC Capillary Glucose 197 H mg/dl 138 H mg/dl (65-105) (65-105) Calcium 8.6 mg/dL (8.4-10.2) Total Bilirubin 0.7 mg/dL (0.2-1.3) AST 32 U/L (14-36) ALT 28 U/L (6-35) Alkaline Phosphatase 62 U/L (38-126) Total Protein 6.0 L g/dL (6.3-8.2) Albumin 3.4 L g/dL (3.5-5.1) Blood Type Antibody Screen 01/13/24 11:18 WBC RBC Hgb Hct MCV MCH MCHC RDW Plt Count MPV Sodium Potassium Chloride Carbon Dioxide Anion Gap BUN Creatinine Estim Creat Clear Calc Estimated GFR Glucose POC Capillary Glucose 117 H mg/dl (65-105) Calcium Total Bilirubin
--- NOTE | 2024-01-13 13:14 | WPDHPUPDATE1 ---
History and Physical Update Update Date/Time: 01/13/24 13:14 History and Physical has been reviewed, including an updated exam of the patient. There are NO changes in the patient's condition. Risks, benefits, and alternatives have been discussed and questions answered. Patient agrees to proceed with procedure.
[2024-01-13] MEDS: LACTATED RINGERS 1,000 ML 30 ML IV CONT ×2 (13:42→15:08)
[2024-01-13] MEDS: BUPIVACAINE/EPINEPHRINE 0.5% 30 ML VIAL INFILTRATE (14:38)
[2024-01-13 15:15] LABS: Glucose Point of Care 119 mg/dl (65-105)
--- NOTE | 2024-01-13 15:37 | W.PM.PROC2 ---
Procedure Note - Detailed Date of Procedure 01/13/24 Pre-op Diagnosis Right lower quadrant pain, vomiting, diarrhea Post-op Diagnosis Same Procedure Performed Diagnostic laparoscopy, laparoscopic appendectomy Surgeon Shiv Condon MD Take Out Waitress Dori Kay [facility] Anesthesia General and Local (0.5% Marcaine with epinephrine) Indications Patient is a 48-year-old woman who has had lower abdominal pain particularly right lower quadrant pain with tenderness as well as vomiting and diarrhea for at least 3 weeks. She had a couple of outpatient CT scans which did not show any cause for her symptoms. I saw her in the office on the day of admission and she was admitted to the hospitalist service. I saw her in consultation. Another CT scan was done and this was likewise negative. She has had renal ultrasound as well as an EGD and colonoscopy, all of these were negative as well. I discussed with her yesterday possibility of diagnostic laparoscopy and laparoscopy appendectomy as a low risk diagnostic procedure as well as means to remove her appendix should it be the cause of her pain. She has been doing somewhat better the last couple of days and was keeping down oral intake. She is taken to surgery now for diagnostic laparoscopy possible appendectomy. Findings She had various adhesions to the anterior abdominal wall of omentum and some of bowel. The appendix was retrocecal and was very diminutive. It was in wrapped in some retroperitoneal scar tissue. I did go ahead and perform appendectomy. She has had a hysterectomy and it appears the right tube and ovary were removed. I saw the left tube and ovary and took a couple of intraoperative photographs of this. I reviewed at least 6 ft of distal small intestine. There was no evidence of a Meckel's diverticulum or ileitis to laparoscopic visualization. Early no findings strongly suggestive of a cause for her pain and other symptoms. Description of Procedure Patient was taken to the operating room and induced into general anesthesia. The abdomen was prepped and draped. A left subcostal 5 mm applied Medical optical trocar was placed 1st. The abdomen was insufflated. Another 5 mm left-sided mid abdominal port was placed as well as a 10 11 port in the left mid abdomen below the umbilicus. Patient was placed in Trendelenburg and the right side was elevated. Her cecum was adherent to the anterolateral abdominal wall. I was able to find the appendix which was retrocecal. I went ahead and took down these adhesions to mobilize the cecum. I then moved to loops of small bowel so that I could see the appendix. Appendix was very diminutive probably only 4-5 mm in diameter. There was a lot of adhesions associated with the appendix. I dissected the appendix carefully away from the adhesions and then divided the mesentery of the appendix including the appendiceal artery. These vascular structures were cauterized and divided. I then used an endoloop and ligated the appendix at its base. I amputated the appendix just above the ligature and cauterized the mucosa of the appendiceal stump. Appendix was placed immediately in an Endo-Catch bag and retrieved through the 10 11 left lower quadrant trocar site. I then replaced the 10 11 trocar and we continued laparoscopic review. I looked again at the cecum and appendiceal stump. All looked good. I then ran at least 6 ft of distal small bowel. No signs of inflammation, Meckel's diverticulum, creeping fat or other abnormalities were noted. I then looked more in the pelvis. I could not find the right ovary and suspect it was removed with her hysterectomy. The left ovary was easily found by flipping over the sigmoid colon. I took a couple of pictures of the left tube and ovary. It looked normal as well. There were couple of other adhesions in the right mid abdomen that involved omentum and some of the colon. These were taken down as well. I recheck the site of the laparosc
--- NOTE | 2024-01-13 15:48 | PM.IMPN ---
Progress Note: A&P Assessment and Plan (1) Right lower quadrant abdominal pain: Code(s): R10.31 - Right lower quadrant pain Status: Chronic Assessment and Plan: Patient was a direct admission from the [facility] office for persistent abdominal pain. Review of previous imaging: CT A/P (12/29): No acute abnormality. Unchanged left kidney relatively atrophic. Evidence of prior bariatric surgery. CT A/P (01/01): No acute process. Severe left renal atrophy. Stable small focus of fat necrosis anterior to the left kidney. Mild right perinephric stranding. Appendix not confidently visualized. CT A/P (01/09): Enlarging lesion of the spleen now as 13mm. s/p cholecystectomy and possibly appendectomy. GenSur consulted conservative treatment GI consult recommended Patient did have laparoscopic lysis of adhesions in 1998 and cholecystectomy 2000. LFTs normal. Lipase normal. Etiology unclear. Started on ceftriaxone and metronidazole Continue IV abx. GI consulted. Diet started. NPO after MN EGD/Colonoscopy 01/11 Possible diagnostic laparoscopy and even appendectomy to see if that relieves her discomfort per surgery 01/12: Diagnostic laparoscopy with possible appendectomy (2) Flank pain: Code(s): R10.9 - Unspecified abdominal pain Status: Acute Assessment and Plan: As above (3) Diarrhea: Qualifiers: Diarrhea type: unspecified type Qualified Code(s): R19.7 - Diarrhea, unspecified Code(s): R19.7 - Diarrhea, unspecified Status: Chronic Assessment and Plan: Patient having diarrhea as well. Stool culture pending. Improving C-diff pending WBC normal Continue abx. (4) Diabetes mellitus: Qualifiers: Diabetes mellitus type: type 2 Diabetes mellitus remote computer terminal operator insulin use: without half-way use Diabetes mellitus complication status: with hyperglycemia Qualified Code(s): E11.65 - Type 2 diabetes mellitus with hyperglycemia Code(s): E11.9 - Type 2 diabetes mellitus without complications Status: Acute Assessment and Plan: A1c 8.3. The patient's blood glucose was reviewed on 01/09 Glucose remains well controlled. Continue AccuCheks covering with sliding scale. Hypoglycemia protocol available as needed. Continue to follow (5) Essential (primary) hypertension: Code(s): I10 - Essential (primary) hypertension Status: Acute Assessment and Plan: Stable Will continue to monitor Plan Code status: Full code per patient DVT prophylaxis: SCD's Stress ulcer prophylaxis: Protonix 40 b.i.d. PT/OT notes: Ambulatory Disposition: Patient continues admission for diagnostic laparoscopy with possible appendectomy. Plan will be to discharge to home when medically stable Time Spent With Patient Time with patient: 15 - 25 minutes Subjective Date/time seen: 01/13/24 0947 Interval history: 01/09: (Medical Record) 48yo female with DM, hx of renal cancer, HTN and obesity here for abdominal pain, nausea and vomiting. Patient feels dizzy with nausea. Has diffuse abdominal pain. Feels SOB. She has been having occasional chest tightness she feels related to anxiety. usually lasts 10 min. Had a stress test a few months ago that was normal. [place] and vomiting better 01/10: Patient reported no improvement to ABD pain, still nauseous but denied any vomiting, not able to tolerate oral intake. Normal WBC. Plan is for EGD/colonoscopy tomorrow for direct visualization. C-diff pending, stool culture negative. 01/11: Patient continues to have ABD RLQ worse with palpation. Normal wbc and afebrile overnight. Patient scheduled for EGD/Colonoscopy today. 01/12: Patient still report some RLQ pain worse with palpation, patient is scheduled for diagnostic laparoscopy with possible appendectomy. Patient has remained afebrile and normal WBC. Review of Systems Review of Systems: All systems reviewed
[2024-01-13] MEDS: LOSARTAN POTASSIUM 50 MG TABLET PO (16:05)
[2024-01-13] MEDS: PANTOPRAZOLE 40 MG TABLET PO (16:05)
[2024-01-13] MEDS: ATORVASTATIN 40 MG TABLET PO (16:05)
[2024-01-13] MEDS: LACTATED RINGERS 1,000 ML 80 ML IV CONT (16:07)
[2024-01-13 16:31] LABS: Glucose Point of Care 174 mg/dl (65-105)
[2024-01-13] MEDS: ENOXAPARIN 30 MG/0.3 ML SYRINGE SUB-Q (20:13)
[2024-01-13] MEDS: INSULIN ASPART (*BKC) 100 UNITS/ML SUB-Q (20:14)
[2024-01-13] MEDS: HYDROcodone/acetaminophen (*CRX) 5-325 MG TABLET 1 TAB PO (20:20)
[2024-01-13] MEDS: PROMETHAZINE HCL 25 MG/ML AMPUL 12.5 MG IV PUSH (20:20)
[2024-01-13 20:46] LABS: Glucose Point of Care 337 mg/dl (65-105)
[2024-01-14 01:27] VITALS: BP 124/77; PULSE 71; RESP 12; TEMP 36.2; O2SAT 97
[2024-01-14 05:41] VITALS: BP 151/83; PULSE 74; RESP 13; TEMP 36.1; O2SAT 96
[2024-01-14 06:22] LABS: Hematocrit 36.2 % (37.0-47.0); Hemoglobin 12.3 g/dL (12.0-15.0); Mean Corpuscular Hemoglobin 30.3 pg (26-34); Mean Corpuscular Volume 89.2 fl (80-100); Mean Platelet Volume 10.8 fl (7.4-10.4); Platelet Count Result 265 k/mm3 (150-375); Red Blood Count 4.06 M/mm3 (4.2-5.4); Red Cell Distribution Width 13.1 % (11.5-14.5); White Blood Count 5.6 K/mm3 (4.5-10.0)
[2024-01-14 06:36] LABS: Alanine Aminotransferase 27 U/L (6-35); Albumin Level 3.7 g/dL (3.5-5.1); Alkaline Phosphatase 65 U/L (38-126); Anion Gap 3 mmol/L (8-16); Aspartate Amino Transferase 24 U/L (14-36); Bilirubin,Total 0.6 mg/dL (0.2-1.3); Blood Urea Nitrogen 9 mg/dL (7-17); Carbon Dioxide 29 mmol/L (22-30); Chloride 106 mmol/L (98-107); Estimated Glomerular Filt Rate > 60; Glucose 190 mg/dL (65-110); Potassium 3.7 mmol/L (3.4-5.0); Sodium 138 mmol/L (137-145)
[2024-01-14 08:41] VITALS: O2SAT 96
[2024-01-14] MEDS: LOSARTAN POTASSIUM 50 MG TABLET PO (08:53)
[2024-01-14] MEDS: ATORVASTATIN 40 MG TABLET PO (08:53)
[2024-01-14] MEDS: PANTOPRAZOLE 40 MG TABLET PO (08:53)
[2024-01-14] MEDS: HYDROcodone/acetaminophen (*CRX) 5-325 MG TABLET 1 TAB PO (08:53)
[2024-01-14] MEDS: metroNIDAZOLE 500 MG/ISO 100ML 500 MG/100 ML BAG 100 MG IVPB (08:54)
[2024-01-14] MEDS: ENOXAPARIN 30 MG/0.3 ML SYRINGE SUB-Q (08:54)
[2024-01-14 09:41] VITALS: BP 150/80; PULSE 85; RESP 18; TEMP 36.6; O2SAT 96
--- NOTE | 2024-01-14 10:57 | WPDANESPN ---
Anes - Prog Note Post-Op Date/Time: 01/14/24 10:57 Cardiovascular status: normal Respiratory status: normal Airway patency: baseline Mental status: baseline Post-Op hydration status: normal Vital Signs: Last Vital Signs Temp 36.6 C 01/14/24 09:41 Pulse 85 01/14/24 09:41 Resp 18 01/14/24 09:41 BP 150/80 H 01/14/24 09:41 Pulse Ox 96 01/14/24 09:41 O2 Del Method Room Air 01/14/24 08:55 O2 Flow Rate 6 01/13/24 15:20 Pain Score (VAS): 12/17 I/O: Intake & Output 01/13/24 01/14/24 01/14/24 23:59 07:59 15:59 Intake Total 650 1650 340 Balance 650 1650 340 Laboratory Tests 01/14/24 06:01 01/14/24 06:01 01/13/24 01/13/24 01/13/24 11:18 15:12 16:27 WBC RBC Hgb Hct MCV MCH MCHC RDW Plt Count MPV Sodium Potassium Chloride Carbon Dioxide Anion Gap BUN Creatinine Estim Creat Clear Calc Estimated GFR Glucose POC Capillary Glucose 117 H 119 H 174 H Calcium Total Bilirubin AST ALT Alkaline Phosphatase Total Protein Albumin 01/13/24 01/14/24 19:49 06:01 WBC 5.6 RBC 4.06 L Hgb 12.3 Hct 36.2 L MCV 89.2 MCH 30.3 MCHC 34.0 RDW 13.1 Plt Count 265 MPV 10.8 H Sodium 138 Potassium 3.7 Chloride 106 Carbon Dioxide 29 Anion Gap 3 L BUN 9 Creatinine 0.60 L Estim Creat Clear Calc Not Reportable Estimated GFR > 60 Glucose 190 H POC Capillary Glucose 337 H Calcium 9.0 Total Bilirubin 0.6 AST 24 ALT 27 Alkaline Phosphatase 65 Total Protein 7.0 Albumin 3.7 Microbiology 01/10/24 13:38 Stool Escherichia coli Shiga Toxins - Final 01/10/24 13:38 Stool Salmonella/Shigella Culture - Final 01/10/24 13:38 Stool Campylobacter Antigen Assay - Final Post-procedural complaints: none Patient Feedback: Patient satisfied with anesthetic care.
[2024-01-14 11:05] LABS: Glucose Point of Care 157 mg/dl (65-105)
[2024-01-14 11:25] LABS: Glucose Point of Care 241 mg/dl (65-105)
[2024-01-14 11:30] VITALS: BP 154/84; PULSE 83; RESP 18; TEMP 36.6; O2SAT 99
[2024-01-14] MEDS: INSULIN ASPART (*BKC) 100 UNITS/ML SUB-Q (11:42)
--- NOTE | 2024-01-14 13:42 | P.DS_ITS ---
DS: Admitting Diagnosis Discharge Date 01/14/2024 Admitting Diagnosis RLQ ABD pain/Flank Pain DS: Discharge Diagnosis Discharge Diagnosis (1) Right lower quadrant abdominal pain: Code(s): R10.31 - Right lower quadrant pain Status: Chronic Assessment and Plan: Patient was a direct admission from the [facility] office for persistent abdominal pain. Review of previous imaging: * CT A/P (12/29): No acute abnormality. Unchanged left kidney relatively atrophic. Evidence of prior bariatric surgery. * CT A/P (01/01): No acute process. Severe left renal atrophy. Stable small focus of fat necrosis anterior to the left kidney. Mild right perinephric stranding. Appendix not confidently visualized. * CT A/P (01/09): Enlarging lesion of the spleen now as 13mm. s/p cholecystectomy and possibly appendectomy. * GenSurg consulted conservative treatment GI consult recommended * Patient did have laparoscopic lysis of adhesions in 1998 and cholecystectomy 2000. * LFTs normal. Lipase normal. * Etiology unclear. Started on ceftriaxone and metronidazole * Continue IV abx. GI consulted. * Diet started. * NPO after MN * EGD/Colonoscopy 01/11 * Possible diagnostic laparoscopy and even appendectomy to see if that relieves her discomfort per surgery 01/12: * Diagnostic laparoscopy with possible appendectomy (2) Flank pain: Code(s): R10.9 - Unspecified abdominal pain Status: Acute Assessment and Plan: As above (3) Diarrhea: Qualifiers: Diarrhea type: unspecified type Qualified Code(s): R19.7 - Diarrhea, unspecified Code(s): R19.7 - Diarrhea, unspecified Status: Chronic Assessment and Plan: * Patient having diarrhea as well. Stool culture pending. Improving * C-diff pending * WBC normal * Continue abx. 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 The patient's blood glucose was reviewed on 01/09 Glucose remains well controlled. Continue AccuCheks covering with sliding scale. Hypoglycemia protocol available as needed. Continue to follow (5) Essential (primary) hypertension: Code(s): I10 - Essential (primary) hypertension Status: Acute Assessment and Plan: * Stable * Will continue to monitor Plan Disposition: Patient discharged to home post appendectomy ambulatory and will need follow-up with surgery in 2 weeks DS: Summary Hospital Course Hospital Course: (Medical record) Chief Complaint: Abdominal Pain, N/V Narrative: 48 y/o F presents here with RLQ pain, nausea, and vomiting with PMH of kidney cancer (s/p partial nephrectomy), GERD, kidney stones, HLD, HTN and DM.? Surgical history of gastric sleeve, cholecystectomy, oophorectomy (unilateral), partial nephrectomy, and renal stent placement. Patient presents here as a direct admission via [place] [facility] office for further evaluation of her RLQ pain, nausea, and vomiting.? Originally presented to [place] ER on 12/29/2023 with right flank pain that radiated into her abdomen with associated nausea.? UA did not show hematuria or bacteria, but did have pyur
--- NOTE | 2024-01-14 13:42 | PM.DS ---
DS: Admitting Diagnosis Discharge Date 01/14/2024 Admitting Diagnosis RLQ ABD pain/Flank Pain DS: Discharge Diagnosis Discharge Diagnosis (1) Right lower quadrant abdominal pain: Code(s): R10.31 - Right lower quadrant pain Status: Chronic Assessment and Plan: Patient was a direct admission from the [facility] office for persistent abdominal pain. Review of previous imaging: CT A/P (12/29): No acute abnormality. Unchanged left kidney relatively atrophic. Evidence of prior bariatric surgery. CT A/P (01/01): No acute process. Severe left renal atrophy. Stable small focus of fat necrosis anterior to the left kidney. Mild right perinephric stranding. Appendix not confidently visualized. CT A/P (01/09): Enlarging lesion of the spleen now as 13mm. s/p cholecystectomy and possibly appendectomy. GenSurg consulted conservative treatment GI consult recommended Patient did have laparoscopic lysis of adhesions in 1998 and cholecystectomy 2000. LFTs normal. Lipase normal. Etiology unclear. Started on ceftriaxone and metronidazole Continue IV abx. GI consulted. Diet started. NPO after MN EGD/Colonoscopy 01/11 Possible diagnostic laparoscopy and even appendectomy to see if that relieves her discomfort per surgery 01/12: Diagnostic laparoscopy with possible appendectomy (2) Flank pain: Code(s): R10.9 - Unspecified abdominal pain Status: Acute Assessment and Plan: As above (3) Diarrhea: Qualifiers: Diarrhea type: unspecified type Qualified Code(s): R19.7 - Diarrhea, unspecified Code(s): R19.7 - Diarrhea, unspecified Status: Chronic Assessment and Plan: Patient having diarrhea as well. Stool culture pending. Improving C-diff pending WBC normal Continue abx. 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 The patient's blood glucose was reviewed on 01/09 Glucose remains well controlled. Continue AccuCheks covering with sliding scale. Hypoglycemia protocol available as needed. Continue to follow (5) Essential (primary) hypertension: Code(s): I10 - Essential (primary) hypertension Status: Acute Assessment and Plan: Stable Will continue to monitor Plan Disposition: Patient discharged to home post appendectomy ambulatory and will need follow-up with surgery in 2 weeks DS: Summary Hospital Course Hospital Course: (Medical record) Chief Complaint: Abdominal Pain, N/V Narrative: 48 y/o F presents here with RLQ pain, nausea, and vomiting with PMH of kidney cancer (s/p partial nephrectomy), GERD, kidney stones, HLD, HTN and DM.? Surgical history of gastric sleeve, cholecystectomy, oophorectomy (unilateral), partial nephrectomy, and renal stent placement. Patient presents here as a direct admission via [place] [facility] office for further evaluation of her RLQ pain, nausea, and vomiting.? Originally presented to [place] ER on 12/29/2023 with right flank pain that radiated into her abdomen with associated nausea.? UA did not show hematuria or bacteria, but did have pyuria.? Given these findings and flank pain, patient was diagnosed with likely UTI/pyelonephritis and discharged home with Keflex 500 mg p.o. b.i.d. x5 days and Zofran.? Patient then returned to [place] ED on 01/01/2024 with continued complaints of right flank pain.? Patient reported the pain was not improving and had worsened, now tender to palpation in the RLQ.? UA was unremarkable, however previous culture showed yeast.? Given Toradol and Tylenol with some improvement.? She was discha
--- NOTE | 2024-01-14 14:12 | WPDGIPROGNO ---
Progress Note: A&P Assessment and Plan (1) Nausea and vomiting: Qualifiers: Vomiting type: unspecified Qualified Code(s): R11.2 - Nausea with vomiting, unspecified Code(s): R11.2 - Nausea with vomiting, unspecified Status: Chronic Assessment and Plan: resolved egd without major findings tolerating diet (2) Right lower quadrant abdominal pain: Code(s): R10.31 - Right lower quadrant pain Status: Chronic Assessment and Plan: diagnostic lap with appy yesterday overall better (3) Diarrhea: Qualifiers: Diarrhea type: unspecified type Qualified Code(s): R19.7 - Diarrhea, unspecified Code(s): R19.7 - Diarrhea, unspecified Status: Chronic Assessment and Plan: colonoscopy unremarkable she is going home today (4) History of bariatric surgery: Onset Date: 2020 Code(s): Z98.84 - Bariatric surgery status Status: Chronic Subjective Date/time seen: 01/14/24 14:12 Interval history: had surgery yesterday, had appy and found adhesions she is doing ok, will go home soon Review of Systems Review of Systems: All systems reviewed & are unremarkable except as noted in HPI and below Exam Const: General: comfortable and no acute distress HENMT: Face/Nose/Sinus: Normal nares present Eyes: General: appearance normal, both eyes and all related structures Neck: Neck: supple Resp: Auscultation: clear to auscultation bilaterally Cardio: Rate: regular rate Rhythm: regular rhythm GI: Inspection: non-distended GI Palp: Yes Soft to palpation and Yes Tenderness to palpation present (GI) (expected mild ttp in rlq, no rebound) Skin: General skin exam: normal color Neuro: Speech: normal speech Motor exam (neuro): 5/5 motor strength present throughout Extrem: General: normal to inspection Psych: Mental Status: mental status grossly normal Objective Data Vital Signs Vital Signs: Vital Signs - 24 hr 01/13/24 15:08 01/13/24 15:20 01/13/24 15:35 Temperature 98.9 F Pulse Rate 79 77 73 Respiratory Rate 13 11 L 10 L Blood Pressure 148/90 H 154/87 H 148/72 H Pulse Oximetry 98 99 94 Oxygen Delivery Simple Face Mask Simple Face Mask Room Air Oxygen Flow Rate 6 6 01/13/24 15:50 01/13/24 16:11 01/13/24 16:41 Temperature 97.3 F L 97.4 F L Pulse Rate 77 74 80 Respiratory Rate 12 13 13 Blood Pressure 138/68 158/88 H 142/77 H Pulse Oximetry 92 91 93 Oxygen Delivery Room Air Oxygen Flow Rate 01/13/24 17:41 01/13/24 21:22 01/13/24 20:20 Temperature 97.6 F 97.2 F L Pulse Rate 84 90 Respiratory Rate 14 13 Blood Pressure 138/68 135/72 Pulse Oximetry 96 93 Oxygen Delivery Room Air Oxygen Flow Rate 01/14/24 01:27 01/14/24 05:41 01/14/24 08:41 Temperature 97.1 F L 96.9 F L Pulse Rate 71 74 Respiratory Rate 12 13 Blood Pressure 124/77 151/83 H Pulse Oximetry 97 96 96 Oxygen Delivery Room Air Oxygen Flow Rate 01/14/24 09:41 01/14/24 08:55 01/14/24 11:30 Temperature 97.8 F 97.9 F Pulse Rate 85 83 Respiratory Rate 18 18 Blood Pressure 150/80 H 154/84 H Pulse Oximetry 96 99 Oxygen Delivery Room Air Oxygen Flow Rate Intake/Output Intake/Output: Intake & Output 01/11/24 01/12/24 01/13/24 01/14/24 23:59 23:59 23:59 23:59 Intake Total 4865 3515 1950 2230 Output Total 2300 500 Balance 2565 3515 1450 2230 Meds/Results Radiology Results: ITS Impressions Abdomen/Pelvis CT 01/10/24 08:23 IMPRESSION: 1. No CT correlate for the patient's symptoms. 2. Enlarging lesion of the spleen, indeterminate. Follow-up with MRI without and with contrast is recommended. Renal Ultrasound 01/10/24 09:00 IMPRESSION: 1. No hydronephrosis in either kidney. 2. Normal right kidney and asymmetric mild left renal atrophy with more focal cortical scarring at the lower pole system with prior partial nephrectomy. Labs Labs: Laboratory Results - last 24 hr
== END 2024-01-14 14:06 | disposition home or self-care (01) | DRG 398 ==
PROVIDERS: Internal Medicine Gastroenterology; Nurse Practitioner Family; Student in an Organized Health Care Education/Training Program; Surgery; Admitting Provider Internal Medicine; PCP Family Medicine; Visit Provider Internal Medicine
PROC: 0DJ08ZZ Inspection of Upper Intestinal Tract, Via Natural or Artificial Opening Endoscopic (ICD-10-PCS; CPT 43235; principal; 2024-01-12 15:30)
PROC: 0DTJ4ZZ Resection of Appendix, Percutaneous Endoscopic Approach (ICD-10-PCS; CPT 44970; principal; 2024-01-13 13:30)
DX: R10.31 Right lower quadrant pain (principal); Z68.41 Body mass index [BMI] 40.0-44.9, adult; R19.7 Diarrhea, unspecified; R11.2 Nausea with vomiting, unspecified; K57.30 Diverticulosis of large intestine without perforation or abscess without bleeding; K64.8 Other hemorrhoids; K21.9 Gastro-esophageal reflux disease without esophagitis; I10 Essential (primary) hypertension; E11.65 Type 2 diabetes mellitus with hyperglycemia; E66.01 Morbid (severe) obesity due to excess calories; Z90.49 Acquired absence of other specified parts of digestive tract; Z85.528 Personal history of other malignant neoplasm of kidney; Z87.442 Personal history of urinary calculi; Z98.84 Bariatric surgery status
CPT/HCPCS: 36415; 74177; 76775; 80053; 81001; 82948; 83036; 83605; 83690; 83735; 84100; 84443; 85025; 85027; 86140; 86850; 86900; 86901; 87045; 87086; 87427; 87449; 88304; 88305; 96361; 96365; 96366; 96367; 96375; 96376; A9270; G0378; G0379; J0330; J0696; J1100; J1170; J1650; J1815; J1836; J2001; J2250; J2270; J2405; J2550; J2704; J3010; J3475; J7030; J7120; Q9967

== ENCOUNTER 2024-01-22 10:18 | Emergency (ER) | payer OTHER, SELFPAY ==
--- NOTE | ~2024-01-22 | US_ITS ---
EXAMINATION: US venous doppler [facility] DATE: 01/22/2024 11:17 INDICATION: Left lower limb pain and swelling TECHNIQUE: Grayscale ultrasound images without and with compression and Doppler ultrasound images of the left lower extremity veins were obtained. COMPARISON: None. FINDINGS: The visualized portions of left common femoral vein, profunda (deep) femoral vein, femoral vein, popl iteal vein, peroneal veins, posterior tibial veins and greater saphenous vein outflow are patent. IMPRESSION: 1. No deep venous thrombosis in the left lower limb. Reviewed, dictated and finalized at location A.
--- NOTE | ~2024-01-22 | XR_ITS ---
EXAMINATION: XR chest 2V DATE: 01/22/2024 11:08 INDICATION: Cough, body aches and bilateral lower limb swelling TECHNIQUE: PA and lateral views of the chest were obtained. COMPARISON: Chest radiograph dated 12/15/2023 FINDINGS: Mild linear discoid atelectasis at the bilateral mid lung zones. No other airspace opacities, pulmona ry edema, pleural effusion or pneumothorax. The cardiomediastinal silhouette is normal. Cholecystecto my clips in right upper quadrant. IMPRESSION: 1. Mild discoid atelectasis in bilateral mid lungs. No other acute cardiopulmonary disease. Reviewed, dictated and finalized at location A. IMPRESSION: 1. Mild discoid atelectasis in bilateral mid lungs. No other acute cardiopulmon gertrudis disease.
[2024-01-22 10:29] VITALS: BP 150/93; PULSE 75; RESP 21; TEMP 36.4; O2SAT 96
[2024-01-22 10:34] VITALS: RESP 18
[2024-01-22] MEDS: SODIUM CHLORIDE 0.9% IV 1,000 ML 999 ML IV CONT (11:29)
[2024-01-22] MEDS: ONDANSETRON INJ 4 MG/2 ML VIAL IV PUSH (11:30)
[2024-01-22 11:31] VITALS: BP 143/86; PULSE 69; RESP 19; O2SAT 96
[2024-01-22 11:37] LABS: Basophils Percent Auto 0.7 % (0.2-1.2); Eosinophils Absolute Auto 0.5 K/mm3 (0-0.3); Eosinophils Percent Auto 8.4 % (0-4.4); Hematocrit 37.8 % (37.0-47.0); Hemoglobin 12.7 g/dL (12.0-15.0); Immature Granulocyte Absolute 0.02 K/mm3 (0.00-0.031); Immature Granulocyte Percent A 0.3 % (0-0.5); Lymphocytes Absolute Auto 1.63 K/mm3 (0.9-3.2); Lymphocytes Percent Auto 27.3 % (18.3-44.2); Mean Corpuscular HGB Conc 33.6 g/dl (32-36); Mean Corpuscular Hemoglobin 29.3 pg (26-34); Mean Corpuscular Volume 87.3 fl (80-100); Mean Platelet Volume 10.6 fl (7.4-10.4); Monocytes Absolute Auto 0.8 K/mm3 (0.1-0.6); Monocytes Percent Auto 13.9 % (2.6-8.5); Neutrophils Absolute Auto 2.9 K/mm3 (1.3-6.7); Neutrophils Percent Auto 49.4 % (45.5-73.1); Platelet Count Result 281 k/mm3 (150-375); Red Blood Count 4.33 M/mm3 (4.2-5.4); Red Cell Distribution Width 13.5 % (11.5-14.5)
[2024-01-22 11:42] LABS: Add Urine Microscopic? YES; Appearance Urine Cloudy (Clear); Bacteria Urine None Seen /hpf; Bilirubin Urine Negative (Negative); Blood Urine Negative (Negative); Color Urine Yellow (Yellow); Glucose Urine UA Negative (Negative); Ketones Urine Negative (Negative); Leukocyte Esterase Ur Negative LEU/UL (Negative); Nitrate Urine Negative (Negative); Non Pathogenic Casts 0-2; Protein Urine Trace mg/dL (Negative); RBC Urine 0-2 /hpf (0-2); Specific Grav Ur 1.024 (1.001-1.035); Squamous Epithelial Cell Urine Moderate /hpf (Few); Urobilinogen Urine 0.2 mg/dL (<2.0); WBC Urine 0-5 /hpf (0-3)
--- NOTE | 2024-01-22 11:42 | ED.GENADULT ---
HPI - General Adult General Chief complaint: Unspecified Stated complaint: postop nausea, diarrhea, leg swelling Time Seen by Provider: 01/22/24 10:28 History of Present Illness HPI narrative: Patient is a 48-year-old female who presents ER with multiple complaints. Patient recently had a appendectomy. Over last couple days she has developed fevers and fatigue. She has been having swelling and pain to her left leg. She has mild cough but no DIS for occult breathing. Cough is nonproductive. No urinary frequency urgency or dysuria. No new abdominal pain. She does have mild diarrhea. Related Data Allergies Allergy/AdvReac Type Severity Reaction Status Date / Time No Known Allergies Allergy Verified 01/22/24 10:29 Review of Systems Review of Systems: All systems reviewed & are unremarkable except as noted in HPI and below Constitutional: Constitutional: Reports no additional constitutional complaints Cardiovascular: Cardiovascular: Reports no additional cardiovascular complaints Respiratory: Respiratory: Reports chest congestion, Reports cough, Denies dyspnea and Denies wheezing Gastrointestinal: Gastrointestinal: Denies abdominal pain, Reports diarrhea, Reports nausea and Denies vomiting Genitourinary: Genitourinary: Reports no additional female genitourinary complaints Musculoskeletal: Musculoskeletal: Reports no additional musculoskeletal complaints [facility] Past Medical History Medical History (Updated 01/22/24 @ 14:35 by Andrew Valdes MD) Cancer of kidney Status post partial nephrectomy Diabetes mellitus Essential (primary) hypertension Gastroesophageal reflux disease History of kidney stones Hyperlipidemia Morbid obesity Surgical History Surgical History (Updated 01/12/24 @ 18:03 by Shiv Condon MD) History of bariatric surgery (2020) Gastric sleeve. History of cholecystectomy History of oophorectomy, unilateral History of partial nephrectomy History of renal stent Family History Family History Mother Heart murmur Hypertension Thyroid condition Father Pancreatic cancer Acute myocardial infarction Heart disease Sibling Hypertension Social History Social History Social History: Surrogate medical decision maker: Mitch Qiu, spouse. Code status: Full code. Smoking status: Never smoker Second hand tobacco smoke exposure: No Alcohol intake: current Drinks per week: 1 Alcohol use details: social Substance use: never Substance use type: does not use Do You Feel Safe in your Home?: Yes Lack of Transportation: No Lack of Food: Never True Current Housing: I Have Housing Concerned About Future Housing: No Difficulty Paying Gas/Electric Bills: No Difficulty Paying for Meds: No Currently Unemployed: No Education: High School Diploma/GED Difficulty w/ Childcare or Family Care: No Living arrangements: with family Occupation/Education: occupation Gender identity (if verbalized by the patient): Female Sexual Orientation (if Verbalized by the Patient): Straight or Heterosexual Spiritual care concerns: No Exam Narrative: GENERAL: Well-appearing, morbidly obese, and in no acute distress. HEAD: Normocephalic, atraumatic. ENT: Mucous membranes moist. NECK: Supple. CHEST: Clear to auscultation. No respiratory distress. HEART: Regular rate and rhythm. Normal peripheral pulses. ABDOMEN: Soft, nontender, nondistended. EXTREMITIES: Normal range of motion. No edema. SKIN: Warm, dry, no rash. NEURO: Alert and oriented x3. PSYCH: Normal mood and affect. Course Course Emergency Course: Patient resting comfortably. Informed of results. Reports for discharge home. Patient received IV fluid and Zofran. Vital Signs Vital signs: Vital Signs Temperature 97.5 F L 01/22/24 10:29 Pulse Rate 75 01/22/24 10:29
[2024-01-22 11:51] LABS: Alanine Aminotransferase 26 U/L (6-35); Albumin Level 3.9 g/dL (3.5-5.1); Alkaline Phosphatase 69 U/L (38-126); Anion Gap 6 mmol/L (8-16); Aspartate Amino Transferase 25 U/L (14-36); Bilirubin,Total 0.7 mg/dL (0.2-1.3); Blood Urea Nitrogen 11 mg/dL (7-17); Calcium 9.1 mg/dL (8.4-10.2); Carbon Dioxide 28 mmol/L (22-30); Chloride 107 mmol/L (98-107); Estimated Glomerular Filt Rate > 60; Glucose 180 mg/dL (65-110); Sodium 141 mmol/L (137-145)
[2024-01-22 12:17] LABS: Influenza A QL RT-PCR Negative (Negative); Influenza B QL RT-PCR Negative (Negative); RSV RNA, RT-PCR Negative (Negative); SARS-CoV-2 RNA PCR Negative (Negative)
[2024-01-22 13:29] VITALS: BP 127/84; PULSE 67; RESP 23; O2SAT 99
[2024-01-22 14:44] VITALS: BP 126/84; PULSE 71; RESP 17; TEMP 36.6; O2SAT 100
== END 2024-01-22 14:46 | disposition home or self-care (01) ==
PROVIDERS: Emergency Provider Emergency Medicine; PCP Family Medicine
DX: R19.7 Diarrhea, unspecified (principal); E11.9 Type 2 diabetes mellitus without complications; E78.5 Hyperlipidemia, unspecified; I10 Essential (primary) hypertension; Z20.822 Contact with and (suspected) exposure to COVID-19
CPT/HCPCS: 36415; 71046; 80053; 85025; 87637; 93971; 96361; 96374; 99284; J2405; J7030

== ENCOUNTER 2024-04-06 16:17 | Emergency (ER) | payer OTHER, SELFPAY ==
--- NOTE | ~2024-04-06 | CT_ITS ---
EXAMINATION: CT facial & cervical spine wo DATE: 04/06/2024 17:12 INDICATION: head injury TECHNIQUE: Computed tomography (CT) of the maxillofacial region and cervical spine was performed with out intravenous contrast. Automated exposure control and iterative reconstruction technique were empl oyed. The dose-length product was 458.98 mGy-cm. COMPARISON: None FINDINGS: CERVICAL: Vertebral Body Alignment: Intact. Craniocervical and atlantoaxial alignment: Mild degenerative change. Alignment intact. Osseous structures/fracture: No evidence of a lytic or blastic process in the visualized spine. No e vidence of acute fracture. Cervical soft tissues: The paraspinal soft tissues planes are maintained. Degenerative changes: Degenerative changes, without severe neural foraminal or central canal narrowin g. FACE: Soft Tissues: Soft tissue swelling/contusion over the left cheek. Facial bones: No acute fracture. No lytic or blastic process. Eyes: The globes are intact. The soft tissue planes of the orbits are maintained. Paranasal Sinuses: Left maxillary retention cyst/polyp, the remaining spaces are clear. Foreign Bodies: No radiopaque foreign bodies. Other Findings: None. IMPRESSION: No acute fracture or traumatic malalignment in the cervical spine. No acute facial bone fracture. Reviewed, dictated and finalized at location K. IMPRESSION: No acute fracture or traumatic malalignment in the cervical spine. No acute fac ial bone fracture.
--- NOTE | ~2024-04-06 | CT_ITS ---
EXAMINATION: CT brain wo con DATE: 04/06/2024 17:12 INDICATION: head injury . TECHNIQUE: Computed tomography (CT) of the head was performed without intravenous contrast. The mA wa s adjusted according to patient size. Iterative reconstruction technique was employed. The dose-lengt h product was 605.33 mGy-cm. COMPARISON: 09/27/2009. FINDINGS: No acute intracranial hemorrhage or extra-axial fluid collection. No hydrocephalus, mass, or herniation. No acute ischemic infarct. Unremarkable dural venous sinus attenuation. No acute osseous abnormality. The aerated spaces are clear. IMPRESSION: No acute intracranial process. Reviewed, dictated and finalized at location K.
[2024-04-06 16:28] VITALS: BP 138/90; PULSE 85; RESP 20; TEMP 36.3; O2SAT 96
--- NOTE | 2024-04-06 17:17 | ED.WOUNDLAC ---
HPI - Wound/Laceration General Chief Complaint: Wound/Laceration Stated Complaint: laceration Time Seen by Provider: 04/06/24 16:42 Source: patient Mode of arrival: ambulatory Limitations: no limitations History of Present Illness HPI narrative: This is a 48-year-old female that presents to the emergency department for a fall today with head injury. Reports she tripped and fell forward and hit her head on a concrete step. Reports a laceration to the left side of her cheek. She is unsure of her last tetanus vaccination. She did not lose consciousness. She is not on any anticoagulation. Reports a headache and lightheadedness since. Denies vision changes, vomiting, numbness, or weakness. Related Data Allergies Allergy/AdvReac Type Severity Reaction Status Date / Time No Known Allergies Allergy Verified 04/06/24 16:17 Review of Systems Review of Systems: CONSTITUTIONAL: Denies fever EYES: Denies visual changes GASTROINTESTINAL: Denies vomiting NEUROLOGIC: Reports headache. Denies numbness, or weakness. All systems reviewed & are unremarkable except as noted in HPI and below PMFSH Past Medical History Medical History (Updated 04/06/24 @ 17:58 by Bella Joyce PA-C) Cancer of kidney Status post partial nephrectomy Diabetes mellitus Essential (primary) hypertension Gastroesophageal reflux disease History of kidney stones Hyperlipidemia Morbid obesity Surgical History Surgical History (Updated 03/29/24 @ 13:41 by Umesh Anderson MD) History of bariatric surgery (2020) Gastric sleeve. History of cholecystectomy History of laparoscopic appendectomy Diagnostic laparoscopy, laparoscopic appendectomy 01/13/24. Negative for appendicitis. History of oophorectomy, unilateral History of partial nephrectomy History of renal stent Family History Family History Mother Heart murmur Hypertension Thyroid condition Father Pancreatic cancer Acute myocardial infarction Heart disease Sibling Hypertension Social History Social History Social History: Surrogate medical decision maker: Mitch Lazarus, spouse. Code status: Full code. Smoking status: Never smoker Second hand tobacco smoke exposure: No Alcohol intake: current Drinks per week: 1 Alcohol use details: social Substance use: never Substance use type: does not use Do You Feel Safe in your Home?: Yes Lack of Transportation: No Lack of Food: Never True Current Housing: I Have Housing Concerned About Future Housing: No Difficulty Paying Gas/Electric Bills: No Difficulty Paying for Meds: No Currently Unemployed: No Education: High School Diploma/GED Difficulty w/ Childcare or Family Care: No Living arrangements: with family Occupation/Education: occupation Gender identity (if verbalized by the patient): Female Sexual Orientation (if Verbalized by the Patient): Straight or Heterosexual Spiritual care concerns: No Exam Narrative: GENERAL: Well-appearing, well-nourished, and in no acute distress. HEAD: Normocephalic. 1.5cm linear laceration over the left cheek EYES: PERRLA and EOMI. ENT: Nares clear, no rhinorrhea or epistaxis. Mucous membranes moist. Oropharynx without tonsillar hypertrophy exudate or other lesions. Bilateral TMs pearly diaz non-bulging NECK: Supple. No adenopathy or masses. CHEST: Clear to auscultation. No respiratory distress. No wheezes rales or rhonchi HEART: Regular rate and rhythm. No murmur heard. Normal peripheral pulses. EXTREMITIES: Normal range of motion. No edema. SKIN: Warm, dry, no rash. NEURO: No focal deficits. Alert and oriented x3. CN II-XII grossly intact PSYCH: Normal mood and affect Course Course Emergency Course: Patient updated on workup and agrees with plan of care Vital Signs Vital signs: Vital Signs Temperature 97.4 F L 04/06/24 1
[2024-04-06] MEDS: TETANUS,DIPHTHERIA,AC PERTUSSIS ADULT (0.5 ML) BOOSTRIX IM (17:29)
[2024-04-06] MEDS: ACETAMINOPHEN 325 MG TABLET 975 MG PO (17:38)
== END 2024-04-06 18:11 | disposition home or self-care (01) ==
PROVIDERS: Emergency Provider Physician Assistant; PCP Family Medicine
DX: S01.412A Laceration without foreign body of left cheek and temporomandibular area, initial encounter (principal); S09.90XA Unspecified injury of head, initial encounter; W01.198A Fall on same level from slipping, tripping and stumbling with subsequent striking against other object, initial encounter; I10 Essential (primary) hypertension; E78.5 Hyperlipidemia, unspecified; E11.9 Type 2 diabetes mellitus without complications; K21.9 Gastro-esophageal reflux disease without esophagitis; Z85.528 Personal history of other malignant neoplasm of kidney; Z90.5 Acquired absence of kidney; Z98.84 Bariatric surgery status; Z23 Encounter for immunization
CPT/HCPCS: 12011; 70450; 70486; 72125; 90471; 90715; 99284; A9270

== ENCOUNTER 2024-09-18 15:02 | Emergency (ER) | payer OTHER, SELFPAY ==
--- NOTE | ~2024-09-18 | XR_ITS ---
EXAMINATION: XR chest 2V DATE: 09/18/2024 15:28 INDICATION: 3 weeks of cough TECHNIQUE: PA and lateral views of the chest were obtained. COMPARISON: Chest radiograph dated 01/22/2024 FINDINGS: The lungs are clear with no focal airspace opacities, pulmonary edema, pleural effusion or pneumothor ax. The cardiomediastinal silhouette is normal. Cholecystectomy clips in the upper abdomen. IMPRESSION: 1. No acute cardiopulmonary disease. Reviewed, dictated and finalized at location B. OWER DEVELOPMENT SPECIALIST
--- NOTE | 2024-09-18 15:12 | ED_ITS ---
HPI - URI/Sore Throat General Chief Complaint: Upper Respiratory Infection Stated Complaint: cough / chest pain Time Seen by Provider: 09/18/24 15:18 Source: patient, RN notes reviewed and old records reviewed Mode of arrival: ambulatory Limitations: no limitations History of Present Illness HPI Narrative: 48-year-old female with history of diabetes presents to the [facility] with 3 week history cough, congestion. Has not contacted her primary care provider. Denies any chest pain. Reports that she has taken [id number] products with no relief. Denies any fevers. Related Data Allergies Allergy/AdvReac Type Severity Reaction Status Date / Time No Known Allergies Allergy Verified 07/26/24 11:28 Review of Systems Review of Systems: All systems reviewed & are unremarkable except as noted in HPI and below Constitutional: Constitutional: Reports no additional constitutional complaints ENT: Reports system reviewed and no additional complaints, except as documented Cardiovascular: Cardiovascular: Reports no additional cardiovascular complaints, Denies chest pain and Denies dyspnea Respiratory: Respiratory: Reports as per HPI, Reports chest congestion, Reports cough and Reports dyspnea Gastrointestinal: Gastrointestinal: Reports no additional gastrointestinal complaints, Denies abdominal pain, Denies nausea and Denies vomiting Musculoskeletal: Musculoskeletal: Reports no additional musculoskeletal complaints Integumentary/Breasts: Skin/Breast: Reports system reviewed and no additional complaints, except as docu PMFSH Past Medical History Medical History Cancer of kidney Status post partial nephrectomy Diabetes mellitus Essential (primary) hypertension Gastroesophageal reflux disease History of kidney stones Hyperlipidemia Morbid obesity Surgical History Surgical History History of bariatric surgery (2020) Gastric sleeve. History of cholecystectomy History of laparoscopic appendectomy Diagnostic laparoscopy, laparoscopic appendectomy 01/13/24. Negative for appendicitis. History of oophorectomy, unilateral History of partial nephrectomy History of renal stent Family History Family History Mother Heart murmur Hypertension Thyroid condition Father Pancreatic cancer Acute myocardial infarction Heart disease Sibling Hypertension Social History Social History Social History: Surrogate medical decision maker: Mitch Qiu, spouse. Code status: Full code. Smoking status: Never smoker Second hand tobacco smoke exposure: No Alcohol intake: current Drinks per week: 1 Alcohol use details: social Substance use: never Substance use type: does not use Do You Feel Safe in your Home?: Yes Lack of Transportation: No Lack of Food: Never True Current Housing: I Have Housing Concerned About Future Housing: No Difficulty Paying Gas/Electric Bills: No Difficulty Paying for Meds: No Currently Unemployed: No Education: High School Diploma/GED Difficulty w/ Childcare or Family Care: No Living arrangements: with family Occupation/Education: occupation Gender identity (if verbalized by the patient): Female Sexual Orientation (if Verbalized by the Patient): Straight or Heterosexual Spiritual care concerns: No Comments At the time of my signature, I reviewed and agree with the nursing past medical, surgical, social, and family history. There is no relevant family history pertinent to the patient complaint. Exam Const: General: cooperative, healthy appearing, comfortable, no acute distress, well developed, alert and well nourished Nutritional Appearance: well nourished and obese Orientation/consciousness: patient oriented x3 Limitations: no limitations HENMT: Head: normal to inspection Ears: hearing grossly normal bilaterally, external ears normal, TM's normal bilaterally, EAC's normal and no periauricular adenopathy Face/Nose/Sinus: Normal external nose present, normal facial exam and face symmetric Face and sinus: normal facial exam and face symmetric Mouth: Yes Normal oral and palatal mucosa present, Yes lip normal and Yes tongue normal Throat: uvula midline, postnasal drainage and no uvular edema Eyes: General: appearance normal, both eyes and all related structures Alignment and Position: alignment normal Periorbital: periorbital findings normal Neck: Neck: normal visual inspection, full ROM, no lymphadenopathy and no meningeal signs Chest: Chest palpation & inspection: normal inspection of the chest Resp: Effort & Inspection: normal respiratory effort, able to speak in complete sentences and Actively coughing dry Auscultation: clear to auscultation bilaterally, no crackles, no rales, no rhonchi, no wheezes and diminished lung sounds bilateral in the lower lung young Cardio: Rate: regular rate Skin: General skin exam: normal color and no rashes or lesions noted Lesions: no lesions Rashes: no rashes Wounds: no wounds Neuro: General: patient oriented x3, gait normal, tone normal, moves all extremities and no meningeal signs Cognition (Neuro): normal cognition S peech: normal speech Gait exam (Neuro): Normal gait present Extrem: General: normal to inspection, full ROM, capillary refill normal and normal gait Psych: Appearance: grossly normal and well kempt Mental Status: mental status grossly normal Speech and movement: Normal speech and movement present and Clear speech present Affect: normal affect Attitude: cooperative Course Course Level of Care: Express Care Visit Vital Signs Vital signs: Vital Signs Temperature 97.8 F 09/18/24 15:13 Pulse Rate 71 09/18/24 15:13 Respiratory Rate 18 09/18/24 15:13 Blood Pressure 140/81 09/18/24 15:13 Pulse Oximetry 99 09/18/24 15:13 Oxygen Delivery Room Air 09/18/24 15:13 Temperature 97.8 F 09/18/24 15:13 Pulse Rate 71 09/18/24 15:13 Respiratory Rate 18 09/18/24 15:13 Blood Pressure 140/81 09/18/24 15:13 Pulse Oximetry 99 09/18/24 15:13 Oxygen Delivery Room Air 09/18/24 15:13 Reviewed MDM - URI/Sore Throat MDM Narrative Medical decision making narrative: Patient presents with cough x3 weeks. Chest x-ray showed no acute findings. Blood glucose within normal limits Patient sitting comfortably in exam room. Nontoxic, vitals are stable. Patient in no acute distress Patient appropriate for outpatient treatment with of bronchitis without steroids due to had diabetes. Discharge instructions reviewed with patient, as well as provided in writing per nursing staff. The instructions also include specific and strict return/GO TO THE ER as well as f/u information. All questions have been answered, and the patient deny any further questions with discharge and discharge plan. Some parts of this dictation were generated by voice recognition software and may contain typographical and/or grammatical inaccuracies. Differential Diagnosis Differential diagnosis: Likely upper respiratory infection, otitis media, sinusitis, viral infection and bronchitis Lab Data Labs: Lab Results 09/18/24 Range/Units 15:32 POC Capillary Glucose 101 (65-105) mg/dl Reviewed Imaging Data Radiologist's impression: EXAMINATION: XR chest 2V DATE: 09/18/2024 15:28 INDICATION: 3 weeks of cough TECHNIQUE: PA and lateral views of the chest were obtained. COMPARISON: Chest radiograph dated 01/22/2024 FINDINGS: The lungs are clear with no focal airspace opacities, pulmonary edema, pleural effusion or pneumothorax. The cardiomediastinal silhouette is normal. Cholecystectomy clips in the upper abdomen. IMPRESSION: 1. No acute cardiopulmonary disease. Critical Care Time Critical Care Time Critical Care Time: No Discharge Plan Discharge Clinical Impression: Bronchitis Patient Disposition: Home, Self-Care Condition: Stable Instructions: Antibiotic Form, Acute Bronchitis (ED) Additional Instructions: -Alternate Tylenol and Motrin per package directions for fever or pain. -Antihistamine medication such as Benadryl at night and Zyrtec/Claritin/Rea during the day can help improve symptoms. -doing daily nasal irrigations can help relieve pressure your sinuses. Things like a Neti pot -Use Flonase twice a day for 5 days then daily to help reduce the inflammation and dry up your sinuses. -You can also use Mucinex. Be sure to drink plenty of water with this medication at least 8 ounces with every dose and it is important to drink 8 to 10 glasses of water per day. Water is a natural decongestant -Eat and drink things that are easy to swallow, like tea or soup, or popsicles. -Oral rinses such as: Salt water gargles and/or may use topical anesthetic (eg. Chloraseptic spray) or lozenges to relieve dryness or throat pain). -Frequent hand washing or hand harvesting contractor is one of the best ways to prevent spread of infection. -Using a vaporizer or humidifier at night will also help thin secretions and help with coughing up phlegm. -Follow up with primary care provider in 7-10 days if condition is not improving - For new or worsening symptoms go directly to the nearest ER Patient Language: Nam[place] Prescriptions: New doxycycline monohydrate 100 mg tablet 100 mg PO BID Qty: 14 0RF benzonatate 100 mg capsule 100 mg PO TID PRN (Reason: cough) Qty: 10 0RF albuterol sulfate 90 mcg/actuation HFA aerosol inhaler 2 puff inhalation QID PRN (Reason: shortness of breath or wheezing) Qty: 6.7 0RF (DME) Aerochamber MV Spacer See Rx Instructions .Route Qty: 1 0RF Rx Instructions: As directed No Action omeprazole 40 mg capsule,delayed release(DR/EC) 40 mg PO DAILY Qty: 90 1RF Farxiga 10 mg tablet 10 mg PO DAILY Qty: 90 1RF metformin 850 mg tablet See Rx Instructions .ROUTE .COMPLEX Qty: 180 1RF Dose Instruction: TAKE 1 TABLET BY MOUTH TWICE DAILY Rx Instructions: TAKE 1 TABLET BY MOUTH TWICE DAILY atorvastatin 40 mg tablet See Rx Instructions .ROUTE .COMPLEX Qty: 90 1RF Dose Instruction: TAKE 1 TABLET BY MOUTH EVERY DAY Rx Instructions: TAKE 1 TABLET BY MOUTH EVERY DAY losartan 50 mg tablet 50 mg PO DAILY Qty: 90 1RF Follow-up/Referrals: Umesh Anderson MD [Primary Care Provider] - 2 Weeks ([facility] follow-up) Stand Alone Forms: Work/School Release IP Time of Disposition: 15:37
[2024-09-18 15:13] VITALS: BP 140/81; PULSE 71; RESP 18; TEMP 36.6; O2SAT 99
[2024-09-18 15:36] LABS: Glucose Point of Care 101 mg/dl (65-105)
== END 2024-09-18 15:42 | disposition home or self-care (01) ==
PROVIDERS: Emergency Provider Nurse Practitioner; PCP Family Medicine
DX: J40 Bronchitis, not specified as acute or chronic (principal); E11.9 Type 2 diabetes mellitus without complications; I10 Essential (primary) hypertension; K21.9 Gastro-esophageal reflux disease without esophagitis; E78.5 Hyperlipidemia, unspecified; E66.01 Morbid (severe) obesity due to excess calories; Z68.38 Body mass index [BMI] 38.0-38.9, adult; Z85.528 Personal history of other malignant neoplasm of kidney; Z98.84 Bariatric surgery status; Z90.5 Acquired absence of kidney
CPT/HCPCS: 71046; 82948; 99213; G0463

== ENCOUNTER 2024-10-01 07:41 | Outpatient (CLI) | payer OTHER, SELFPAY ==
--- NOTE | ~2024-10-01 | MM_ITS ---
EXAMINATION: MM screening harish BI w tasha HISTORY: Screening TECHNIQUE: Craniocaudal and mediolateral oblique 3-D tomosynthesis images were obtained and synthetic 2-D images were generated. CAD analysis was submitted and interpreted. COMPARISON: Comparison to multiple prior studies sequentially, with oldest reviewed study dated 01/02. BREAST PARENCHYMAL COMPOSITION: Not dense: There are scattered areas of fibroglandular density. FINDINGS: There is no evidence of suspicious mass, calcification, or architectural distortion to sugg est malignancy in either breast. There has been no suspicious interval change. IMPRESSION: 1. No mammographic evidence of malignancy. 2. Recommend routine screening mammography in one year. BI-RADS Category 1: Negative Reviewed, dictated and finalized at location [] E PRESS OPERATOR
== END 2024-10-01 07:42 | disposition home or self-care (01) ==
LOC: ANHIMG 07:42
PROVIDERS: PCP Family Medicine; Visit Provider Family Medicine
DX: Z12.31 Encounter for screening mammogram for malignant neoplasm of breast (principal)
CPT/HCPCS: 77063; 77067

== ENCOUNTER 2024-10-08 15:04 | Emergency (ER) | payer OTHER, SELFPAY ==
--- NOTE | ~2024-10-08 | CT_ITS ---
CT abdomen pelvis w con Ordering provider: Bella Joyce PA-C History: 48 years Female with . abd pain, back pain . Comparison: January 10, 2024 Technique: CT abdomen and pelvis with IV and without oral contrast. Automated exposure control and it erative reconstruction technique were employed. The dose-length product was 1317.42 mGy-cm. 100 mL Om nipaque 350 was given IV. Findings: VISUALIZED LOWER CHEST: Dependent atelectatic changes. 3 mm nodule in the right middle lobe. No follo w-up advised. Slight cardiomegaly. UPPER ABDOMINAL ORGANS: Liver: Hepatomegaly with fat infiltration. Gallbladder: Status post cholecystectomy. Spleen: Cyst is seen in the spleen is slightly enlarged. Stomach/duodenum: Sliding hiatus hernia. Postoperative changes in the stomach. Pancreas: Normal. Adrenals: Normal. Kidneys: Lobulated outline of the left kidney with smaller size compared to the right. PELVIC ORGANS: The bladder is underfilled. BOWEL AND MESENTERY: Colon: No evidence of diverticulitis. Normal appendix. Small Bowel: Normal. No obstruction. Peritoneum/mesentery: No free air or free fluid. No mesenteric lymphadenopathy. RETROPERITONEUM: Mild atheromatous disease of the abdominal aorta. No retroperitoneal lymphadenopat hy. MUSCULOSKELETAL: Superficial soft tissues: Small fat-containing umbilical hernia. Otherwise, The superficial soft tiss ues are normal. Bones: Age appropriate degenerative changes of the spine. Bilateral sacroiliacs. IMPRESSION: 1. Slightly Atrophic left kidney. 2. Hepatomegaly with fat infiltration. 3. Small sliding hiatus hernia. 4. Cyst in the spleen slightly enlarged. Reviewed, dictated and finalized at location A. MACHINE FEEDER
--- NOTE | ~2024-10-08 | XR_ITS ---
EXAMINATION: XR chest 2V DATE: 10/08/2024 15:45 INDICATION: Cough. TECHNIQUE: Frontal and lateral views of the chest were obtained. COMPARISON: Chest 2 views 09/18/2024 FINDINGS: There is no pneumonia, pleural effusion, or pneumothorax. The heart size is normal. Surgica l clips in the right upper quadrant are likely from cholecystectomy. IMPRESSION: 1. No acute cardiopulmonary disease. Reviewed, dictated and finalized at location A. ERSHIP SALES MANAGER
[2024-10-08 15:20] VITALS: BP 139/100; PULSE 83; RESP 18; TEMP 36.1; O2SAT 100
--- NOTE | 2024-10-08 15:28 | ECG_ITS ---
Test Date: 2024-10-08 16:12:19 Measurements Intervals [place] Rate: 76 P: 11 GA: 165 QRS: 91 QRSD: 72 T: 29 QT: 376 QTc: 425 Interpretive Statements SINUS RHYTHM BORDERLINE RIGHT AXIS DEVIATION [QRS AXIS > 90] LOW QRS VOLTAGE IN PRECORDIAL LEADS [QRS DEFLECTION < 1.0 mV IN CHEST LEADS] POSSIBLE ANTERIOR MYOCARDIAL INFARCTION , PROBABLY OLD [30 ms Q WAVE IN V3/V4, OR R < 0.2 mV IN V4] No previous ECG available for comparison Electronically Signed On 10-09-2024 15:03:30 FLOW MACHINE OPERATOR by Samia Lynn M.D.
--- NOTE | 2024-10-08 15:29 | ED.ABDPAIN ---
HPI - Abdominal Pain General Chief Complaint: Abdominal Pain <Ana Rosa Wright APRN - Last Filed: 10/08/24 16:07> Stated Complaint: I'm in so much pain -back and lower abd pain <Ana Rosa Wright APRN - Last Filed: 10/08/24 16:07> Time Seen by Provider: 10/08/24 15:20 <Ana Rosa Wright APRN - Last Filed: 10/08/24 16:07> Focused HPI: Patient is a 48-year-old female who presents to the ER with back pain, right abdominal pain, right kidney pain and nausea. She also endorses a headache and a cough that has been present for about 2 weeks. Patient reports she has a history of kidney stones, kidney cancer, diabetes, high blood pressure. She denies any noticeable blood in her urine, chest pain, or urinary symptoms. GENERAL: Well-appearing, well-nourished, and in no acute distress. HEAD: Normocephalic, atraumatic. CHEST: Clear to auscultation. ?No respiratory distress. HEART: Regular rate and rhythm.? NEURO: ?Alert and oriented x3. Patient screened in triage and initial orders placed.? ?Additional care and disposition to be based upon?diagnostic testing and treatment. <Ana Rosa Wright APRN - Last Filed: 10/08/24 16:07> Related Data Allergies/Adverse Reactions: Allergies Allergy/AdvReac Type Severity Reaction Status Date / Time No Known Allergies Allergy Verified 10/08/24 15:04 <Ana Rosa Wright APRN - Last Filed: 10/08/24 16:07> Review of Systems Review of Systems: CONSTITUTIONAL: Denies fever CARDIOVASCULAR: Denies chest pain RESPIRATORY: Reports cough GASTROINTESTINAL: Reports abdominal pain, nausea. Denies vomiting, or diarrhea. GENITOURINARY: Denies dysuria or hematuria. <Bella Joyce PA-C - Last Filed: 10/09/24 02:01> All systems reviewed & are unremarkable except as noted in HPI and below <Bella Joyce PA-C - Last Filed: 10/09/24 02:01> PMFSH Past Medical History Medical History: Medical History Cancer of kidney Status post partial nephrectomy Diabetes mellitus Essential (primary) hypertension Gastroesophageal reflux disease History of kidney stones Hyperlipidemia Morbid obesity <Ana Rosa Wright APRN - Last Filed: 10/08/24 16:07> Surgical History Surgical History: Surgical History History of bariatric surgery (2020) Gastric sleeve. History of cholecystectomy History of laparoscopic appendectomy Diagnostic laparoscopy, laparoscopic appendectomy 01/13/24. Negative for appendicitis. History of oophorectomy, unilateral History of partial nephrectomy History of renal stent <Ana Rosa Wright APRN - Last Filed: 10/08/24 16:07> Family History Family History: Family History Mother Heart murmur Hypertension Thyroid condition Father Pancreatic cancer Acute myocardial infarction Heart disease Sibling Hypertension <Ana Rosa Wright APRN - Last Filed: 10/08/24 16:07> Social History Social History: Social History Social History: Surrogate medical decision maker: Mitch Qiu, spouse. Code status: Full code. Smoking status: Never smoker Second hand tobacco smoke exposure: No Alcohol intake: current Drinks per week: 1 Alcohol use details: social Substance use: never Substance use type: does not use Do You Feel Safe in your Home?: Yes Lack of Transportation: No Lack of Food: Never True Current Housing: I Have Housing Concerned About Future Housing: No Difficulty Paying Gas/Electric Bills: No Difficulty Paying for Meds: No Currently Unemployed: No Education: High School Diploma/GED Difficulty w/ Childcare or Family Care: No Living arrangements: with family Occupation/Education: occupation Gender identity (if verbalized by the patient): Female Sexual Orientation (if Verbalized by the Patient): Straight or Heterosexual Spiritual care concerns: No <Ana Rosa Wright APRN - Last Filed: 10/08/24 16:07> Exam Narrative: GENERAL: Well-appearing, well-nourished, and in no acute distress. HEAD: Normocephalic, atraumatic. EYES: EOMI. ENT: Nares clear, no rhinorrhea or epistaxis. Mucous membranes moist. Oropharynx without tonsillar hypertrophy exudate or other lesions. NECK: Supple. No adenopathy or masses. CHEST: Clear to auscultation. No respiratory distress. No wheezes rales or rhonchi HEART: Regular rate and rhythm. No murmur heard. Normal peripheral pulses. ABDOMEN: Soft, nontender, nondistended, normal active bowel sounds. EXTREMITIES: Normal range of motion. No edema. SKIN: Warm, dry, no rash. NEURO: No focal deficits. Alert and oriented x3. PSYCH: Normal mood and affect <Bella Joyce PA-C - Last Filed: 10/09/24 02:01> Course Course Emergency Course: patient updated on workup and agrees with plan of care <Bella Joyce PA-C - Last Filed: 10/09/24 02:01> Vital Signs Vital signs: Vital Signs Temperature 97.0 F L 10/08/24 15:20 Pulse Rate 83 10/08/24 15:20 Respiratory Rate 18 10/08/24 15:20 Blood Pressure 139/100 H 10/08/24 15:20 Pulse Oximetry 100 10/08/24 15:20 Oxygen Delivery Room Air 10/08/24 15:20 Temperature 97.4 F L 10/08/24 19:05 Pulse Rate 72 10/08/24 19:05 Respiratory Rate 18 10/08/24 19:05 Blood Pressure 118/87 10/08/24 19:05 Pulse Oximetry 98 10/08/24 19:05 Oxygen Delivery Room Air 10/08/24 15:20 <Ana Rosa Wright, KAILYN - Last Filed: 10/08/24 16:07> Vital Signs Temperature 97.0 F L 10/08/24 15:20 Pulse Rate 83 10/08/24 15:20 Respiratory Rate 18 10/08/24 15:20 Blood Pressure 139/100 H 10/08/24 15:20 Pulse Oximetry 100 10/08/24 15:20 Oxygen Delivery Room Air 10/08/24 15:20 Temperature 97.4 F L 10/08/24 19:05 Pulse Rate 72 10/08/24 19:05 Respiratory Rate 18 10/08/24 19:05 Blood Pressure 118/87 10/08/24 19:05 Pulse Oximetry 98 10/08/24 19:05 Oxygen Delivery Room Air 10/08/24 15:20 <Bella Joyce PA-C - Last Filed: 10/09/24 02:01> MDM - Abdominal Pain MDM Narrative Medical decision making narrative: Patient presents to the emergency department for right-sided low back pain. Ongoing over several weeks. Also reporting abdominal pain. She is afebrile and nontoxic appearing. Her vitals are stable. Cbc without leukocytosis. Metabolic panel and urine with some evidence of dehydration. Patient hydrated with IV fluids in the ER. Initial lactic acid was elevated this normalized after hydration. Influenza, RSV and COVID screens are negative. [place] test is negative. Chest x-ray without acute cardiopulmonary abnormality. CT abdomen pelvis without acute findings, shows several chronic findings. Patient was updated on her workup and agrees with plan of care. She is to follow up with primary provider. She was given warnings to return to the ER <Bella Joyce PA-C - Last Filed: 10/09/24 02:01> Differential Diagnosis Differential diagnosis: Likely abdominal pain, calculus of kidney, constipation, diverticulitis, gastroenteritis and other (Sciatica, muscle strain, degenerative disc disease) <Bella Joyce PA-C - Last Filed: 10/09/24 02:01> Lab Data Attestation: I reviewed the patient's lab results. <Bella Joyce PA-C - Last Filed: 10/09/24 02:01> Result diagrams: 10/08/24 16:14 10/08/24 16:14 <Ana Rosa Wright APRN - Last Filed: 10/08/24 16:07> Labs: Lab Results 10/08/24 10/08/24 10/08/24 Range/Units 16:14 22:29 22:34 WBC 7.8 (4.5-10.0) K/mm3 RBC 4.75 (4.2-5.4) M/mm3 Hgb 14.2 (12.0-15.0) g/dL Hct 42.9 (37.0-47.0) % MCV 90.3 (80-100) fl MCH 29.9 (26-34) pg MCHC 33.1 (32-36) g/dl RDW 13.4 (11.5-14.5) % Plt Count 321 (150-375) k/mm3 MPV 11.1 H (7.4-10.4) fl Immature Gran % (Auto) 0.3 (0-0.5) % Neut % (Auto) 57.4 (45.5-73.1) % Lymph % (Auto) 29.7 (18.3-44.2) % [place] % (Auto) 8.8 H (2.6-8.5) % Eos % (Auto) 3.2 (0-4.4) % Baso % (Auto) 0.6 (0.2-1.2) % Lymph # (Auto) 2.31 (0.9-3.2) K/mm3 [place] # (Auto) 0.7 H (0.1-0.6) K/mm3 Eos # (Auto) 0.3 (0-0.3) K/mm3 Baso # (Auto) 0.1 (0.0-0.1) K/mm3 Abs Immat Gran (auto) 0.02 (0.00-0.031) K/mm3 Absolute Neuts (auto) 4.5 (1.3-6.7) K/mm3 Absolute Nucleated RBC 0.000 (0.0-0.012) K/mm3 Nucleated RBC % 0.0 (0.0-0.2) % PT 12.8 (11.1-14.7) Seconds INR 0.9 APTT 26.3 (22.3-36.8) Seconds Sodium 141 (137-145) mmol/L Potassium 4.4 (3.4-5.0) mmol/L Chloride 106 (98-107) mmol/L Carbon Dioxide 26 (22-30) mmol/L Anion Gap 9 (4-12) mmol/L BUN 19 H (7-17) mg/dL Creatinine 0.60 L (0.7-1.0) mg/dL Estim Creat Clear Calc Not Reportable Estimated GFR > 60 (59 - ) Glucose 136 H (65-110) mg/dL Lactic Acid 2.4 H (0.7-2.0) mmol/L Calcium 9.2 (8.4-10.2) mg/dL Total Bilirubin 0.7 (0.2-1.3) mg/dL AST 22 (14-36) U/L ALT 18 (6-35) U/L Alkaline Phosphatase 77 (38-126) U/L Troponin I < 0.012 (0.000-0.034) ng/mL Total Protein 8.0 (6.3-8.2) g/dL Albumin 4.6 (3.5-5.1) g/dL Lipase 106 (23-300) U/L Urine Color Yellow (Yellow) Urine Appearance Clear (Clear) Urine pH 5.0 (5.0-9.0) Ur Specific [place] 1.044 H (1.001-1.035) Urine Protein Negative (Negative) mg/dL Urine Glucose (UA) 3+ H (Negative) mg/dL Urine Ketones 1+ H (Negative) mg/dL Ur Blood (Man) Negative (Negative) Urine Nitrate Negative (Negative) Urine Bilirubin Negative (Negative) Urine Urobilinogen 1.0 (<2.0) mg/dL Leukocyte Esterase Rfl Negative (Negative) JOSÉ/UL POC Urine HCG, Qual Negative (Negative) Monoscreen (Negative) Influenza A (RT-PCR) Negative (Negative) Influenza B (RT-PCR) Negative (Negative) RSV (RT-PCR) Negative (Negative) SARS-CoV-2 RNA (RT-PCR) Negative (Negative) 10/09/24 Range/Units 01:14 WBC (4.5-10.0) K/mm3 RBC (4.2-5.4) M/mm3 Hgb (12.0-15.0) g/dL Hct (37.0-47.0) % MCV (80-100) fl MCH (26-34) pg MCHC (32-36) g/dl RDW (11.5-14.5) % Plt Count (150-375) k/mm3 MPV (7.4-10.4) fl Immature Gran % (Auto) (0-0.5) % Neut % (Auto) (45.5-73.1) % Lymph % (Auto) (18.3-44.2) % [place] % (Auto) (2.6-8.5) % Eos % (Auto) (0-4.4) % Baso % (Auto) (0.2-1.2) % Lymph # (Auto) (0.9-3.2) K/mm3 [place] # (Auto) (0.1-0.6) K/mm3 Eos # (Auto) (0-0.3) K/mm3 Baso # (Auto) (0.0-0.1) K/mm3 Abs Immat Gran (auto) (0.00-0.031) K/mm3 Absolute Neuts (auto) (1.3-6.7) K/mm3 Absolute Nucleated RBC (0.0-0.012) K/mm3 Nucleated RBC % (0.0-0.2) % PT (11.1-14.7) Seconds INR APTT (22.3-36.8) Seconds Sodium (137-145) mmol/L Potassium (3.4-5.0) mmol/L Chloride (98-107) mmol/L Carbon Dioxide (22-30) mmol/L Anion Gap (4-12) mmol/L BUN (7-17) mg/dL Creatinine (0.7-1.0) mg/dL Estim Creat Clear Calc Estimated GFR (59 - ) Glucose (65-110) mg/dL Lactic Acid 1.9 (0.7-2.0) mmol/L Calcium (8.4-10.2) mg/dL Total Bilirubin (0.2-1.3) mg/dL AST (14-36) U/L ALT (6-35) U/L Alkaline Phosphatase (38-126) U/L Troponin I (0.000-0.034) ng/mL Total Protein (6.3-8.2) g/dL Albumin (3.5-5.1) g/dL Lipase (23-300) U/L Urine Color (Yellow) Urine Appearance (Clear) Urine pH (5.0-9.0) Ur Specific [place] (1.001-1.035) Urine Protein (Negative) mg/dL Urine Glucose (UA) (Negative) mg/dL Urine Ketones (Negative) mg/dL Ur Blood (Man) (Negative) Urine Nitrate (Negative) Urine Bilirubin (Negative) Urine Urobilinogen (<2.0) mg/dL Leukocyte Esterase Rfl (Negative) JOSÉ/UL POC Urine HCG, Qual (Negative) Monoscreen Negative (Negative) Influenza A (RT-PCR) (Negative) Influenza B (RT-PCR) (Negative) RSV (RT-PCR) (Negative) SARS-CoV-2 RNA (RT-PCR) (Negative) <Ana Rosa Steen Kyle, RESEARCH NURSE PRACTITIONER - Last Filed: 10/08/24 16:07> Lab Results 10/08/24 10/08/24 10/08/24 Range/Units 16:14 22:29 22:34 WBC 7.8 (4.5-10.0) K/mm3 RBC 4.75 (4.2-5.4) M/mm3 Hgb 14.2 (12.0-15.0) g/dL Hct 42.9 (37.0-47.0) % MCV 90.3 (80-100) fl MCH 29.9 (26-34) pg MCHC 33.1 (32-36) g/dl RDW 13.4 (11.5-14.5) % Plt Count 321 (150-375) k/mm3 MPV 11.1 H (7.4-10.4) fl Immature Gran % (Auto) 0.3 (0-0.5) % Neut % (Auto) 57.4 (45.5-73.1) % Lymph % (Auto) 29.7 (18.3-44.2) % [place] % (Auto) 8.8 H (2.6-8.5) % Eos % (Auto) 3.2 (0-4.4) % Baso % (Auto) 0.6 (0.2-1.2) % Lymph # (Auto) 2.31 (0.9-3.2) K/mm3 [place] # (Auto) 0.7 H (0.1-0.6) K/mm3 Eos # (Auto) 0.3 (0-0.3) K/mm3 Baso # (Auto) 0.1 (0.0-0.1) K/mm3 Abs Immat Gran (auto) 0.02 (0.00-0.031) K/mm3 Absolute Neuts (auto) 4.5 (1.3-6.7) K/mm3 Absolute Nucleated RBC 0.000 (0.0-0.012) K/mm3 Nucleated RBC % 0.0 (0.0-0.2) % PT 12.8 (11.1-14.7) Seconds INR 0.9 APTT 26.3 (22.3-36.8) Seconds Sodium 141 (137-145) mmol/L Potassium 4.4 (3.4-5.0) mmol/L Chloride 106 (98-107) mmol/L Carbon Dioxide 26 (22-30) mmol/L Anion Gap 9 (4-12) mmol/L BUN 19 H (7-17) mg/dL Creatinine 0.60 L (0.7-1.0) mg/dL Estim Creat Clear Calc Not Reportable Estimated GFR > 60 (59 - ) Glucose 136 H (65-110) mg/dL Lactic Acid 2.4 H (0.7-2.0) mmol/L Calcium 9.2 (8.4-10.2) mg/dL Total Bilirubin 0.7 (0.2-1.3) mg/dL AST 22 (14-36) U/L ALT 18 (6-35) U/L Alkaline Phosphatase 77 (38-126) U/L Troponin I < 0.012 (0.000-0.034) ng/mL Total Protein 8.0 (6.3-8.2) g/dL Albumin 4.6 (3.5-5.1) g/dL Lipase 106 (23-300) U/L Urine Color Yellow (Yellow) Urine Appearance Clear (Clear) Urine pH 5.0 (5.0-9.0) Ur Specific [place] 1.044 H (1.001-1.035) Urine Protein Negative (Negative) mg/dL Urine Glucose (UA) 3+ H (Negative) mg/dL Urine Ketones 1+ H (Negative) mg/dL Ur Blood (Man) Negative (Negative) Urine Nitrate Negative (Negative) Urine Bilirubin Negative (Negative) Urine Urobilinogen 1.0 (<2.0) mg/dL Leukocyte Esterase Rfl Negative (Negative) JOSÉ/UL POC Urine HCG, Qual Negative (Negative) Monoscreen (Negative) Influenza A (RT-PCR) Negative (Negative) Influenza B (RT-PCR) Negative (Negative) RSV (RT-PCR) Negative (Negative) SARS-CoV-2 RNA (RT-PCR) Negative (Negative) 10/09/24 Range/Units 01:14 WBC (4.5-10.0) K/mm3 RBC (4.2-5.4) M/mm3 Hgb (12.0-15.0) g/dL Hct (37.0-47.0) % MCV (80-100) fl MCH (26-34) pg MCHC (32-36) g/dl RDW (11.5-14.5) % Plt Count (150-375) k/mm3 MPV (7.4-10.4) fl Immature Gran % (Auto) (0-0.5) % Neut % (Auto) (45.5-73.1) % Lymph % (Auto) (18.3-44.2) % [place] % (Auto) (2.6-8.5) % Eos % (Auto) (0-4.4) % Baso % (Auto) (0.2-1.2) % Lymph # (Auto) (0.9-3.2) K/mm3 [place] # (Auto) (0.1-0.6) K/mm3 Eos # (Auto) (0-0.3) K/mm3 Baso # (Auto) (0.0-0.1) K/mm3 Abs Immat Gran (auto) (0.00-0.031) K/mm3 Absolute Neuts (auto) (1.3-6.7) K/mm3 Absolute Nucleated RBC (0.0-0.012) K/mm3 Nucleated RBC % (0.0-0.2) % PT (11.1-14.7) Seconds INR APTT (22.3-36.8) Seconds Sodium (137-145) mmol/L Potassium (3.4-5.0) mmol/L Chloride (98-107) mmol/L Carbon Dioxide (22-30) mmol/L Anion Gap (4-12) mmol/L BUN (7-17) mg/dL Creatinine (0.7-1.0) mg/dL Estim Creat Clear Calc Estimated GFR (59 - ) Glucose (65-110) mg/dL Lactic Acid 1.9 (0.7-2.0) mmol/L Calcium (8.4-10.2) mg/dL Total Bilirubin (0.2-1.3) mg/dL AST (14-36) U/L ALT (6-35) U/L Alkaline Phosphatase (38-126) U/L Troponin I (0.000-0.034) ng/mL Total Protein (6.3-8.2) g/dL Albumin (3.5-5.1) g/dL Lipase (23-300) U/L Urine Color (Yellow) Urine Appearance (Clear) Urine pH (5.0-9.0) Ur Specific [place] (1.001-1.035) Urine Protein (Negative) mg/dL Urine Glucose (UA) (Negative) mg/dL Urine Ketones (Negative) mg/dL Ur Blood (Man) (Negative) Urine Nitrate (Negative) Urine Bilirubin (Negative) Urine Urobilinogen (<2.0) mg/dL Leukocyte Esterase Rfl (Negative) JOSÉ/UL POC Urine HCG, Qual (Negative) Monoscreen Negative (Negative) Influenza A (RT-PCR) (Negative) Influenza B (RT-PCR) (Negative) RSV (RT-PCR) (Negative) SARS-CoV-2 RNA (RT-PCR) (Negative) <Bella Joyce PA-C - Last Filed: 10/09/24 02:01> Imaging Data Radiologist's impression: ITS Impressions Chest X-Ray 10/08/24 15:47 IMPRESSION: 1. No acute cardiopulmonary disease. Abdomen/Pelvis CT 10/08/24 22:55 IMPRESSION: 1. Slightly Atrophic left kidney. 2. Hepatomegaly with fat infiltration. 3. Small sliding hiatus hernia. 4. Cyst in the spleen slightly enlarged. <Ana Rosa Wright, KAILYN - Last Filed: 10/08/24 16:07> ITS Impressions Chest X-Ray 10/08/24 15:47 IMPRESSION: 1. No acute cardiopulmonary disease. Abdomen/Pelvis CT 10/08/24 22:55 IMPRESSION: 1. Slightly Atrophic left kidney. 2. Hepatomegaly with fat infiltration. 3. Small sliding hiatus hernia. 4. Cyst in the spleen slightly enlarged. <Bella Joyce PA-C - Last Filed: 10/09/24 02:01> Critical Care Time Critical Care Time Critical Care Time: No <TMAI Cai Last Filed: 10/09/24 02:01> Discharge Plan Discharge Clinical Impression: Splenic cyst, Dehydration Low back pain Qualifiers: Chronicity: acute Back pain laterality: right Sciatica presence: without sciatica Qualified Code(s): M54.50 - Low back pain, unspecified <Ana Rosa Enriquetimothy RESEARCH NURSE PRACTITIONER - Last Filed: 10/08/24 16:07> Patient Disposition: Home, Self-Care <Ana Rosa EnriqueCARROLL aguirreN - Last Filed: 10/08/24 16:07> Condition: Stable <Ana Rosa Enriquetimothy RESEARCH NURSE PRACTITIONER - Last Filed: 10/08/24 16:07> Instructions: Dehydration (ED), Abdominal Pain (ED), Cyst (ED) <Ana Rosa AllenDaniel Wright APRN - Last Filed: 10/08/24 16:07> Additional Instructions: Return to the ER if you experience fever, abdominal pain with nausea and vomiting, you are unable to keep down liquids or solids, blood in the stool, pain or burning with urination, blood in the urine or any other symptoms that are concerning to you Over the counter pain medication as needed. Muscle relaxer as needed for pain. Do not take this medication if you are going to drive as it can make you sleepy. Do not take this medication if you are taking the cough medication with codeine Follow up with your primary care doctor The radiologist recommends you have an MRI of your abdomen to further evaluate the cyst in your spleen <Ana Rosa AllenDaniel Wright, RESEARCH NURSE PRACTITIONER - Last Filed: 10/08/24 16:07> Prescriptions: New cyclobenzaprine 10 mg tablet 10 mg PO TID PRN (Reason: muscle spasm) Qty: 14 0RF No Action doxycycline monohydrate 100 mg tablet 100 mg PO BID Qty: 14 0RF benzonatate 100 mg capsule 100 mg PO TID PRN (Reason: cough) Qty: 10 0RF albuterol sulfate 90 mcg/actuation HFA aerosol inhaler 2 puff inhalation QID PRN (Reason: shortness of breath or wheezing) Qty: 6.7 0RF (DME) Aerochamber MV Spacer See Rx Instructions .Route Qty: 1 0RF Rx Instructions: As directed omeprazole 40 mg capsule,delayed release(DR/EC) 40 mg PO DAILY Qty: 90 1RF Farxiga 10 mg tablet 10 mg PO DAILY Qty: 90 1RF metformin 850 mg tablet See Rx Instructions .ROUTE .COMPLEX Qty: 180 1RF Dose Instruction: TAKE 1 TABLET BY MOUTH TWICE DAILY Rx Instructions: TAKE 1 TABLET BY MOUTH TWICE DAILY atorvastatin 40 mg tablet See Rx Instructions .ROUTE .COMPLEX Qty: 90 1RF Dose Instruction: TAKE 1 TABLET BY MOUTH EVERY DAY Rx Instructions: TAKE 1 TABLET BY MOUTH EVERY DAY losartan 50 mg tablet 50 mg PO DAILY Qty: 90 1RF prednisone 20 mg tablet 20 mg PO DAILY Qty: 5 0RF codeine-guaifenesin 10-100 mg/5 mL liquid 5 ml PO Q6H PRN (Reason: cough) Qty: 120 0RF <Ana Rosa Wright APRN - Last Filed: 10/08/24 16:07> Follow-up/Referrals: Umesh Anderson MD [Primary Care Provider] - <Ana Rosa Wright APRN - Last Filed: 10/08/24 16:07>
[2024-10-08] MEDS: ONDANSETRON HCL ODT 4 MG TABLET PO (16:15)
[2024-10-08 16:24] LABS: Basophils Absolute Auto 0.1 K/mm3 (0.0-0.1); Basophils Percent Auto 0.6 % (0.2-1.2); Eosinophils Absolute Auto 0.3 K/mm3 (0-0.3); Eosinophils Percent Auto 3.2 % (0-4.4); Hematocrit 42.9 % (37.0-47.0); Hemoglobin 14.2 g/dL (12.0-15.0); Immature Granulocyte Absolute 0.02 K/mm3 (0.00-0.031); Immature Granulocyte Percent A 0.3 % (0-0.5); Lymphocytes Absolute Auto 2.31 K/mm3 (0.9-3.2); Lymphocytes Percent Auto 29.7 % (18.3-44.2); Mean Corpuscular HGB Conc 33.1 g/dl (32-36); Mean Corpuscular Hemoglobin 29.9 pg (26-34); Mean Corpuscular Volume 90.3 fl (80-100); Mean Platelet Volume 11.1 fl (7.4-10.4); Monocytes Absolute Auto 0.7 K/mm3 (0.1-0.6); Monocytes Percent Auto 8.8 % (2.6-8.5); Neutrophils Absolute Auto 4.5 K/mm3 (1.3-6.7); Neutrophils Percent Auto 57.4 % (45.5-73.1); Platelet Count Result 321 k/mm3 (150-375); Red Blood Count 4.75 M/mm3 (4.2-5.4); Red Cell Distribution Width 13.4 % (11.5-14.5); White Blood Count 7.8 K/mm3 (4.5-10.0)
[2024-10-08 16:37] LABS: Lactic Acid Reflex 2.4 mmol/L (0.7-2.0)
[2024-10-08 16:39] LABS: Alanine Aminotransferase 18 U/L (6-35); Albumin Level 4.6 g/dL (3.5-5.1); Alkaline Phosphatase 77 U/L (38-126); Anion Gap 9 mmol/L (4-12); Aspartate Amino Transferase 22 U/L (14-36); Bilirubin,Total 0.7 mg/dL (0.2-1.3); Blood Urea Nitrogen 19 mg/dL (7-17); Calcium 9.2 mg/dL (8.4-10.2); Carbon Dioxide 26 mmol/L (22-30); Chloride 106 mmol/L (98-107); Estimated Glomerular Filt Rate > 60; Glucose 136 mg/dL (65-110); Lipase 106 U/L (23-300); Potassium 4.4 mmol/L (3.4-5.0); Sodium 141 mmol/L (137-145)
[2024-10-08 16:51] LABS: Troponin I < 0.012 ng/mL (0.000-0.034)
[2024-10-08 16:57] LABS: INR 0.9; Partial Thromboplastin Time 26.3 Seconds (22.3-36.8); Prothrombin Time 12.8 Seconds (11.1-14.7)
[2024-10-08 17:00] LABS: Influenza A QL RT-PCR Negative (Negative); Influenza B QL RT-PCR Negative (Negative); RSV RNA, RT-PCR Negative (Negative); SARS-CoV-2 RNA PCR Negative (Negative)
[2024-10-08 19:05] VITALS: BP 118/87; PULSE 72; RESP 18; TEMP 36.3; O2SAT 98
[2024-10-08 19:21] LABS: Reflex Lactic Acid Yes or No Add Lactic
[2024-10-08] MEDS: SODIUM CHLORIDE 0.9% IV 1,000 ML 999 ML IV CONT (22:15)
[2024-10-08 22:36] LABS: BEDSIDEPREGUCG Negative (Negative)
[2024-10-08 22:37] LABS: Add Urine Microscopic? NO; Appearance Urine Clear (Clear); Bilirubin Urine Negative (Negative); Blood Urine Negative (Negative); Color Urine Yellow (Yellow); Glucose Urine UA 3+ mg/dL (Negative); Ketones Urine 1+ mg/dL (Negative); Leukocyte Esterase Ur Negative LEU/UL (Negative); Nitrate Urine Negative (Negative); Protein Urine Negative (Negative); Specific Grav Ur 1.044 (1.001-1.035)
--- NOTE | 2024-10-08 23:12 | PC.NURSE ---
Assumed care of pt from ARIN Lee at this time.
[2024-10-09 01:31] LABS: Lactic Acid Reflex 1.9 mmol/L (0.7-2.0)
[2024-10-09] MEDS: ACETAMINOPHEN 500 MG TABLET 1000 MG PO (01:41)
[2024-10-09] MEDS: diazePAM (*CRX) 5 MG TABLET PO (01:41)
[2024-10-09 01:44] LABS: Monoscreen Negative (Negative); Negative Monotest Control Negative (Negative); Positive Monotest Control Positive (Positive)
--- NOTE | 2024-10-09 02:03 | PC.NURSE ---
EDP AVIVA Cherry VORB 4mg IVP Zofran.
[2024-10-09] MEDS: ONDANSETRON INJ 4 MG/2 ML VIAL IV PUSH (02:19)
[2024-10-09 02:27] VITALS: BP 131/82; PULSE 71; RESP 17; O2SAT 99
== END 2024-10-09 02:29 | disposition home or self-care (01) ==
PROVIDERS: Registered Nurse; Emergency Provider Physician Assistant; PCP Family Medicine
DX: D73.4 Cyst of spleen (principal); M54.50 Low back pain, unspecified; E86.0 Dehydration; Z20.822 Contact with and (suspected) exposure to COVID-19; I10 Essential (primary) hypertension; E11.9 Type 2 diabetes mellitus without complications; E78.5 Hyperlipidemia, unspecified; E66.01 Morbid (severe) obesity due to excess calories; Z68.39 Body mass index [BMI] 39.0-39.9, adult; K21.9 Gastro-esophageal reflux disease without esophagitis; Z87.442 Personal history of urinary calculi; Z85.528 Personal history of other malignant neoplasm of kidney; Z90.5 Acquired absence of kidney; Z98.84 Bariatric surgery status; Z90.49 Acquired absence of other specified parts of digestive tract; Z90.721 Acquired absence of ovaries, unilateral; Z79.84 Long term (current) use of oral hypoglycemic drugs; Z79.899 Other long term (current) drug therapy
CPT/HCPCS: 36415; 71046; 74177; 80053; 81003; 81025; 83605; 83690; 84484; 85025; 85610; 85730; 86308; 87637; 93005; 96361; 96374; 99284; A9270; J2405; J7030; Q9967

== ENCOUNTER 2024-11-02 07:14 | Outpatient (CLI) | payer OTHER, SELFPAY ==
--- NOTE | ~2024-11-02 | MR_ITS ---
EXAMINATION: MR abdomen wo/w con DATE: 11/02/2024 08:38 INDICATION: Splenomegaly TECHNIQUE: Magnetic resonance imaging (MRI) of the abdomen was performed without and with 17 mL Multi patricio intravenous contrast. Sequences included coronal T2-weighted SS-FSE, coronal and axial FS 2D-F IESTA, axial STIR FSE, axial T2-weighted SS-FSE, axial T2-weighted FS SS-FSE, axial diffusion-weighte d SE, axial dual-echo T1-weighted FSPGR, and axial and coronal T1-weighted LAVA. Postcontrast axial T 1-weighted LAVA images were obtained in a time course. Postcontrast coronal T1-weighted LAVA images w ere obtained. COMPARISON: CT dated 10/08/2024 FINDINGS: Mild cardiomegaly. No pericardial or pleural effusion. Cholecystectomy clips at the gallbladder fossa . Hepatomegaly. Spleen is normal in size with 1.6 cm T2 hyperintense nonenhancing splenic cyst. Pancr eas, bilateral adrenal glands and right kidney are normal. Moderate left renal atrophy with postopera tive changes of prior partial nephrectomy at the lower pole. Visualized portion of the bowels are nor mal. No pathologically enlarged abdominal or upper pelvic lymphadenopathy. Enhancing, T1 hyperintense and fat saturating hemangioma at L3. IMPRESSION: 1. Normal size spleen with 1.6 cm nonenhancing splenic cyst. 2. Moderate left renal atrophy with change of prior partial nephrectomy at the lower pole. 3. Mild cardiomegaly and mild hepatomegaly. Reviewed, dictated and finalized at location B. AINABLE DESIGN COORDINATOR
== END 2024-11-02 07:15 | disposition home or self-care (01) ==
PROVIDERS: PCP Psychiatry & Neurology Neurology; Visit Provider Family Medicine
DX: R16.1 Splenomegaly, not elsewhere classified (principal); I51.7 Cardiomegaly; N28.9 Disorder of kidney and ureter, unspecified
CPT/HCPCS: 74183; A9577

== ENCOUNTER 2024-11-28 17:52 | Emergency (ER) | payer OTHER, SELFPAY ==
--- NOTE | ~2024-11-28 | XR_ITS ---
HISTORY: injury COMPARISON: None TECHNIQUE: 2 views of the right hip along with an AP view of the pelvis FINDINGS: No acute fracture or dislocation is identified. Superior lateral sclerosis of the femoral acetabular joint space is present consistent with osteoarth ritis. Normal mineralization. IMPRESSION: No acute fracture or dislocation Reviewed, dictated and finalized at location A. NCED DEVELOPER
--- NOTE | ~2024-11-28 | CT_ITS ---
Clinical indication:Ground-level fall with right hip and groin pain radiating into her leg. Denies pa resthesias. COMPARISON:Reference is made to a CT examination of the abdomen and pelvis dated 10/08/2024 TECHNIQUE: Multiple contiguous axial images of the pelvis were performed without the administration o f intravenous contrast. FINDINGS: No acute or subacute fractures are appreciated. Superior lateral femoral acetabular joint space narrowing is redemonstrated, with osteoarthritis. No asymmetry within the surrounding soft tissues to suggest acute traumatic injury. No right inguinal hernia. Degenerative disease is identified within the bilateral sacroiliac joints, with vacuum phenomena and sclerosis IMPRESSION: No acute right hip fracture, as detailed above. If clinical suspicion continues to persist, nonemergent MRI may be performed to evaluate for ligament ous injury. Reviewed, dictated and finalized at location A. NT ENGINEER IMPRESSION: No acute right hip fracture, as detailed above. If clinical suspicion continues to persist, nonemergent MRI may be performed to evaluate for ligamentous injury.
[2024-11-28 18:06] VITALS: BP 151/95; PULSE 78; RESP 16; TEMP 36.2; O2SAT 100
--- NOTE | 2024-11-28 18:46 | ED_ITS ---
HPI - Extremity Injury (Lower) General Chief Complaint: Extremity Injury, Lower Stated Complaint: Fell on ice-right hip/leg pain Time Seen by Provider: 11/28/24 18:27 Source: patient Mode of arrival: wheelchair Limitations: no limitations History of Present Illness HPI Narrative: This is a 48-year-old female that presents to the emergency department for right hip pain. Reports she slipped and fell on ice. Reports right hip/groin pain that radiates into her leg. She did not hit her head or lose consciousness. Reports she has been unable to ambulate due to pain. Denies numbness. Related Data Allergies Allergy/AdvReac Type Severity Reaction Status Date / Time No Known Allergies Allergy Verified 11/28/24 17:53 Review of Systems Review of Systems: CONSTITUTIONAL: Denies fever MUSCULOSKELETAL: Reports joint pain, and myalgia. NEUROLOGIC: Denies numbness, or weakness. All systems reviewed & are unremarkable except as noted in HPI and below PMFSH Past Medical History Medical History (Updated 11/28/24 @ 20:04 by Bella Joyce PA-C) History of renal carcinoma History of kidney stones Hyperlipidemia Gastroesophageal reflux disease Morbid obesity Essential (primary) hypertension Diabetes mellitus Surgical History Surgical History History of laparoscopic appendectomy Diagnostic laparoscopy, laparoscopic appendectomy 01/13/24. Negative for appendicitis. History of oophorectomy, unilateral History of renal stent History of bariatric surgery (2020) Gastric sleeve. History of cholecystectomy History of partial nephrectomy Family History Family History Mother Heart murmur Hypertension Thyroid condition Father Pancreatic cancer Acute myocardial infarction Heart disease Sibling Hypertension Social History Social History Social History: Surrogate medical decision maker: Mitch Qiu, spouse. Code status: Full code. Smoking status: Never smoker Second hand tobacco smoke exposure: No Alcohol intake: current Drinks per week: 1 Alcohol use details: social Substance use: never Substance use type: does not use Do You Feel Safe in your Home?: Yes Lack of Transportation: No Lack of Food: Never True Current Housing: I Have Housing Concerned About Future Housing: No Difficulty Paying Gas/Electric Bills: No Difficulty Paying for Meds: No Currently Unemployed: No Education: High School Diploma/GED Difficulty w/ Childcare or Family Care: No Living arrangements: with family Occupation/Education: occupation Gender identity (if verbalized by the patient): Female Sexual Orientation (if Verbalized by the Patient): Straight or Heterosexual Spiritual care concerns: No Exam Narrative: GENERAL: Well-appearing, well-nourished, and in no acute distress. HEAD: Normocephalic, atraumatic. EYES: EOMI. EXTREMITIES: Decreased active ROM in the right hip due to pain. No edema or obvious deformity. Normal DP pulse. Normal sensation SKIN: Warm, dry, no rash. NEURO: No focal deficits. Alert and oriented x3. PSYCH: Normal mood and affect Course Course Emergency Course: patient updated on her workup and agrees with plan of care Vital Signs Vital signs: Vital Signs Temperature 97.2 F L 11/28/24 18:06 Pulse Rate 78 11/28/24 18:06 Respiratory Rate 16 11/28/24 18:06 Blood Pressure 151/95 H 11/28/24 18:06 Pulse Oximetry 100 11/28/24 18:06 Temperature 97.2 F L 11/28/24 18:06 Pulse Rate 78 11/28/24 18:06 Respiratory Rate 16 11/28/24 18:06 Blood Pressure 151/95 H 11/28/24 18:06 Pulse Oximetry 100 11/28/24 18:06 MDM - Extremity Injury (Lower) MDM Narrative Medical decision making narrative: Patient presents the emergency department for right hip and pelvic pain after a fall today. She is neurovascularly intact. Right hip/pelvic x-ray without acute osseous abnormalities. CT scan was obtained for further evaluation. This is also without acute osseous abnormalities. Patient updated on her workup and agrees with plan of care. Instructed to rest, ice and take [id number] pain medication as needed. Will be given muscle relaxer if needed for pain. She is to follow up with primary provider. She was given warnings to return to the ER Differential Diagnosis Differential diagnosis: Likely other (hip sprain, hip fracture, pelvic fracture) Imaging Data Radiologist's impression: ITS Impressions Hip/Pelvis X-Ray 11/28/24 18:46 IMPRESSION: No acute fracture or dislocation Pelvis CT 11/28/24 19:40 IMPRESSION: No acute right hip fracture, as detailed above. If clinical suspicion continues to persist, nonemergent MRI may be performed to evaluate for ligamentous injury. Critical Care Time Critical Care Time Critical Care Time: No Discharge Plan Discharge Clinical Impression: Hip sprain Qualifiers: Encounter type: initial encounter Laterality: right Qualified Code(s): S73.101A - Unspecified sprain of right hip, initial encounter Patient Disposition: Home, Self-Care Condition: Stable Instructions: Hip Sprain (ED) Additional Instructions: Return to the ER if you experience fever, redness and swelling of your leg, weakness, numbness, or any other symptoms that are concerning to you Rest, use ice/heat, take anti-inflammatories (Aleve, Ibuprofen, Naproxen, etc) or Tylenol as needed for pain as well as muscle relaxer (Flexeril) as needed for pain. Muscle relaxers can make you drowsy, do not drive if you take this Follow up with your primary care doctor Patient Language: Kiswahili Prescriptions: New cyclobenzaprine 10 mg tablet 10 mg PO TID PRN (Reason: muscle spasm) Qty: 14 0RF No Action (DME) Aerochamber MV Spacer See Rx Instructions .Route Qty: 1 0RF Rx Instructions: As directed Farxiga 10 mg tablet 10 mg PO DAILY Qty: 90 1RF cyclobenzaprine 10 mg tablet 10 mg PO TID PRN (Reason: muscle spasm) Qty: 14 0RF omeprazole 40 mg capsule,delayed release(DR/EC) 40 mg PO DAILY Qty: 90 1RF metformin 850 mg tablet See Rx Instructions .ROUTE .COMPLEX Qty: 180 1RF Dose Instruction: TAKE 1 TABLET BY MOUTH TWICE DAILY Rx Instructions: TAKE 1 TABLET BY MOUTH TWICE DAILY atorvastatin 40 mg tablet See Rx Instructions .ROUTE .COMPLEX Qty: 90 1RF Dose Instruction: TAKE 1 TABLET BY MOUTH EVERY DAY Rx Instructions: TAKE 1 TABLET BY MOUTH EVERY DAY losartan 50 mg tablet 50 mg PO DAILY Qty: 90 1RF ondansetron HCl 4 mg tablet 4 mg PO Q8H PRN (Reason: nausea and vomiting) Qty: 30 0RF Mounjaro 2.5 mg/0.5 mL pen injector 2.5 mg subcut WEEKLY Qty: 2 0RF Rx Instructions: for 4 weeks Follow-up/Referrals: Pa,MD Shayy [Non-Staff] -
[2024-11-28] MEDS: HYDROcodone/acetaminophen (*CRX) 5-325 MG TABLET 1 TAB PO (19:01)
[2024-11-28 20:38] VITALS: BP 129/80; PULSE 75; RESP 16; O2SAT 98
--- OUTSIDE RECORDS SUMMARY | 2024-11-30 03:28 | XMS_ITS | Referral Summary ---
Author Organization [facility] Address [address] [place] [address] Care Team Providers Care User Experience Architect Name Role Phone Umesh Anderson MD Primary Care Provider [phone] Allergies No known active allergies Social History Tobacco Use Types Packs/Day Years Used Date Smoking Tobacco: Never Personal Safety Answer Date Recorded Getting School Help Needed Not on file 01/08 Comments Unknown Sex and Gender Information Value Date Recorded Sex Assigned at Not on file Legal Sex Female 11:21 AM COAGULATING OPERATOR Gender Identity Not on file Sexual Orientation Not on file Last Filed Vital Signs Vital Sign Reading Time Taken Comments Blood Pressure 147/87 12/20/2014 9:27 AM COAGULATING OPERATOR Pulse 95 12/20/2014 9:27 AM COAGULATING OPERATOR Temperature - - Respiratory Rate - - Oxygen Saturation 96% 12/20/2014 8:40 AM COAGULATING OPERATOR Inhaled Oxygen Concentration - - Weight 109.8 kg (241 lb 15.6 oz) 12/18/2014 7:29 AM COAGULATING OPERATOR Height 152.4 cm (5') 12/18/2014 7:29 AM COAGULATING OPERATOR Body Mass Index 47.26 12/18/2014 7:29 AM COAGULATING OPERATOR Plan of Treatment Not on file Insurance [facility] Care Teams User Experience Architect Relationship Specialty Start Date End Date Umesh Anderson MD [address] [place] [id number] PCP - General 05/13/17
--- OUTSIDE RECORDS SUMMARY | 2024-11-30 03:28 | XMS_ITS | Clinical Summary ---
Author Organization [facility] Address [address] [place] [address] Care Team Providers Care Property Loss Insurance Claim Adjuster Name Role Phone Umesh Anderson MD Primary Care Provider [phone] Allergies No known active allergies Surgical History Surgery Date Site/Laterality Comments [place] DELIVERY ONLY Section - (Added by TW Conv) [place] TOTAL ABDOMINAL HYSTERECT W/WO RMVL TUBE OVARY Hysterectomy - (Added by TW Conv) [place] CHOLECYSTECTOMY Cholecystectomy - (Added by TW Conv) Medical History Medical History Date Comments Personal history of other di seases of the circulatory system History of hypertension - (A dded by TW Conv) Personal history of other en docrine, nutritional and metabolic disease History of diabetes mellitus - (Added by TW Conv) Personal history of other di seases of the musculoskeletal system and connective tissue History of backache - (Added by TW Conv) Family History Medical History Relation Name Comments Cancer Father Family history of malignant neoplasm - (Added by TW Conv) Diabetes Father Family history of diabetes mellitus - (Added by TW Conv) Heart disease Father Family history of cardiac disorder - (Added by TW Conv) Relation Name Status Comments Father Social History Tobacco Use Types Packs/Day Years Used Date Smoking Tobacco: Never Personal Safety Answer Date Recorded Getting School Help Needed Not on file 01/08 Comments Unknown Sex and Gender Information Value Date Recorded Sex Assigned at Not on file Legal Sex Female 11:21 AM HEALTHCARE REPRESENTATIVE Gender Identity Not on file Sexual Orientation Not on file Obstetrics History Last Filed Vital Signs Vital Sign Reading Time Taken Comments Blood Pressure 147/87 12/20/2014 9:27 AM HEALTHCARE REPRESENTATIVE Pulse 95 12/20/2014 9:27 AM HEALTHCARE REPRESENTATIVE Temperature - - Respiratory Rate - - Oxygen Saturation 96% 12/20/2014 8:40 AM HEALTHCARE REPRESENTATIVE Inhaled Oxygen Concentration - - Weight 109.8 kg (241 lb 15.6 oz) 12/18/2014 7:29 AM HEALTHCARE REPRESENTATIVE Height 152.4 cm (5') 12/18/2014 7:29 AM HEALTHCARE REPRESENTATIVE Body Mass Index 47.26 12/18/2014 7:29 AM HEALTHCARE REPRESENTATIVE Plan of Treatment Not on file Insurance [facility] HMO/PPO Address: [address] [address] [place] [address] Care Teams Property Loss Insurance Claim Adjuster Relationship Specialty Start Date End Date Umesh Anderson MD [address] [place] [id number] PCP - General 05/13/17
--- OUTSIDE RECORDS SUMMARY | 2024-11-30 03:28 | XMS_ITS | Patient Health Summary ---
Author Organization [facility] Address [address] [place] [address] Care Team Providers Care Engine Monitor Name Role Phone Umesh Anderson MD Primary Care Provider [phone] Note from [facility],non-owned Affiliates and Associated Physician Practices is amultiple site organization consisting of ambulatory clinics and hospital sitesin [place], [place], [place] and [place]. This disclosure is being madepursuant to the Care Everywhere program and may not contain all information available regarding this patient. Last updated 18.[facility] Allergies No known active allergies Medications * Be aware that medications may not be up to date on this document. Alwaysverify current medications with the patient. 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 Class 3 severe obesity in adult 12/17/2019 Lumbar spondylosis 12/17/2019 Social History Tobacco Use Types Packs/Day Years Used Date Smoking Tobacco: Never Smokeless Tobacco: Never Alcohol Use Standard Drinks/Week Comments Never 0 (1 standard drink = 0.6 oz pur e alcohol) AUDIT-C Answer Date Recorded Frequency of Alcohol Consumption Never 12/11/2019 Average Number of Drinks Not on file 020 Frequency of Binge Drinking Not on file 02/2020 Sex and Gender Information Value Date Recorded Sex Assigned at Female 03/30/2021 2:33 PM CDT Gender Identity Female 03/30/2021 2:33 PM CDT Sexual Orientation Not on file Last Filed Vital Signs Vital Sign Reading Time Taken Comments Blood Pressure 140/78 06/10/2022 1:38 PM CDT Pulse 88 06/10/2022 1:38 PM CDT Temperature 36.5 ??C (97.7 ??F) 09/02/2021 12:29 PM C DT Respiratory Rate 18 02/24/2021 3:30 PM CDT Oxygen Saturation 97% 06/10/2022 1:38 PM CDT Inhaled Oxygen Concentration - - Weight 86.2 kg (190 lb) 06/10/2022 1:38 PM CDT Height 149.9 cm (4' 11 ) 06/10/2022 1:38 PM CDT Body Mass Index 38.38 06/10/2022 1:38 PM CDT Procedures * VITAMIN D 25-HYDROXY(Performed 06/10/2022) Performed for Morbid obesity (HCC), Bariatric surgery status, Vitamin deficiency, Vitamin D deficiency * VITAMIN B12(Performed 06/10/2022) Performed for Morbid obesity (HCC), Bariatric surgery status, Vitamin deficiency, Vitamin D deficiency * VITAMIN B1(Performed 06/10/2022) Performed for Morbid obesity (HCC), Bariatric surgery status, Vitamin deficiency, Vitamin D deficiency * COMPREHENSIVE METABOLIC PANEL(Performed 06/10/2022) Performed for Morbid obesity (HCC), Bariatric surgery status, Vitamin deficiency, Vitamin D deficiency * CBC W/O DIFFERENTIAL(Performed 06/10/2022) Performed for Morbid obesity (HCC), Bariatric surgery status, Vitamin deficiency, Vitamin D deficiency * VITAMIN D 25-HYDROXY(Performed 09/02/2021) Performed for Morbid obesity (HCC), Bariatric surgery status, Vitamin deficiency, Vitamin D deficiency * IRON + TIBC PANEL(Performed 09/02/2021) Performed for Morbid obesity (HCC), Bariatric surgery status, Vitamin deficiency, Vitamin D deficiency * FOLATE(Performed 09/02/2021) Performed for Morbid obesity (HCC), Bariatric surgery status, Vitamin deficiency, Vitamin D deficiency * ZINC BLOOD(Performed 09/02/2021) Performed for Morbid obesity (HCC), Bariatric surgery status, Vitamin deficiency, Vitamin D deficiency * VITAMIN B12(Performed 09/02/2021) Performed for Morbid obesity (HCC), Bariatric surgery status, Vitamin deficiency, Vitamin D deficiency * VITAMIN B1(Performed 09/02/2021) Performed for Morbid obesity (HCC), Bariatric surgery status, Vitamin deficiency, Vitamin D deficiency * FERRITIN(Performed 09/02/2021) Performed for Morbid obesity (HCC), Bariatric surgery status, Vitamin deficiency, Vitamin D deficiency * COMPREHENSIVE METABOLIC PANEL(Performed 09/02/2021) Performed for Morbid obesity (HCC), Bariatric surgery status, Vitamin deficiency, Vitamin D deficiency * CBC W/O DIFFERENTIAL(Performed 09/02/2021) Performed for Morbid obesity (HCC), Bariatric surgery status, Vitamin deficiency, Vitamin D deficiency * XR ABDOMEN KUB(Performed 03/03/2021) Performed for Constipation, unspecified constipation type, Lower abdominal pain * GLUCOSE - POINT OF CARE(Performed 02/24/2021) * GLUCOSE - POINT OF CARE(Performed 02/24/2021) * GLUCOSE - POINT OF CARE(Performed 02/24/2021) * FL UGI SERIES(Performed 02/24/2021) Performed for S/P laparoscopic sleeve gastrectomy * VITAMIN D 25-HYDROXY(Performed 02/24/2021) * CBC W AUTO DIFFERENTIAL(Performed 02/24/2021) * BASIC METABOLIC PANEL (CALCIUM TOTAL)(Performed 02/24/2021) * GLUCOSE - POINT OF CARE(Performed 02/24/2021) * GLUCOSE - POINT OF CARE(Performed 02/23/2021) * GLUCOSE - POINT OF CARE(Performed 02/23/2021) * ENDOTRACHEAL TUBE NOTE(Performed 02/23/2021) * ND LAP SLEEVE GASTRECTOMY(Performed 02/23/2021) * GLUCOSE - POINT OF CARE(Performed 02/23/2021) * BASIC METABOLIC PANEL (CALCIUM TOTAL)(Performed 02/23/2021) Performed for Preop examination * SARS-COV-2 (COVID-19) IN HOUSE(Performed 02/20/2021) Performed for Preop examination * SARS-COV2 (COVID-19) PANEL (STL)(Performed 02/20/2021) Performed for Preop examination * EKG 12-LEAD(Performed 12/31/2020) Performed for Preop examination * HEMOGLOBIN A1C(Performed 12/31/2020) Performed for Preop examination * VITAMIN B12(Performed 12/31/2020) Performed for Preop examination * VITAMIN B1(Performed 12/31/2020) Performed for Preop examination * COMPREHENSIVE METABOLIC PANEL(Performed 12/31/2020) Performed for Preop examination * CBC W AUTO DIFFERENTIAL(Performed 12/31/2020) Performed for Preop examination * FL UGI SERIES(Performed 08/11/2020) Performed for Morbid obesity due to excess calories (HCC), BMI 45.0-49.9, adult (HCC), Preop testing * ND ED EGD FLEX TRANSORAL DX(Performed 08/07/2020) * HCG URINE QUAL POCT NOTIFICATION(Performed 08/07/2020) Performed for Screening for condition * HELICOBACTER PYLORI UREASE (STL)(Performed 08/07/2020) Performed for Diagnosis unknown * EGD(Performed 08/07/2020) Performed for Morbid obesity due to excess calories (HCC), BMI 45.0-49.9, adult (HCC), Preop testing * MRI LUMBAR SPINE WO CONTRAST(Performed 11/12/2019) * GROSS + MICRO EXAM(Performed 12/19/1997) Results * VITAMIN B1 (06/10/2022 2:14 PM CDT) Only the most recent of3 resultswithin the time period is included. Vitamin B1 Whole Blood 169.4 66.5 - 200.0 nmol/L [facility] ACCOUNT BILL Blood BLOOD SPECIMEN / Unknown 06/10/2022 2:14 PM CDT 06/10/2022 Narrative [facility] ACCOUNT BILL - 06/14/2022 2:06 PM CDT Test(s) [id number]. B1, Whole Blood was developed and its performance characteristics determined by [facility]. It has not been cleared or approved by the Food and Drug Administration. Resulting Agency Comment Lab Testing performed at: [facility] ??[facility] [id number] Felicitas Jerome FINANCIAL PLANNING ADVISER-ARTIFICIAL LIMB FITTER LAB - CHEMIS TRY ORDERABLES Performing Organization Address City/[facility] Co de Phone Number [facility] ACCOUNT BILL [address] [place] [address] * VITAMIN D 25-HYDROXY (06/10/2022 2:14 PM CDT) Only the most recent of3 resultswithin the time period is included. Vitamin D, 25 Hydroxy 36.9 30.0 - 100.0 ng/mL [facility] ACCOUNT BILL Comment: Vitamin D deficiency has been defined by the [place] of [employer] and an Endocrine Society practice guideline as a level of serum 25-OH vitamin D less than 20 ng/mL (1,2). The Endocrine Society went on to further define vitamin D insufficiency as a level between 21 and 29 ng/mL (2). 1. IOM ([place] of [employer]). 2010. Dietary reference ?? intakes for calcium and D. [place]: The ?? [employer]. 2. John MF, Rula CALLAHAN, Megan ESTRADA, et al. ?? Evaluation, treatment, and prevention of vitamin D ?? deficiency: an Endocrine Society clinical practice ?? guideline. JCEM. 2010; 96(7):1911-30. Blood BLOOD SPECIMEN / Unknown 06/10/2022 2:14 PM CDT 06/10/2022 Narrative Resulting Agency Comment Lab Testing performed at: [facility] [address] ??Critical access hospital [id number] Felicitas Jerome [facility] LAB - CHEMIS TRY ORDERABLES Performing Organization Address City/[facility] Co de Phone Number [facility] ACCOUNT BILL [address] [place] [address] * CBC W/O DIFFERENTIAL (06/10/2022 2:14 PM CDT) Only the most recent of2 resultswithin the time period is included. WBC 7.2 3.4 - 10.8 x10E3/uL [facility] ACCOUNT BILL RBC 4.43 3.77 - 5.28 x10E6/uL [facility] ACCOUNT BILL Hemoglobin 13.1 11.1 - 15.9 g/dL [facility] ACCOUNT BILL Hematocrit 39.5 34.0 - 46.6 % [facility] ACCOUNT BILL MCV 89 79 - 97 fL [facility] ACCOUNT BILL MCH 29.6 26.6 - 33.0 pg [facility] ACCOUNT BILL MCHC 33.2 31.5 - 35.7 g/dL [facility] ACCOUNT BILL RDW 12.5 11.7 - 15.4 % [facility] ACCOUNT BILL Platelet Count 322 150 - 450 x10E3/uL [facility] ACCOUNT BILL nRBC NOT AVAILABLE [facility] ACCOUNT BILL Comment:Result cannot be obt ained for this observation. Blood BLOOD SPECIMEN / Unknown 06/10/2022 2:14 PM CDT 06/10/2022 Narrative Resulting Agency Comment Lab Testing performed at: [address] ??Critical access hospital [id number] Felicitas Jerome FINANCIAL PLANNING ADVISER-ARTIFICIAL LIMB FITTER LAB - HEMATO LOGY ORDERABLES [facility] ACCOUNT BILL [address] [place] [address] * (ABNORMAL) COMPREHENSIVE METABOLIC PANEL (06/10/2022 2:14 PM CDT) Only the most recent of3 resultswithin the time period is included. Glucose 200(H) 65 - 99 mg/dL [facility] ACCOUNT BILL BUN 14 6 - 24 mg/dL [facility] ACCOUNT BILL Creatinine 0.70 0.57 - 1.00 mg/dL [facility] ACCOUNT BILL eGFR by CKD-EPI 107 >59 mL/min/1.7 3 [facility] ACCOUNT BILL BUN/Creatinine Ratio 20 9 - 23 [facility] ACCOUNT BILL Sodium 143 134 - 144 mmol/L [facility] ACCOUNT BILL Potassium 3.7 3.5 - 5.2 mmol/L [facility] ACCOUNT BILL Chloride 102 96 - 106 mmol/L [facility] ACCOUNT BILL CO2 24 20 - 29 mmol/L [facility] ACCOUNT BILL Calcium 9.3 8.7 - 10.2 mg/dL [facility] ACCOUNT BILL Protein Total 7.1 6.0 - 8.5 g/dL [facility] ACCOUNT BILL Albumin 4.5 3.8 - 4.8 g/dL [facility] ACCOUNT BILL Globulin Total 2.6 1.5 - 4.5 g/dL [facility] ACCOUNT BILL Albumin/Globulin Ratio 1.7 1.2 - 2.2 [facility] ACCOUNT BILL Bilirubin Total 0.6 0.0 - 1.2 mg/dL [facility] ACCOUNT BILL Alkaline Phosphatase 73 44 - 121 IU/L [facility] ACCOUNT BILL AST 22 0 - 40 IU/L [facility] ACCOUNT BILL ALT 28 0 - 32 IU/L [facility] ACCOUNT BILL Blood BLOOD SPECIMEN / Unknown 06/10/2022 2:14 PM CDT 06/10/2022 Narrative Resulting Agency Comment Lab Testing performed at: [facility] [address] ??Critical access hospital [id number] Felicitas Jerome APRN-[facility] LAB - CHEMIS TRY ORDERABLES [facility] ACCOUNT BILL [address] [place] [address] * VITAMIN B12 (06/10/2022 2:14 PM CDT) Only the most recent of3 resultswithin the time period is included. Vitamin B12 636 232 - 1,245 pg/mL [facility] ACCOUNT BILL Blood BLOOD SPECIMEN / Unknown 06/10/2022 2:14 PM CDT 06/10/2022 Narrative Resulting Agency Comment Lab Testing performed at: [facility] [place] [address] ??Critical access hospital [id number] Felicitas Jerome [facility] - CHEMIS TRY ORDERABLES [facility] ACCOUNT BILL [address] [place] [address] * IRON + TIBC PANEL (09/02/2021 1:33 PM CDT) TIBC 337 250 - 450 ug/dL [facility] ACCOUNT BILL UIBC 248 131 - 425 ug/dL [facility] ACCOUNT BILL Iron 89 27 - 159 ug/dL [facility] ACCOUNT BILL Iron Saturation 26 15 - 55 % [facility] ACCOUNT BILL Blood BLOOD SPECIMEN / Unknown 09/02/2021 1:33 PM CDT 09/02/2021 Narrative Resulting Agency Comment Lab Testing performed at: [facility] [place] [address] [facility] ??Critical access hospital [id number] Felicitas Jerome APRN-[employer] LAB - CHEMIS TRY ORDERABLES [facility] ACCOUNT BILL [address] [place] [address] * FOLATE (09/02/2021 1:33 PM CDT) Folate 19.2 7.0 - 31.4 ng/mL [facility] ACCOUNT BILL Blood BLOOD SPECIMEN / Unknown 09/02/2021 1:33 PM CDT 09/02/2021 Narrative Resulting Agency Comment Lab Testing performed at: [address] ?? [facility] [id number] Felicitas Jerome APRN-ARTIFICIAL LIMB FITTER LAB - CHEMIS TRY ORDERABLES Performing Organization Address [facility] Co de Phone Number [facility] ACCOUNT BILL [address] [place] [address] * ZINC BLOOD (09/02/2021 1:32 PM CDT) Pathologist [facility] Zinc, Plasma or Serum 96 44 - 115 ug/dL [facility] ACCOUNT BILL Comment:Detection Limit = 5 Blood BLOOD SPECIMEN / Unknown 09/02/2021 1:32 PM CDT 09/02/2021 Narrative [facility] ACCOUNT BILL - 09/06/2021 7:05 AM CDT Test(s) [id number], Plasma or Serum was developed and its performance characteristics determined by [facility]. It has not been cleared or approved by the Food and Drug Administration. Resulting Agency Comment Lab Testing performed at: [facility] ??[facility] [id number] Felicitas Jerome APRN-[employer] LAB - CHEMIS TRY ORDERABLES Performing Organization Address City/[facility]/ZIP Co de Phone Number [facility] ACCOUNT BILL [address] [place] [address] * FERRITIN (09/02/2021 1:32 PM CDT) Pathologist [facility] Ferritin 159 5 - 204 ng/mL [facility] ACCOUNT BILL Blood BLOOD SPECIMEN / Unknown 09/02/2021 1:32 PM CDT 09/02/2021 Narrative Resulting Agency Comment Lab Testing performed at: [facility] [address] ?? [place] [id number] Felicitas Jerome FINANCIAL PLANNING ADVISER-ARTIFICIAL LIMB FITTER LAB - CHEMIS TRY ORDERABLES [facility] ACCOUNT BILL [address] [place] [address] * XR ABDOMEN KUB (03/03/2021 10:07 AM CDT) Anatomical Region Laterality Modality Abdomen Radiographic Radha ging 03/03/2021 2:59 PM CDT Impressions 03/03/2021 3:00 PM CDT Increased colon and rectal content *Reading Radiologist: Roman Blank on 03/03/2021 at 3:00 PM Narrative 03/03/2021 3:00 PM CDT Abdomen KUB INDICATION: Constipation FINDINGS: Frontal view of the abdomen without prior shows significant content throughout the colon. There is increased stool in the rectum. There is no gross bowel obstruction or free intraperitoneal air. Surgical clips overlie the right upper quadrant. Procedure Note Roman Blank MD - 03/03/2021 Abdomen KUB INDICATION: Constipation FINDINGS: Frontal view of the abdomen without prior shows significant content throughout the colon. There is increased stool in the rectum. There is no gross bowel obstruction or free intraperitoneal air. Surgical clips overlie the right upper quadrant. IMPRESSION Increased colon and rectal content *Reading Radiologist: Roman Blank on 03/03/2021 at 3:00 PM Barbara Joseph FINANCIAL PLANNING ADVISER-ARTIFICIAL LIMB FITTER DIAGNOSTI C IMAGING ORDERABLES * (ABNORMAL) GLUCOSE - POINT OF CARE (02/24/2021 4:19 PM CDT) Only the most recent of7 resultswithin the time period is included. Pathologist [facility] Glucose WB/POC 179(H) 70 - 106 mg/dL 02/24/2021 8:54 PM CDT [facility] Specimen Type Arterial/C apillary 02/24/2021 8:54 PM CDT [facility] Blood BLOOD SPECIMEN / Unknown 02/24/2021 4:19 PM CDT 02/24/2021 8:54 PM CDT Shawn Hu MD LAB - POINT OF CARE ORDERABLES [facility] [address] [place] [address] * FL UGI SERIES WO KUB (02/24/2021 8:45 AM CDT) Only the most recent of2 resultswithin the time period is included. Anatomical Region Laterality Modality Abdomen Radiographic Radha ging 02/24/2021 9:29 AM CDT Impressions 02/24/2021 9:29 AM CDT No evidence of ??leak or obstruction. *Reading Radiologist: Juan Daniel Duke on 02/24/2021 at 9:29 AM Narrative 02/24/2021 9:29 AM CDT Fluoroscopic upper GI with KUB Indication: Morbid obesity, status post sleeve partial gastrectomy gastric bypass surgery, gastric leak. Findings: Multiple fluoroscopic images of the upper GI tract were obtained following ingestion of water-soluble oral contrast media. There is no evidence of leak. There is prompt emptying into the duodenum. The total fluoroscopy time was 51 seconds. 2 fluoroscopic images were obtained. Cineradiography was also performed. Procedure Note Juan Daniel Duke MD - 02/24/2021 Fluoroscopic upper GI with KUB Indication: Morbid obesity, status post sleeve partial gastrectomy gastric bypass surgery, gastric leak. Findings: Multiple fluoroscopic images of the upper GI tract were obtained following ingestion of water-soluble oral contrast media. There is no evidence of leak. There is prompt emptying into the duodenum. The total fluoroscopy time was 51 seconds. 2 fluoroscopic images were obtained. Cineradiography was also performed. IMPRESSION No evidence of leak or obstruction. *Reading Radiologist: Juan Daniel Duke on 02/24/2021 at 9:29 AM Shawn Hu MD FLUOROSCOPY ORDERABL ES * (ABNORMAL) CBC W AUTO DIFFERENTIAL (02/24/2021 4:45 AM CDT) Only the most recent of2 resultswithin the time period is included. WBC 8.2 4.4 - 10.7 x10E9/L 02/24/2021 5:23 AM CDT [facility] WBC Corrected 02/24/2021 5:23 AM CDT [facility] RBC 4.30 3.80 - 5.20 x10E12/L 02/24/2021 5:23 AM CDT [facility] Hemoglobin 12.4 12.0 - 15.6 gm/dL 02/24/2021 5:23 AM CDT [facility] Hematocrit 37.4 35.9 - 45.5 % 02/24/2021 5:23 AM CDT [facility] MCV 87.0 80.7 - 98.3 fl 02/24/2021 5:23 AM CDT [facility] MCH 28.8 26.7 - 34.0 pg 02/24/2021 5:23 AM CDT [facility] MCHC 33.2 30.8 - 35.9 gm/dL 02/24/2021 5:23 AM CDT [facility] Platelet Count 355 153 - 416 x10E9/L 02/24/2021 5:23 AM CDT [facility] RDW-CV 15.2(H) 12.1 - 14.9 % 02/24/2021 5:23 AM CDT [facility] MPV 10.8 9.4 - 12.9 fl 02/24/2021 5:23 AM CDT [facility] Neutrophils % 78.0(H) 44.0 - 73.0 % 02/24/2021 5:23 AM CDT [facility] Lymphocytes % 12.6(L) 20.0 - 43.0 % 02/24/2021 5:23 AM CDT [facility] Monocytes % 8.8 5.0 - 13.0 % 02/24/2021 5:23 AM CDT [facility] Eosinophils % 0.0 0.0 - 6.0 % 02/24/2021 5:23 AM CDT [facility] Basophils % 0.1 0.0 - 2.0 % 02/24/2021 5:23 AM CDT [facility] Immature Granulocytes 0.5 0 - 1 % 02/24/2021 5:23 AM CDT [facility] Neutrophil Absolute 6.40 2.01 - 7.14 x10E9/L 02/24/2021 5:23 AM CDT [facility] Lymphocytes Absolute 1.03(L) 1.07 - 3.94 x10E9/L 02/24/2021 5:23 AM CDT [facility] Monocytes Absolute 0.72 0.26 - 1.07 x10E9/L 02/24/2021 5:23 AM CDT [facility] Eosinophils Absolute 0.00 0 - 0.47 x10E9/L 02/24/2021 5:23 AM CDT [facility] Basophils Absolute 0.01 0 - 0.08 x10E9/L 02/24/2021 5:23 AM CDT [facility] Immature Granulocytes Absolute 0.04 0.00 - 0.06 x10E9/L 02/24/2021 5:23 AM CDT [facility] nRBC Auto 0 /100 WBC 02/24/2021 5:23 AM CDT [facility] Blood BLOOD SPECIMEN / Unknown Venipuncture / Unknown 02/24/2021 4:45 AM CDT 02/24/2021 5:07 AM CDT Shawn Hu MD LAB - HEMATOLOGY ORD ERABLES Performing Organization Address City/State/[facility] Co de Phone Number [facility] [address] [place] [address] * (ABNORMAL) BASIC METABOLIC PANEL (CALCIUM TOTAL) (02/24/2021 4:45 AM CDT) Only the most recent of2 resultswithin the time period is included. [facility] Glucose 189(H) 70 - 105 mg/dL 02/24/2021 5:43 AM CDT [facility] Sodium 133(L) 136 - 145 mmol/L 02/24/2021 5:43 AM CDT [facility] Potassium 3.8 3.5 - 5.1 mmol/L 02/24/2021 5:43 AM CDT [facility] Chloride 102 98 - 107 mmol/L 02/24/2021 5:43 AM CDT [facility] CO2 24 23 - 31 mmol/L 02/24/2021 5:43 AM CDT [facility] Calcium 8.4 8.4 - 10.4 mg/dL 02/24/2021 5:43 AM CDT [facility] Anion Gap 7(L) 8 - 18 mmol/L 02/24/2021 5:43 AM CDT [facility] Comment:Attention clinician: Reference Range change. BUN 31(H) 7 - 18.7 mg/dL 02/24/2021 5:43 AM CDT [facility] Creatinine 1.13(H) 0.57 - 1.11 mg/dL 02/24/2021 5:43 AM CDT [facility] eGFR by MDRD 52(L) >60 mL/min/1.7 3m2 02/24/2021 5:43 AM CDT [facility] eGFR by MDRD >60 >60 mL/min/1.7 3m2 02/24/2021 5:43 AM CDT [facility] Blood BLOOD SPECIMEN / Unknown Venipuncture / Unknown 02/24/2021 4:45 AM CDT 02/24/2021 5:07 AM CDT Shawn Hu MD LAB - CHEMISTRY ORDE MELISSA Performing Organization Address City/State/[facility] Co de Phone Number [facility] [address] [place] [address] * ETT LINE PERFORMABLE (02/23/2021 11:14 AM CDT) Narrative Carol Hdez APRN-SURGICAL ONCOLOGIST - 02/23/2021 11:14 AM CDT Carol Hdez APRN-CRNA ? 02/23/2021 11:15 AM Endotracheal Tube Placement: ? Patient Location: OR. Intubation Event Date/Time: ??02/23/2021 11:00 AM Procedure: intubation ([id number]). Procedure Section: ?? Sedation: under general anesthesia. Indications for Airway Management: ??anesthesia Induction: standard IV Patient Position: ??supine Mask Ventilation: difficult. Blade Type: Video (Otoole) Blade Size: 3 Laryngoscopy View: grade 2 (partial cords) Intubation Adjuncts: cricoid pressure, stylet and video laryngoscope Tube: endotracheal tube Placement: oral Tube type: cuff - inflated Tube Size (MM): 7 Depth of Insertion (CM): 20 Measured From: teeth Cuff volume (mL): ??7 Cuff Inflated With: air Number of Attempts: 1. Placement Verified By: direct visualization, bilateral breath sounds, chest auscultation and CO2 monitor Tube secured with: ??adhesive tape. Dentition unchanged? ??Yes Difficult Airway? ??No. Procedure Start Time: 02/23/2021 11:00 AM. Staff Section ?? Anesthesia Provider: Carol Hdez, FINANCIAL PLANNING ADVISER-SURGICAL ONCOLOGIST, Performed the procedure Cruzito Flores MD GENERAL ANESTHESIA O RDERABLES * SARS-COV-2 (COVID-19) IN HOUSE (02/20/2021 10:12 AM CDT) COVID-19 PCR Not detected Not detected 02/20/2021 9:33 PM CDT [facility] Microbiology SPECIMEN FROM NASOPHARYNGEAL STRUCTURE / Unknown Collection / Unknown 02/20/2021 10:12 AM CDT 02/20/2021 10:37 AM CDT Narrative [facility] - 02/20/2021 9:33 PM CDT This Real Time RT-PCR assay was developed and its performance characteristics determined by [facility]. This test has been authorized by the Food and Drug administration (FDA)under an Emergency Use Authorization (EUA). This test has been validated in accordance with the FDA's guidance document Policy for Diagnostic Testing in Laboratories Certified to perform High Complexity Testing under CLIA prior to Emergency Use Authorization for Coronavirus Disease-2019 during the Public Health Emergency issued on January 05, 2020. FDA independent review of this validation is pending. This test is only authorized for the duration of time the declaration that circumstances exist justifying the authorization of emergency use of in vitro diagnostic tests for detection of SARS-CoV-2 virus and/or diagnosis of COVID-19 infection under section 564(b)(1) of the Act, 21 U.S.C 360bbb-3 (b)(1), unless the authorization is terminated or revoked sooner. Fact Sheets for this EUA assay are available upon request. Shawn Hu MD LAB - MICROBIOLOGY O RDERABLES [facility] [address] [place] [address], [facility] [phone] * EKG 12-LEAD (12/31/2020 10:45 AM FURNACE STOCK INSPECTOR) Ventricular Rate 92 BPM [facility] Atrial Rate 92 BPM [facility] P-R Interval 164 ms [facility] QRS Duration ms 84 ms [facility] Q-T Interval ms 380 ms [facility] QTC Calculation (Bezet) 469 ms [facility] Calculated P Seanor 40 degrees [facility] Calculated R Seanor 95 degrees [facility] Calculated T Seanor 24 degrees [facility] Interpretation EKG Normal sinus rhythm Rightward axis Low voltage QRS Cannot rule out Anterior infarct , age undetermined Abnormal ECG No previous ECGs available Confirmed by ANH VICTORIA MD ([id number]) on 12/31/2020 12:42:10 PM [facility] 12/31/2020 10:4 5 AM FURNACE STOCK INSPECTOR 12/31/2020 12:42 PM FURNACE STOCK INSPECTOR Mehreen Del Valle DO ECG ORDERABLES Performing Organization Address [facility] Co de Phone Number DP MUSE * (ABNORMAL) HEMOGLOBIN A1C (12/31/2020 10:08 AM FURNACE STOCK INSPECTOR) Hemoglobin A1c 7.0(H) 4.2 - 5.6 % 12/31/2020 11:39 AM FURNACE STOCK INSPECTOR [facility] Estimated Average Glucose 154 mg/dL 12/31/2020 11:39 AM FURNACE STOCK INSPECTOR [facility] Blood BLOOD SPECIMEN / Unknown Venipuncture / Unknown 12/31/2020 10:08 AM FURNACE STOCK INSPECTOR 12/31/2020 11:20 AM FURNACE STOCK INSPECTOR Narrative [facility] - 12/31/2020 11:39 AM FURNACE STOCK INSPECTOR The following cutoff levels are recommended by [place] [employer]. ?? A1c ??> 6.5% : considered as diabetes if two separate tests >6.5% or in an appropriate clinical setting. A1c ??5.7% - 6.4% : considered as prediabetes (suggest increased risk for diabetes and cardiovascular disease) Control target level: ??Should be individualized. ??< 7 ??for general (non- ) , ??< 8% less stringent goal, ??< 6.5 ??more stringent goal. Hemoglobin A1c measurements are used as an aid in the diagnosis of diabetic mellitus, as an aid to identify patients who may be at the risk for developing diabetic mellitus, and for the monitoring long-term blood glucose control in individuals with diabetes mellitus. ??This test should not replace glucose testing for patients with Type 1 diabetes, pediatric patients, or women. ??Falsely low HbA1c results may be observed in patients with clinical conditions that shorten erythrocyte life span or decrease mean erythrocyte age such as the presence of unstable hemoglobin variants, elevated hemoglobin F level ??or other causes of hemolytic anemia . ??HbA1c may not accurately reflect glycemic control when clinical conditions that affect erythrocyte survival are present. ??Severe Iron deficiency anemia may yield falsely high results. ??Hemoglobin A1c assay should not be used to diagnose or monitor diabetes in patients with malignancy, recent blood transfusion, chronic kidney or liver disease. ?? This method may yield falsely low results when hemoglobin (HbF) exceeds 5% in the specimen. Teddy Cobos MD LAB - CHEMISTRY ORDE RABPATRICK Performing Organization Address [facility] Co de Phone Number [facility] [address] [place] [phone] * HCG URINE QUAL POCT NOTIFICATION (08/07/2020 9:30 AM CDT) Comment Notification Label Only - See Separate Report 08/07/2020 9:30 AM CDT [facility] Urine URINE / Unknown 0 8:23 AM CDT Teddy Cobos MD LAB - URINALYSIS ORD ERABLES Performing Organization Address [facility] de Phone Number [facility] [address] [place] [address] * HELICOBACTER PYLORI UREASE (STL) (08/07/2020 9:08 AM CDT) Helicobacter pylori Urease Initial Negative Negative 08/08/2020 3:26 PM CDT [facility] Helicobacter pylori Urease Final Negative Negative 08/08/2020 3:26 PM CDT [facility] Microbiology GASTRIC ANTRAL BIOPSY SPECIMEN / Unknown 08/07/2020 9:08 AM CDT 08/07/2020 10:45 AM CDT Teddy Cobos MD LAB - MICROBIOLOGY O RDERABLES [facility] [address] [place] [address] * EGD (08/07/2020 8:39 AM CDT) Report Endoscopy POC _ Patient Name: Bibi Qiu ?Procedure Date: 08/07/2020 8:39 AM ? Date of : 1975 ?Admit Type: Outpatient Age: 44 ? Gender: Female Attending MD: Teddy Cobos , ? _ Procedure: ? Upper GI endoscopy Indications: ? Preoperative assessment for bariatric surgery to treat ? morbid obesity Providers: ? Teddy Cobos (Doctor) Referring MD: ?Umesh Anderson MD (Referring MD) Medicines: ? Monitored Anesthesia Care Complications: ? No immediate complications. _ Procedure: ? Pre-Anesthesia Assessment: ? - Prior to the procedure, a History and Physical was ? performed, and patient medications and allergies were ? reviewed. The patient's tolerance of previous anesthesia ? was also reviewed. The risks and benefits of the procedure ? and the sedation options and risks were discussed with the ? patient. All questions were answered, and informed consent ? was obtained. Prior Anticoagulants: The patient has taken ? no previous anticoagulant or antiplatelet agents. ASA ? Grade Assessment: III - A patient with severe systemic ? disease. After reviewing the risks and benefits, the ? patient was deemed in satisfactory condition to undergo ? the procedure. ? After obtaining informed consent, the endoscope was passed ? under direct vision. Throughout the procedure, the ? patient's blood pressure, pulse, and oxygen saturations ? were monitored continuously. The Endoscope was introduced ? through the mouth, and advanced to the second part of ? duodenum. The upper GI endoscopy was accomplished without ? difficulty. The patient tolerated the procedure well. ? Findings: ? The lower third of the esophagus was normal. ? The Z-line was regular and was found 38 cm from the incisors. ? Localized mild inflammation was found in the gastric antrum. Biopsies ? were taken with a cold forceps for Helicobacter pylori testing using ? CLOtest. ? The first portion of the duodenum and second portion of the duodenum ? were normal. _ ? Impression: ?- Normal lower third of esophagus. ? - Z-line regular, 38 cm from the incisors. ? - Gastritis. Biopsied. ? - Normal first portion of the duodenum and second portion ? of the duodenum. Procedure Code(s): ? --- Professional --- ? 18716, Esophagogastroduo denoscopy, flexible, transoral; with biopsy, ? single or multiple ? --- Technical --- ? 32673, Esophagogastroduo denoscopy, flexible, transoral; with biopsy, ? single or multiple Diagnosis Code(s): ? --- Professional --- ? K29.70, Gastritis, unspecified, without bleeding ? Z01.818, Encounter for other preprocedural examination ? E66.01, Morbid (severe) obesity due to excess calories ? --- Technical --- ? K29.70, Gastritis, unspecified, without bleeding ? Z01.818, Encounter for other preprocedural examination ? E66.01, Morbid (severe) obesity due to excess calories CPT copyright 2017 [place] [employer]. All rights reserved. The codes documented in this report are preliminary and upon credit reference clerk review may be revised to meet current compliance requirements. Teddy Cobos _ Teddy Cobos, 08/07/2020 9:13:07 AM This report has been signed electronically. Number of Addenda: 0 Note Initiated On: 08/07/2020 8:39 AM [facility] 08/07/2020 8:39 AM CDT Narrative Procedure Note Teddy Cobos MD - 08/07/2020 9:13 AM CDT EGD completed. Gastritis. Biopsies pending. A full PDF copy of the report with photos is in the results and/or mediatab for your review. Please refer to this for full details of theprocedure. Ok to proceed with preoperative plan, no need for follow up appointment. UGI pending Teddy Cobos MD Teddy Cobos MD GI PROCEDURE ORDERAB LES [facility] [place] [place] [address] * MRI LUMBAR SPINE WO CONTRAST (11/12/2019) Anatomical Region Laterality Modality Spine Magnetic Resonan ce Lisandra Kumar FINANCIAL PLANNING ADVISER-ARTIFICIAL LIMB FITTER MR ORDERABLES * GROSS + MICRO EXAM (12/19/1997 2:23 PM FURNACE STOCK INSPECTOR) Result CASE NUMBER [id number] Comment: ORDERING PHYSICIAN ??MIMA CHATMAN SPECIMEN TYPE ?Placenta Date ? 12/19/1997 Physician ?George Chatman Gross Description ? The specimen is labeled with the patient's name, Bibi Qiu and placenta , and consists of an oval placenta measuring 17 x 15.5 x 2.5 cm and weighing 440 gms. The umbilical cord measures 41 cm in length x 1 cm in diameter, there are 3 vessels on the cut surface. The surface is smooth, glistening. The membranes are pink, partially translucent and marginally inserted. The maternal surface is slightly irregular and extensively covered by blood clot, some of them adhering to the surface. Serial sectioning reveals burgundy and congested parenchyma with no focal lesions. Mill [place] sections are submitted as follows ??A-membrane ??B- umbilical cord ??C through E-placenta. ?? [facility] Microscopic Exam ? Sections show extensive and severe involvement of the membranes by acute inflammation. ?? Sections of the umbilical cord confirm 3 vessels. ??There is no funisitis. ?? Sections of the placental disc show mature chorionic villi with occasional fusion of the neighboring villi associated with mild mononuclear cell infiltrates. ??Foci of lymphoplasmacytic infiltrates are identified in decidual tissue. ?? Diagnosis ? I. ??Placenta ? A. ??Mature placenta, placental weight 440 grams. ? B. ??Severe acute chorioamnionitis (grade III-IV). ? C. ??Chronic villitis, NOS. ? 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 ? E. ??3 vessel umbilical cord. Automotive Sales Manager ? bk Pathologist ?Italia Mims M.D. [place]. ?12/20/1997 1524 <2> CPT code ? 80238 MISCELLANEOUS SAMPLES / Unknown 12/19/1997 2:23 PM FURNACE STOCK INSPECTOR 12/19/1997 2:23 PM FURNACE STOCK INSPECTOR Historical Provider LAB - PATHOLOGY/C YTOLOGY ORDERABLES Care Teams Engine Monitor Relationship Specialty Start Date End Date Umesh Anderson MD [address] [place] [address] PCP - General Family Medicine 12/11/19
--- OUTSIDE RECORDS SUMMARY | 2024-11-30 03:28 | XMS_ITS | Referral Summary ---
Author Organization [facility] Address [address] [place] [address] Care Team Providers Care Hand Embroiderer Name Role Phone Umesh Anderson MD Primary Care Provider Source Comments [facility],non-owned Affiliates and Associated Physician Practices is amultiple site organization consisting of ambulatory clinics and hospital sitesin [place], [place], [place] and [place]. This disclosure is being madepursuant to the Care Everywhere program and may not contain all information available regarding this patient. Last updated 18.[facility] Allergies No known active allergies Medications * Be aware that medications may not be up to date on this document. Alwaysverify current medications with the patient. Medication Sig Dispensed Refills Start Date End Date Status atorvastatin (LIPITOR) 40 MG tablet Take 40 mg by mouth once daily 12/08/2019 Active amitriptyline (ELAVIL) 25 MG tablet Take 50 mg by mouth at bedtime 12/01/2020 Active omeprazole (PRILOSEC) 20 MG capsule Take 1 (one) capsule by mouth daily before breakfast 30 capsule 02/24/2021 Active losartan-hydroCHLOR Othiazide (HYZAAR) 100-25 MG tablet Take 1 tablet by mouth once daily Active metFORMIN (GLUCOPHAGE) 500 MG tablet Take 500 mg by mouth once daily Active Active Problems Problem Noted Date Diagnosed Date [...] Mass Index 38.38 06/10/2022 1:38 PM CDT Functional Status Functional Status Response Date of Assess ment Is person deaf or have serious hearing difficult y? No 02/23/2021 Is person blind or have serious difficulty seein g? No 02/23/2021 Does person have serious dif ficulty walking/climbing stairs? No 02/23/2021 Does person have difficulty dressing/bathing? No 02/23/2021 Does person have difficulty doing errands alone? No 02/23/2021 Cognitive Status Response Date of Assessm ent Does person have difficulty concentrating/remembering/making decisions? No 02/23/2021 Plan of Treatment Not on file Advance Directives * Full Code (Latest Code Status on File) Date Activated Date Inactivated Comments 02/23/2021 12:24 PM 02/24/2021 7:44 PM Care Teams Hand Embroiderer Relationship Specialty Start Date End Date Umesh Anderson MD [address] [place] [address] PCP - General Family Medicine 12/11/19
--- OUTSIDE RECORDS SUMMARY | 2024-11-30 03:28 | XMS_ITS | Clinical Summary ---
Author Organization [facility] [employer] Address [address] [place] [address] Care Team Providers Care Private Sector Executive Name Role Phone Umesh Anderson MD Primary Care Provider [phone] Source Comments [facility],non-owned Affiliates and Associated Physician Practices is amultiple site organization consisting of ambulatory clinics and hospital sitesin [place], [place], [place] and [place]. This disclosure is being madepursuant to the Care Everywhere program and may not contain all information available regarding this patient. Last updated 18.[facility] [employer] Allergies No known active allergies Medications * [...] obesity in adult 12/17/2019 Lumbar spondylosis 12/17/2019 Family History Medical History Relation Name Comments Alcohol abuse Brother Other - Psychiatric Brother CAD (Coronary Artery Disease) Father Cancer - Other Father Diabetes - Type 2 Father Renal Disease Father Cataract Mother Hypertension Mother Migraine Mother Thyroid Disease Mother Relation Name Status Comments Brother Alive Father Mother Alive Social History Tobacco Use Types Packs/Day Years [...] Mass Index 38.38 06/10/2022 1:38 PM CDT Plan of Treatment Health Maintenance Due Date Last Done Comments COLOGUARD (AGES 45-75) - COL ON CA SCREENING 1975 COLON MONITORING 1974 COLONOSCOPY - COLON CA SCREENING 1974 CT COLONOGRAPHY - COLON CA SCREENING 1974 Colorectal Cancer Screening 1974 FIT - COLON CA SCREENING 1974 FLEX SIG - COLON CA SCREENING 1974 MAMMOGRAM 1974 PAP SMEAR 1974 HIV SCREENING 1989 HEPATITIS C SCREENING 12/02/1992 DTAP/TDAP/TD VACCINES (1 - Tdap) 1993 HEPATITIS B VACCINE (1 of 3 - 19+ 3-dose series) 1993 COVID-19 VACCINE (2023-2 5 season) 2024 INFLUENZA VACCINE (#1) 2024 DEPRESSION SCREENING 11/07/2024 ZOSTER VACCINE (1 of 2) 2024 HIB VACCINE Aged Out No longer eligi ble based on patient's age to complete this topic HPV VACCINE Aged Out No longer eligi ble based on patient's age to complete this topic MENINGOCOCCAL (Group B) VACCINE Aged Out No longer eligible based on patient's age to complete this topic MENINGOCOCCAL VACCINE Aged Out No yoel rivka eligible based on patient's age to complete this topic Advance Directives * Full Code (Latest Code Status on File) Date Activated Date Inactivated Comments 02/23/2021 12:24 PM 02/24/2021 7:44 PM Care Teams Private Sector Executive Relationship Specialty Start Date End Date Umesh Anderson MD [address] [place] [id number] PCP - General Family Medicine 12/11/19
== END 2024-11-28 20:40 | disposition home or self-care (01) ==
PROVIDERS: Emergency Provider Physician Assistant; PCP Family Medicine
DX: S73.101A Unspecified sprain of right hip, initial encounter (principal); I10 Essential (primary) hypertension; E78.5 Hyperlipidemia, unspecified; E66.01 Morbid (severe) obesity due to excess calories; Z68.38 Body mass index [BMI] 38.0-38.9, adult; E11.9 Type 2 diabetes mellitus without complications; K21.9 Gastro-esophageal reflux disease without esophagitis; Z98.84 Bariatric surgery status; Z87.442 Personal history of urinary calculi; Z85.528 Personal history of other malignant neoplasm of kidney; Z90.721 Acquired absence of ovaries, unilateral; Z90.49 Acquired absence of other specified parts of digestive tract; Z90.5 Acquired absence of kidney; Z79.85 Long-term (current) use of injectable non-insulin antidiabetic drugs; Z79.84 Long term (current) use of oral hypoglycemic drugs; Z79.899 Other long term (current) drug therapy; W00.0XXA Fall on same level due to ice and snow, initial encounter
CPT/HCPCS: 72192; 73502; 99284; A9270

== ENCOUNTER 2024-12-30 10:54 | Emergency (ER) | payer OTHER, SELFPAY ==
[2024-12-30] VITALS (26 sets, daily range): BP systolic 117–154; BP diastolic 70–95; PULSE 72–96; RESP 14–24; TEMP 36.2; O2SAT 93–98
--- NOTE | ~2024-12-30 | XR_ITS ---
EXAMINATION: XR chest 2V DATE: 12/30/2024 11:26 INDICATION: Chest pain. TECHNIQUE: Frontal and lateral views of the chest were obtained. COMPARISON: Chest 2 views 10/08/2024 FINDINGS: There is no pneumonia, pleural effusion, or pneumothorax. The heart size is normal. Surgica l clips in the right upper quadrant are likely from cholecystectomy. IMPRESSION: 1. No acute cardiopulmonary disease. Reviewed, dictated and finalized at location A. SORSHIP COORDINATOR
--- NOTE | 2024-12-30 10:55 | ECG_ITS ---
Test Date: 2024-12-30 11:03:20 Measurements Intervals [place] Rate: 85 P: 48 DC: 164 QRS: 78 QRSD: 78 T: 53 QT: 359 QTc: 428 Interpretive Statements SINUS RHYTHM LOW QRS VOLTAGE IN PRECORDIAL LEADS POSSIBLE ANTERIOR MYOCARDIAL INFARCTION , PROBABLY OLD BORDERLINE ST-T WAVE ABNORMALITY- INF/HIGH LAT LEADS BASELINE ARTIFACT- I, II, III, AVR, AVL, AVF ABNORMAL ECG Compared to ECG 10/08/2024 16:12:19 No significant changes Electronically Signed On 12-30-2024 16:44:13 LINE WALKER by Fernando Reynaga D.O.
--- OUTSIDE RECORDS SUMMARY | 2024-12-30 10:56 | XMS_ITS | Data Portability ---
Author Organization [facility] Address [address] [place] [address] Care Team Providers Care Landscaping Specialist Name Role Phone KAE BERNARD Primary Care Provider [phone] Assessment No assessment recorded. Plan of Treatment Reminders Order Date Submit Date Provider Last Modified By Organization Details Last Modified Time Details Appointments FOLLOW UP 2024 10:45A M DENISE Calles Not available Not available Not available Lab None recorded. Referral None recorded. Procedures None recorded. Surgeries None recorded. Imaging None recorded. Medication Orders triamcino lone acetonide 0.1 % topical ointment 2024 025 [facility] Related Content Database (RCDb[id number] [address], [place], [phone], 12/26/2024 11:16:35 nystatin 100,000 unit/gram topical ointment 2024 025 [facility] [place] [facility] #95110, [address], [place], [phone], 12/26/2024 11:16:37 terconazo le 0.8 % vaginal cream 2024 025 [facility] Related Content Database (RCDb)[facility] #54993, [address], [place], [phone], 12/26/2024 11:16:53 Patient TargetsNo targets recorded. Patient InstructionsNo instructions recorded. Reason for Referral None Reported. Procedures Surgical History Date Name Laterality Status Provider Name and Address Organization Details Recorded Time 10/07/20 24 Date of Last Pap Smear completed [facility] 12/26/2024 10:42:16 10/07/20 24 Date of Last Mammogram completed [facility] 12/26/2024 10:43:24 11/07/19 24 Appendectomy completed [facility] 12/26/2024 10:50:23 11/07/19 23 laparoscopic sleeve gastrectomy completed [facility] 12/26/2024 10:50:13 11/07/19 19 partial nephrectomy completed [facility] 12/26/2024 10:51:25 11/07/19 18 insertion of ureteral stent with ureterotomy completed [facility] 12/26/2024 10:52:02 11/07/19 18 lithotripsy completed [facility] 12/26/2024 10:52:13 11/07/19 01 cholecystectomy completed [facility] 12/26/2024 10:49:49 11/07/18 98 Total Hysterectomy completed [facility] 12/26/2024 10:49:35 Imaging Results None recorded. Procedure Notes None recorded. Medical Equipment None Reported. Allergies No known drug allergies Medications Name Sig Start Date Stop Date Status Note LastModified by Organization Details LastModified Time losartan 50 mg tablet TAKE 1 TABLET BY MOUTH DAILY active Not Available Not Available No t Available cyclobenzap rine 10 mg tablet TAKE 1 TABLET BY MOUTH THREE TIMES DAILY NEEDED FOR MUSCLE SPASM 12/26 completed Not Available Not Available Not Available atorvastati n 40 mg tablet TAKE 1 TABLET BY MOUTH EVERY DAY active Not Available Not Available No t Available nystatin 100,000 unit/gram topical ointment APPLY TO THE AFFECTED AREA(S) BY TOPICAL ROUTE 2 TIMES PER DAY FOR 7 DAYS 2024 active Not Available Not Available Not Avai lable ondansetron HCl 4 mg tablet TAKE 1 TABLET BY MOUTH EVERY 8 HOURS NEEDED FOR NAUSEA OR VOMITING 12/26 completed Not Available Not Available Not Available prednisone 20 mg tablet TAKE 1 TABLET BY MOUTH DAILY 12/26 completed Not Available Not Available Not Available terconazole 0.8 % vaginal cream Insert 1 applicato rful every day by vaginal route at bedtime for 3 days. 2024 active Not Available Not Available Not Avai lable metformin 850 mg tablet TAKE 1 TABLET BY MOUTH TWICE DAILY active Not Available Not Available No t Available omeprazole 40 mg capsule,del ayed release TAKE 1 CAPSULE BY MOUTH DAILY active Not Available Not Available No t Available doxycycline monohydrate 100 mg tablet TAKE 1 TABLET BY MOUTH TWICE DAILY 12/26 completed Not Available Not Available Not Available tramadol 50 mg tablet TAKE 1 TABLET BY MOUTH EVERY 6 HOURS NEEDED FOR PAIN 12/26 completed Not Available Not Available Not Available acetaminoph en 500 mg tablet TAKE 2 TABLETS BY MOUTH EVERY 6 HOURS NEEDED FOR FEVER OR PAIN 12/26 completed Not Available Not Available Not Available vancomycin 125 mg capsule 12/26 completed Not Available Not Available Not Available benzonatate 100 mg capsule TAKE 1 CAPSULE BY MOUTH THREE TIMES DAILY NEEDED FOR COUGH 12/26 completed Not Available Not Available Not Available cephalexin 500 mg capsule TAKE 1 CAPSULE BY MOUTH EVERY 12 HOURS FOR 5 DAYS 12/26 completed Not Available Not Available Not Available triamcinolo ne acetonide 0.1 % topical ointment APPLY A THIN LAYER TO THE AFFECTED AREA(S) BY TOPICAL ROUTE 2 TIMES PER DAY FOR 7 DAYS 2024 active Not Available Not Available Not Avai lable codeine 10 mg-guaifene sin 100 mg/5 mL oral liquid TAKE 5 ML BY MOUTH EVERY 6 HOURS NEEDED FOR COUGH 12/26 completed Not Available Not Available Not Available cefuroxime axetil 500 mg tablet TAKE 1 TABLET BY MOUTH EVERY 12 HOURS FOR 10 DAYS 12/26 completed Not Available Not Available Not Available albuterol sulfate HFA 90 mcg/actuati on aerosol inhaler INHALE 2 PUFFS BY MOUTH FOUR TIMES DAILY NEEDED FOR SHORTNESS OF BREATH OR WHEEZING 12/26 completed Not Available Not Available Not Available ondansetron 4 mg disintegrat ing tablet DISSOLVE 1 TABLET ON THE TONGUE EVERY 8 HOURS NEEDED FOR NAUSEA OR VOMITING 12/26 completed Not Available Not Available Not Available Farxiga 10 mg tablet TAKE 1 TABLET BY MOUTH DAILY active Not Available Not Available No t Available Mounjaro 2.5 mg/0.5 mL subcutaneou s pen injector ADMINISTE R 2.5 MG UNDER THE SKIN WEEKLY FOR 4 WEEKS active Not Available Not Available No t Available Vitals Date Recorded Body height Body mass index (BMI) Body weight Systolic blood pressure Diastolic blood pressure Systolic blood pressure Diastolic blood pressure Provider Name and Address Organization Details Last Updated DateTime 149.86 cm 38.4 kg/m2 24086.5 5 g 150 mm[Hg] 95 mm[Hg] 146 mm[Hg] 92 mm[Hg] Isa Rodriuges [facility] 11:16:34 Social History Question Answer Notes LastModified by Organizat ion Details LastModified Time Tobacco Smoking Status Never Smoker Isa Rodrigues null, [facility] 12/26/2024 10:47:20 What Is Your Level Of Alcohol Consumption? Occasional Information not available 12/26/2024 Are You Blind Or Do You Have Difficulty Seeing? No Information n ot available 12/26/2024 What Is Your Level Of Caffeine Consumption? Occasional Information not available 12/26/2024 In The 14 Days Before Symptom Onset, Have You Had Close Contact With A Laboratory-confirm ed COVID-19 While That Case Was Ill? No Information n ot available 12/26/2024 In The 14 Days Before Symptom Onset, Have You Had Close Contact With A Person Who Is Under Investigation For COVID-19 While That Person Was Ill? No Information not available 12/26/2024 Have You Been To An Area Known To Be High Risk For COVID-19? No Information not available 12/26/2024 Are You Currently Employed? Yes Information not available 12/26/2024 Are You Deaf Or Do You Have Serious Difficulty Hearing? No Information not available 12/26/2024 What Type Of Diet Are You Following? REGULAR Information n ot available 12/26/2024 What Is The Highest Grade Or Level Of School You Have Completed Or The Highest Degree You Have Received? 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 Yes Information not available 12/26/2024 Do You Use Protection During Sex? No Information not available 12/26/2024 Do You Use Your Seat Belt Or Car Seat Routinely? Yes Information not available 12/26/2024 Are You Sexually Active? Yes Information not available 12/26/2024 Do You Have Smoke And Carbon Monoxide Detectors In Your Home? Yes Information not available 12/26/2024 Do You Feel Stressed (tense, Restless, Nervous, Or Anxious, Or Unable To Sleep At Night)? [id number] Information not available 12/26/2024 Do You Use Any Illicit Or Recreational Drugs? No Information not available 12/26/2024 Do You Use Sunscreen Routinely? Yes Information not available 12/26/2024 Sex: Female Functional Status Question Answer Note LastModified by Organizat ion Details LastModified Time Do you have difficulty walking or climbing stairs? No Information not available 12/26/2024 Are you able to walk? YESWOREST Information not available 12/26/2024 Are you able to care for yourself? Yes Information not available 12/26/2024 Do you have difficulty dressing or bathing? No Information not available 12/26/2024 What is your exercise level? Occasional Information not available 12/26/2024 Mental Status None recorded. Family History Relationship Description Onset Age of this Age Resolved Age Notes LastModified by Organization Details LastModified Time Paternal Grandmother Malignant tumor of breast Not available 2024 10:46:12 Paternal Aunt Malignant tumor of breast Not available 2024 10:46:12 Father Heart disease Not available 2024 10:46:23 Father Diabetes mellitus Not available 2024 10:46:40 Paternal Grandfather Diabetes mellitus Not available 2024 10:46:40 Mother Hypertensive disorder Not available 2024 10:46:54 Mother Disorder of thyroid gland Not available 2024 10:47:06 Medical History Condition Response Allergies (Food, seasonal, environmental ) N Other Y Drug/Latex Allergies/Reactions N Breast Cancer N Blood Transfusion N Lung Disease N Dermatologic Disorders N Defects or Inherited Disease N Breast Problem N Gestational Diabetes N Hematologic disorders N Anesthesia Complications N History of STI N Deep Vein Thrombosis N Polycystic ovary syndrome N Anxiety Disorder N Autoimmune disease N Arthritis N Polyps N Infertility N Acid Reflux (GERD) N History of abnormal pap N Cancer N Varicosities N Stroke N Neurologic/Epilepsy N Endometriosis N High Cholesterol Y Fibromyalgia N Headaches N Kidney Disease Y Heart Problems N Thyroid Problems N Kidney or Bladder Problems Y GI Problems Y Eating Disorder N Anemia N Art (IVF or FET) N Psychiatric Illness N Ovarian Cancer N Diabetes Y Pulmonary (TB, Asthma) N Hepatitis/Liver Disease N No Past Medical History N Eczema N Urinary Tract Infection N Abuse/Domestic Violence N Asthma N Trauma/Violence N Depression/ depression N Heart Disease N Pre-Eclampsia N Hypertension Y Osteoporosis N Thrombophilias N Gynecological History Statement/Question Response Abnormal Pap N Date of Last Mammogram 10/07/2024 Date of LMP 11/07/1997 On BCP's at Conception? N Was last menstrual period normal Y STIs/STDs N HPV Vaccine N Current Control Method Hysterectom y Age at First Child 17 Are cycles usually normal Y Date of Last Colonoscopy Sexually Active? Y Menses Monthly N Age of first menstrual cycle 12 Date of Last Pap Smear 10/07/2024 Sexual Problems? Y Obstetrics History GPAL:G 2 P 1 1 0 2 Type Value Full Term 1 Premature 1 Living 2 Total 2 Past Encounters Encounter ID Performer Location Encounter Start Date Encounter Closed Date Diagnosis/Indication Diagnosis SNOMED-CT Code Diagnosis ICD10 Code Diagnosis Note [id number] DENISE Calles [place] [address] [address] 12/26/2024 10:12:35 12/26/2024 11:54:11 Vulval irritation 333891191 N90.89 health hx obtained and reviewed todayvagin itis panel sentSTI screen declinedrx sent - r/b/a reviewedvu lvar care guidelines discussed (d/c use of scented soaps/prod ucts/wipes , cotton underwear only, etc)RTC for vulvar check in 2 weeksBP precaution s discussed, encouraged PCP f/u Time spent in visit is a total of 25 mins with at least 50% of visit consisting of counseling and review of plan of care. Health Concerns Section Related Observation LastModified by Organization Detai ls LastModified Time None Recorded Concern Status LastModified by Organization Details LastModified Time None Recorded Advance Directives Directive None Recorded Payers Encounter Date Sequence Insurance Name Policy Number Policy Silver Covered Member ID Silver Member ID Guarantor Name 12/26/2024 1 [facility] 11/07/2024 AND AFTER Bibi Qiu [id number] Bibi Qiu Notes Date Note Type Note Provider Name and Address Organization Details Recorded Time 12/26/2024 text/html 49yopresents for vulvar irritationvulvar itching/burning. Present on and off for the past few monthsIC is painfuldryness neg n/v/fneg pelvic painneg urinary symptomsneg discharge h/o hyst, one ovary remains(non-cancerous indications - fibroids/AUB) DENISE Calles [address], [place], [address], [facility] 12/26/2024 11:35:17 OBGyn Episode Ob Episode Information Episode Created Date Number of Fetuses Patient Bloodtype Patient rh Status Prepregnancy Weight lbs Domestic Partner Domestic Partner Phone Father Name Stained Glass Installer Status 12/26/19 25 1 CLOSED Fetus Data First Name Last Name Admitted to NICU Weight (g) Sex Living Outcome Pediatric Complications Fetus ID Race Codes Race Delivery Type 2494.75 6 F Prematur e [id number] Vaginal Delivery Robert Calculation Initial Robert Date Initial Exam Date Initial Exam Provider Initial Ultrasound Date Last Menstrual Period Date Ultra Sound Weeks Gestation 0 Eighteen To Twenty Week Robert Update Ultra Sound Date Fundal Height At Umbil Quickening Date Ultra Sound Latest Weeks Gestation Final Robert Confirmed By Final Robert Confirmed Date Final Robert Date Ultra Sound Latest Days Gestation 0 0 Menstrual History Last Menstrual Date Menses Monthly On Bcp Conception Prior Menses Frequency Hcg Plus Date Menarche Onset Age Delivery Information Delivery Date Delivery Type Labor Anesthesia Weeks Gestation Incision Type Labor Labor Length Hrs Delivered By Post Complications Tubal Sterilization Discharge Date Comments 8 34 Discharge Information Feeding Method Contraceptive Method Maternal HG B and HCT Levels Ob Episode Information Episode Created Date Number of Fetuses Patient Bloodtype Patient rh Status Prepregnancy Weight lbs Domestic Partner Domestic Partner Phone Father Name Stained Glass Installer Status 12/26/19 25 1 CLOSED Fetus Data First Name Last Name Admitted to NICU Weight (g) Sex Living Outcome Pediatric Complications Fetus ID Race Codes Race Delivery Type 3401.94 F Full Term [id number] Primary Roebrt Calculation Initial Robert Date Initial Exam Date Initial Exam Provider Initial Ultrasound Date Last Menstrual Period Date Ultra Sound Weeks Gestation 0 Eighteen To Twenty Week Robert Update Ultra Sound Date Fundal Height At Umbil Quickening Date Ultra Sound Latest Weeks Gestation Final Robert Confirmed By Final Robert Confirmed Date Final Robert Date Ultra Sound Latest Days Gestation 0 0 Menstrual History Last Menstrual Date Menses Monthly On Bcp Conception Prior Menses Frequency Hcg Plus Date Menarche Onset Age Delivery Information Delivery Date Delivery Type Labor Anesthesia Weeks Gestation Incision Type Labor Labor Length Hrs Delivered By Post Complications Tubal Sterilization Discharge Date Comments 3 38 Discharge Information Feeding Method Contraceptive Method Maternal HG B and HCT Levels
--- OUTSIDE RECORDS SUMMARY | 2024-12-30 10:56 | XMS_ITS | Clinical Summary ---
Author Organization [facility] Address [address] [place] [address] Care Team Providers Care Smelter Operator Name Role Phone Umesh Anderson MD Primary Care Provider [phone] Source Comments [facility],non-owned Affiliates and Associated Physician Practices is amultiple site organization consisting of ambulatory clinics and hospital sitesin [place], [place], [place] and [place]. This disclosure is being madepursuant to the Care Everywhere program and may not contain all information available regarding this patient. Last updated 18.[facility] Allergies No known active allergies Medications * [...] 88 06/10/2022 1:38 PM CDT Temperature 36.5 C (97.7 F) 09/02/2021 12:29 PM CDT Respiratory Rate 18 02/24/2021 3:30 PM CDT [...] - 19+ 3-dose series) 1993 COVID-19 VACCINE (1 - 2024-2 5 season) 2024 INFLUENZA VACCINE (#1) 2024 DEPRESSION SCREENING 11/07/2024 PNEUMOCOCCAL VACCINE 50+ (1 of 1 - PCV) 2024 ZOSTER VACCINE (1 of 2) 2024 HIB [...] 12:24 PM 02/24/2021 7:44 PM Care Teams Smelter Operator Relationship Specialty Start Date End Date Umesh Anderson MD [address] [place] [id number] PCP - General Family Medicine 12/11/19
--- OUTSIDE RECORDS SUMMARY | 2024-12-30 10:56 | XMS_ITS | Clinical Summary ---
Author Organization [facility] Address [address] [place] [address] Care Team Providers Care Plant Technician Name Role Phone Umesh Anderson MD Primary Care Provider [phone] Allergies No known active allergies Surgical History Surgery Date Site/Laterality Comments AR DELIVERY ONLY Section - (Added by TW Conv) [place] TOTAL ABDOMINAL HYSTERECT W/WO RMVL TUBE OVARY Hysterectomy - (Added by TW Conv) [place] CHOLECYSTECTOMY Cholecystectomy - (Added by TW Conv) [...] on file Legal Sex Female 11:21 AM TRUCK RENTAL SERVICE ATTENDANT Gender Identity Not on file Sexual Orientation Not on file Obstetrics History Last Filed Vital Signs Vital Sign Reading Time Taken Comments Blood Pressure 147/87 12/20/2014 9:27 AM TRUCK RENTAL SERVICE ATTENDANT Pulse 95 12/20/2014 9:27 AM TRUCK RENTAL SERVICE ATTENDANT Temperature - - Respiratory Rate - - Oxygen Saturation 96% 12/20/2014 8:40 AM TRUCK RENTAL SERVICE ATTENDANT Inhaled Oxygen Concentration - - Weight 109.8 kg (241 lb 15.6 oz) 12/18/2014 7:29 AM TRUCK RENTAL SERVICE ATTENDANT Height 152.4 cm (5') 12/18/2014 7:29 AM TRUCK RENTAL SERVICE ATTENDANT Body Mass Index 47.26 12/18/2014 7:29 AM TRUCK RENTAL SERVICE ATTENDANT Plan of Treatment Not on file Insurance [facility] Care Teams Plant Technician Relationship Specialty Start Date End Date Umesh Anderson MD [address] [place] [id number] PCP - General 05/13/17
--- OUTSIDE RECORDS SUMMARY | 2024-12-30 10:57 | XMS_ITS | Referral Summary ---
Author Organization 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 Gender Identity Not on file Sexual Orientation Not on file Last Filed Vital Signs Vital Sign Reading Time Taken Comments Blood Pressure 147/87 12/20/2014 9:27 AM SEWER PIPE PRESS OPERATOR Pulse 95 12/20/2014 9:27 AM SEWER PIPE PRESS OPERATOR Temperature - - Respiratory Rate - - Oxygen Saturation 96% 12/20/2014 8:40 AM SEWER PIPE PRESS OPERATOR Inhaled Oxygen Concentration - - Weight 109.8 kg (241 lb 15.6 oz) 12/18/2014 7:29 AM SEWER PIPE PRESS OPERATOR Height 152.4 cm (5') 12/18/2014 7:29 AM SEWER PIPE PRESS OPERATOR Body Mass Index 47.26 12/18/2014 7:29 AM SEWER PIPE PRESS OPERATOR Plan of Treatment Not on file Insurance [facility] Care Teams Assistant Speech Language Pathologist Relationship Specialty Start Date End Date Umesh Anderson MD [address] [place] [id number] PCP - General 05/13/17
--- OUTSIDE RECORDS SUMMARY | 2024-12-30 10:57 | XMS_ITS | Patient Health Summary ---
Author Organization [facility] Address [address] [place] [address] Care Team Providers Care Break Out Worker Name Role Phone Umesh Anderson MD Primary Care Provider [phone] Note from [facility],non-owned Affiliates and Associated Physician Practices is amultiple site organization consisting of ambulatory clinics and hospital sitesin [place], [place], [place] and [place]. This disclosure is being madepursuant to the Care Everywhere program and may not contain all information available regarding this patient. Last updated 18.[facility] Allergies No known active allergies Medications [...] 02/23/2021) * ENDOTRACHEAL TUBE NOTE(Performed 02/23/2021) * MA LAP SLEEVE GASTRECTOMY(Performed 02/23/2021) * GLUCOSE - [...] BMI 45.0-49.9, adult (HCC), Preop testing * MA ED EGD FLEX TRANSORAL DX(Performed 08/07/2020) * [...] BILL - 06/14/2022 2:06 PM CDT Test(s) 200924-Kzr. B1, Whole Blood was developed and its performance characteristics determined by [facility]. It has not been cleared or approved by the Food and Drug Administration. Resulting Agency Comment Lab Testing performed at: Lab[address] [id number] Felicitas Jerome HOUSEHOLD PERSONAL ASSISTANT-CAN CONVEYOR FEEDER LAB - CHEMIS TRY ORDERABLES Performing Organization Address City/[facility]/ZIP Co de Phone Number [facility] ACCOUNT BILL [address] [place] [address] * VITAMIN D 25-HYDROXY (06/10/2022 2:14 PM CDT) Only the most recent of3 resultswithin the time period is included. Vitamin D, 25 Hydroxy 36.9 30.0 - 100.0 ng/mL [facility] ACCOUNT BILL Comment: Vitamin D deficiency has been defined by the [place] of Medicine and an Endocrine Society practice guideline as a level of serum 25-OH vitamin D less than 20 ng/mL (1,2). The Endocrine Society went on to further define vitamin D insufficiency as a level between 21 and 29 ng/mL (2). 1. IOM ([place] of Medicine). 2010. Dietary reference intakes for calcium and D. [place]: The National Academies Press. 2. John MF, Rula CALLAHAN, Megan ESTRADA, et al. Evaluation, treatment, and prevention of vitamin D deficiency: an Endocrine Society clinical practice guideline. JCEM. 2010; 96(7):1911-30. Blood BLOOD SPECIMEN / Unknown 06/10/2022 2:14 PM CDT 06/10/2022 Narrative Resulting Agency Comment Lab Testing performed at: [facility] [address] [id number] Felicitas Jerome APRN-CAN CONVEYOR FEEDER LAB - CHEMIS TRY ORDERABLES Performing Organization Address City/[facility] Co de Phone Number [facility] ACCOUNT BILL [address] [place] [address] * CBC W/O DIFFERENTIAL (06/10/2022 2:14 PM [...] Resulting Agency Comment [facility] [address] [phone] Felicitas Jerome APRN-CAN CONVEYOR FEEDER LAB - HEMATO LOGY ORDERABLES [facility] ACCOUNT BILL [address] [place] [address] * (ABNORMAL) COMPREHENSIVE METABOLIC PANEL (06/10/2022 2:14 [...] Resulting Agency Comment Lab Testing performed at: [facility] [address] [id number] Felicitas Jerome HOUSEHOLD PERSONAL ASSISTANT-CAN CONVEYOR FEEDER LAB - CHEMIS TRY ORDERABLES [facility] ACCOUNT BILL [address] [place] [address] * VITAMIN B12 (06/10/2022 2:14 PM CDT) Only the most recent of3 resultswithin the time period is included. Vitamin B12 636 232 - 1,245 pg/mL [facility] ACCOUNT BILL Blood BLOOD SPECIMEN / Unknown 06/10/2022 2:14 PM CDT 06/10/2022 Narrative Resulting Agency Comment Lab Testing performed at: [address] [phone] Felicitas Jerome APRN-CAN CONVEYOR FEEDER LAB - CHEMIS TRY ORDERABLES [facility] ACCOUNT BILL [address] [place] [address] * IRON + TIBC PANEL (09/02/2021 1:33 [...] Resulting Agency Comment Lab Testing performed at: [address] [place] [id number] Felicitas Jerome HOUSEHOLD PERSONAL ASSISTANT-CAN CONVEYOR FEEDER LAB - CHEMIS TRY ORDERABLES [facility] ACCOUNT BILL [address] [place] [address] * FOLATE (09/02/2021 1:33 PM CDT) Folate 19.2 7.0 - 31.4 ng/mL [facility] ACCOUNT BILL Blood BLOOD SPECIMEN / Unknown 09/02/2021 1:33 PM CDT 09/02/2021 Narrative Resulting Agency Comment Lab Testing performed at: [address] [place] [phone] Felicitas Jerome HOUSEHOLD PERSONAL ASSISTANT-CAN CONVEYOR FEEDER LAB - CHEMIS TRY ORDERABLES Performing Organization Address [facility] Co de Phone Number [facility] ACCOUNT BILL [address] [place] [address] * ZINC BLOOD (09/02/2021 1:32 PM CDT) Zinc, Plasma or Serum 96 44 - 115 ug/dL [facility] ACCOUNT BILL Comment:Detection Limit = 5 Blood BLOOD SPECIMEN / Unknown 09/02/2021 1:32 PM CDT 09/02/2021 Narrative [facility] ACCOUNT BILL - 09/06/2021 7:05 AM CDT Test(s) [id number], Plasma or Serum was developed and its performance characteristics determined by [facility]. It has not been cleared or approved by the Food and Drug Administration. Resulting Agency Comment Lab Testing performed at: [facility] [address] [id number] Felicitas Jerome HOUSEHOLD PERSONAL ASSISTANT-[facility] LAB - CHEMIS TRY ORDERABLES Performing Organization Address City/[facility]/ZIP Co de Phone Number [facility] ACCOUNT BILL [address] [place] [address] * FERRITIN (09/02/2021 1:32 PM CDT) Ferritin 159 5 - 204 ng/mL [facility] ACCOUNT BILL Blood BLOOD SPECIMEN / Unknown 09/02/2021 1:32 PM CDT 09/02/2021 Narrative Resulting Agency Comment Lab Testing performed at: [facility] [address] [place] [phone] Felicitas Jerome HOUSEHOLD PERSONAL ASSISTANT-CAN CONVEYOR FEEDER LAB - CHEMIS TRY ORDERABLES [facility] ACCOUNT BILL [address] [place] [address] * XR ABDOMEN KUB (03/03/2021 10:07 AM [...] Blank on 03/03/2021 at 3:00 PM Barbara Valorie Joseph HOUSEHOLD PERSONAL ASSISTANT-CAN CONVEYOR FEEDER DIAGNOSTI C IMAGING ORDERABLES * (ABNORMAL) GLUCOSE - POINT OF CARE (02/24/2021 4:19 PM CDT) Only the most recent of7 resultswithin the time period is included. Glucose WB/POC 179(H) 70 - 106 mg/dL 02/24/2021 8:54 PM CDT [facility] Specimen Type Arterial/C apillary 02/24/2021 8:54 PM CDT [facility] Blood BLOOD SPECIMEN / Unknown 02/24/2021 4:19 PM CDT 02/24/2021 8:54 PM CDT Shawn Hu MD LAB - POINT OF CARE ORDERABLES [facility] [address] [place] [address] * FL UGI SERIES WO KUB (02/24/2021 8:45 AM CDT) Only the most recent of2 resultswithin the time period is included. Anatomical Region Laterality Modality Abdomen Radiographic Radha ging 02/24/2021 9:29 AM CDT Impressions 02/24/2021 9:29 AM CDT No evidence of leak or obstruction. *Reading [...] - 2.0 % 02/24/2021 5:23 AM CDT [facility] Immature Granulocytes 0.5 0 - 1 % 02/24/2021 5:23 AM CDT [facility] Neutrophil Absolute 6.40 2.01 - 7.14 x10E9/L 02/24/2021 5:23 AM CDT [facility] Lymphocytes Absolute 1.03(L) 1.07 - 3.94 x10E9/L 02/24/2021 5:23 AM CDT [facility] Monocytes Absolute 0.72 0.26 - 1.07 x10E9/L 02/24/2021 5:23 AM CDT [facility] Eosinophils Absolute 0.00 0 - 0.47 x10E9/L 02/24/2021 5:23 AM CDT [facility] Basophils Absolute 0.01 0 - 0.08 x10E9/L 02/24/2021 5:23 AM CDT [facility] Immature Granulocytes Absolute 0.04 0.00 - 0.06 x10E9/L 02/24/2021 5:23 AM CDT [facility] nRBC Auto 0 /100 WBC 02/24/2021 5:23 AM CDT [facility] Blood BLOOD SPECIMEN / Unknown Venipuncture / Unknown 02/24/2021 4:45 AM CDT 02/24/2021 5:07 AM CDT Shawn Hu MD LAB - HEMATOLOGY ORD ERABLES [facility] [address] [place] [address] * (ABNORMAL) BASIC METABOLIC PANEL (CALCIUM TOTAL) (02/24/2021 4:45 AM CDT) Only the most recent of2 resultswithin the time period is included. Glucose 189(H) 70 - 105 mg/dL 02/24/2021 5:43 AM CDT [facility] Sodium 133(L) 136 - 145 mmol/L 02/24/2021 5:43 AM CDT [facility] Potassium 3.8 3.5 - 5.1 mmol/L 02/24/2021 5:43 AM CDT [facility] Chloride 102 98 - 107 mmol/L 02/24/2021 5:43 AM CDT [facility] CO2 24 23 - 31 mmol/L 02/24/2021 5:43 AM CDT [facility] Calcium 8.4 8.4 - 10.4 mg/dL 02/24/2021 5:43 AM CDT [facility] Anion Gap 7(L) 8 - 18 mmol/L 02/24/2021 5:43 AM CDT [facility] Comment:Attention clinician: Reference Range change. BUN 31(H) 7 - 18.7 mg/dL 02/24/2021 5:43 AM CDT [facility] Creatinine 1.13(H) 0.57 - 1.11 mg/dL 02/24/2021 5:43 AM CDT [facility] eGFR by MDRD 52(L) >60 mL/min/1.7 3m2 02/24/2021 5:43 AM CDT [facility] eGFR by MDRD >60 >60 mL/min/1.7 3m2 02/24/2021 5:43 AM CDT [facility] Blood BLOOD SPECIMEN / Unknown Venipuncture / Unknown 02/24/2021 4:45 AM CDT 02/24/2021 5:07 AM CDT Shawn Hu MD LAB - CHEMISTRY AILYN TORRES [facility] [address] [place] [address] * ETT LINE PERFORMABLE (02/23/2021 11:14 AM CDT) Narrative Carol Hdez APRN-CRNA - 02/23/2021 11:14 AM CDT Carol Hdez APRN-CRNA 02/23/2021 11:15 AM Endotracheal Tube Placement: Patient Location: OR. Intubation Event Date/Time: 02/23/2021 11:00 AM Procedure: intubation (79177). Procedure Section: Sedation: under general anesthesia. Indications for Airway Management: anesthesia Induction: standard IV Patient Position: supine Mask Ventilation: difficult. Blade Type: Video (Otoole) Blade Size: 3 Laryngoscopy View: grade 2 (partial cords) Intubation Adjuncts: cricoid pressure, stylet and video laryngoscope Tube: endotracheal tube Placement: oral Tube type: cuff - inflated Tube Size (MM): 7 Depth of Insertion (CM): 20 Measured From: teeth Cuff volume (mL): 7 Cuff Inflated With: air Number of Attempts: 1. Placement Verified By: direct visualization, bilateral breath sounds, chest auscultation and CO2 monitor Tube secured with: adhesive tape. Dentition unchanged? Yes Difficult Airway? No. Procedure Start Time: 02/23/2021 11:00 AM. Staff Section Anesthesia Provider: Carol Hdez, HOUSEHOLD PERSONAL ASSISTANT-TAKER OUT, Performed the procedure Cruzito Flores MD GENERAL ANESTHESIA O YARED * SARS-COV-2 (COVID-19) IN HOUSE (02/20/2021 10:12 AM CDT) COVID-19 PCR Not detected Not detected 02/20/2021 9:33 PM CDT [facility] Microbiology SPECIMEN FROM NASOPHARYNGEAL STRUCTURE / Unknown Collection / Unknown 02/20/2021 10:12 AM CDT 02/20/2021 10:37 AM CDT Narrative [facility] - 02/20/2021 9:33 PM CDT This Real Time RT-PCR assay was developed and its performance characteristics determined by [facility]. This test has been [...] Shawn Hu MD LAB - MICROBIOLOGY O YARED [facility] [address] [place], [place] [address], [facility] [phone] * EKG 12-LEAD (12/31/2020 10:45 AM WOOD MACHINIST) Ventricular Rate 92 BPM [facility] Atrial Rate 92 BPM [facility] P-R Interval 164 ms [facility] QRS Duration ms 84 ms [facility] Q-T Interval ms 380 ms [facility] QTC Calculation (Bezet) 469 ms [facility] Calculated P [place] 40 degrees [facility] Calculated R [place] 95 degrees [facility] Calculated T [place] 24 degrees [facility] Interpretation EKG Normal sinus rhythm Rightward axis Low voltage QRS Cannot rule out Anterior infarct , age undetermined Abnormal ECG No previous ECGs available Confirmed by ANH VICTORIA MD ([id number]) on 12/31/2020 12:42:10 PM [facility] 12/31/2020 10:4 5 AM WOOD MACHINIST 12/31/2020 12:42 PM WOOD MACHINIST Mehreen Del Valle DO ECG ORDERABLES Performing Organization Address City/State/[facility] Co de Phone Number [facility] * (ABNORMAL) HEMOGLOBIN A1C (12/31/2020 10:08 AM WOOD MACHINIST) Pathologist [facility] Hemoglobin A1c 7.0(H) 4.2 - 5.6 % 12/31/2020 11:39 AM WOOD MACHINIST [facility] Estimated Average Glucose 154 mg/dL 12/31/2020 11:39 AM WOOD MACHINIST [facility] Blood BLOOD SPECIMEN / Unknown Venipuncture / Unknown 12/31/2020 10:08 AM WOOD MACHINIST 12/31/2020 11:20 AM WOOD MACHINIST Narrative [facility] - 12/31/2020 11:39 AM WOOD MACHINIST The following cutoff levels are recommended by [place] [employer]. A1c > 6.5% : considered as diabetes if two separate tests >6.5% or in an appropriate clinical setting. A1c 5.7% - 6.4% : considered as prediabetes (suggest increased risk for diabetes and cardiovascular disease) Control target level: Should be individualized. < 7 for general (non-) , < 8% less stringent goal, < 6.5 more stringent goal. Hemoglobin A1c measurements are used as an aid in the diagnosis of diabetic mellitus, as an aid to identify patients who may be at the risk for developing diabetic mellitus, and for the monitoring long-term blood glucose control in individuals with diabetes mellitus. This test should not replace glucose testing for patients with Type 1 diabetes, pediatric patients, or women. Falsely low HbA1c results may be observed in patients with clinical conditions that shorten erythrocyte life span or decrease mean erythrocyte age such as the presence of unstable hemoglobin variants, elevated hemoglobin F level or other causes of hemolytic anemia . HbA1c may not accurately reflect glycemic control when clinical conditions that affect erythrocyte survival are present. Severe Iron deficiency anemia may yield falsely high results. Hemoglobin A1c assay should not be used to diagnose or monitor diabetes in patients with malignancy, recent blood transfusion, chronic kidney or liver disease. This method may yield falsely low results when hemoglobin (HbF) exceeds 5% in the specimen. Teddy Cobos MD LAB - CHEMISTRY ORDE RABPATRICK Performing Organization Address [facility] de Phone Number [facility] [address] [place] [address] * HCG URINE QUAL POCT NOTIFICATION (08/07/2020 9:30 AM CDT) Comment Notification Label Only - See Separate Report 08/07/2020 9:30 AM CDT [facility] Urine URINE / Unknown 0 8:23 AM CDT Teddy Cobos MD LAB - URINALYSIS ORD ERABLES Performing Organization Address [facility] de Phone Number [facility] [address] [place] [address] * HELICOBACTER PYLORI UREASE (STL) (08/07/2020 9:08 AM CDT) Helicobacter pylori Urease Initial Negative Negative 08/08/2020 3:26 PM CDT [facility] Helicobacter pylori Urease Final Negative Negative 08/08/2020 3:26 PM CDT [facility] Microbiology GASTRIC ANTRAL BIOPSY SPECIMEN / Unknown 08/07/2020 9:08 AM CDT 08/07/2020 10:45 AM CDT Teddy Cobos MD LAB - MICROBIOLOGY O RDERABLES [facility] [address] [place] [address] * EGD (08/07/2020 8:39 AM CDT) Report Endoscopy POC _ Patient Name: Bibi Qiu Procedure Date: 08/07/2020 8:39 AM Date of : 1975 Admit Type: Outpatient Age: 44 Gender: Female Attending MD: Teddy Cobos , _ Procedure: Upper GI endoscopy Indications: Preoperative assessment for bariatric surgery to treat morbid obesity Providers: Teddy Cobos (Doctor) Referring MD: Umesh Anderson MD (Referring MD) Medicines: Monitored Anesthesia Care Complications: No immediate complications. _ Procedure: Pre-Anesthesia Assessment: - Prior to the procedure, a History and Physical was performed, and patient medications and allergies were reviewed. The patient's tolerance of previous anesthesia was also reviewed. The risks and benefits of the procedure and the sedation options and risks were discussed with the patient. All questions were answered, and informed consent was obtained. Prior Anticoagulants: The patient has taken no previous anticoagulant or antiplatelet agents. ASA Grade Assessment: III - A patient with severe systemic disease. After reviewing the risks and benefits, the patient was deemed in satisfactory condition to undergo the procedure. After obtaining informed consent, the endoscope was passed under direct vision. Throughout the procedure, the patient's blood pressure, pulse, and oxygen saturations were monitored continuously. The Endoscope was introduced through the mouth, and advanced to the second part of duodenum. The upper GI endoscopy was accomplished without difficulty. The patient tolerated the procedure well. Findings: The lower third of the esophagus was normal. The Z-line was regular and was found 38 cm from the incisors. Localized mild inflammation was found in the gastric antrum. Biopsies were taken with a cold forceps for Helicobacter pylori testing using CLOtest. The first portion of the duodenum and second portion of the duodenum were normal. _ Impression: - Normal lower third of esophagus. - Z-line regular, 38 cm from the incisors. - Gastritis. Biopsied. - Normal first portion of the duodenum and second portion of the duodenum. Procedure Code(s): --- Professional --- 01397, Esophagogastroduo denoscopy, flexible, transoral; with biopsy, single or multiple --- Technical --- 27390, Esophagogastroduo denoscopy, flexible, transoral; with biopsy, single or multiple Diagnosis Code(s): --- Professional --- K29.70, Gastritis, unspecified, without bleeding Z01.818, Encounter for other preprocedural examination E66.01, Morbid (severe) obesity due to excess calories --- Technical --- K29.70, Gastritis, unspecified, without bleeding Z01.818, Encounter for other preprocedural examination E66.01, Morbid (severe) obesity due to excess calories CPT copyright 2017 [employer]. All rights reserved. The codes documented in this report are preliminary and upon floater operator review may be revised to meet current compliance requirements. Teddy Cobos _ Teddy Cobos, 08/07/2020 9:13:07 AM This report has been signed electronically. Number of Addenda: 0 Note Initiated On: 08/07/2020 8:39 AM [facility] 08/07/2020 8:39 AM CDT Narrative Procedure [...] Teddy Cobos MD GI PROCEDURE ORDERAB LES [facility] [address] * MRI LUMBAR SPINE WO CONTRAST (11/12/2019) Anatomical Region Laterality Modality Spine Magnetic Resonan ce Lisandra Kumar HOUSEHOLD PERSONAL ASSISTANT-CAN CONVEYOR FEEDER MR ORDERABLES * GROSS + MICRO EXAM (12/19/1997 2:23 PM WOOD MACHINIST) Result CASE NUMBER [id number] Comment: ORDERING PHYSICIAN MIMA APARICIO SPECIMEN TYPE Placenta Date 12/19/1997 George Palmoino Gross Description The specimen is labeled with the patient's [...] and congested parenchyma with no focal lesions. Dyeing Machine Feeder sections are submitted as follows A-membrane B- umbilical cord C through E-placenta. KOMAL/[facility] Microscopic Exam Sections show extensive and severe involvement of the membranes by acute inflammation. Sections of the umbilical cord confirm 3 vessels. There is no funisitis. Sections of the placental disc show mature chorionic villi with occasional fusion of the neighboring villi associated with mild mononuclear cell infiltrates. Foci of lymphoplasmacytic infiltrates are identified in decidual tissue. Diagnosis I. Placenta A. Mature placenta, placental weight 440 grams. B. Severe acute chorioamnionitis (grade III-IV). C. Chronic villitis, NOS. D. Lymphoplasmacytic deciduitis. E. 3 vessel umbilical cord. Production Drilling Machine Operator bk Pathologist Italia Mims M.D. [place]. 12/20/1997 1524 <2> CPT code 84893 MISCELLANEOUS SAMPLES / Unknown 12/19/1997 2:23 PM WOOD MACHINIST 12/19/1997 2:23 PM WOOD MACHINIST Historical Provider LAB - PATHOLOGY/C YTOLOGY ORDERABLES Care Teams Break Out Worker Relationship Specialty Start Date End Date Umesh Anderson MD [address] [place] [id number] PCP - General Family Medicine 12/11/19
--- OUTSIDE RECORDS SUMMARY | 2024-12-30 10:57 | XMS_ITS | Referral Summary ---
Author Organization [facility] Address [address] [place] [address] Care Team Providers Care Quarter Lining Smoother Name Role Phone Umesh Anderson MD Primary Care Provider [phone] Source Comments [facility],non-owned Affiliates and Associated Physician Practices is amultiple site organization consisting of ambulatory clinics and hospital sitesin [place], [place], [place] and [place]. This disclosure is being madepursuant to the Care Everywhere program and may not contain all information available regarding this patient. Last updated 18.[facility] Allergies No known active allergies Medications * [...] 12:24 PM 02/24/2021 7:44 PM Care Teams Quarter Lining Smoother Relationship Specialty Start Date End Date Umesh Anderson MD [address] [place] [address] PCP - General Family Medicine 12/11/19
--- NOTE | 2024-12-30 11:14 | ED_ITS ---
HPI - General Adult General Chief complaint: Chest Pain Stated complaint: elevated bp, chest pressure Time Seen by Provider: 12/30/24 10:59 History of Present Illness HPI narrative: Patient is a 49-year-old female who presents emergency department with chief complaint of chest pain headache and hypertension. Patient has noticed that her blood pressures been the 190s reports that her primary care provider added amlodipine on to her lisinopril the patient states that the last 2 weeks she has been having discomfort in her chest and is also notice that she has had headache with this as well. Patient reports that she has family history for cardiac disease reports that she has not personally had cardiac disease of reports she has chronic abdominal pain Related Data Allergies Allergy/AdvReac Type Severity Reaction Status Date / Time No Known Allergies Allergy Verified 12/21/24 10:02 Review of Systems 2 Review of Systems: A 10 system review of systems was completed on the patient and is negative except for what is stated in the HPI. Nursing and ancillary documentation was reviewed. [facility] Past Medical History Medical History History of renal carcinoma History of kidney stones Hyperlipidemia Gastroesophageal reflux disease Morbid obesity Essential (primary) hypertension Diabetes mellitus Surgical History Surgical History History of laparoscopic appendectomy Diagnostic laparoscopy, laparoscopic appendectomy 01/13/24. Negative for appendicitis. History of oophorectomy, unilateral History of renal stent History of bariatric surgery (2020) Gastric sleeve. History of cholecystectomy History of partial nephrectomy Family History Family History Mother Heart murmur Hypertension Thyroid condition Father Pancreatic cancer Acute myocardial infarction Heart disease Sibling Hypertension Social History Social History Social History: Surrogate medical decision maker: Mitch Qiu, spouse. Code status: Full code. Smoking status: Never smoker Second hand tobacco smoke exposure: No Alcohol intake: current Drinks per week: 1 Alcohol use details: social Substance use: never Substance use type: does not use Do You Feel Safe in your Home?: Yes Lack of Transportation: No Lack of Food: Never True Current Housing: I Have Housing Concerned About Future Housing: No Difficulty Paying Gas/Electric Bills: No Difficulty Paying for Meds: No Currently Unemployed: No Education: High School Diploma/GED Difficulty w/ Childcare or Family Care: No Living arrangements: with family Occupation/Education: occupation Gender identity (if verbalized by the patient): Female Sexual Orientation (if Verbalized by the Patient): Straight or Heterosexual Spiritual care concerns: No Exam 2 Narrative: GENERAL: Well-appearing, well-nourished, and in no acute distress. HEAD: Normocephalic, atraumatic. EYES: PERRLA and EOMI. ENT: Nares clear, no rhinorrhea or epistaxis. Mucous membranes moist. NECK: Supple. CHEST: Clear to auscultation. No respiratory distress. HEART: Regular rate and rhythm. No murmur heard. Normal peripheral pulses. ABDOMEN: Soft, nontender, nondistended, normal active bowel sounds. EXTREMITIES: Normal range of motion. No edema. SKIN: Warm, dry, no rash. NEURO: No focal deficits. Alert and oriented x3. PSYCH: Normal mood and affect. Course Vital Signs Vital signs: Vital Signs Pulse Rate 93 12/30/24 11:00 Respiratory Rate 21 H 12/30/24 11:00 Pulse Oximetry 97 12/30/24 11:00 Temperature 36.2 C L 12/30/24 11:07 Pulse Rate 81 12/30/24 14:15 Respiratory Rate 19 12/30/24 14:15 Blood Pressure 119/88 12/30/24 14:01 Pulse Oximetry 98 12/30/24 14:15 Oxygen Delivery Room Air 12/30/24 11:52 Medical Decision Making [facility] Narrative Medical decision making narrative: Diagnosis includes ACS, hypertensive urgency, electrolyte abnormality, migraine headache, pneumonia, Laboratory studies were obtained on the patient showed normal CBC CMP was within normal limits chest x-ray showed no focal infiltrate troponin was negative at 0 and 3 hour EKG showed no acute abnormality Vital Signs Vital Signs: Vital Signs Pulse Rate 93 12/30/24 11:00 Respiratory Rate 21 H 12/30/24 11:00 Pulse Oximetry 97 12/30/24 11:00 Temperature 36.2 C L 12/30/24 11:07 Pulse Rate 81 12/30/24 14:15 Respiratory Rate 19 12/30/24 14:15 Blood Pressure 119/88 12/30/24 14:01 Pulse Oximetry 98 12/30/24 14:15 Oxygen Delivery Room Air 12/30/24 11:52 Lab Data 12/30/24 11:14 12/30/24 11:14 Labs: Lab Results 12/30/24 12/30/24 Range/Units 11:14 14:03 WBC 7.8 (4.5-10.0) K/mm3 RBC 4.98 (4.2-5.4) M/mm3 Hgb 14.4 (12.0-15.0) g/dL Hct 43.9 (37.0-47.0) % MCV 88.2 (80-100) fl MCH 28.9 (26-34) pg MCHC 32.8 (32-36) g/dl RDW 13.5 (11.5-14.5) % Plt Count 315 (150-375) k/mm3 MPV 10.8 H (7.4-10.4) fl Immature Gran % (Auto) 0.5 (0-0.5) % Neut % (Auto) 60.0 (45.5-73.1) % Lymph % (Auto) 26.3 (18.3-44.2) % [place] % (Auto) 9.4 H (2.6-8.5) % Eos % (Auto) 3.2 (0-4.4) % Baso % (Auto) 0.6 (0.2-1.2) % Lymph # (Auto) 2.05 (0.9-3.2) K/mm3 [place] # (Auto) 0.7 H (0.1-0.6) K/mm3 Eos # (Auto) 0.3 (0-0.3) K/mm3 Baso # (Auto) 0.1 (0.0-0.1) K/mm3 Abs Immat Gran (auto) 0.04 H (0.00-0.031) K/mm3 Absolute Neuts (auto) 4.7 (1.3-6.7) K/mm3 Absolute Nucleated RBC 0.000 (0.0-0.012) K/mm3 Nucleated RBC % 0.0 (0.0-0.2) % PT 13.0 (11.1-14.7) Seconds INR 1.0 APTT 27.2 (22.3-36.8) Seconds Sodium 143 (137-145) mmol/L Potassium 3.6 (3.4-5.0) mmol/L Chloride 106 (98-107) mmol/L Carbon Dioxide 21 L (22-30) mmol/L Anion Gap 16 H (4-12) mmol/L BUN 9 D (7-17) mg/dL Creatinine 0.52 L (0.7-1.0) mg/dL Estim Creat Clear Calc Not Reportable Estimated GFR > 60 (59 - ) Glucose 148 H (65-110) mg/dL Calcium 9.5 (8.4-10.2) mg/dL Total Bilirubin 0.9 (0.2-1.3) mg/dL AST 22 (14-36) U/L ALT 23 (6-35) U/L Alkaline Phosphatase 87 (38-126) U/L Troponin I < 0.012 < 0.012 (0.000-0.034) ng/mL Total Protein 8.0 (6.3-8.2) g/dL Albumin 4.5 (3.5-5.1) g/dL Lipase 80 (23-300) U/L Discharge Plan Discharge Clinical Impression: Chest pain Patient Disposition: Home, Self-Care Condition: Stable Instructions: Antibiotic Form, Chest Pain (ED) Patient Language: Jamaican Prescriptions: No Action (DME) Aerochamber MV Spacer See Rx Instructions .Route Qty: 1 0RF Rx Instructions: As directed Farxiga 10 mg tablet 10 mg PO DAILY Qty: 90 1RF metformin 850 mg tablet 850 mg PO BID Qty: 180 1RF omeprazole 40 mg capsule,delayed release(DR/EC) 40 mg PO DAILY Qty: 90 1RF losartan 50 mg tablet 50 mg PO DAILY Qty: 90 1RF atorvastatin 40 mg tablet See Rx Instructions .ROUTE .COMPLEX Qty: 90 1RF Dose Instruction: TAKE 1 TABLET BY MOUTH EVERY DAY Rx Instructions: TAKE 1 TABLET BY MOUTH EVERY DAY Mounjaro 2.5 mg/0.5 mL pen injector 2.5 mg subcut WEEKLY Qty: 2 0RF Rx Instructions: for 4 weeks amlodipine [Norvasc] 5 mg tablet 5 mg PO DAILY Qty: 90 1RF Follow-up/Referrals: Umesh Anderson MD [Primary Care Provider] - Time of Disposition: 16:39
[2024-12-30 11:19] LABS: Basophils Absolute Auto 0.1 K/mm3 (0.0-0.1); Basophils Percent Auto 0.6 % (0.2-1.2); Eosinophils Absolute Auto 0.3 K/mm3 (0-0.3); Eosinophils Percent Auto 3.2 % (0-4.4); Hematocrit 43.9 % (37.0-47.0); Hemoglobin 14.4 g/dL (12.0-15.0); Immature Granulocyte Absolute 0.04 K/mm3 (0.00-0.031); Immature Granulocyte Percent A 0.5 % (0-0.5); Lymphocytes Absolute Auto 2.05 K/mm3 (0.9-3.2); Lymphocytes Percent Auto 26.3 % (18.3-44.2); Mean Corpuscular HGB Conc 32.8 g/dl (32-36); Mean Corpuscular Hemoglobin 28.9 pg (26-34); Mean Corpuscular Volume 88.2 fl (80-100); Mean Platelet Volume 10.8 fl (7.4-10.4); Monocytes Absolute Auto 0.7 K/mm3 (0.1-0.6); Monocytes Percent Auto 9.4 % (2.6-8.5); Neutrophils Absolute Auto 4.7 K/mm3 (1.3-6.7); Platelet Count Result 315 k/mm3 (150-375); Red Blood Count 4.98 M/mm3 (4.2-5.4); Red Cell Distribution Width 13.5 % (11.5-14.5); White Blood Count 7.8 K/mm3 (4.5-10.0)
[2024-12-30 11:29] LABS: Alanine Aminotransferase 23 U/L (6-35); Albumin Level 4.5 g/dL (3.5-5.1); Alkaline Phosphatase 87 U/L (38-126); Anion Gap 16 mmol/L (4-12); Aspartate Amino Transferase 22 U/L (14-36); Bilirubin,Total 0.9 mg/dL (0.2-1.3); Blood Urea Nitrogen 9 mg/dL (7-17); Calcium 9.5 mg/dL (8.4-10.2); Carbon Dioxide 21 mmol/L (22-30); Chloride 106 mmol/L (98-107); Estimated Glomerular Filt Rate > 60; Glucose 148 mg/dL (65-110); Lipase 80 U/L (23-300); Potassium 3.6 mmol/L (3.4-5.0); Sodium 143 mmol/L (137-145)
[2024-12-30 11:30] LABS: Partial Thromboplastin Time 27.2 Seconds (22.3-36.8)
[2024-12-30 11:41] LABS: Troponin I < 0.012 ng/mL (0.000-0.034)
[2024-12-30] MEDS: ASPIRIN 81 MG CHEWABLE TABLET 324 MG PO (11:50)
[2024-12-30] MEDS: NITROGLYCERIN SL 0.4 MG TABLET SUBLINGUAL (11:50)
--- NOTE | 2024-12-30 14:05 | ECG_ITS ---
Test Date: 2024-12-30 14:12:59 Measurements Intervals [place] Rate: 73 P: 15 CO: 170 QRS: 76 QRSD: 78 T: 130 QT: 383 QTc: 424 Interpretive Statements SINUS RHYTHM LOW QRS VOLTAGE IN PRECORDIAL LEADS MINIMAL Q WAVES- INFERIOR LEADS CONSIDER ANTERIOR INFARCT, AGE INDETERMINATE BORDERLINE ST-T WAVE ABNORMALITY- ANTEROLAT/HIGH LAT LEADS BASELINE ARTIFACT- I, III, AVR, AVL, AVF, V5-V6 ABNORMAL ECG Compared to ECG 12/30/2024 11:03:20 No significant changes Electronically Signed On 12-30-2024 16:34:42 [employer] by Fernando Reynaga D.O.
[2024-12-30] MEDS: ACETAMINOPHEN 500 MG TABLET 1000 MG PO (14:08)
[2024-12-30 14:39] LABS: Troponin I < 0.012 ng/mL (0.000-0.034)
[2024-12-30] MEDS: diphenhydrAMINE HCl INJ 50 MG/ML VIAL 25 MG IV PUSH (16:21)
[2024-12-30] MEDS: PROCHLORPERAZINE EDISYLATE 10 MG/2 ML VIAL IV PUSH (16:22)
[2024-12-30] MEDS: SODIUM CHLORIDE 0.9% IV 100 ML 400 ML (16:22)
== END 2024-12-30 16:57 | disposition home or self-care (01) ==
PROVIDERS: Emergency Medicine; Emergency Provider Emergency Medicine; PCP Family Medicine
DX: R07.9 Chest pain, unspecified (principal); Z85.528 Personal history of other malignant neoplasm of kidney; E78.5 Hyperlipidemia, unspecified; K21.9 Gastro-esophageal reflux disease without esophagitis; I10 Essential (primary) hypertension; E11.9 Type 2 diabetes mellitus without complications; E66.01 Morbid (severe) obesity due to excess calories; Z68.38 Body mass index [BMI] 38.0-38.9, adult
CPT/HCPCS: 36415; 71046; 80053; 83690; 84484; 85025; 85610; 85730; 93005; 96374; 96375; 99284; A9270; J0780; J1200

== ENCOUNTER 2025-03-08 12:18 | Outpatient (CLI) | payer OTHER, SELFPAY ==
[2025-03-08 15:47] LABS: Anion Gap 12 mmol/L (4-12); Blood Urea Nitrogen 14 mg/dL (7-17); Calcium 9.1 mg/dL (8.4-10.2); Carbon Dioxide 27 mmol/L (22-30); Chloride 103 mmol/L (98-107); Estimated Glomerular Filt Rate > 60; Glucose 85 mg/dL (65-110); Potassium 4.1 mmol/L (3.4-5.0); Sodium 142 mmol/L (137-145)
--- OUTSIDE RECORDS SUMMARY | 2025-03-09 13:06 | XMS_ITS | Data Portability ---
Author Organization [facility] Address [address] [place] [address] Care Team Providers Care Manager Long Term Care Name Role Phone WINIFREDJULISAKAE King Primary Care Provider [phone] Assessment Encounter Date Assessment Date Assessment LastModified by Organization Details LastModified Time 01/21/2025 01/21/2025 Annual gynecological exam performed. Patient will come back in a year unless there are new symptoms. [email or web address] Not available 01/21/2025 11:49:15 Plan of Treatment Reminders Order Date Submit Date Provider Last Modified By Organization Details Last Modified Time Details Appointments SURG PRE OP 2024 09:30A Flo CARL MD Not available Not available Not available SURG Diagnosti c Lap 2024 08:30A Flo CARL MD Not available Not available Not available SURG POST OP 2024 09:30A Flo CARL MD Not available Not available Not available Lab None recorded. Referral None recorded. Procedures None recorded. Surgeries laparosco py, diagnosti c (SURG) 2024 025 [id number] Lam Surgery [facility], [address], [place], [address], 02/07/2025 10:36:20 Imaging US, pelvis 2024 025 [email or web address] [place], [address], [address], [place], [address], 01/23/2025 19:29:43 US, transvagi nal 2024 025 [email or web address] [place], [address], [place], [address], 01/23/2025 19:29:43 US, pelvis, complete 2024 025 [email or web address] [address], [address], [place], [address], 01/30/2025 09:21:54 Medication Orders nystatin 100,000 unit/gram topical ointment 2024 [id number], [address], [place], [place], [id number], 01/21/2025 15:34:35 triamcino lone acetonide 0.1 % topical ointment 2024 [facility] #[id number], [address], [place], [place], [id number], 01/21/2025 15:34:36 triamcino lone acetonide 0.1 % topical ointment 2024 025 [facility] #[id number], [address], [place], [place], [id number], 01/21/2025 11:43:03 nystatin 100,000 unit/gram topical ointment 2024 [email or web address]35667, [address], [place], [place], [id number], 01/21/2025 11:42:37 terconazo le 0.8 % vaginal cream 2024 [facility] #60839, [address], [place], [place], [id number], 01/21/2025 11:43:04 Patient TargetsNo targets recorded. Patient InstructionsNo instructions recorded. Reason for Referral None Reported. Results Created Date Observation Date Name Description Value Unit Range Abnormal Flag Note LastModifiedBy Organization Detail LastModifiedTime 12/26/1912/26/2024 [facility]OMEN 'S HEALT H SWAB, JERONIMO bacterial vaginosis (bv), tma Negati ve negati ve This test detec ts ribos omal RNA from bacte juan assoc iated with bacte rial vagin osis (BV), inclu ding Lacto bacil celine (L. gasse ri, L. crisp atus and L. jense rishabh), Gardn erell a vagin chadd, and Atopo bium vagin ae by Trans cript ion-M ediat ed Ampli ficat ion (TMA) . A singl e quali tativ e resul t is repor stanton based on instr ument softw are to deter mine BV posit remigio or negat remigio statu s. Not Available [facility] (Lab) [address] [place], [address], 12/30/2024 23:58:58 12/26/19 25 12/26/2024 WOMEN 'S HEALT H SWAB, JERONIMO alex species, tma Positi ve negati ve abnormal Not Available [facility] (Lab) [address] [place], [address], 12/30/2024 23:58:58 12/26/19 25 12/26/2024 WOMEN 'S HEALT H SWAB, JERONIMO alex glabrata, tma Positi ve negati ve abnormal Not Available [facility] (Lab) [address] [place], [address], 12/30/2024 23:58:58 12/26/19 25 12/26/2024 WOMEN 'S HEALT H SWAB, JERONIMO trichomonas vaginalis, tma Negati ve negati ve This assay tests for and diffe renti ates debbie en Vanessa da glabr kate, the Vanessa da speci es group (C. albic ans, C. tropi calis , C. parap samira is, C. dubli ni is), and Trich omona s vagin chadd by Trans cript ion-M ediat ed Ampli ficat ion (TMA) . Not Available [facility] (Lab) [address], [place], [address], 12/30/2024 23:58:58 01/24/20 25 01/23/2025 US, pelvi s No observ ation record ed. [email or web address] [place] [address], [place], [address], 01/23/2025 12:54:17 01/24/20 25 01/23/2025 US, trans vagin al No observ ation record ed. [email or web address] [place] [address], [place], [address], 01/23/2025 12:54:26 01/24/20 25 01/23/2025 US, pelvi s No observ ation record ed. [email or web address] [address] [facility], [place], [address], 01/24/2025 17:51:21 Result Notes None recorded. Procedures Surgical History Date Name Laterality Status Provider Name and Address Organization Details Recorded Time 10/07/20 24 Date of Last Pap Smear completed [facility] 12/26/2024 10:42:16 10/07/20 24 Date of Last Mammogram completed [facility] 12/26/2024 10:43:24 11/07/19 24 Appendectomy completed [facility] 12/26/2024 10:50:23 11/07/19 23 laparoscopic sleeve gastrectomy completed [facility] 12/26/2024 10:50:13 11/07/19 19 partial nephrectomy completed [facility] 12/26/2024 10:51:25 11/07/19 18 insertion of ureteral stent with ureterotomy completed [facility] 12/26/2024 10:52:02 11/07/19 18 lithotripsy completed [facility] 12/26/2024 10:52:13 11/07/19 01 cholecystectomy completed [facility] 12/26/2024 10:49:49 11/07/18 98 Total Hysterectomy completed [facility] 12/26/2024 10:49:35 Imaging Results Imaging Date Name Status LastModified by Organization Details LastModified Time 01/23/2025 US, pelvis completed [email or web address] [place] [address], [place], [address], 01/23/2025 12:54:17 01/23/2025 [email or web address] [address], [place], [address], 01/23/2025 12:54:26 01/23/2025 US, pelvis completed [address], [place], [address], 01/24/2025 17:51:21 Procedure Notes None recorded. Medical Equipment None [...] 2 TIMES PER DAY FOR 7 DAYS active Not Available Not Available No t Available ondansetron HCl 4 mg tablet TAKE 1 TABLET BY MOUTH EVERY 8 HOURS NEEDED FOR NAUSEA OR VOMITING 12/26 completed Not Available Not Available Not Available prednisone 20 mg tablet TAKE 1 TABLET BY MOUTH DAILY 12/26 completed Not Available Not Available Not Available terconazole 0.8 % vaginal cream INSERT 1 APPLICATO RFUL VAGINALLY EVERY DAY AT BEDTIME FOR 3 DAYS 01/21 completed Not Available Not Available Not Available metformin 850 mg tablet TAKE 1 TABLET BY MOUTH TWICE DAILY active Not Available Not Available No t Available amlodipine 5 mg tablet TAKE 1 TABLET BY MOUTH [...] 2 TIMES PER DAY FOR 7 DAYS active Not Available Not Available No t Available codeine 10 mg-guaifene sin 100 mg/5 mL [...] Not Available Not Available No t Available Jardiance 25 mg tablet TAKE 1 TABLET BY MOUTH [...] Last Updated DateTime 149.86 cm 38.4 kg/m2 85832.5 5 g 150 mm[Hg] 95 mm[Hg] 146 mm[Hg] 92 mm[Hg] Isa Rodirgues [facility] 11:16:34 Date Recorded Body height Body mass index (BMI) Body weight Systolic blood pressure Diastolic blood pressure Provider Name and Address Organization Details Last Updated DateTime 01/21/2025 149.86 cm 38 kg/m2 04523.37 g 145 mm[Hg] 87 mm[Hg] Shaniqua Mccall [facility] 11:49:41 Date Recorded Body height Body mass index (BMI) Body weight Systolic blood pressure Diastolic blood pressure Provider Name and Address Organization Details Last Updated DateTime 02/01/2025 149.86 cm 37.8 kg/m2 73003.77 g 127 mm[Hg] 85 mm[Hg] Isa Rodrigues [facility] 12:21:24 Social History Question Answer Notes LastModified by Organizat ion Details LastModified Time Tobacco Smoking Status Never Smoker Isa Rodrigues [facility] 12/26/2024 10:47:20 What Is Your Level [...] Or The Highest Degree You Have Received? 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 [id number] Information not available 12/26/2024 Do You Use [...] available 2024 10:47:06 Medical History Condition Response Other Y Blood Transfusion N Dermatologic Disorders N Gestational Diabetes N Anxiety Disorder N Autoimmune disease N Arthritis N Polyps N Infertility N Acid Reflux (GERD) N Cancer N Varicosities N Stroke N Neurologic/Epilepsy N Fibromyalgia N Headaches N Kidney Disease Y Heart Problems N Kidney or Bladder Problems Y Eating Disorder N Art (IVF or FET) N Hepatitis/Liver Disease N No Past Medical History N Urinary Tract Infection N Asthma N Trauma/Violence N Thrombophilias N Allergies (Food, seasonal, environmental ) N Breast Cancer N Drug/Latex Allergies/Reactions N Lung Disease N Defects or Inherited Disease N Breast Problem N Hematologic disorders N Anesthesia Complications N History of STI N Deep Vein Thrombosis N Polycystic ovary syndrome N History of abnormal pap N Endometriosis N High Cholesterol Y Thyroid Problems N GI Problems Y Anemia N Psychiatric Illness N Ovarian Cancer N Diabetes Y Pulmonary (TB, Asthma) N Eczema N Abuse/Domestic Violence N Depression/ depression N Heart Disease N Pre-Eclampsia N Hypertension Y Osteoporosis N Gynecological History Statement/Question Response Abnormal Pap [...] SNOMED-CT Code Diagnosis ICD10 Code Diagnosis Note [id number] Selam DENISE Acosta [place] [address] [address] 12/26/2024 10:12:35 12/26/2024 11:54:11 Vulval irritation [id number] N90.89 health hx obtained and reviewed todayvagin [...] counseling and review of plan of care. [id number] Selam Acosta ADDY [place] [address] [address] 01/21/2025 11:37:49 01/21/2025 15:40:41 Gynecologic examination [id number] Z01.419 WWEPap - no further paps indicatedS TI screen - declinedMa mmogram - UTD/PCP, due next 5Col on cancer screening - UTDRoutine labs - UTD/PCPBP precaution s discussed, encouraged PCP f/uRTC in 1 yr or sooner if needed Suggested Calcium with Vitamin D daily. Patient advised to get an annual flu shot in the fall and she could obtain at local pharmacy. Also to obtain TDap vaccinatio n if you have not had one in the last 10 years. Recommend yearly mammograms . Encouraged monthly self breast exams. Encourage safe sexual practices, to use condoms and limit partners if not already in a monogamous relationsh ip. Engage in regular exercise. Avoid tobacco and illicit drugs. This lifestyle behavior pattern will lead to less health conditions and longer life span. If BMI greater than 25 dietary consult advised. All questions have been answered. Pain in pelvis [id number] R10.2 pelvic u/s to assess remaining ovaryif wnl discussed PCP f/u Vulval irritation 896323 003 N90.89 improved with yeast tx, still having slight irritation refill nystatin/t riamcinolo necontinue vulvar care guidelines veg based moisturize r routine discussed [id number] Gerhard Carl MD [place] [address] [address] 01/23/2025 12:06:36 01/23/2025 12:46:02 Pain in pelvis [id number] R10.2 [id number] Gerhard Carl MD [place] [address] [address] 02/01/2025 10:55:23 02/01/2025 13:13:46 Pain in pelvis 09463958 R10.2 this patient is a 49-year-ol d female severe pelvic pain. We have agreed to perform diagnostic laparoscop y. She has some findings on her left ovary /cysts. She understand s risks, benefits, and alternativ es to the diagnostic laparoscop y. She has completed the informed consent process and is ready to proceed. I spent over 30 minutes on the patient's care in total. We discussed treatment options. We discussed imaging results. We discussed the surgery itself in detail. Cyst of ovary [id number] N 83.209 Health Concerns Section Related Observation LastModified by Organization Detai ls LastModified Time None Recorded Concern Status LastModified by Organization Details LastModified Time None Recorded Advance Directives Directive None Recorded Payers Encounter Date Sequence Insurance Name Policy Number Policy Silver Covered Member ID Silver Member ID Guarantor Name 12/26/2024 1 [facility] 11/07/2024 AND AFTER Bibi Qiu [id number] Bibi Lazarus 01/21/2025 1 [facility] - [facility] 11/07/2024 AND AFTER Bibi Qui [id number] Bibiamara Qiu 01/23/2025 1 [facility] - [facility] 11/07/2024 AND AFTER Bibi Qiu [id number] Bibiamara Qiu 02/01/2025 1 [facility] - [facility] 11/07/2024 AND AFTER Bibi Qiu [id number] Bibi Qiu Notes Date Note Type Note Provider Name and Address Organization Details Recorded Time 12/26/2024 text/html 49yopresents for vulvar irritationvulvar itching/burning. Present on and off for the past few monthsIC is painfuldryness neg n/v/fneg pelvic painneg urinary symptomsneg discharge h/o hyst, one ovary remains(non-cancerous indications - fibroids/AUB) DENISE Calles [address], [place], [address], [facility] 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 Post-MenopausalReport ed bypatient.Menopausal Symptoms:no menopausal symptoms; normal vaginal lubrication Vaginal Bleeding:history of menopause having occurred; no history of post menopausal bleeding Urinary Symptoms:no hematuria; no incontinence; no nocturia; no urinary frequency Vulva:no genital lesion; no vulvar atrophy Vagina:normal vaginal discharge; no vaginal atrophy Breast:no breast lump; no nipple discharge; no breast pain Sexual Complaints:no sexual complaints Psychological Symptoms:no depression; no anxiety Preventive Measures:encourage regular mammograms starting age 40; encourage self breast examination; encourage regular exercise; encourage no tobacco useNotes:49yo wweh/o hyst, one ovary remains(non-cancerous indications - fibroids/AUB)vulvar irritation much improved with yeast tx, still slight irritation at timesright sided pelvic pain a few times per week, acheneg urinary symptomsneg n/v/fbowel movements irregular at times DENISE Calles [address], [place], [address], [facility] 01/21/2025 15:39:27 02/01/2025 text/html This patient is a 49-year-old female with severe left-sided pelvic pain. She has some cystic structures on her left ovary. We agreed to perform Diagnostic laparoscopy. The patient understands the procedure. The procedure was described to the patient in great detail. the patient also understands the risks. The risks were also explained in detail. She understands that injuries May occur during surgery. She understands these injuries can result in hospitalization, more surgery, and severe illness. She understands there is risk of hemorrhage and infection. Gerhard Carl MD [address], [place], [address], [place] [facility] 02/01/2025 12:42:29 OBGyn Episode Ob Episode Information Episode Created Date Number of Fetuses Patient Bloodtype Patient rh Status Prepregnancy Weight lbs Domestic Partner Domestic Partner Phone Father Name Drilling Plant Operator Status 12/26/19 25 1 CLOSED Fetus Data First Name Last Name Admitted to NICU Weight (g) Sex Living Outcome Pediatric Complications Fetus ID Race Codes Race Delivery Type 2494.75 6 F Prematur e 33220 Vaginal Delivery Robert Calculation Initial Robert Date [...] Domestic Partner Domestic Partner Phone Father Name Drilling Plant Operator Status 12/26/19 25 1 CLOSED Fetus Data First Name Last Name Admitted to NICU Weight (g) Sex Living Outcome Pediatric Complications Fetus ID Race Codes Race Delivery Type 3401.94 F Full Term [id number] Primary Robert Calculation Initial Robert Date Initial Exam [...] Contraceptive Method Maternal HG B and HCT Levels"
--- OUTSIDE RECORDS SUMMARY | 2025-03-09 13:06 | XMS_ITS | Clinical Summary ---
Author Organization [facility] Address [address] [place] [address] Care Team Providers Care Church History Teacher Name Role Phone Umesh Anderson MD Primary Care Provider [phone] Source Comments [facility],non-owned Affiliates and Associated Physician Practices is amultiple site organization consisting of ambulatory clinics and hospital sitesin [place], [place], [place] and [place]. This disclosure is being madepursuant to the Care Everywhere program and may not contain all information available regarding this patient. Last updated 18.[facility] Allergies No known active allergies Medications * Be aware that medications may not be up to date on this document. Alwaysverify current medications with the patient. 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 Gender Identity Female 03/30/2021 2:33 PM CDT [...] 3-dose series) 1993 COVID-19 VACCINE (1 - 2023-2 5 season) 2024 DEPRESSION SCREENING 11/07/2024 PNEUMOCOCCAL VACCINE 50+ (1 of 1 - PCV) 2024 ZOSTER VACCINE (1 of 2) 2024 INFLUENZA VACCINE (Season Ended) 2025 HIB VACCINE Aged Out No longer eligi ble based on patient's age to complete this topic HPV VACCINE Aged Out No longer eligi ble based on patient's age to complete this topic MENINGOCOCCAL (Group B) VACC INE SHARED DECISION-MAKING Aged Out No longer eligibl e based on patient's age to complete this topic MENINGOCOCCAL GROUPS A/C/Y/W VACCINE Aged Out No longer eligible b ased on patient's age to complete this topic Insurance [facility] SELF PAY NO INSURANCE Member Subscriber Plan / Payer (Ef fective for All Dates) Name:Carlito Qiu Member ID:Not on file Relation to Subscriber:Not on file Name:CARLITO QIU Subscriber ID:Not on file Address: [address] [place], [place] [id number] Payer ID:Not on file Group ID:Not on file Type:Self Pay Address: [place], [place] SELF PAY NO INSURANCE Member Subscriber Plan / Payer (Ef fective for All Dates) Name:Carlito Qiu Member ID:Not on file Relation to Subscriber:Not on file Name:CARLITO QIU Subscriber ID:Not on file Address: [address] [place], [place] [id number] Payer ID:Not on file Group ID:Not on file Type:Self Pay Address: [place], [place] SELF PAY NO INSURANCE Member Subscriber Plan / Payer (Ef fective for All Dates) Name:Lazarus Carlito Allen Member ID:Not on file Relation to Subscriber:Not on file Name:CARLITO QIU Subscriber ID:Not on file Address: [address] [place] [address] Payer ID:Not on file Group ID:Not on file Type:Self Pay Address: [place], [place] HEALTH CARE SELF PAY NO INSURANCE Member Subscriber Plan / Payer (Ef fective for All Dates) Name:Lazarus Carlito [place] Member ID:Not on file Relation to Subscriber:Not on file Name:CARLITO QIU Subscriber ID:Not on file Address: [address] [place] [address] Payer ID:Not on file Group ID:Not on file Type:Self Pay Address: [place] [facility] SELF PAY NO INSURANCE Member Subscriber Plan / Payer (Ef fective for All Dates) Name:Carlito Qiu Member ID:Not on file Relation to Subscriber:Not on file Name:CARLITO QIU Subscriber ID:Not on file Address: [place] [address] Payer ID:Not on file Group ID:Not on file Type:Self Pay Address: [place], [place] Advance Directives * Full Code (Latest Code Status on File) Date Activated Date Inactivated Comments 02/23/2021 12:24 PM 02/24/2021 7:44 PM Care Teams Church History Teacher Relationship Specialty Start Date End Date Umesh Anderson MD [address] [place] [address] PCP - General Family Medicine 12/11/19
--- OUTSIDE RECORDS SUMMARY | 2025-03-09 13:06 | XMS_ITS | Referral Summary ---
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 Gender Identity Not on file Sexual Orientation Not on file Last Filed Vital Signs Vital Sign Reading Time Taken Comments Blood Pressure 147/87 12/20/2014 9:27 AM FOREIGN LANGUAGE INTERPRETER Pulse 95 12/20/2014 9:27 AM FOREIGN LANGUAGE INTERPRETER Temperature - - Respiratory Rate - - Oxygen Saturation 96% 12/20/2014 8:40 AM FOREIGN LANGUAGE INTERPRETER Inhaled Oxygen Concentration - - Weight 109.8 kg (241 lb 15.6 oz) 12/18/2014 7:29 AM FOREIGN LANGUAGE INTERPRETER Height 152.4 cm (5') 12/18/2014 7:29 AM FOREIGN LANGUAGE INTERPRETER Body Mass Index 47.26 12/18/2014 7:29 AM FOREIGN LANGUAGE INTERPRETER Plan of Treatment Not on file Insurance [facility]PPO Address: [address] [address] [place] [address] Care Teams Public Health Clinical Nurse Specialist Relationship Specialty Start Date End Date Umesh Anderson MD [address] [place] [address] PCP - General 05/13/17
--- OUTSIDE RECORDS SUMMARY | 2025-03-09 13:06 | XMS_ITS | Clinical Summary ---
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 Gender Identity Not on file Sexual Orientation Not on file Obstetrics History Last Filed Vital Signs Vital Sign Reading Time Taken Comments Blood Pressure 147/87 12/20/2014 9:27 AM TUBING SUPERVISOR Pulse 95 12/20/2014 9:27 AM TUBING SUPERVISOR Temperature - - Respiratory Rate - - Oxygen Saturation 96% 12/20/2014 8:40 AM TUBING SUPERVISOR Inhaled Oxygen Concentration - - Weight 109.8 kg (241 lb 15.6 oz) 12/18/2014 7:29 AM TUBING SUPERVISOR Height 152.4 cm (5') 12/18/2014 7:29 AM TUBING SUPERVISOR Body Mass Index 47.26 12/18/2014 7:29 AM TUBING SUPERVISOR Plan of Treatment Not on file Insurance [facility] Care Teams Coroner/Medical Examiner Relationship Specialty Start Date End Date Umesh Anderson MD [address] [place] [address] PCP - General 05/13/17"
== END 2025-03-08 12:19 | disposition home or self-care (01) ==
PROVIDERS: Anesthesiology; PCP Family Medicine; Visit Provider Obstetrics & Gynecology
DX: E11.9 Type 2 diabetes mellitus without complications (principal)
CPT/HCPCS: 36415; 80048

== ENCOUNTER 2025-03-19 01:10 | Day surgery (SDC) | payer OTHER, SELFPAY ==
[2025-03-08 10:51] VITALS: BMI 37.2
--- NOTE | 2025-03-08 10:53 | PC.NURSE ---
Report to the Outpatient Waiting Room, entrance under the green pavilion located off [facility], at time _0630_ on date _[id number]_. Planned Procedure Time: _0830_.? Time changes happen often and if your time is changed the preop area will call you the afternoon before. - You and your visitor will be asked to self-screen and do not enter if you have any COVID symptoms. Please call surgeon if you need to reschedule. - A mask is optional within the hospital at this time. Patients may have clear liquids (water, carbonated beverages, clear teas, apple juice) until 3 hours prior to surgery with a maximum of 20 ounces. - No food from midnight until time of surgery and no smoking, or chewing tobacco (or any form of nicotine). No chewing gum, candy or mints. Take only the following medications with a SIP of water on the morning of surgery: __Amlodipine___ DO NOT STOP ANY OF YOUR OTHER PRESCRIPTION MEDICATIONS PRIOR TO SURGERY EXCEPT THE FOLLOWING Hold all vitamins and supplements for 3 days per anesthesiologist. Medications to discontinue per physician Date to take last dose Please no make-up, nail kyrgyz, hairspray, perfume, deodorant, or body powder the day of surgery.? No jewelry (including any body piercings) or valuables the day of surgery, leave them at home.? Please take a shower or bath the night before, or the morning of, surgery with an antibacterial soap.? Wear comfortable, loose fitting clothing. - Jewelry must be removed prior to entering the operating room.? Rings and piercings that are not removed may be cut off. - The hospital will not accept responsibility for valuables.? - Please leave all valuables, including medications, at home the day of surgery. If you are going home after surgery, a licensed team cdl driver must drive you home.? - NO public transportation without another adult if you receive anesthesia. - We recommend that an adult stay with you for 24 hours following discharge. - We also recommend that you do not drive, make important decision, drink alcoholic beverages, or take any drugs that were not prescribed by your health care provider for at least 24 hours after your discharge time. Follow any additional instructions given to you from your surgeon. Telephone instructions given to __Bibi__and asked if any additional questions and then verbalized understanding. Patient advised to call surgeon office or pre surgery nurse liaison [phone] if any additional questions.
[2025-03-19] VITALS (7 sets, daily range): BP systolic 111–135; BP diastolic 60–87; PULSE 69–81; RESP 14–21; TEMP 36.3–36.6; O2SAT 92–99
--- OUTSIDE RECORDS SUMMARY | 2025-03-19 01:12 | XMS_ITS | Clinical Summary ---
Author Organization [facility] [employer] Address [address] [place] [address] Care Team Providers Care Outside Solar Sales Consultant Name Role Phone Umesh Anderson MD Primary Care Provider [phone] Source Comments [facility],non-owned Affiliates and Associated Physician Practices is amultiple site organization consisting of ambulatory clinics and hospital sitesin [place], [place], [place] and [place]. This disclosure is being madepursuant to the Care Everywhere program and may not contain all information available regarding this patient. 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 Gender Identity Female 03/30/2021 2:33 PM CDT [...] patient's age to complete this topic Insurance [facility] CARE SELF PAY NO INSURANCE Member Subscriber Plan / Payer (Ef fective for All Dates) Name:Carlito Qiu Member ID:Not on file Relation to Subscriber:Not on file Name:CARLITO QIU Subscriber ID:Not on file Address: [address] [place], [place] [id number] Payer ID:Not on file Group ID:Not on file Type:Self Pay Address: [place], [place] SELF PAY NO INSURANCE Member Subscriber Plan / Payer (Ef fective for All Dates) Name:Carlito Qiu Member ID:Not on file Relation to Subscriber:Not on file Name:CARLITO QIU Subscriber ID:Not on file Address: [address] [place], [place] [id number] Payer ID:Not on file Group ID:Not on file Type:Self Pay Address: [place], [place] SELF PAY NO INSURANCE Member Subscriber Plan / Payer (Ef fective for All Dates) Name:Lazarus Carlito Allen Member ID:Not on file Relation to Subscriber:Not on file Name:CARLITO QIU Subscriber ID:Not on file Address: [address] [place] [address] Payer ID:Not on file Group ID:Not on file Type:Self Pay Address: [place], [place] HEALTH CARE SELF PAY NO INSURANCE Member Subscriber Plan / Payer (Ef fective for All Dates) Name:Lazarus Carlito Allen Member ID:Not on file Relation to Subscriber:Not on file Name:CARLITO QIU Subscriber ID:Not on file Address: [address] [place] [address] Payer ID:Not on file Group ID:Not on file Type:Self Pay Address: [place] HEALTH CARE SELF PAY NO INSURANCE Member Subscriber Plan / Payer (Ef fective for All Dates) Name:Carlito Qiu Member ID:Not on file Relation to Subscriber:Not on file Name:CARLITO QIU Subscriber ID:Not on file Address: [facility] [place] [address] Payer ID:Not on file Group ID:Not on file Type:Self Pay Address: [place], [place] Advance Directives * Full Code (Latest Code Status on File) Date Activated Date Inactivated Comments 02/23/2021 12:24 PM 02/24/2021 7:44 PM Care Teams Outside Solar Sales Consultant Relationship Specialty Start Date End Date Umesh Anderson MD [address] [place] [address] PCP - General Family Medicine 12/11/19
--- OUTSIDE RECORDS SUMMARY | 2025-03-19 01:12 | XMS_ITS | Data Portability ---
Author Organization [facility] Address [address] [place] [address] Care Team Providers Care Sharepoint Solutions Architect Name Role Phone WINIFREDJULISAKAE King Primary Care Provider [phone] Assessment Encounter Date Assessment Date Assessment LastModified by Organization Details LastModified Time 01/21/2025 01/21/2025 Annual gynecological exam performed. Patient will come back in a year unless there are new symptoms. [email or web address] Not available 01/21/2025 11:49:15 Plan of Treatment Reminders Order Date Submit Date Provider Last Modified By Organization Details Last Modified Time Details Appointments SURG Diagnosti c Lap 2024 08:30A Flo CARL MD Not available Not available Not available SURG POST OP 2024 09:30A Flo CARL MD Not available Not available Not available Lab None recorded. Referral None recorded. Procedures None recorded. Surgeries laparosco py, diagnosti c (SURG) 2024 025 [id number] [facility], [address], [place], [address], 02/07/2025 10:36:20 Imaging US, pelvis 2024 025 [email or web address] [facility], [address], [place], [address], 01/23/2025 19:29:43 US, transvagi nal 2024 025 [email or web address] [address], [address], [place], [address], 01/23/2025 19:29:43 US, pelvis, complete 2024 [email or web address] [facility], [address], [place], [address], 01/30/2025 09:21:54 Medication Orders nystatin 100,000 unit/gram topical ointment 2024 [facility] #48866, [address], [place], [place], [id number], 01/21/2025 15:34:35 triamcino lone acetonide 0.1 % topical ointment 2024 [facility], [address], [place], [place], [id number], 01/21/2025 15:34:36 triamcino lone acetonide 0.1 % topical ointment 2024 [facility], [address], [place], [place], [id number], 01/21/2025 11:43:03 nystatin 100,000 unit/gram topical ointment 2024 [facility]224[facility], [address], [place], [place], [id number], 01/21/2025 11:42:37 terconazo le 0.8 % vaginal cream 2024 [facility]18[facility], [address], [place], [place], [id number], 01/21/2025 11:43:04 Patient TargetsNo targets recorded. Patient [...] or negat remigio statu s. Not Available [facility] (Lab) [address] [place], [address], 12/30/2024 23:58:58 12/26/19 25 12/26/2024 WOMEN 'S HEALT H SWAB, JERONIMO alex species, tma Positi ve negati ve abnormal Not Available [facility] (Lab) [address] [place], [address], 12/30/2024 23:58:58 12/26/19 25 12/26/2024 WOMEN 'S HEALT H SWAB, JERONIMO alex glabrata, tma Positi ve negati ve abnormal Not Available [facility] (Lab) [address] [place], [address], 12/30/2024 23:58:58 12/26/19 25 12/26/2024 WOMEN 'S HEALT H SWAB, JERONIMO trichomonas vaginalis, tma Negati ve negati ve This assay tests for and diffe renti ates betwe en Vanessa da glabr kate, the Vanessa da speci es group (C. albic ans, C. tropi calis , C. parap samira is, C. dubli moira is), and Trich omona s vagin chadd by Trans cript ion-M ediat ed Ampli ficat ion (TMA) . Not Available [facility] (Lab) [address] [place], [address], 12/30/2024 23:58:58 01/24/20 25 01/23/2025 US, pelvi s No observ ation record ed. [email or web address] [facility] [address], [place], [address], 01/23/2025 12:54:17 01/24/20 25 01/23/2025 US, trans vagin al No observ ation record ed. [email or web address] [facility] [address], [place], [address], 01/23/2025 12:54:26 01/24/20 25 01/23/2025 US, pelvi s No observ ation record ed. [email or web address] [address] [address], [place], [address], 01/24/2025 17:51:21 Result Notes None recorded. Procedures Surgical History Date Name Laterality Status Provider Name and Address Organization Details Recorded Time 10/07/20 24 Date of Last Pap Smear completed [facility] 12/26/2024 10:42:16 10/07/20 24 Date of Last Mammogram completed [facility] 12/26/2024 10:43:24 11/07/19 24 Appendectomy completed [facility] 12/26/2024 10:50:23 11/07/19 23 laparoscopic sleeve gastrectomy completed [facility] 12/26/2024 10:50:13 11/07/19 19 partial nephrectomy completed [facility] 12/26/2024 10:51:25 11/07/19 18 insertion of ureteral stent with ureterotomy completed [facility] 12/26/2024 10:52:02 01/01/20 18 lithotripsy completed [facility] 12/26/2024 10:52:13 11/07/19 01 cholecystectomy completed [facility] 12/26/2024 10:49:49 11/07/18 98 Total Hysterectomy completed [facility] 12/26/2024 10:49:35 Imaging Results Imaging Date Name Status LastModified by Organization Details LastModified Time 01/23/2025 US, pelvis completed [email or web address] [facility] [address], [place], [address], 01/23/2025 12:54:17 01/23/2025 US, transvaginal completed [email or web address] [facility] [address], [place], [address], 01/23/2025 12:54:26 01/23/2025 US, pelvis completed [email or web address] [address], [place], [address], 01/24/2025 17:51:21 Procedure Notes None recorded. Medical [...] Not Available Not Available No t Available valacyclovi r 1 gram tablet TAKE 1 TABLET BY MOUTH THREE TIMES DAILY active Not Available Not Available No [...] Not Available Not Available No t Available clobetasol 0.05 % topical cream APPLY TOPICALLY TO THE AFFECTED AREA TWICE DAILY active Not Available Not Available [...] tablet TAKE 1 TABLET BY MOUTH DAILY 03/12 completed Not Available Not Available Not Available Jardiance 25 mg tablet TAKE 1 [...] Last Updated DateTime 149.86 cm 38.4 kg/m2 86437.5 5 g 150 mm[Hg] 95 mm[Hg] 146 mm[Hg] 92 mm[Hg] Isa Rodrigues [facility] 11:16:34 Date Recorded Body height Body mass index (BMI) Body weight Systolic blood pressure Diastolic blood pressure Provider Name and Address Organization Details Last Updated DateTime 01/21/2025 149.86 cm 38 kg/m2 69282.37 g 145 mm[Hg] 87 mm[Hg] Shaniqua Avilaney [facility] 11:49:41 Date Recorded Body height Body mass index (BMI) Body weight Systolic blood pressure Diastolic blood pressure Provider Name and Address Organization Details Last Updated DateTime 02/01/2025 149.86 cm 37.8 kg/m2 93006.77 g 127 mm[Hg] 85 mm[Hg] Isa [facility] 12:21:24 Date Recorded Body height Body mass index (BMI) Body weight Systolic blood pressure Diastolic blood pressure Provider Name and Address Organization Details Last Updated DateTime 03/12/2025 149.86 cm 38.2 kg/m2 33763.96 g 138 mm[Hg] 88 mm[Hg] Isa Rodrigues [facility] 10:40:34 Social History Question Answer Notes LastModified by Organizat ion Details LastModified Time Tobacco Smoking Status Never Smoker Isa Rodrigues [facility] 12/26/2024 10:47:20 Are You Blind Or Do You Have [...] No Information not available 12/26/2024 Are You Deaf Or Do You Have Serious Difficulty Hearing? No Information not available 12/26/2024 What Type Of Diet Are You Following? REGULAR Information n ot available 12/26/2024 What Is The Highest Grade Or Level Of School You Have Completed Or The Highest Degree You Have Received? [id number] Information not available 12/26/2024 Are There Any [...] Organizat ion Details LastModified Time Do you use any illicit or recreational drugs? No Information not available 12/26/2024 What is your level of alcohol consumption? Occasional Information not available 12/26/2024 Are you currently employed? Yes Information not available 12/26/2024 Do you have difficulty walking or climbing stairs? No Information not available 12/26/2024 Are you able to walk? YESWOREST Information not available 12/26/2024 Are you able to care for yourself? 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 No Information not available 12/26/2024 What is your exercise level? Occasional Information not available 12/26/2024 Mental Status Question Answer Note LastModified by Organization D etails LastModified Time Do you feel stressed (tense, restless, nervous, or anxious, or unable to sleep at night)? [id number] Information not available 12/26/2024 Family History Relationship Description Onset Age of [...] (Food, seasonal, environmental ) N Other Y Breast Cancer N Drug/Latex Allergies/Reactions N Blood Transfusion N Dermatologic Disorders N Lung Disease N Defects or Inherited Disease N Breast Problem N Gestational Diabetes N Hematologic disorders N Anesthesia Complications N History of STI N Deep Vein Thrombosis N Polycystic ovary syndrome N Anxiety Disorder N Autoimmune disease N Arthritis N Infertility N Polyps N Acid Reflux (GERD) N History of abnormal pap N Cancer N Stroke N Varicosities N Neurologic/Epilepsy N Endometriosis N High Cholesterol Y Headaches N Fibromyalgia N Kidney Disease Y Heart Problems N Kidney or Bladder Problems Y Thyroid Problems N GI Problems Y Eating Disorder N Anemia [...] SNOMED-CT Code Diagnosis ICD10 Code Diagnosis Note [id number] DENISE Calles [facility] [address] [address] 12/26/2024 10:12:35 12/26/2024 11:54:11 Vulval irritation 396314899 N90.89 health hx obtained and reviewed todayvagin [...] counseling and review of plan of care. [id number] DENISE Calles [facility] [address] [address] 01/21/2025 11:37:49 01/21/2025 15:40:41 Gynecologic examination [id number] Z01.419 WWEPap - no further paps indicatedS TI screen - declinedMa mmogram - UTD/PCP, due next ol on cancer screening - UTDRoutine labs - [...] questions have been answered. Pain in pelvis 06590192 R10.2 pelvic u/s to assess remaining ovaryif wnl discussed PCP f/u Vulval irritation 408888 003 N90.89 improved with yeast tx, still having slight irritation refill nystatin/t riamcinolo necontinue vulvar care guidelines veg based moisturize r routine discussed [id number] Gerhard Carl MD [facility] [address] [address] 01/23/2025 12:06:36 01/23/2025 12:46:02 Pain in pelvis 74067897 R10.2 [id number] Gerhard Carl MD [facility] [address] [address] 02/01/2025 10:55:23 02/01/2025 13:13:46 Pain in pelvis 30611139 R10.2 this patient is a 49-year-ol d [...] surgery itself in detail. Cyst of ovary 07348063 N 83.209 [id number] Gerhard Carl MD [facility] [address] [address] 03/12/2025 10:02:30 03/12/2025 11:30:57 Pain in pelvis 43994936 R10.2 this patient is a 49-year-ol d female severe pelvic pain. We have agreed to perform diagnostic laparoscop y. She has some findings on her left ovary /cysts. She understand s risks, benefits, and alternativ es to the diagnostic laparoscop y. She has completed the informed consent process and is ready to proceed Health Concerns Section Related Observation LastModified by Organization Detai ls LastModified Time None Recorded Concern Status LastModified by Organization Details LastModified Time None Recorded Advance Directives Directive None Recorded Payers Encounter Date Sequence Insurance Name Policy Number Policy Silver Covered Member ID Silver Member ID Guarantor Name 12/26/2024 1 [facility] DOS 11/07/2024 AND AFTER Bibi Qiu [id number] Bibi Lazarus 01/21/2025 1 [facility] DOS 11/07/2024 AND AFTER Bibi Qiu [id number] Bibi Lazarus 01/23/2025 1 [facility] DOS 11/07/2024 AND AFTER Bibi Qiu [id number] Bibi Lazarus 02/01/2025 1 [facility] DOS 11/07/2024 AND AFTER Bibi Qiu [id number] Bibi Lazarus 03/12/2025 1 [facility] DOS 11/07/2024 AND AFTER Bibi Qiu [id number] Bibi Qiu Notes Date Note Type Note Provider Name and Address Organization Details Recorded Time 12/26/2024 text/html 49yopresents for vulvar irritationvulvar itching/burning. Present on and off for the past few monthsIC is painfuldryness neg n/v/fneg pelvic painneg urinary symptomsneg discharge h/o hyst, one ovary remains(non-cancerous indications - fibroids/AUB) DENISE Calles [address], [place], [address], [facility] 12/26/2024 11:35:17 01/21/2025 text/html Annual Curriculum Manager Post-MenopausalReport ed bypatient.Menopausal Symptoms:no menopausal symptoms; normal [...] at times DENISE Calles [address], [place], [address], [facility] 01/21/2025 15:39:27 02/01/2025 text/html [...] infection. Gerhard Carl MD [address], [place], [address], [facility] 02/01/2025 12:42:29 03/12/2025 text/html this patient is a 49-year-old female severe pelvic pain. We have agreed to perform diagnostic laparoscopy. She has some findings on her left ovary /cysts. She understands risks, benefits, and alternatives to the diagnostic laparoscopy. She has completed the informed consent process and is ready to proceed The patient understands the procedure. The procedure [...] infection. Gerhard Carl MD [address], [place], [address], [facility] 03/12/2025 11:25:01 OBGyn Episode Ob Episode Information Episode Created Date Number of Fetuses Patient Bloodtype Patient rh Status Prepregnancy Weight lbs Domestic Partner Domestic Partner Phone Father Name Congressional Assistant Status 12/26/19 25 1 CLOSED Fetus Data First Name Last Name Admitted to NICU Weight (g) Sex Living Outcome Pediatric Complications Fetus ID Race Codes Race Delivery Type 2494.75 6 F Prematur e [id number] Vaginal Delivery Robert Calculation Initial Robert Date [...] Domestic Partner Domestic Partner Phone Father Name Congressional Assistant Status 12/26/19 25 1 CLOSED Fetus Data First Name Last Name Admitted to NICU Weight (g) Sex Living Outcome Pediatric Complications Fetus ID Race Codes Race Delivery Type 3401.94 F Full Term [id number] Primary Robert Calculation Initial Robert Date Initial [...]
--- OUTSIDE RECORDS SUMMARY | 2025-03-19 01:12 | XMS_ITS | Referral Summary ---
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 Gender Identity Not on file Sexual Orientation Not on file Last Filed Vital Signs Vital Sign Reading Time Taken Comments Blood Pressure 147/87 12/20/2014 9:27 AM SHANK PINNER Pulse 95 12/20/2014 9:27 AM SHANK PINNER Temperature - - Respiratory Rate - - Oxygen Saturation 96% 12/20/2014 8:40 AM SHANK PINNER Inhaled Oxygen Concentration - - Weight 109.8 kg (241 lb 15.6 oz) 12/18/2014 7:29 AM SHANK PINNER Height 152.4 cm (5') 12/18/2014 7:29 AM SHANK PINNER Body Mass Index 47.26 12/18/2014 7:29 AM SHANK PINNER Plan of Treatment Not on file Insurance [facility] Care Teams Acupuncturist Relationship Specialty Start Date End Date Umesh Anderson MD [address] [place] [address] PCP - General 05/13/17
--- OUTSIDE RECORDS SUMMARY | 2025-03-19 01:12 | XMS_ITS | Clinical Summary ---
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 Gender Identity Not on file Sexual Orientation Not on file Obstetrics History Last Filed Vital Signs Vital Sign Reading Time Taken Comments Blood Pressure 147/87 12/20/2014 9:27 AM DINKEY LOCOMOTIVE OPERATOR Pulse 95 12/20/2014 9:27 AM DINKEY LOCOMOTIVE OPERATOR Temperature - - Respiratory Rate - - Oxygen Saturation 96% 12/20/2014 8:40 AM DINKEY LOCOMOTIVE OPERATOR Inhaled Oxygen Concentration - - Weight 109.8 kg (241 lb 15.6 oz) 12/18/2014 7:29 AM DINKEY LOCOMOTIVE OPERATOR Height 152.4 cm (5') 12/18/2014 7:29 AM DINKEY LOCOMOTIVE OPERATOR Body Mass Index 47.26 12/18/2014 7:29 AM DINKEY LOCOMOTIVE OPERATOR Plan of Treatment Not on file Insurance [facility] Care Teams Chemistry Account Manager Relationship Specialty Start Date End Date Umesh Anderson MD [address] [place] [id number] PCP - General 05/13/17
[2025-03-19] MEDS: ACETAMINOPHEN 500 MG TABLET 1000 MG PO (07:20)
[2025-03-19] MEDS: LACTATED RINGERS 1,000 ML 30 ML IV CONT ×2 (07:20→10:29)
[2025-03-19] MEDS: KETOROLAC 15 MG/ML VIAL (*BKC) IV PUSH (07:20)
[2025-03-19 07:25] LABS: Glucose Point of Care 122 mg/dl (65-105)
--- NOTE | 2025-03-19 08:10 | WPDANESEPPF ---
Anes - Initial Pre Proc Eval Procedure: Operation Date: 03/19/25 08:30 Proposed Procedures p Diagnostic Laparoscopy - Gerhard Grimaldo MD Date/Time: 03/19/25 08:10 Surgeon: Gerhard Grimaldo MD Pre Op Diagnosis: Pelvic Pain Patient Data Age: 49 Gender: F Height: 1.5 m Weight: 84.6 kg Last Vital Signs Temp 97.9 F 03/19/25 07:20 Pulse 77 03/19/25 07:20 Resp 14 03/19/25 07:20 BP 127/87 03/19/25 07:20 Pulse Ox 99 03/19/25 07:20 O2 Del Method Room Air 03/19/25 07:20 Allergies Allergy/AdvReac Type Severity Reaction Status Date / Time No Known Allergies Allergy Verified 03/19/25 07:52 Home Medications ?Medication ?Instructions ?Recorded ?Confirmed ?Type atorvastatin 40 mg tablet See Rx Instructions .Route 11/29/24 03/08/25 Rx .COMPLEX #90 tabs metformin 850 mg tablet 850 mg PO BID #180 tabs 12/21/24 03/08/25 Rx amlodipine 5 mg tablet (Norvasc) 5 mg PO DAILY #90 tabs 12/27/24 03/19/25 Rx omeprazole 40 mg capsule,delayed 40 mg PO DAILY #90 caps 01/21/25 03/08/25 Rx release empagliflozin 25 mg tablet 25 mg PO DAILY #90 tabs 01/23/25 03/08/25 Rx (Jardiance) Mounjaro 2.5 mg/0.5 mL 2.5 mg (0.5 mL) subcut WEEKLY #2 mL 02/22/25 03/08/25 Rx subcutaneous pen injector (tirzepatide) losartan 50 mg tablet 50 mg PO DAILY #90 tabs 02/22/25 03/08/25 Rx clobetasol 0.05 % topical cream 1 applic topical BID #30 grams 03/04/25 03/08/25 Rx valacyclovir 1 gram tablet 1,000 mg PO TID #21 tabs 03/04/25 03/08/25 Rx Laboratory Tests 03/19/25 07:21 POC Capillary Glucose 122 H mg/dl (65-105) Patient hx anesthesia problems: none Family hx anesthesia problems: none Results Review: All pre-operative results and documents have been reviewed as part of the pre-operative evaluation. [facility] Past Medical History Medical History History of renal carcinoma History of kidney stones Hyperlipidemia Gastroesophageal reflux disease Morbid obesity Essential (primary) hypertension Diabetes mellitus Surgical History Surgical History History of laparoscopic appendectomy Diagnostic laparoscopy, laparoscopic appendectomy 01/13/24. Negative for appendicitis. History of oophorectomy, unilateral History of renal stent History of bariatric surgery (2020) Gastric sleeve. History of cholecystectomy History of partial nephrectomy Family History Family History Mother Heart murmur Hypertension Thyroid condition Father Pancreatic cancer Acute myocardial infarction Heart disease Sibling Hypertension Social History Social History Social History: Surrogate medical decision maker: iMtch Qiu, spouse. Code status: Full code. Smoking status: Never smoker Second hand tobacco smoke exposure: No Alcohol intake: current Drinks per week: 1 Alcohol use details: social Substance use: never Substance use type: does not use Do You Feel Safe in your Home?: Yes Lack of Transportation: No Lack of Food: Never True Current Housing: I Have Housing Concerned About Future Housing: No Difficulty Paying Gas/Electric Bills: No Difficulty Paying for Meds: No Currently Unemployed: No Education: High School Diploma/GED Difficulty w/ Childcare or Family Care: No Living arrangements: with family Occupation/Education: occupation Gender identity (if verbalized by the patient): Female Sexual Orientation (if Verbalized by the Patient): Straight or Heterosexual Spiritual care concerns: No Anes - Eval Final PreProcedure Day of Procedure 03/19/25 08:10 Patient weight: obese Lungs: normal air movement Airway: Mallampati scale class II Neurological: alert and oriented Last oral intake: >/= 8 hours ASA classification: III Emergent: no Anesthetic plan: proceed Anesthesia type and monitoring: general ETT and standard monitoring Results Review: All pre-operative results and documents have been reviewed as part of the pre-operative evaluation. HTN, hyperlipidemia, DM, BMI 37, hx of bariatric sx in the past. Informed Consent: The patient's anesthetic plan and its attendant risks and benefits were discussed with the patient/family/POA. Questions were solicited and answers provided to the satisfaction of the patient/family/POA.
--- NOTE | 2025-03-19 08:27 | WPDHPUPDATE1 ---
History and Physical Update Update Date/Time: 03/19/25 08:27 History and Physical has been reviewed, including an updated exam of the patient. There are NO changes in the patient's condition. Risks, benefits, and alternatives have been discussed and questions answered. Patient agrees to proceed with procedure.
--- NOTE | 2025-03-19 10:38 | W.PM.PROC2 ---
Procedure Note - Detailed Date of Procedure 03/19/25 Pre-op Diagnosis Pelvic Pain Post-op Diagnosis Same (Adhesions, suspicious ovary) Procedure Performed Diagnostic laparoscopy, adhesiolysis-1 hour Surgeon Gerhard Grimaldo MD Anesthesia General Indications Pelvic pain Findings Left ovary had a suspicious appearance. It was nodular, cystic and discolored. There was marked adhesions around the ovary. There was adhesions throughout the pelvis. The adhesions involved the small large intestine. Print was adherent to the pelvic sidewalls in the distal pelvis. Description of Procedure The patient was taken to the operating room. She was prepped and draped in the dorsal lithotomy position after induction general anesthesia. A 5 mm incision was made with a scalpel on the abdominal skin in the left upper quadrant of the abdomen. A 5 mm trocar was inserted into the intra-abdominal cavity under direct visualization the scope. In the same fashion a 11 mm left lower quadrant trocar was inserted and a 11 mm infraumbilical trocar was inserted. Adhesiolysis was performed for 1 hour. Removal the left ovary required adhesiolysis. Separation the intestine from the anterior pelvic wall and distal pelvis required adhesiolysis. The infundibulopelvic ligament was isolated, cauterized, transected. The area around the ovary was dissected with blunt dissection sharp dissection and cautery. The ovaries placed in endobag and taken out the left lower quadrant trocar site. The pelvis was irrigated. The pneumoperitoneum was reduced. The trocars were removed. Skin was closed with subcuticular 4 micro. The patient's incisions were covered with Dermabond. She was taken recovery room in stable condition. Sponge lap and needle counts were correct x2. Complications No immediate complications Condition Stable Disposition Same day
[2025-03-19] MEDS: oxyCODONE HCL (*CRX) 5 MG TAB IR PO (11:25)
[2025-03-19 15:56] LABS: Glucose Point of Care 155 mg/dl (65-105)
== END 2025-03-19 11:53 | disposition home or self-care (01) ==
PROVIDERS: PCP Family Medicine; Visit Provider Obstetrics & Gynecology
PROC: (CPT 49320; principal; 2025-03-19 08:30)
DX: N83.292 Other ovarian cyst, left side (principal); N73.6 Female pelvic peritoneal adhesions (postinfective); G89.18 Other acute postprocedural pain; K21.9 Gastro-esophageal reflux disease without esophagitis; E11.9 Type 2 diabetes mellitus without complications; E78.00 Pure hypercholesterolemia, unspecified; I10 Essential (primary) hypertension; E66.9 Obesity, unspecified; Z68.37 Body mass index [BMI] 37.0-37.9, adult; Z79.84 Long term (current) use of oral hypoglycemic drugs; Z79.85 Long-term (current) use of injectable non-insulin antidiabetic drugs; Z98.890 Other specified postprocedural states; Z98.84 Bariatric surgery status; Z90.49 Acquired absence of other specified parts of digestive tract; Z96.0 Presence of urogenital implants; Z87.442 Personal history of urinary calculi; Z85.528 Personal history of other malignant neoplasm of kidney; Z80.3 Family history of malignant neoplasm of breast; Z80.0 Family history of malignant neoplasm of digestive organs; Z82.49 Family history of ischemic heart disease and other diseases of the circulatory system
CPT/HCPCS: 58660; 82948; 88305; A9270; J0330; J1100; J1885; J2003; J2250; J2270; J2405; J2704; J3010; J7120

== ENCOUNTER 2025-04-08 09:11 | Outpatient (CLI) | payer OTHER, SELFPAY ==
--- OUTSIDE RECORDS SUMMARY | 2025-04-08 09:30 | XMS_ITS | Clinical Summary ---
Author Organization [facility] Address [address] [place] [address] Care Team Providers Care Mower Sharpener Name Role Phone Umesh Anderson MD Primary Care Provider [phone] Allergies No known active allergies Surgical History Surgery Date Site/Laterality Comments [place] DELIVERY ONLY Section - (Added by TW Conv) [place] TOTAL ABDOMINAL HYSTERECT W/WO RMVL TUBE OVARY Hysterectomy - (Added by TW Conv) [place] CHOLECYSTECTOMY Cholecystectomy - (Added by TW Conv) [...] on file Legal Sex Female 11:21 AM DRAPERY COUNSELOR Gender Identity Not on file Sexual Orientation Not on file Obstetrics History Last Filed Vital Signs Vital Sign Reading Time Taken Comments Blood Pressure 147/87 12/20/2014 9:27 AM DRAPERY COUNSELOR Pulse 95 12/20/2014 9:27 AM DRAPERY COUNSELOR Temperature - - Respiratory Rate - - Oxygen Saturation 96% 12/20/2014 8:40 AM DRAPERY COUNSELOR Inhaled Oxygen Concentration - - Weight 109.8 kg (241 lb 15.6 oz) 12/18/2014 7:29 AM DRAPERY COUNSELOR Height 152.4 cm (5') 12/18/2014 7:29 AM DRAPERY COUNSELOR Body Mass Index 47.26 12/18/2014 7:29 AM DRAPERY COUNSELOR Plan of Treatment Not on file Insurance [facility] H[facility]PPO Address: [address] [address] [place] [address] Care Teams Mower Sharpener Relationship Specialty Start Date End Date Umesh Anderson MD [address] [place] [id number] PCP - General 05/13/17
--- OUTSIDE RECORDS SUMMARY | 2025-04-08 09:30 | XMS_ITS | Referral Summary ---
Author Organization [facility] Address [address] [place] [address] Care Team Providers Care Humidifier Attendant Name Role Phone Umesh Anderson MD Primary Care Provider [phone] Allergies No known active allergies Social History Tobacco Use Types Packs/Day Years Used Date Smoking Tobacco: Never Personal Safety Answer Date Recorded Getting School Help Needed Not on file 01/08 Comments Unknown Sex and Gender Information Value Date Recorded Sex Assigned at Not on file Legal Sex Female 11:21 AM PLAY THERAPIST Gender Identity Not on file Sexual Orientation Not on file Last Filed Vital Signs Vital Sign Reading Time Taken Comments Blood Pressure 147/87 12/20/2014 9:27 AM PLAY THERAPIST Pulse 95 12/20/2014 9:27 AM PLAY THERAPIST Temperature - - Respiratory Rate - - Oxygen Saturation 96% 12/20/2014 8:40 AM PLAY THERAPIST Inhaled Oxygen Concentration - - Weight 109.8 kg (241 lb 15.6 oz) 12/18/2014 7:29 AM PLAY THERAPIST Height 152.4 cm (5') 12/18/2014 7:29 AM PLAY THERAPIST Body Mass Index 47.26 12/18/2014 7:29 AM PLAY THERAPIST Plan of Treatment Not on file Insurance [facility] H[facility]/PPO Address: [address] [address] [place] [address] Care Teams Humidifier Attendant Relationship Specialty Start Date End Date Umesh Anderson MD [address] [place] [id number] PCP - General 05/13/17
--- OUTSIDE RECORDS SUMMARY | 2025-04-08 09:30 | XMS_ITS | Clinical Summary ---
Author Organization [facility] Address [address] [place] [address] Care Team Providers Care Frit Maker Name Role Phone Umesh Anderson MD Primary Care Provider [phone] Source Comments [facility],non-owned Affiliates and Associated Physician Practices is amultiple site organization consisting of ambulatory clinics and hospital sitesin [place], [place], [place] and [place]. This disclosure is being madepursuant to the Care Everywhere program and may not contain all information available regarding this patient. Last updated 18.[facility] Allergies No known active allergies Medications * [...] PM CDT Legal Sex Female 6:18 AM LINE WELDER Gender Identity Female 03/30/2021 2:33 PM CDT [...] 1:38 PM CDT Height 149.9 cm (4' 11) 06/10/2022 1:38 PM CDT Body Mass Index [...] patient's age to complete this topic Insurance [facility] Address: [facility] [id number] [place] [phone] SELF PAY NO INSURANCE Member Subscriber Plan / Payer (Ef fective for All Dates) Name:Carlito Qiu Member ID:Not on file Relation to Subscriber:Not on file Name:CARLITO QIU Subscriber ID:Not on file (Home) Address: [address] [place] [phone] Payer ID:Not on file Group ID:Not on file Type:Self Pay Address: [facility] Member Subscriber Plan / Payer (Ef fective 2025-Present) Name:Carlito Qiu Relation to Subscriber:Spouse Name:BROCK QIU Date of :1972 (Home) Address: [address] [place] [phone] Payer ID:[id number] (NAIC) Type:PPO Address: [address] SELF PAY NO INSURANCE Member Subscriber Plan / Payer (Ef fective for All Dates) Name:Carlito Qiu Member ID:Not on file Relation to Subscriber:Not on file Name:CARLITO QIU Subscriber ID:Not on file Address: [address] [place], [place] [id number] Payer ID:Not on file Group ID:Not on file Type:Self Pay Address: [facility] SELF PAY NO INSURANCE Member Subscriber Plan / Payer (Ef fective for All Dates) Name:Carlito Qiu Member ID:Not on file Relation to Subscriber:Not on file Name:CARLITO QIU Subscriber ID:Not on file Address: [address] [place] [phone] Payer ID:Not on file Group ID:Not on file Type:Self Pay Address: [facility] SELF PAY NO INSURANCE Member Subscriber Plan / Payer (Ef fective for All Dates) Name:LazarusCarlito Member ID:Not on file Relation to Subscriber:Not on file Name:CARLITO QIU Subscriber ID:Not on file Address: [address] [place] [address] Payer ID:Not on file Group ID:Not on file Type:Self Pay Address: [facility] SELF PAY NO INSURANCE Member Subscriber Plan / Payer (Ef fective for All Dates) Name:Carlito Qiu Member ID:Not on file Relation to Subscriber:Not on file Name:CARLITO QIU Subscriber ID:Not on file Address: [address] [place] [address] Payer ID:Not on file Group ID:Not on file Type:Self Pay Address: [facility] SELF PAY NO INSURANCE Member Subscriber Plan / Payer (Ef fective for All Dates) Name:Lazarus Carlito Allen Member ID:Not on file Relation to Subscriber:Not on file Name:CARLITO QIU Subscriber ID:Not on file Address: [address] [place] [address] Payer ID:Not on file Group ID:Not on file Type:Self Pay Address: [facility] Advance Directives * Full Code (Latest Code Status on File) Date Activated Date Inactivated Comments 02/23/2021 12:24 PM 02/24/2021 7:44 PM Care Teams Frit Maker Relationship Specialty Start Date End Date Umesh Anderson MD [address] [place] [id number] PCP - General Family Medicine 12/11/19
[2025-04-08 09:45] LABS: Alanine Aminotransferase 25 U/L (6-35); Albumin Level 4.4 g/dL (3.5-5.1); Alkaline Phosphatase 90 U/L (38-126); Anion Gap 13 mmol/L (4-12); Aspartate Amino Transferase 26 U/L (14-36); Bilirubin,Total 0.9 mg/dL (0.2-1.3); Blood Urea Nitrogen 13 mg/dL (7-17); Calcium 9.5 mg/dL (8.4-10.2); Carbon Dioxide 23 mmol/L (22-30); Chloride 107 mmol/L (98-107); Cholesterol 182 mg/dL (0-200); Estimated Glomerular Filt Rate > 60; Glucose 113 mg/dL (65-110); HDL Direct 73 mg/dL; Potassium 3.9 mmol/L (3.4-5.0); Sodium 143 mmol/L (137-145); Triglycerides 168 mg/dL (<150)
[2025-04-08 09:52] LABS: Hemoglobin A1C 6.8 % (<5.7)
[2025-04-08 09:56] LABS: LDL Cholesterol Direct 69 mg/dL
== END 2025-04-08 09:12 | disposition home or self-care (01) ==
LOC: ANHLAB 09:14
PROVIDERS: PCP Family Medicine; Visit Provider Family Medicine
DX: E11.65 Type 2 diabetes mellitus with hyperglycemia (principal); I10 Essential (primary) hypertension; E78.5 Hyperlipidemia, unspecified
CPT/HCPCS: 36415; 80053; 80061; 83036

== ENCOUNTER 2025-05-27 10:59 | Outpatient (CLI) | payer OTHER, SELFPAY ==
--- NOTE | ~2025-05-27 | MR_ITS ---
EXAMINATION: MR hip RT wo con DATE: 05/27/2025 11:48 INDICATION: Right hip pain TECHNIQUE: Magnetic resonance imaging (MRI) of the right hip was performed without intravenous contr ast. Sequences included full-field axial PD-weighted FS FSE and T1-weighted FSE, coronal of the pelvi s with PD-weighted FS FSE, T2-weighted FSE and T1-weighted FSE, small field of view of the right hip with axial PD-weighted FS FSE, sagittal PD-weighted FS FSE, coronal PD-weighted FS FSE and coronal T2 weighted FSE. Additional radial T1-weighted FGR oriented orthogonal to the acetabular rim were obt ained for evaluation of the labrum. COMPARISON: None FINDINGS: Bones/labrum/cartilage: Alignment is normal. No fracture, avascular necrosis or pathologic marrow replacing process. Mild os teoarthritis at the right hip. Degenerative tearing of the anterosuperior right acetabular labrum. Mo derate bilateral facet osteoarthritis at L4-L5 and severe bilateral facet osteoarthritis at L5-S1. Fluid: Symmetric physiologic amount of fluid within both hip joints. Soft tissues: Normal and symmetric muscle bulk and signal in the pelvis and visualized proximal thighs. The bilater al iliopsoas and gluteal tendons are normal. Mild right ischial bursitis. There is attenuation of the proximal right semimembranosus tendon which more distally appears asymmetrically thickened and with mild increased signal without surrounding edema consistent with likely related to chronic partial tea r and distal retraction and scarring of the tendon. The remaining bilateral proximal hamstring tendon s are normal. The uterus is not identified and has likely been surgically resected. Limited evalua tion of visceral organs of the pelvis is otherwise unremarkable. No pathologically enlarged pelvic/i nguinal lymphadenopathy. IMPRESSION: 1. Mild osteoarthritis at the right hip with degenerative tearing of the anterosuperior right acetabu lar labrum. 2. Mild right ischial bursitis with chronic partial tear and distal retraction of the right semimembr anosus tendon. Reviewed, dictated and finalized at location A. IMPRESSION: 1. Mild osteoarthritis at the right hip with degenerative tearing of the senthil superior right acetabular labrum. 2. Mild right ischial bursitis with chronic partial tear and distal retraction of the right semimembranosus tendon.
== END 2025-05-27 11:00 | disposition home or self-care (01) ==
LOC: MICIMG 11:01
PROVIDERS: PCP Orthopaedic Surgery; Visit Provider Family Medicine
DX: M16.11 Unilateral primary osteoarthritis, right hip (principal)
CPT/HCPCS: 73721

== ENCOUNTER 2025-08-05 12:47 | Emergency (ER) | payer OTHER, SELFPAY ==
--- NOTE | ~2025-08-05 | CT_ITS ---
EXAMINATION: CT abdomen pelvis wo con DATE: 08/05/2025 14:39 INDICATION: Flank pain. TECHNIQUE: Computed tomography (CT) of the abdomen and pelvis was performed without intravenous contrast. Automated exposure control and iterative reconstruction technique were employed. The dose-length product was 479.70 mGy-cm. COMPARISON: CT abdomen and pelvis 10/08/2024 FINDINGS: The visualized portions of the lung bases demonstrate mild atelectasis. There is a 3 mm nodule in right upper lobe, likely benign. No pleural effusion. The heart size is normal. No pericardial effusion. There are changes of gastric sleeve procedure. There is diffuse hepatic steatosis. There i s a 2.0 cm cyst in the spleen. The pancreas and adrenal glands are normal. There is a 4 mm stone in right kidney. There is moderate atrophy of left kidney. There are changes of partial left nephrectomy. There is diverticulosis of the colon without evidence of diverticulitis. There are no dilated loops of bowel. The appendix is not visualized. There are no pathologically enlarged lymph nodes. There is no ascites. There is severe lumbar spondylosis and moderate thoracic spondylosis. IMPRESSION: 1. Diffuse hepatic steatosis. 2. Small nonobstructing right kidney stone. Reviewed, dictated and finalized at location E.
--- OUTSIDE RECORDS SUMMARY | 2025-08-05 12:52 | XMS_ITS | Clinical Summary ---
Author Organization [facility] Address [address] [place] [address] Care Team Providers Care Sheet Metal Lay Out Worker Name Role Phone Umesh Anderson MD Primary Care Provider [phone] Source Comments [facility],non-owned Affiliates and Associated Physician Practices is amultiple site organization consisting of ambulatory clinics and hospital sitesin [place], [place], [place] and [place]. This disclosure is being madepursuant to the Care Everywhere program and may not contain all information available regarding this patient. Last updated 18.[facility] Allergies No known active allergies Medications * [...] PM CDT Legal Sex Female 6:18 AM HOT FRAME TENDER Gender Identity Female 03/30/2021 2:33 PM CDT [...] - COLON CA SCREENING 1974 MAMMOGRAM 1974 HIV SCREENING 1989 HEPATITIS C SCREENING 12/02/1992 DTAP/TDAP/TD VACCINES (1 - Tdap) 1993 HEPATITIS B VACCINE (1 of 3 - 19+ 3-dose series) 1993 DEPRESSION SCREENING 11/07/2024 PNEUMOCOCCAL VACCINE 50+ (1 of 1 - PCV) 2024 ZOSTER VACCINE (1 of 2) 2024 COVID-19 VACCINE (1 - 2023-2 5 season) 2025 INFLUENZA VACCINE (#1) 2025 HIB VACCINE Aged Out No longer [...] patient's age to complete this topic Insurance [id number] [place] [address] CARE SELF PAY NO INSURANCE Member Subscriber Plan / Payer (Ef fective for All Dates) Name:Carlito Qiu Member ID:Not on file Relation to Subscriber:Not on file Name:CARLITO QIU Subscriber ID:Not on file (Home) Address: [address] [place] [phone] Payer ID:Not on file Group ID:Not on file Type:Self Pay Address: [facility] SELF PAY NO INSURANCE Member Subscriber Plan / Payer (Ef fective for All Dates) Name:Carlito Qiu Member ID:Not on file Relation to Subscriber:Not on file Name:CARLITO QIU Subscriber ID:Not on file Address: [address] [place] [phone] Payer ID:Not on file Group ID:Not on file Type:Self Pay Address: [facility] SELF PAY NO INSURANCE Member Subscriber Plan / Payer (Ef fective for All Dates) Name:Carlito Qiu Member ID:Not on file Relation to Subscriber:Not on file Name:CARLITO QIU Subscriber ID:Not on file Address: [address] [place] [phone] Payer ID:Not on file Group ID:Not on file Type:Self Pay Address: [facility] SELF PAY NO INSURANCE Member Subscriber Plan / Payer (Ef fective for All Dates) Name:Carlito Qiu Member ID:Not on file Relation to Subscriber:Not on file Name:CARLITO QIU Subscriber ID:Not on file Address: [address] [place] [address] Payer ID:Not on file Group ID:Not on file Type:Self Pay Address: [facility] SELF PAY NO INSURANCE Member Subscriber Plan / Payer (Ef fective for All Dates) Name:Carlito Qiu Member ID:Not on file Relation to Subscriber:Not on file Name:CARLITO QIU Subscriber ID:Not on file Address: [address] [place] [address] Payer ID:Not on file Group ID:Not on file Type:Self Pay Address: [facility] SELF PAY NO INSURANCE Member Subscriber Plan / Payer (Ef fective for All Dates) Name:Carlito Qiu Member ID:Not on file Relation to Subscriber:Not on file Name:CARLITO QIU Subscriber ID:Not on file Address: [address] [place] [address] Payer ID:Not on file Group ID:Not on file Type:Self Pay Address: [facility] Advance Directives * Full Code (Latest Code Status on File) Date Activated Date Inactivated Comments 02/23/2021 12:24 PM 02/24/2021 7:44 PM Care Teams Sheet Metal Lay Out Worker Relationship Specialty Start Date End Date Umesh Anderson MD [address] [place] [id number] PCP - General Family Medicine 12/11/19
--- OUTSIDE RECORDS SUMMARY | 2025-08-05 12:52 | XMS_ITS | Clinical Summary ---
Author Organization [facility] Address [address] [place] [address] Care Team Providers Care Rn Chronic Name Role Phone Umesh Anderson MD Primary Care Provider [phone] Allergies No known active allergies Surgical History Surgery Date Site/Laterality Comments [place] DELIVERY ONLY Section - (Added by TW Conv) [place] TOTAL ABDOMINAL HYSTERECT W/WO RMVL TUBE OVARY Hysterectomy - (Added by TW Conv) [place] CHOLECYSTECTOMY Cholecystectomy - (Added by TW Conv) [...] on file Legal Sex Female 11:21 AM COPYING MACHINE MECHANIC Gender Identity Not on file Sexual Orientation Not on file Obstetrics History Last Filed Vital Signs Vital Sign Reading Time Taken Comments Blood Pressure 147/87 12/20/2014 9:27 AM COPYING MACHINE MECHANIC Pulse 95 12/20/2014 9:27 AM COPYING MACHINE MECHANIC Temperature - - Respiratory Rate - - Oxygen Saturation 96% 12/20/2014 8:40 AM COPYING MACHINE MECHANIC Inhaled Oxygen Concentration - - Weight 109.8 kg (241 lb 15.6 oz) 12/18/2014 7:29 AM COPYING MACHINE MECHANIC Height 152.4 cm (5') 12/18/2014 7:29 AM COPYING MACHINE MECHANIC Body Mass Index 47.26 12/18/2014 7:29 AM COPYING MACHINE MECHANIC Plan of Treatment Health Maintenance Due Date Last Done Comments Breast Cancer Screening-Mammogram 1974 Cervical Cancer Screening 1974 Colon Cancer Screening-Colonoscopy 1974 Depression Screening 1974 Hepatitis C Screening 1974 DTaP/Tdap/Td Vaccine (1 - Tdap) 1985 Hepatitis B Screening 1992 Regular Well Visit/Exam 18-64 1992 Zoster Vaccine (1 of 2) 2024 Influenza Vaccine (#1) 2025 Pneumococcal vaccine <65 Aged Out No longer eligible based on patient's age to complete this topic Insurance [facility] Care Teams Rn Chronic Relationship Specialty Start Date End Date Umesh Anderson MD [address] [place] [id number] PCP - General 05/13/17
[2025-08-05 12:56] VITALS: BP 140/105; PULSE 87; RESP 20; TEMP 36.5; O2SAT 99
[2025-08-05] MEDS: SODIUM CHLORIDE 0.9% IV 1,000 ML 999 ML IV CONT (13:09)
[2025-08-05] MEDS: ONDANSETRON INJ 4 MG/2 ML VIAL IV PUSH (13:10)
[2025-08-05] MEDS: KETOROLAC 30 MG/ML VIAL (*BKC) IV PUSH (13:10)
[2025-08-05 13:15] VITALS: BP 147/101; PULSE 77; RESP 18; O2SAT 95
--- NOTE | 2025-08-05 13:16 | ED_ITS ---
HPI - Abdominal Pain General Chief Complaint: Abdominal Pain Stated Complaint: right flank pain, vomiting, hx kidney stones Time Seen by Provider: 08/05/25 12:53 History of Present Illness HPI narrative: Patient is a 49-year-old female who presents ER with right-sided flank pain. Began this morning. Radiates into her lower abdomen and vagina. Associated with nausea vomiting. No urinary frequency urgency or dysuria. No vaginal bleeding or vaginal discharge. Has history kidney stone in the past and she is concerned that she is passing 1 at this time. She has taken no home medications. Related Data Allergies Allergy/AdvReac Type Severity Reaction Status Date / Time No Known Allergies Allergy Verified 08/05/25 12:55 Review of Systems 2 Review of Systems: All systems reviewed & are unremarkable except as noted in HPI and below Constitutional: Constitutional: Reports no additional constitutional complaints Cardiovascular: Cardiovascular: Reports no additional cardiovascular complaints Respiratory: Respiratory: Reports no additional respiratory complaints [facility] Past Medical History Medical History History of renal carcinoma History of kidney stones Hyperlipidemia Gastroesophageal reflux disease Morbid obesity Essential (primary) hypertension Diabetes mellitus Surgical History Surgical History History of laparoscopic appendectomy Diagnostic laparoscopy, laparoscopic appendectomy 01/13/24. Negative for appendicitis. History of oophorectomy, unilateral History of renal stent History of bariatric surgery (2020) Gastric sleeve. History of cholecystectomy History of partial nephrectomy Family History Family History Mother Heart murmur Hypertension Thyroid condition Father Pancreatic cancer Acute myocardial infarction Heart disease Sibling Hypertension Social History Social History Social History: Surrogate medical decision maker: Mitch Qiu, spouse. Code status: Full code. Smoking status: Never smoker Second hand tobacco smoke exposure: No Alcohol intake: current Drinks per week: 1 Alcohol use details: social Substance use: never Substance use type: does not use Do You Feel Safe in your Home?: Yes Lack of Transportation: No Lack of Food: Never True Current Housing: I Have Housing Concerned About Future Housing: No Difficulty Paying Gas/Electric Bills: No Difficulty Paying for Meds: No Currently Unemployed: No Education: High School Diploma/GED Difficulty w/ Childcare or Family Care: No Living arrangements: with family Occupation/Education: occupation Gender identity (if verbalized by the patient): Female Sexual Orientation (if Verbalized by the Patient): Straight or Heterosexual Spiritual care concerns: No Exam 2 Narrative: GENERAL: Well-appearing, well-nourished, and in no acute distress. HEAD: Normocephalic, atraumatic. ENT: Mucous membranes moist. CHEST: Clear to auscultation. No respiratory distress. HEART: Regular rate and rhythm. Normal peripheral pulses. ABDOMEN: Soft, mild right sided tenderness w/o guarding, nondistended. Mild right CVA tenderness. EXTREMITIES: Normal range of motion. No edema. SKIN: Warm, dry, no rash. NEURO: Alert and oriented x3. PSYCH: Normal mood and affect. Course Course Emergency Course: Patient resting comfortably. She did pass a stone in her urine sample. CT without any obstructing urolithiasis. UA with some blood. Patient received Toradol for pain. Vital Signs Vital signs: Vital Signs Temperature 97.7 F 08/05/25 12:56 Pulse Rate 87 08/05/25 12:56 Respiratory Rate 20 08/05/25 12:56 Blood Pressure 140/105 H 08/05/25 12:56 Pulse Oximetry 99 08/05/25 12:56 Oxygen Delivery Room Air 08/05/25 12:56 Temperature 97.7 F 08/05/25 12:56 Pulse Rate 74 08/05/25 13:45 Respiratory Rate 18 08/05/25 13:45 Blood Pressure 140/93 H 08/05/25 13:45 Pulse Oximetry 96 08/05/25 13:45 Oxygen Delivery Room Air 08/05/25 12:56 MDM - Abdominal Pain Lab Data 08/05/25 13:09 08/05/25 13:09 Labs: Lab Results 08/05/25 08/05/25 Range/Units 13:09 13:40 WBC 8.4 (4.5-10.0) K/mm3 RBC 5.02 (4.2-5.4) M/mm3 Hgb 14.4 (12.0-15.0) g/dL Hct 44.4 (37.0-47.0) % MCV 88.4 (80-100) fl MCH 28.7 (26-34) pg MCHC 32.4 (32-36) g/dl RDW 13.7 (11.5-14.5) % Plt Count 313 (150-375) k/mm3 MPV 11.1 H (7.4-10.4) fl Immature Gran % (Auto) 0.2 (0-0.5) % Neut % (Auto) 71.1 (45.5-73.1) % Lymph % (Auto) 18.6 (18.3-44.2) % [place] % (Auto) 7.1 (2.6-8.5) % Eos % (Auto) 2.2 (0-4.4) % Baso % (Auto) 0.8 (0.2-1.2) % Lymph # (Auto) 1.55 (0.9-3.2) K/mm3 [place] # (Auto) 0.6 (0.1-0.6) K/mm3 Eos # (Auto) 0.2 (0-0.3) K/mm3 Baso # (Auto) 0.1 (0.0-0.1) K/mm3 Abs Immat Gran (auto) 0.02 (0.00-0.031) K/mm3 Absolute Neuts (auto) 5.9 (1.3-6.7) K/mm3 Absolute Nucleated RBC 0.000 (0.0-0.012) K/mm3 Nucleated RBC % 0.0 (0.0-0.2) % Sodium 140 (137-145) mmol/L Potassium 4.2 (3.4-5.0) mmol/L Chloride 103 (98-107) mmol/L Carbon Dioxide 25 (22-30) mmol/L Anion Gap 12 (4-12) mmol/L BUN 10 (7-17) mg/dL Creatinine 0.64 L (0.7-1.0) mg/dL Estim Creat Clear Calc Not Reportable Estimated GFR > 60 (59 - ) Glucose 127 H (65-110) mg/dL Calcium 9.6 (8.4-10.2) mg/dL Total Bilirubin 0.9 (0.2-1.3) mg/dL AST 21 (14-36) U/L ALT 22 (6-35) U/L Alkaline Phosphatase 108 (38-126) U/L Total Protein 8.1 (6.3-8.2) g/dL Albumin 4.7 (3.5-5.1) g/dL Urine Color Yellow (Yellow) Urine Appearance Clear (Clear) Urine pH 5.0 (5.0-9.0) Ur Specific [place] 1.037 H (1.001-1.035) Urine Protein Trace (Negative) mg/dL Urine Glucose (UA) 3+ H (Negative) mg/dL Urine Ketones 1+ H (Negative) mg/dL Ur Blood (Man) 3+ H (Negative) Urine Nitrate Negative (Negative) Urine Bilirubin Negative (Negative) Urine Urobilinogen 1.0 (<2.0) mg/dL Leukocyte Esterase Rfl Negative (Negative) JOSÉ/UL Urine RBC 21-50 H (0-2) /hpf Urine WBC 0-5 (0-3) /hpf Ur Squamous Epith Cells None seen (Few) /hpf Urine Bacteria None seen /hpf Urine Casts 0-2 POC Urine HCG, Qual Negative (Negative) Imaging Data Radiologist's impression: ITS Impressions Abdomen/Pelvis CT 08/05/25 14:40 IMPRESSION: 1. Diffuse hepatic steatosis. 2. Small nonobstructing right kidney stone. Discharge Plan Discharge Clinical Impression: Kidney stone Patient Disposition: Home Condition: Stable Instructions: Kidney Stones (ED) Additional Instructions: Return to the emergency department if you develop severe abdominal pain, severe nausea and vomiting to the point where you are unable to keep down fluids, if you develop chest pain or difficulty breathing, blood in your stool, dizziness or fainting, or if you develop any other new or concerning symptoms as these could be signs of more serious medical illness. Try to stay well hydrated. Patient Language: Urugu[place] Prescriptions: No Action valacyclovir 1 gram tablet 1,000 mg PO TID Qty: 21 0RF clobetasol 0.05 % cream 1 applic topical BID Qty: 30 0RF hydrocodone-acetaminophen 5-325 mg tablet 1 - 2 tablet PO Q6H PRN (Reason: pain) Qty: 14 0RF omeprazole 40 mg capsule,delayed release(DR/EC) 40 mg PO DAILY Qty: 90 1RF amlodipine [Norvasc] 5 mg tablet 5 mg PO DAILY Qty: 90 1RF atorvastatin 40 mg tablet See Rx Instructions .ROUTE .COMPLEX Qty: 90 1RF Dose Instruction: TAKE 1 TABLET BY MOUTH EVERY DAY Rx Instructions: TAKE 1 TABLET BY MOUTH EVERY DAY metformin 850 mg tablet 850 mg PO BID Qty: 180 1RF liraglutide [Victoza 3-Francisco] 0.6 mg/0.1 mL (18 mg/3 mL) pen injector 1.2 mg subcut DAILY Qty: 9 0RF (DME) pen needle, diabetic [1st Tier Unifine Pentips Plus] 31 gauge x 3/16 needle See Rx Instructions .Route Qty: 100 0RF Rx Instructions: As directed losartan 50 mg tablet 50 mg PO DAILY Qty: 90 1RF Jardiance 25 mg tablet 25 mg PO DAILY Qty: 90 1RF Follow-up/Referrals: Fermin Coronel MD [Primary Care Provider, Orthopedics]
[2025-08-05 13:26] LABS: Hematocrit 44.4 % (37.0-47.0); Hemoglobin 14.4 g/dL (12.0-15.0); Immature Granulocyte Percent A 0.2 % (0-0.5); Lymphocytes Absolute Auto 1.55 K/mm3 (0.9-3.2); Mean Corpuscular HGB Conc 32.4 g/dl (32-36); Mean Corpuscular Hemoglobin 28.7 pg (26-34); Mean Corpuscular Volume 88.4 fl (80-100); Nucleated Red Blood Cells Absolute Auto 0.000 K/mm3 (0.0-0.012); Nucleated Red Blood Cells Perc 0.0 % (0.0-0.2); Platelet Count Result 313 k/mm3 (150-375); Red Blood Count 5.02 M/mm3 (4.2-5.4); White Blood Count 8.4 K/mm3 (4.5-10.0)
[2025-08-05 13:41] LABS: Add Urine Microscopic? YES; Appearance Urine Clear (Clear); Glucose Urine UA 3+ mg/dL (Negative); Leukocyte Esterase Ur Negative LEU/UL (Negative); Nitrate Urine Negative (Negative); Non Pathogenic Casts 0-2; Specific Grav Ur 1.037 (1.001-1.035)
--- OUTSIDE RECORDS SUMMARY | 2025-08-05 13:42 | XMS_ITS | Clinical Summary ---
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] patient's age to complete this topic Insurance [facility] Care Teams Home Health Scheduler Relationship Specialty Start Date End Date Umesh Anderson MD [address] [place] [id number] PCP - General 05/13/17
--- OUTSIDE RECORDS SUMMARY | 2025-08-05 13:42 | XMS_ITS | Clinical Summary ---
Author Organization [facility] Address [address] [address] Care Team Providers Care Api Architect Name Role Phone Umesh Anderson MD Primary Care Provider [phone] Source Comments [facility],non-owned Affiliates and Associated Physician Practices is amultiple site organization consisting of ambulatory clinics and hospital sitesin [place], [place], [place] and [place]. This disclosure is being madepursuant to the Care Everywhere program and may not contain all information available regarding this patient. 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 Gender Identity Female 03/30/2021 2:33 PM CDT [...] patient's age to complete this topic Insurance [id number] [place] [address] CARE SELF PAY NO INSURANCE Member Subscriber Plan / Payer (Ef fective for All Dates) Name:Carlito Qiu Member ID:Not on file Relation to Subscriber:Not on file Name:CARLITO QIU Subscriber ID:Not on file (Home) Address: [address] [place] [id number] Payer ID:Not on file Group ID:Not on file Type:Self Pay Address: [facility] SELF PAY NO INSURANCE Member Subscriber Plan / Payer (Ef fective for All Dates) Name:Carlito Qiu Member ID:Not on file Relation to Subscriber:Not on file Name:CARLITO QIU Subscriber ID:Not on file Address: [address] [place] [phone] Payer ID:Not on file Group ID:Not on file Type:Self Pay Address: [facility] SELF PAY NO INSURANCE Member Subscriber Plan / Payer (Ef fective for All Dates) Name:Carlito Qiu Member ID:Not on file Relation to Subscriber:Not on file Name:CARLITO QIU Subscriber ID:Not on file Address: [address] [place] [phone] Payer ID:Not on file Group ID:Not on file Type:Self Pay Address: [facility] SELF PAY NO INSURANCE Member Subscriber Plan / Payer (Ef fective for All Dates) Name:Carlito Qiu Member ID:Not on file Relation to Subscriber:Not on file Name:CARLITO QIU Subscriber ID:Not on file Address: [address] [place] [address] Payer ID:Not on file Group ID:Not on file Type:Self Pay Address: [facility] SELF PAY NO INSURANCE Member Subscriber Plan / Payer (Ef fective for All Dates) Name:Carlito Qiu Member ID:Not on file Relation to Subscriber:Not on file Name:CARLITO QIU Subscriber ID:Not on file Address: [address] [place] [address] Payer ID:Not on file Group ID:Not on file Type:Self Pay Address: [facility] C[facility] SELF PAY NO INSURANCE Member Subscriber Plan / Payer (Ef fective for All Dates) Name:Carlito Qiu Member ID:Not on file Relation to Subscriber:Not on file Name:CARLITO QIU Subscriber ID:Not on file Address: [address] [place] [address] Payer ID:Not on file Group ID:Not on file Type:Self Pay Address: [facility] Advance Directives * Full Code (Latest Code Status on File) Date Activated Date Inactivated Comments 02/23/2021 12:24 PM 02/24/2021 7:44 PM Care Teams Api Architect Relationship Specialty Start Date End Date Umesh Anderson MD [address] [place] [id number] PCP - General Family Medicine 12/11/19
[2025-08-05 13:43] LABS: BEDSIDEPREGUCG Negative (Negative)
[2025-08-05 13:45] VITALS: BP 140/93; PULSE 74; RESP 18; O2SAT 96
[2025-08-05 13:57] LABS: Alanine Aminotransferase 22 U/L (6-35); Albumin Level 4.7 g/dL (3.5-5.1); Alkaline Phosphatase 108 U/L (38-126); Anion Gap 12 mmol/L (4-12); Aspartate Amino Transferase 21 U/L (14-36); Bilirubin,Total 0.9 mg/dL (0.2-1.3); Blood Urea Nitrogen 10 mg/dL (7-17); Calcium 9.6 mg/dL (8.4-10.2); Carbon Dioxide 25 mmol/L (22-30); Chloride 103 mmol/L (98-107); Estimated Glomerular Filt Rate > 60; Glucose 127 mg/dL (65-110); Potassium 4.2 mmol/L (3.4-5.0); Sodium 140 mmol/L (137-145); Total Protein 8.1 g/dL (6.3-8.2)
== END 2025-08-05 15:50 | disposition home or self-care (01) ==
PROVIDERS: Emergency Provider Emergency Medicine; PCP Orthopaedic Surgery
DX: N20.0 Calculus of kidney (principal); I10 Essential (primary) hypertension; E78.5 Hyperlipidemia, unspecified; E11.9 Type 2 diabetes mellitus without complications; K21.9 Gastro-esophageal reflux disease without esophagitis; Z98.84 Bariatric surgery status; Z87.442 Personal history of urinary calculi; Z85.528 Personal history of other malignant neoplasm of kidney; Z90.721 Acquired absence of ovaries, unilateral; Z90.5 Acquired absence of kidney; Z90.49 Acquired absence of other specified parts of digestive tract; Z79.84 Long term (current) use of oral hypoglycemic drugs; Z79.899 Other long term (current) drug therapy; Z79.85 Long-term (current) use of injectable non-insulin antidiabetic drugs; K76.0 Fatty (change of) liver, not elsewhere classified
CPT/HCPCS: 36415; 74176; 80053; 81001; 81025; 85025; 96361; 96374; 96375; 99284; J1885; J2405; J7030